=== PATIENT | male | born 1970 | race Hispanic/Latino ===

== ENCOUNTER 2016-10-22 16:45 | Inpatient (IN) | payer MEDICARE ==
[2016-10-22] MEDS ORDERED: D50W (25GM) IV PRN (17:54)
[2016-10-22] MEDS ORDERED: TYLENOL PO PRN (17:54)
[2016-10-22] MEDS ORDERED: DULCOLAX PR PRN (17:54)
[2016-10-22] MEDS ORDERED: SENOKOT PO PRN (17:54)
[2016-10-22] MEDS ORDERED: DUONEB 0.5 MG-3 MG/3 ML SOLN IH PRN (18:05)
[2016-10-22] MEDS ORDERED: ALUM-MAG HYDROX-SIMETH 200-200-20MG/5ML PO PRN (18:16)
[2016-10-22] MEDS ORDERED: CATAPRES-TTS PATCH TD SCH (20:00)
[2016-10-22] MEDS: LEVAQUIN PO SCH (22:27)
[2016-10-22] MEDS: FLAGYL PO SCH (22:27)
[2016-10-22] MEDS: DIFLUCAN PO SCH (22:28)
[2016-10-22] MEDS: COREG PO SCH (22:29)
[2016-10-22] MEDS: NOVOLOG SUB-Q SCH (22:30)
[2016-10-22] MEDS: HEPARIN SUB-Q SCH (22:45)
[2016-10-23 05:20] LABS: Basophils % (Auto) 0.4 % (0.0-1.8); Eosinophils % (Auto) 2.3 % (0.0-4.3); Hematocrit 25.9 % (35.5-45.6); Hemoglobin 8.4 gm/dl (11.8-15.2); Mean Corpuscular HGB Conc 32 % (32-34); Mean Corpuscular Hemoglobin 29 pg (28-32); Mean Corpuscular Volume 89 fl (84-94); Platelet Count 235 K/mm3 (140-440); Red Blood Count 2.93 M/mm3 (3.65-5.03); Red Cell Distribution Width 14.9 % (13.2-15.2); White Blood Count 7.1 K/mm3 (4.5-11.0)
[2016-10-23 05:33] LABS: Albumin 2.5 g/dL (3.9-5); Albumin/Globulin Ratio 0.5 %; BUN/Creatinine Ratio 6.05; Bilirubin,Total 0.5 mg/dL (0.1-1.2); Calcium 8.3 mg/dL (8.4-10.2); Total Protein 7.3 g/dL (6.3-8.2)
[2016-10-23] MEDS: FLAGYL PO SCH ×3 (06:40→21:28)
[2016-10-23] MEDS: NOVOLOG SUB-Q SCH ×4 (07:30→22:45)
[2016-10-23] MEDS: PROzac PO SCH (11:00)
[2016-10-23] MEDS: LASIX PO SCH (11:00)
[2016-10-23] MEDS: GLUCOTROL PO SCH ×2 (11:00→17:21)
[2016-10-23] MEDS: DIFLUCAN PO SCH (11:00)
[2016-10-23] MEDS: HEPARIN SUB-Q SCH ×2 (11:00→22:30)
[2016-10-23] MEDS: PEPCID PO SCH (11:00)
[2016-10-23] MEDS: COREG PO SCH ×2 (11:00→21:29)
[2016-10-23] MEDS: PLAVIX PO SCH (11:00)
--- NOTE | 2016-10-23 11:42 | History and Physical Report ---
History of Present Illness Date: 10/23/16 Referring Facility: [facility] Date of admission: 10/22/16 16:45 Chief Complaint: Acute respiratory Failure with hypoxia History of present illness: POST ADMISSION PHYSICIAN EVALUATION ONSET DATE: 09/30/2016 IMPAIRMENT GROUP CODE: 17.52 ETIOLOGIC DIAGNOSIS: Acute respiratory Failure with hypoxia STATUS CHANGES SINCE PREADMISSION SCREENING: PAS has been reviewed. In comparison, pt reports improved respiratory status; reports being able to remove oxygen via nasal cannula at times. He continues with generalized fatigue and functional deficits. Pt remains an appropriate candidate for IRU admission. PREVIOUS FUNCTIONAL STATUS: Independent with gait, transfers, ADLs CURRENT FUNCTIONAL STATUS: Per PAS, S/U to [facility] for ADLs, CGA 10 feet x2 with RW; therapy evaluations to be initiated on today HPI 45 y.o. male readmitted to [facility] after inpatient treatment for influenza and community acquired pneumonia. Pt returned secondary to worsening shortness of breath and hypoxia; O2 sats 72 on room air on admission. CXR revealed large left lower lobe infiltrate; pt was initiated on IV ABX for sepsis ; required high flow oxygen. Unfortunately, pt later required intubation (10/01 ) due to worsening respiratory status; extubated 10/02. Pt was re-intubated x2 ( 10/04, 10/11) due to fluid overload; found to be in renal failure and initiated on hemodialysis. Acute care course was further complicated by acute cholecystitis/cystic duct obstruction; CT guided gallbladder drain placed by IR on 10/16; cultures positive for lamont albicans. Drain is to remain for 6 weeks ; oral ABX until 11/13. Pt was noted to hve functional decline in mobility and self cares due to prolonged hospital course. Pt is now admitted for aggressive therapies and ongoing medical management. 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 denies: smoking, alcohol abuse Family history: CAD, cancer, diabetes, hypertension Medications and Allergies Allergies Allergy/AdvReac Type Severity Reaction Status Date / Time No Known Allergies Allergy Unverified 10/22/16 17:53 Active Meds: Active Medications Acetaminophen (Tylenol) 650 mg PO Q4H PRN PRN Reason: Pain MILD(1-3)/Fever >100.5/BEJARANO Al Hydrox/Mg Hydrox/Simethicone (Alum-Mag Hydrox-Simeth [phone]/5ml) 30 ml PO Q4H PRN PRN Reason: Indigestion Albuterol/Ipratropium (Duoneb 0.5 Mg-3 Mg/3 Ml Soln) 1 ampul IH Q6HRT PRN PRN Reason: Wheezing Atorvastatin Calcium (Lipitor) 80 mg PO QHS [facility] Last Admin: 10/22/16 22:29 Dose: 80 mg Bisacodyl (Dulcolax) 10 mg MT QDAY PRN PRN Reason: Constipation unrelieved by MOM Carvedilol (Coreg) 25 mg PO BID [facility] Last Admin: 10/22/16 22:29 Dose: 25 mg Clonidine HCl (Catapres-Tts Patch) 0.1 mg TD Fr [facility] Last Admin: 10/22/16 22:30 Dose: 0.1 mg Clopidogrel Bisulfate (Plavix) 75 mg PO QDAY [facility] Dextrose (D50w (25gm)) 50 ml IV PRN PRN PRN Reason: Hypoglycemia Famotidine (Pepcid) 20 mg PO QDAY [facility] Fluconazole (Diflucan) 200 mg PO QDAY [facility] Stop: 11/14/16 19:59 Last Admin: 10/22/16 22:28 Dose: 200 mg Fluoxetine HCl (Prozac) 10 mg PO QDAY [facility] Furosemide (Lasix) 40 mg PO QDAY [facility] Glipizide (Glucotrol) 10 mg PO BIDDIAB [facility] Heparin Sodium (Porcine) (Heparin) 5,000 unit SUB-Q Q12HR [facility] Last Admin: 10/22/16 22:45 Dose: 5,000 unit Insulin Aspart (Novolog) 0 units SUB-Q ACHS [facility] PRN Reason: Protocol Last Admin: 10/22/16 22:30 Dose: 1 units Levofloxacin (Levaquin) 500 mg PO Q48H [facility] Stop: 11/13/16 19:59 Last Admin: 10/22/16 22:27 Dose: 500 mg Metronidazole (Flagyl) 500 mg PO Q8HR [facility] Stop: 11/13/16 21:59 Last Admin: 10/23/16 06:40 Dose: 500 mg Senna (Senokot) 8.6 mg PO Q12H PRN PRN Reason: Laxative Effect Review of Systems All systems: negative Ears, nose, mouth and throat: no headache Cardiovascular: no chest pain Respiratory: cough Gastrointestinal: no nausea, no vomiting, no constipation Genitourinary Male: no dysuria, no incontinence Musculoskeletal: gait dysfunction Neurological: weakness Exam - Constitutional Vitals: Vital Signs - 12hr 10/23/16 07:00 Temperature 97.3 F L Pulse Rate [ 68 Right Radial] Respiratory 20 Rate Blood Pressure 134/68 [Right Arm] General appearance: no acute distress, other (sitting up in bed; present) - EENT Eyes: EOM intact ENT: hearing intact - Neck Neck: supple, normal ROM - Respiratory Respiratory effort: normal Respiratory: bilateral: CTA - Cardiovascular Rhythm: regular Heart Sounds: Present: S1 & S2 - Extremities Extremity abnormal: edema (mild BLE, ankles) - Gastrointestinal General gastrointestinal: Present: soft, non-tender, non-distended, normal bowel sounds, other (GB drain in place to RU abdomen) - Integumentary Integumentary: Present: clear - Neurologic Neurologic: CNII-XII intact, moves all extremities (4/5 strength), other ( sensation grossly intact) - Psychiatric Psychiatric: appropriate mood/affect, intact judgment & insight, memory intact, cooperative - Labs CBC & Chem 7: 10/23/16 04:16 10/23/16 04:16 Labs: Laboratory Results - last 72 hr 10/22/16 10/23/16 10/23/16 22:28 04:16 04:16 WBC 7.1 RBC 2.93 L Hgb 8.4 L Hct 25.9 L MCV 89 MCH 29 MCHC 32 RDW 14.9 Plt Count 235 Lymph % (Auto) 14.6 [place] % (Auto) 15.9 H Eos % (Auto) 2.3 Baso % (Auto) 0.4 Lymph # 1.0 L [place] # 1.1 H Eos # 0.2 Baso # 0.0 Seg Neutrophils % 66.8 Seg Neutrophils # 4.7 Sodium 132 L Potassium 4.0 Chloride 91.0 L Carbon Dioxide 27 Anion Gap 18 BUN 23 H Creatinine 3.8 H Estimated GFR 17 BUN/Creatinine Ratio 6.05 Glucose 126 H POC Glucose 178 H Calcium 8.3 L Total Bilirubin 0.5 AST 49 H ALT 30 Alkaline Phosphatase 140 H Total Protein 7.3 Albumin 2.5 L Albumin/Globulin Ratio 0.5 10/23/16 06:31 WBC RBC Hgb Hct MCV MCH MCHC RDW Plt Count Lymph % (Auto) [place] % (Auto) Eos % (Auto) Baso % (Auto) Lymph # [place] # Eos # Baso # Seg Neutrophils % Seg Neutrophils # Sodium Potassium Chloride Carbon Dioxide Anion Gap BUN Creatinine Estimated GFR BUN/Creatinine Ratio Glucose POC Glucose 125 H Calcium Total Bilirubin AST ALT Alkaline Phosphatase Total Protein Albumin Albumin/Globulin Ratio Assessment and Plan Assessment and plan: T45 y.o. male with acute respiratory failure secondary to sepsis due to pneumonia and acute cholecystitis; requiring intubation x3; remains on oxygen via nasal cannula; gait dysfunction. The patient is medically stable, however, requires ongoing medical management. Pt is appropriate for inpatient rehabilitation admission and is thought to be able to tolerate at least 3 hours of therapy a day, 5 days a week including 1.5 hours of physical therapy and 1.5 hours of occupational therapy. Patient is able to understand and follow basic directions and has attainable rehab goals. Potential barriers/complications include falls, respiratory failure, DVT, PE, depression, syncope, hypotension, hypoglycemia. Plan 1. Rehabilitation- Pt will undergo multidisciplinary/integrative rehab PT/OT, Nursing. Areas to be addressed include, but are not limited to PT for mobility , strengthening, transfer training, ROM, endurance, stairs, balance; OT for ADLs , household tasks, adaptive equipment; Nursing for carryover of therapies, pain control, education, skin integrity, medication management, bowel/bladder management; Nutrition as needed; support services tech for discharge planning and equipment needs. Potential interventions include appropriate assistive device or adaptive equipment. Expected overall level of functional improvement by discharge is [facility] for ADLs, gait, transfers. Pt will tentatively be discharged home with outpatient PT. Estimated length of stay is 7-10 days. 2. s/p acute resp failure- wean oxygenas tolerated; no t on home oxygen prior to recent hospitalization 3. sepsis secondary to PNA, acute cholycystitis- continue ABX; maintain GB drain for total of 6 weeks as recommended 4. CKD- new on HD since acute care course; continue MWF; Nephrology consulted 5. anemia of CKD- s/p multiple units pRBCs prior to admission; currently stable ; follow closely 6. HTN- stable on current regimen 7. DM- pt refusing scheduled mealtime insulin, will hold for now as he was not on this prior to recent hospitalization; continue glipizide, ADA diet; SSI 8. CAD- continue plavix 9. DVT px-heparin - Patient Problems (1) Acute respiratory failure with hypoxia Current Visit: Yes Status: Acute (2) Acute cholecystitis Current Visit: Yes Status: Acute (3) Chronic kidney disease with end stage renal failure on dialysis Current Visit: Yes Status: Acute (4) Diabetes Current Visit: Yes Status: Chronic Qualifiers: Diabetes mellitus type: type 2 Diabetes mellitus complication status: with hyperglycemia Diabetes mellitus complication detail: D Diabetic retinopathy severity: D Proliferative retinopathy type: P Diabetes mellitus macular edema: D Diabetes mellitus custodial insulin use: without custodial use Laterality: L Chronic kidney disease stage: C Qualified Code(s): E11.65 - Type 2 diabetes mellitus with hyperglycemia (5) HTN (hypertension) Current Visit: Yes Status: Chronic Qualifiers: Hypertension type: essential hypertension Qualified Code(s): I10 - Essential (primary) hypertension (6) CAD (coronary artery disease) Current Visit: Yes Status: Chronic Qualifiers: Coronary Disease-Associated Artery/Lesion type: [place] artery [place] vs. transplanted heart: [place] heart Associated angina: without angina Qualified Code(s): I25.10 - Atherosclerotic heart disease of [place] coronary artery without angina pectoris (7) Unsteady gait Current Visit: Yes Status: Acute
[2016-10-24] MEDS: FLAGYL PO SCH ×3 (06:59→22:12)
[2016-10-24] MEDS: NOVOLOG SUB-Q SCH ×4 (08:28→22:13)
[2016-10-24] MEDS: GLUCOTROL PO SCH ×2 (08:30→19:06)
--- NOTE | 2016-10-24 10:16 | Consultation ---
History of Present Illness - Reason for Consult Consult date: 10/24/16 end stage renal disease Requesting physician: BRENDON WHITE - History of Present Illness 45 y.o. male readmitted to [facility] after inpatient treatment for influenza and community acquired pneumonia. Pt returned secondary to worsening shortness of breath and hypoxia; O2 sats 72 on room air on admission. CXR revealed large left lower lobe infiltrate; pt was initiated on IV ABX for sepsis ; required high flow oxygen. Unfortunately, pt later required intubation (10/01 ) due to worsening respiratory status; extubated 10/02. Pt was re-intubated x2 ( 10/04, 10/11) due to fluid overload; found to be in renal failure and initiated on hemodialysis. Acute care course was further complicated by acute cholecystitis/cystic duct obstruction; CT guided gallbladder drain placed by IR on 10/16; cultures positive for lamont albicans. Drain is to remain for 6 weeks ; oral ABX until 11/13. Pt was noted to hve functional decline in mobility and self cares due to prolonged hospital course. Pt is now admitted for aggressive therapies and ongoing medical management. 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 denies: smoking, alcohol abuse Family history: CAD, cancer, diabetes, hypertension Medications and Allergies Allergies Allergy/AdvReac Type Severity Reaction Status Date / Time No Known Allergies Allergy Unverified 10/22/16 17:53 Active Meds: Active Medications Acetaminophen (Tylenol) 650 mg PO Q4H PRN PRN Reason: Pain MILD(1-3)/Fever >100.5/BEJARANO Al Hydrox/Mg Hydrox/Simethicone (Alum-Mag Hydrox-Simeth [phone]/5ml) 30 ml PO Q4H PRN PRN Reason: Indigestion Albuterol/Ipratropium (Duoneb 0.5 Mg-3 Mg/3 Ml Soln) 1 ampul IH Q6HRT PRN PRN Reason: Wheezing Atorvastatin Calcium (Lipitor) 80 mg PO QHS [facility] Last Admin: 10/22/16 22:29 Dose: 80 mg Bisacodyl (Dulcolax) 10 mg MT QDAY PRN PRN Reason: Constipation unrelieved by MOM Carvedilol (Coreg) 25 mg PO BID [facility] Last Admin: 10/22/16 22:29 Dose: 25 mg Clonidine HCl (Catapres-Tts Patch) 0.1 mg TD Fr [facility] Last Admin: 10/22/16 22:30 Dose: 0.1 mg Clopidogrel Bisulfate (Plavix) 75 mg PO QDAY [facility] Dextrose (D50w (25gm)) 50 ml IV PRN PRN PRN Reason: Hypoglycemia Famotidine (Pepcid) 20 mg PO QDAY [facility] Fluconazole (Diflucan) 200 mg PO QDAY [facility] Stop: 11/14/16 19:59 Last Admin: 10/22/16 22:28 Dose: 200 mg Fluoxetine HCl (Prozac) 10 mg PO QDAY [facility] Furosemide (Lasix) 40 mg PO QDAY [facility] Glipizide (Glucotrol) 10 mg PO BIDDIAB [facility] Heparin Sodium (Porcine) (Heparin) 5,000 unit SUB-Q Q12HR [facility] Last Admin: 10/22/16 22:45 Dose: 5,000 unit Insulin Aspart (Novolog) 0 units SUB-Q ACHS [facility] PRN Reason: Protocol Last Admin: 10/22/16 22:30 Dose: 1 units Levofloxacin (Levaquin) 500 mg PO Q48H [facility] Stop: 11/13/16 19:59 Last Admin: 10/22/16 22:27 Dose: 500 mg Metronidazole (Flagyl) 500 mg PO Q8HR [facility] Stop: 11/13/16 21:59 Last Admin: 10/23/16 06:40 Dose: 500 mg Senna (Senokot) 8.6 mg PO Q12H PRN PRN Reason: Laxative Effect Review of Systems All systems: negative Ears, nose, mouth and throat: no headache Cardiovascular: no chest pain Respiratory: cough Gastrointestinal: no nausea, no vomiting, no constipation Genitourinary Male: no dysuria, no incontinence Musculoskeletal: gait dysfunction Neurological: weakness Exam - Constitutional Vitals: Vital Signs - 12hr 10/23/16 07:00 Temperature 97.3 F L Pulse Rate [ 68 Right Radial] Respiratory 20 Rate Blood Pressure 134/68 [Right Arm] Past History Past Medical History: anemia (secondary to CKD), CAD, COPD, diabetes (neuorpathy ), GERD, hypertension, hyperlipidemia, renal failure (CKD, stage 3), stroke ( with residual deficits), other (anxiety, 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 denies: smoking, alcohol abuse Family history: CAD, cancer, diabetes, hypertension Medications and Allergies Allergies Allergy/AdvReac Type Severity Reaction Status Date / Time No Known Allergies Allergy Unverified 10/22/16 17:53 Active Meds: Active Medications Acetaminophen (Tylenol) 650 mg PO Q4H PRN PRN Reason: Pain MILD(1-3)/Fever >100.5/BEJARANO Al Hydrox/Mg Hydrox/Simethicone (Alum-Mag Hydrox-Simeth [phone]/5ml) 30 ml PO Q4H PRN PRN Reason: Indigestion Albuterol/Ipratropium (Duoneb 0.5 Mg-3 Mg/3 Ml Soln) 1 ampul IH Q6HRT PRN PRN Reason: Wheezing Atorvastatin Calcium (Lipitor) 80 mg PO QHS [facility] Last Admin: 10/23/16 21:32 Dose: 80 mg Bisacodyl (Dulcolax) 10 mg MT QDAY PRN PRN Reason: Constipation unrelieved by MOM Carvedilol (Coreg) 25 mg PO BID [facility] Last Admin: 10/23/16 21:29 Dose: 25 mg Clonidine HCl (Catapres-Tts Patch) 0.1 mg TD Fr [facility] Last Admin: 10/22/16 22:30 Dose: 0.1 mg Clopidogrel Bisulfate (Plavix) 75 mg PO QDAY [facility] Last Admin: 10/23/16 11:00 Dose: 75 mg Dextrose (D50w (25gm)) 50 ml IV PRN PRN PRN Reason: Hypoglycemia Famotidine (Pepcid) 20 mg PO QDAY [facility] Last Admin: 10/23/16 11:00 Dose: 20 mg Fluconazole (Diflucan) 200 mg PO QDAY [facility] Stop: 11/14/16 19:59 Last Admin: 10/23/16 11:00 Dose: 200 mg Fluoxetine HCl (Prozac) 10 mg PO QDAY [facility] Last Admin: 10/23/16 11:00 Dose: 10 mg Furosemide (Lasix) 40 mg PO QDAY [facility] Last Admin: 10/23/16 11:00 Dose: 40 mg Glipizide (Glucotrol) 10 mg PO BIDDIAB [facility] Last Admin: 10/24/16 08:30 Dose: Not Given Heparin Sodium (Porcine) (Heparin) 5,000 unit SUB-Q Q12HR [facility] Last Admin: 10/23/16 22:30 Dose: Not Given Insulin Aspart (Novolog) 0 units SUB-Q ACHS [facility] PRN Reason: Protocol Last Admin: 10/24/16 08:28 Dose: Not Given Levofloxacin (Levaquin) 500 mg PO Q48H [facility] Stop: 11/13/16 19:59 Last Admin: 10/22/16 22:27 Dose: 500 mg Metronidazole (Flagyl) 500 mg PO Q8HR [facility] Stop: 11/13/16 21:59 Last Admin: 10/24/16 06:59 Dose: 500 mg Senna (Senokot) 8.6 mg PO Q12H PRN PRN Reason: Laxative Effect Exam - Vital Signs Vital signs: Vital Signs Temp Resp 99.8 F H 18 10/22/16 18:24 10/22/16 18:24 - Physical Exam Narrative exam: General appearance: no acute distress, other (sitting up in bed; present) - EENT Eyes: EOM intact ENT: hearing intact - Neck Neck: supple, normal ROM - Respiratory Respiratory effort: normal Respiratory: bilateral: CTA - Cardiovascular Rhythm: regular Heart Sounds: Present: S1 & S2 - Extremities Extremity abnormal: edema (mild BLE, ankles) - Gastrointestinal General gastrointestinal: Present: soft, non-tender, non-distended, normal bowel sounds, other (GB drain in place to RU abdomen) - Integumentary Integumentary: Present: clear - Neurologic Neurologic: CNII-XII intact, moves all extremities (4/5 strength), other ( sensation grossly intact) - Psychiatric Psychiatric: appropriate mood/affect, intact judgment & insight, memory intact, cooperative Results - Lab Results 10/23/16 04:16 10/23/16 04:16 Most recent lab results Calcium 8.3 mg/dL (8.4-10.2) L 10/23/16 04:16 Assessment and Plan Impression: * esrd * dm * htn * anemia * decondtioning Plan: * strict i/os * daily weights * avoid nephrotoxins * lytes/cbc prn * dailys q mwf * follow up for renal recovery
[2016-10-24] MEDS: PROzac PO SCH (11:49)
[2016-10-24] MEDS: COREG PO SCH ×2 (11:50→22:13)
[2016-10-24] MEDS: PLAVIX PO SCH (11:51)
[2016-10-24] MEDS: DIFLUCAN PO SCH (11:51)
[2016-10-24] MEDS: PEPCID PO SCH (11:52)
[2016-10-24] MEDS: LASIX PO SCH (11:52)
[2016-10-24] MEDS: HEPARIN SUB-Q SCH ×2 (11:54→22:17)
[2016-10-24] MEDS ORDERED: NACL 0.9% 100 ML IV PRN (13:32)
[2016-10-24] MEDS: LEVAQUIN PO SCH (22:12)
[2016-10-25] MEDS: FLAGYL PO SCH ×3 (05:46→23:14)
--- NOTE | 2016-10-25 07:57 | Progress Note ---
Assessment and Plan Impression: * esrd * dm * htn * anemia * decondtioning Plan: * strict i/os * daily weights * avoid nephrotoxins * lytes/cbc prn * dailysis q mwf * follow up for renal recovery Subjective Date of service: 10/25/16 Principal diagnosis: renal failure Interval history: resting well in bed today Objective - Exam Narrative Exam: General appearance: no acute distress, other (sitting up in bed; present) - EENT Eyes: EOM intact ENT: hearing intact - Neck Neck: supple, normal ROM - Respiratory Respiratory effort: normal Respiratory: bilateral: CTA - Cardiovascular Rhythm: regular Heart Sounds: Present: S1 & S2 - Extremities Extremity abnormal: edema (mild BLE, ankles) - Gastrointestinal General gastrointestinal: Present: soft, non-tender, non-distended, normal bowel sounds, other (GB drain in place to RU abdomen) - Integumentary Integumentary: Present: clear - Neurologic Neurologic: CNII-XII intact, moves all extremities (4/5 strength), other ( sensation grossly intact) - Psychiatric Psychiatric: appropriate mood/affect, intact judgment & insight, memory intact, cooperative - Vital Signs Vital signs: Vital Signs - 12hr 10/24/16 10/24/16 10/24/16 20:00 20:54 22:13 Pulse Rate 66 Respiratory 18 Rate Blood Pressure 159/80 O2 Sat by Pulse 96 Oximetry - Lab 10/23/16 04:16 10/23/16 04:16 Most recent lab results Calcium 8.3 mg/dL (8.4-10.2) L 10/23/16 04:16
[2016-10-25] MEDS: NOVOLOG SUB-Q SCH ×4 (09:03→23:10)
[2016-10-25 09:36] LABS: Hematocrit 28.8 % (35.5-45.6); Hemoglobin 9.3 gm/dl (11.8-15.2); Mean Corpuscular HGB Conc 32 % (32-34); Mean Corpuscular Hemoglobin 29 pg (28-32); Mean Corpuscular Volume 89 fl (84-94); Platelet Count 298 K/mm3 (140-440); Red Blood Count 3.25 M/mm3 (3.65-5.03); Red Cell Distribution Width 14.7 % (13.2-15.2)
[2016-10-25 09:48] LABS: BUN/Creatinine Ratio 7.7; Calcium 8.6 mg/dL (8.4-10.2); Chloride 92.5 mmol/L (98-107); Potassium 4.3 mmol/L (3.6-5.0)
[2016-10-25] MEDS: DIFLUCAN PO SCH (10:58)
[2016-10-25] MEDS: PROzac PO SCH (10:58)
[2016-10-25] MEDS: PEPCID PO SCH (10:58)
[2016-10-25] MEDS: PLAVIX PO SCH (10:58)
[2016-10-25] MEDS: GLUCOTROL PO SCH ×2 (10:58→17:25)
[2016-10-25 11:00] LABS: Basophils % (Manual) 0 % (0.0-1.8); Blastocytes % (Manual) 0 %
[2016-10-25] MEDS: COREG PO SCH ×2 (11:01→23:14)
[2016-10-25] MEDS: LASIX PO SCH (11:02)
[2016-10-25 11:07] LABS: Anisocytosis 1+; Diff Status Complete; Polychromasia Few
[2016-10-25] MEDS: HEPARIN SUB-Q SCH ×2 (11:58→23:15)
--- NOTE | 2016-10-25 14:55 | Progress Note ---
Assessment and Plan 45 y.o. male with acute respiratory failure secondary to sepsis due to pneumonia and acute cholecystitis - s/p acute resp failure- s/p intubation x3 during acute care course; weaning oxygen; no respiratory complaints off oxygen on today - sepsis secondary to PNA, acute cholycystitis- continue ABX until 11/13; maintain GB drain for total of 6 weeks (11/26) as recommended; likely also with critical care myopathy due to history of sepsis, intubation/ICU course and significant weakness/gait dysfunction - gait dysfunction- tolerating PT well; ambulating >100 feet - CKD- new on HD since acute care course; continue MWF; Nephrology following - anemia of CKD- s/p multiple units pRBCs prior to admission; slightly improved ; continue to follow - HTN- stable - DM- episode of hypoglycemia over weekend; follow closely; continue glipizide, ADA diet; SSI - CAD- plavix - DVT px- heparin; pt refusing - Patient Problems (1) Acute respiratory failure with hypoxia Current Visit: Yes Status: Acute (2) Acute cholecystitis Current Visit: Yes Status: Acute (3) Chronic kidney disease with end stage renal failure on dialysis Current Visit: Yes Status: Acute (4) Diabetes Current Visit: Yes Status: Chronic Qualifiers: Diabetes mellitus type: type 2 Diabetes mellitus complication status: with hyperglycemia Diabetes mellitus complication detail: D Diabetic retinopathy severity: D Proliferative retinopathy type: P Diabetes mellitus macular edema: D Diabetes mellitus oil heaterman insulin use: without care home use Laterality: L Chronic kidney disease stage: C Qualified Code(s): E11.65 - Type 2 diabetes mellitus with hyperglycemia (5) HTN (hypertension) Current Visit: Yes Status: Chronic Qualifiers: Hypertension type: essential hypertension Qualified Code(s): I10 - Essential (primary) hypertension (6) CAD (coronary artery disease) Current Visit: Yes Status: Chronic Qualifiers: Coronary Disease-Associated Artery/Lesion type: [place] artery [place] vs. transplanted heart: [place] heart Associated angina: without angina Qualified Code(s): I25.10 - Atherosclerotic heart disease of [place] coronary artery without angina pectoris (7) Unsteady gait Current Visit: Yes Status: Acute (8) Critical illness myopathy Current Visit: Yes Status: Acute Subjective Date of service: 10/25/16 Principal diagnosis: acute respiratory failure Interval history: pt seen in room this AM, F/U IPR course, acute respiratory failure, critical care myopathy. Pt off oxygen, no complaints; OT present fro treatment Objective - Constitutional Vitals: Vital Signs - 12hr 10/25/16 10/25/16 10/25/16 08:00 10:00 11:01 Temperature 98 F Pulse Rate 66 Pulse Rate [ 66 From Monitor] Respiratory 20 Rate Blood Pressure 137/69 Blood Pressure 137/69 [Right Arm] O2 Sat by Pulse 95 95 Oximetry General appearance: Present: no acute distress - EENT Eyes: EOM intact ENT: hearing intact - Neck Neck: supple, normal ROM - Respiratory Respiratory effort: normal Respiratory: bilateral: CTA - Cardiovascular Rhythm: regular Heart Sounds: Present: S1 & S2 Extremities: No edema - Gastrointestinal General gastrointestinal: Present: soft, non-tender, non-distended, normal bowel sounds - Integumentary Integumentary: clear - Neurologic Neurologic: CNII-XII intact, moves all extremities - Psychiatric Psychiatric: appropriate mood/affect, cooperative - Allied health notes Allied health notes reviewed: PT (supervision for transfers; CGA for gait), OT ( s/u to [facility] for ADLs) - Labs CBC & Chem 7: 10/25/16 08:47 10/25/16 08:47 Labs: Abnormal lab results 10/24/16 10/24/16 10/25/16 Range/Units 16:28 21:36 06:49 RBC (3.65-5.03) M/mm3 Hgb (11.8-15.2) gm/dl Hct (35.5-45.6) % Seg Neuts % (Manual) (40.0-70.0) % Lymphocytes % (Manual) (13.4-35.0) % Monocytes % (Manual) (0.0-7.3) % Lymphocytes # (Manual) (1.2-5.4) K/mm3 Sodium (137-145) mmol/L Chloride (98-107) mmol/L BUN (9-20) mg/dL Creatinine (0.8-1.5) mg/dL Glucose (75-100) mg/dL POC Glucose 117 H 157 H 144 H (70-105) 10/25/16 10/25/16 Range/Units 08:47 08:47 RBC 3.25 L (3.65-5.03) M/mm3 Hgb 9.3 L (11.8-15.2) gm/dl Hct 28.8 L (35.5-45.6) % Seg Neuts % (Manual) 80.0 H (40.0-70.0) % Lymphocytes % (Manual) 8.0 L (13.4-35.0) % Monocytes % (Manual) 9.0 H (0.0-7.3) % Lymphocytes # (Manual) 0.6 L (1.2-5.4) K/mm3 Sodium 133 L (137-145) mmol/L Chloride 92.5 L (98-107) mmol/L BUN 37 H (9-20) mg/dL Creatinine 4.8 H (0.8-1.5) mg/dL Glucose 152 H (75-100) mg/dL POC Glucose (70-105)
--- NOTE | 2016-10-25 14:55 | IRU Plan of Care ---
Interdisciplinary Plan of Care - [facility] IRU INTERDISCIPLINARY PLAN: [facility] Inpatient Rehab Unit Plan of Care IRU Interdisciplinary Care Plan Start: 10/22/16 18: 01 Freq: Admission then PRN Status: Active Document 10/25/16 11:06 DB (Rec: 10/25/16 11:17 DB [id number]) Interdisciplinary Problem List Interdisciplinary Problem List Interdisciplinary Problem List Impaired Bathing/Grooming Query Text:Answers will Trigger Problems Impaired Dressing and Outcomes on Worklist. Impaired Mobility Impaired Transfers Impaired Toileting Knowledge Deficits Impaired Safety Medications Education Diabetes Education Impaired Oxygenation IRU Interdisciplinary Care Plan Therapy Services Therapy Services Will Include: Physical Therapy Query Text:Patient will be seen for a Occupational Therapy minimum of 3 hours of daily therapy 5 out of 7 days a week. Therapy intensity may be adjusted within a 7 consecutive day period to effectively serve the individual needs of the patient. Treatment Frequency/Intensity/Duration Treatment Frequency 5 days per week Treatment Intensity 1.5 hours per discipline (PT/OT ) daily Treatment Duration 10-14 days Problem Area: Eating/Swallowing Eating/Swallowing Outcomes Eating/Swallowing Interventions Problem Area: Bathing/Grooming Bathing/Grooming Outcomes Improve Banner w/ Grooming Improve Banner w/ Bathing Bathing/Grooming Interventions ADL Training Use of Assistive Devices Therapeutic Exercise Therapeutic Activity Balance Work Activity Tolerance Work Patient/Caregiver Education Problem Area: Dressing Dressing Outcomes Improve Banner w/ UB Dressing Improve Banner w/ LB Dressing Dressing Interventions ADL Training Use of Assistive Devices Therapeutic Exercise Balance Work Patient/Caregiver Education Problem Area: Mobility Mobility Outcomes Improve Banner w/ Bed Mobility Improve Banner w/ Ambulation Improve Banner w/ Stairs /Curb Improve Banner w/ Wheelchair Mobility Interventions Therapeutic Exercise Use of Assistive Devices Patient/Caregiver Education Gait Training W/C Mobility Work Problem Area: Transfers Transfers Outcomes Improve Banner w/ Bed Transfers Improve Banner w/ Toilet Transfers Improve Banner w/ Tub/ Shower Transfers Improve Banner w/ Car Transfers Transfers Interventions Transfer Training Therapeutic Exercise Activity Tolerance Work Use of Assistive Devices Patient/Caregiver Education Problem Area: Bowel/Bladder Managment Bowel/Bladder Outcomes Bowel/Bladder Interventions Problem Area: Toileting Toileting Outcomes Improve Banner w/ Toileting Toileting Interventions ADL Training Balance Work Use of Assistive Devices Patient/Caregiver Education Problem Area: Nutrition Nutrition Outcomes Understand and Comply w/ Diet Improve/Maintain Oral Intake Nutrition Interventions Monitor Nutrient Intake Patient/Caregiver Education Problem Area: Comprehension Comprehension Outcomes Comprehension Interventions Problem Area: Expression Expression Outcomes Expression Interventions Problem Area: Problem Solving Problem Solving Outcomes Problem Solving Interventions Problem Area: Memory Memory Outcomes Memory Interventions Problem Area: Pain Management Pain Management Outcomes Pain Management Interventions Problem Area: Knowledge Deficits Knowledge Deficits Outcomes Verbalize Precautions Knowledge Deficits Interventions Disease/Injury/Sx. Intervention Education Medication Use Education Disease Management Education Health Maintainence Education Safety Education Problem Area: Skin/Tissue Integrity Skin/Tissue Integrity Outcomes Skin/Tissue Integrity Interventions Problem Area: Social Interaction Social Interaction Outcomes Social Interaction Interventions Problem Area: Adjustment to Disability Adjustment to Disability Outcomes Adjustment to Disability Interventions Problem Area: Discharge Concerns Discharge Concerns Outcomes Discharge Home w/ Necessary Equipment Have Home Health/Outpatient Services Discharge Concerns Interventions Discharge Planning Family/Caregiver Conference Family/Caregiver Training Problem Area: Community Reintegration Community Reintegration Outcomes Demonstrate Understanding of Community Resources Community Reintegration Interventions Provide Community Resources Problem Area: Home Management Home Management Outcomes Home Management Interventions Problem Area: Safety Safety Outcomes Provide Safe Environment Perform Selfcare Safely Demonstrate Good Safety w/ Transfers/Mobility Safety Interventions Identify Fall Risk [place] Pt. to Environment Reduce Environmental Hazards Problem Area: Medication Education Medication Education Outcomes Patient/Caregiver will Verbalize Understanding of Medications Medication Education Interventions Explain Administration/Side Effects/Interactions Problem Area: Diabetes Education Diabetes Education Outcomes Demonstrate Knowledge of Resources Availlable in Diabetic Ed. Folder Diabetes Education Interventions Give Pt. Diabetes Education Folder Discuss Pathophysiology of Diabetes Problem Area: Oxygenation Oxygenation Outcomes Maintain Adequate Oxygenation Oxygenation Interventions Assess Respiratory Status Elevate Head of Bed Problem Area: Cardiovascular Cardiovascular Outcomes Cardiovascular Interventions Physician Only Medical Prognosis and Rehabilitation Patient demonstrates good Potential (Completed by Physician) rehab potential. Medical Prognosis: Good This plan of care has been developed based on the findings from the pre- admission assessment, post admission physician evaluation, information gathered from the assessments from all therapy disciplines and other pertinent clinicians. The plan of care has been reviewed and discussed in collaboration with the interdisciplinary team. The plan of care will be reviewed and updated at least weekly. 45 y.o. male with acute respiratory failure secondary to sepsis due to pneumonia and acute cholecystitis; required intubation x3; initially on oxygen via nasal cannula when admitted to IRU; gait dysfunction. The patient is remains at risk for falls, respiratory failure, DVT, PE, depression, syncope, hypotension, hypoglycemia. On today, pt is off oxygen without any respiratory complaints. Blood pressure remains stable; noted to have an episode of hypoglycemia on yesterday. Will need ongoing monitoring of HTN/DM. Currently remains on hemodialysis (new during acute care course); anemia improving. Pt is tolerating therapies well; continues with generalized weakness due to prolonged hospital course. 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 Pt remains an appropriate candidate for IRU admission.
[2016-10-25] MEDS ORDERED: HEPARIN IV PRN (19:49)
[2016-10-25] MEDS ORDERED: NACL 0.9 (PRIMING MACHINE ONLY DIALYSIS) MC ONE (21:11)
[2016-10-25] MEDS ORDERED: CATHFLO IV ONE (21:41)
[2016-10-25] MEDS: PROCRIT IV PRN (21:47)
[2016-10-25] MEDS ORDERED: WATER FOR INJ (PF) 10 ML ONE (21:56)
[2016-10-26 05:13] LABS: Basophils % (Auto) 0.5 % (0.0-1.8); Eosinophils % (Auto) 1.5 % (0.0-4.3); Hematocrit 30.7 % (35.5-45.6); Hemoglobin 9.7 gm/dl (11.8-15.2); Mean Corpuscular HGB Conc 32 % (32-34); Mean Corpuscular Hemoglobin 29 pg (28-32); Mean Corpuscular Volume 91 fl (84-94); Platelet Count 269 K/mm3 (140-440); Red Blood Count 3.39 M/mm3 (3.65-5.03); Red Cell Distribution Width 14.9 % (13.2-15.2); White Blood Count 8.7 K/mm3 (4.5-11.0)
[2016-10-26 05:24] LABS: BUN/Creatinine Ratio 6.57; Calcium 8.2 mg/dL (8.4-10.2); Chloride 95.2 mmol/L (98-107); Potassium 3.9 mmol/L (3.6-5.0)
[2016-10-26] MEDS: FLAGYL PO SCH ×3 (06:34→22:01)
[2016-10-26] MEDS: NOVOLOG SUB-Q SCH ×3 (07:30→22:02)
--- NOTE | 2016-10-26 07:39 | Progress Note ---
Assessment and Plan Impression: * esrd * dm * htn * anemia * decondtioning * nausea and emesis Plan: * strict i/os * daily weights * avoid nephrotoxins * lytes/cbc prn * dailysis q mwf * check ct abd pelvis, with recent gb disease and chary drain in place * arrange outpatient dialysis placement * follow up for renal recovery Subjective Date of service: 10/26/16 Principal diagnosis: acute respiratory failure Interval history: resting well in bed today Objective - Exam Narrative Exam: General appearance: no acute distress, other (sitting up in bed; present) - EENT Eyes: EOM intact ENT: hearing intact - Neck Neck: supple, normal ROM - Respiratory Respiratory effort: normal Respiratory: bilateral: CTA - Cardiovascular Rhythm: regular Heart Sounds: Present: S1 & S2 - Extremities Extremity abnormal: edema (mild BLE, ankles) - Gastrointestinal General gastrointestinal: Present: soft, non-tender, non-distended, normal bowel sounds, other (GB drain in place to RU abdomen) - Integumentary Integumentary: Present: clear - Neurologic Neurologic: CNII-XII intact, moves all extremities (4/5 strength), other ( sensation grossly intact) - Psychiatric Psychiatric: appropriate mood/affect, intact judgment & insight, memory intact, cooperative - Vital Signs Vital signs: Vital Signs - 12hr 10/25/16 10/25/16 10/25/16 19:45 20:00 20:15 Temperature Pulse Rate 68 67 74 Pulse Rate [ Right Brachial] Respiratory Rate Blood Pressure 165/85 148/79 128/74 Blood Pressure [Right Arm] O2 Sat by Pulse Oximetry 10/25/16 10/25/16 10/25/16 20:30 20:45 21:00 Temperature Pulse Rate 69 72 70 Pulse Rate [ Right Brachial] Respiratory Rate Blood Pressure 159/87 141/82 142/80 Blood Pressure [Right Arm] O2 Sat by Pulse Oximetry 10/25/16 10/25/16 10/25/16 21:15 21:25 21:40 Temperature 98.5 F Pulse Rate 71 75 75 Pulse Rate [ Right Brachial] Respiratory 18 Rate Blood Pressure 134/79 130/78 130/78 Blood Pressure [Right Arm] O2 Sat by Pulse Oximetry 10/25/16 10/25/16 10/25/16 22:00 22:40 23:14 Temperature 98.6 F Pulse Rate 75 Pulse Rate [ 75 Right Brachial] Respiratory 18 Rate Blood Pressure 116/80 Blood Pressure 116/80 [Right Arm] O2 Sat by Pulse 97 97 Oximetry - Lab 10/26/16 04:23 10/26/16 04:23 Most recent lab results Calcium 8.2 mg/dL (8.4-10.2) L 10/26/16 04:23
--- NOTE | 2016-10-26 08:26 | XRay Report ---
Chest 2 views. Findings: The heart and pulmonary vessels are normal. The lungs are clear. There is no pleural fluid. A Vas-Cath is noted in satisfactory position. Impression: No acute findings.
[2016-10-26] MEDS: PLAVIX PO SCH (09:05)
[2016-10-26] MEDS: PROzac PO SCH (09:05)
[2016-10-26] MEDS: COREG PO SCH ×2 (09:06→22:01)
[2016-10-26] MEDS: GLUCOTROL PO SCH ×2 (09:07→19:54)
[2016-10-26] MEDS: DIFLUCAN PO SCH (09:07)
[2016-10-26] MEDS: PEPCID PO SCH (09:07)
[2016-10-26] MEDS: LASIX PO SCH (09:07)
[2016-10-26] MEDS: HEPARIN SUB-Q SCH ×2 (09:08→22:00)
[2016-10-26] MEDS ORDERED: PHENERGAN PO PRN (10:09)
[2016-10-26] MEDS ORDERED: PNEUMOVAX 23 IM ONE (12:00)
--- NOTE | 2016-10-26 12:07 | Cat Scan Report ---
CT of the abdomen and pelvis without contrast. Findings: No prior studies are available for comparison. The liver and spleen are normal. A cholecystotomy tube is seen entering the right flank, traverses the liver and is in good position within the gallbladder lumen. There is no pericholecystic inflammatory change. The pancreas appears normal. There are 2 small calcifications in the renal deanne which appear to be vascular. No intrarenal stones are seen. There is no hydronephrosis or renal mass. Minimal perinephric stranding is noted bilaterally. There are no pelvic masses or abnormal fluid collections. No mesenteric inflammation seen. There is no free air. No evidence of appendicitis. Impression: Percutaneous cholecystotomy drainage catheter is in satisfactory position within the lumen of the gallbladder. There are no other significant findings.
--- NOTE | 2016-10-26 16:19 | Progress Note ---
Assessment and Plan 45 y.o. 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 Sats maintained above 97% during therapies. CT abdomen/pelvis and CXR negative for any acute findings; completed due to nausea and vomiting this AM; GB tube noted to be in good position. Pt refused therapies on today and states he is ready to go home despite ongoing functional deficits. Will plan to d/c home in next 1-2 days with outpatient therapies pending resolution of nausea and vomiting. - Patient Problems (1) Acute respiratory failure with hypoxia Current Visit: Yes Status: Acute (2) Acute cholecystitis Current Visit: Yes Status: Acute (3) Chronic kidney disease with end stage renal failure on dialysis Current Visit: Yes Status: Acute (4) Diabetes Current Visit: Yes Status: Chronic Qualifiers: Diabetes mellitus type: type 2 Diabetes mellitus complication status: with hyperglycemia Diabetes mellitus complication detail: D Diabetic retinopathy severity: D Proliferative retinopathy type: P Diabetes mellitus macular edema: D Diabetes mellitus half-way insulin use: without intermission coordinator use Laterality: L Chronic kidney disease stage: C Qualified Code(s): E11.65 - Type 2 diabetes mellitus with hyperglycemia (5) HTN (hypertension) Current Visit: Yes Status: Chronic Qualifiers: Hypertension type: essential hypertension Qualified Code(s): I10 - Essential (primary) hypertension (6) CAD (coronary artery disease) Current Visit: Yes Status: Chronic Qualifiers: Coronary Disease-Associated Artery/Lesion type: [place] artery [place] vs. transplanted heart: [place] heart Associated angina: without angina Qualified Code(s): I25.10 - Atherosclerotic heart disease of [place] coronary artery without angina pectoris (7) Unsteady gait Current Visit: Yes Status: Acute (8) Critical illness myopathy Current Visit: Yes Status: Acute Subjective Date of service: 10/26/16 Principal diagnosis: acute respiratory failure Interval history: pt seen in room this AM, F/U IPR course, acute respiratory failure, critical care myopathy. Nausea and vomiting early AM, however, tolerated breakfast. Respiratory status remains stable off oxygen Objective - Constitutional Vitals: Vital Signs - 12hr 10/26/16 10/26/16 08:00 09:06 Temperature 98.1 F Pulse Rate 73 Pulse Rate [ 73 Right Brachial] Respiratory 16 Rate Blood Pressure 130/69 Blood Pressure 130/69 [Right Arm] O2 Sat by Pulse 94 Oximetry General appearance: Present: no acute distress - EENT Eyes: EOM intact ENT: hearing intact - Neck Neck: supple, normal ROM - Respiratory Respiratory effort: normal Extremities: No edema - Gastrointestinal General gastrointestinal: Present: soft, non-tender, other (+drain) - Integumentary Integumentary: clear - Neurologic Neurologic: CNII-XII intact, moves all extremities - Psychiatric Psychiatric: cooperative - Labs CBC & Chem 7: 10/26/16 04:23 10/26/16 04:23 Labs: Abnormal lab results 10/25/16 10/25/16 10/26/16 Range/Units 16:42 22:44 04:11 RBC (3.65-5.03) M/mm3 Hgb (11.8-15.2) gm/dl Hct (35.5-45.6) % Lymph % (Auto) (13.4-35.0) % [place] % (Auto) (0.0-7.3) % Lymph # (1.2-5.4) K/mm3 [place] # (0.0-0.8) K/mm3 Seg Neutrophils % (40.0-70.0) % Sodium (137-145) mmol/L Chloride (98-107) mmol/L BUN (9-20) mg/dL Creatinine (0.8-1.5) mg/dL Glucose (75-100) mg/dL POC Glucose 123 H 150 H 110 H (70-105) Calcium (8.4-10.2) mg/dL 10/26/16 10/26/16 10/26/16 Range/Units 04:23 04:23 06:18 RBC 3.39 L (3.65-5.03) M/mm3 Hgb 9.7 L (11.8-15.2) gm/dl Hct 30.7 L (35.5-45.6) % Lymph % (Auto) 12.4 L (13.4-35.0) % [place] % (Auto) 13.4 H (0.0-7.3) % Lymph # 1.1 L (1.2-5.4) K/mm3 [place] # 1.2 H (0.0-0.8) K/mm3 Seg Neutrophils % 72.2 H (40.0-70.0) % Sodium 136 L (137-145) mmol/L Chloride 95.2 L (98-107) mmol/L BUN 23 H (9-20) mg/dL Creatinine 3.5 H (0.8-1.5) mg/dL Glucose 104 H (75-100) mg/dL POC Glucose 141 H (70-105) Calcium 8.2 L (8.4-10.2) mg/dL 10/26/16 Range/Units 12:03 RBC (3.65-5.03) M/mm3 Hgb (11.8-15.2) gm/dl Hct (35.5-45.6) % Lymph % (Auto) (13.4-35.0) % [place] % (Auto) (0.0-7.3) % Lymph # (1.2-5.4) K/mm3 [place] # (0.0-0.8) K/mm3 Seg Neutrophils % (40.0-70.0) % Sodium (137-145) mmol/L Chloride (98-107) mmol/L BUN (9-20) mg/dL Creatinine (0.8-1.5) mg/dL Glucose (75-100) mg/dL POC Glucose 270 H (70-105) Calcium (8.4-10.2) mg/dL
[2016-10-26] MEDS: LEVAQUIN PO SCH (22:00)
[2016-10-27 05:11] LABS: Basophils % (Auto) 0.7 % (0.0-1.8); Eosinophils % (Auto) 1.5 % (0.0-4.3); Hemoglobin 9.2 gm/dl (11.8-15.2); Mean Corpuscular HGB Conc 33 % (32-34); Mean Corpuscular Hemoglobin 29 pg (28-32); Mean Corpuscular Volume 87 fl (84-94); Platelet Count 255 K/mm3 (140-440); Red Blood Count 3.22 M/mm3 (3.65-5.03); Red Cell Distribution Width 14.7 % (13.2-15.2); White Blood Count 8.8 K/mm3 (4.5-11.0)
[2016-10-27 05:29] LABS: BUN/Creatinine Ratio 6.45; Calcium 8.4 mg/dL (8.4-10.2); Chloride 94.4 mmol/L (98-107); Potassium 3.7 mmol/L (3.6-5.0)
[2016-10-27] MEDS: FLAGYL PO SCH ×2 (06:01→13:09)
[2016-10-27] MEDS: NOVOLOG SUB-Q SCH ×3 (07:30→17:30)
[2016-10-27] MEDS: GLUCOTROL PO SCH ×3 (08:00→17:30)
--- NOTE | 2016-10-27 08:41 | Progress Note ---
Assessment and Plan Impression: * esrd * dm * htn * anemia * decondtioning * nausea and emesis Plan: * strict i/os * daily weights * avoid nephrotoxins * lytes/cbc prn * dailysis q mwf * check ct abd pelvis, with recent gb disease and chary drain in place, ct finding reviewed * will consult gi * arrange outpatient dialysis placement * follow up for renal recovery Subjective Date of service: 10/27/16 Principal diagnosis: acute respiratory failure Interval history: resting well in bed today, still some nausea Objective - Exam Narrative Exam: General appearance: no acute distress, other (sitting up in bed; present) - EENT Eyes: EOM intact ENT: hearing intact - Neck Neck: supple, normal ROM - Respiratory Respiratory effort: normal Respiratory: bilateral: CTA - Cardiovascular Rhythm: regular Heart Sounds: Present: S1 & S2 - Extremities Extremity abnormal: edema (mild BLE, ankles) - Gastrointestinal General gastrointestinal: Present: soft, non-tender, non-distended, normal bowel sounds, other (GB drain in place to RU abdomen) - Integumentary Integumentary: Present: clear - Neurologic Neurologic: CNII-XII intact, moves all extremities (4/5 strength), other ( sensation grossly intact) - Psychiatric Psychiatric: appropriate mood/affect, intact judgment & insight, memory intact, cooperative - Vital Signs Vital signs: Vital Signs - 12hr 10/26/16 10/26/16 10/27/16 22:00 22:01 07:28 Temperature 97.8 F Pulse Rate 73 Pulse Rate [ 66 Right Brachial] Respiratory 16 Rate Blood Pressure 152/76 Blood Pressure 132/70 [Right Arm] O2 Sat by Pulse 95 Oximetry - Lab 10/27/16 04:40 10/27/16 04:40 Most recent lab results Calcium 8.4 mg/dL (8.4-10.2) 10/27/16 04:40
[2016-10-27] MEDS ORDERED: GLUCOTROL PO SCH (10:15)
[2016-10-27] MEDS: COREG PO SCH (10:21)
[2016-10-27] MEDS: PROzac PO SCH (10:22)
[2016-10-27] MEDS: DIFLUCAN PO SCH (10:23)
[2016-10-27] MEDS: LASIX PO SCH (10:23)
[2016-10-27] MEDS: PLAVIX PO SCH (10:24)
[2016-10-27] MEDS: PEPCID PO SCH (10:24)
[2016-10-27] MEDS: HEPARIN SUB-Q SCH (10:25)
[2016-10-27] MEDS: PROCRIT IV PRN (16:44)
--- NOTE | 2016-10-27 16:44 | Discharge Summary ---
Providers - Providers Date of Admission: 10/22/16 16:45 Date of discharge: 10/27/16 Attending physician: BRENDON WHITE 10/22/16 17:54 Consult to Physician [CONS] Routine Consulting Provider: WILLIAMS MENENDEZ Reason For Exam: ESRD Place consult to:: Dr Menendez Notified:: Dr Ojeda Phone number called:: [phone] Was contact made?: Yes If yes, spoke with:: marco Time called:: 09:33 Occupational Therapy Evaluate and Treat [CONS] Routine Comment: Reason For Exam: s/p acute resp failure Physical Therapy Evaluation and Treat [CONS] Routine Comment: Reason For Exam: s/p acute resp failure 10/27/16 08:39 Consult to Physician [CONS] Routine Consulting Provider: MARIA M SNYDER Reason For Exam: nausea and emesis, perc choletomy tube [facility] Notified:: Carline Phone number called:: [phone] Was contact made?: Yes Time called:: 10:49 Primary care physician: MELODIE GARCES Hospitalization Reason for admission: acute respiratory failure with hypoxia Condition: Stable Hospital course: 45 y.o. male readmitted to [facility] after inpatient treatment for influenza and community acquired pneumonia. Pt returned secondary to worsening shortness of breath and hypoxia; O2 sats 72 on room air on admission. CXR revealed large left lower lobe infiltrate; pt was initiated on IV ABX for sepsis and also required high flow oxygen. Unfortunately, pt later required intubation (10/01) due to worsening respiratory status; extubated 10/02. Pt was re-intubated x2 (10/04, 10/11) due to fluid overload; found to be in renal failure and initiated on hemodialysis. Acute care course was further complicated by acute cholecystitis/cystic duct obstruction; CT guided gallbladder drain placed by IR on 10/16; cultures positive for lamont albicans. Drain is to remain for 6 weeks; oral ABX until 11/13. Pt was noted to have significant functional decline in mobility and self cares due to prolonged hospital course. Pt was therefore admitted to IRU for aggressive therapies and ongoing medical management. IRU course notable for acute onset of nausea and vomiting; CT abdomen/pelvis was negative; noted to have good placement of drain. Symptoms resolved <24 hours later. Pt was able to successfully be weaned off of oxygen via nasal cannula. Functionally, on admission pt required supervision for transfers, Juan Carlos/CGA 41 feet with straight cane; s/u for eating and grooming; Juan Carlos for dressing and toileting. At the time of discharge, pt progressed to [place] for bed mobility, SBA for gait, CGA for steps; s/u for dressing. Pt reported that he had progressed to baseline and requested early discharge; family training was completed. Pt is new to hemodialysis since acute care admission and was recommended to continue per Nephrology during course (Kellen). Pt is stable for d/c home. >30 mins spent on discharge process; education for safety, appropriate follow-up ; case discussed with Nephrology and GI prior to D/C; medication reconciliation Disposition: DISCHARGED TO HOME OR SELFCARE - Discharge Diagnoses (1) Acute respiratory failure with hypoxia Status: Acute (2) Acute cholecystitis Status: Acute (3) Chronic kidney disease with end stage renal failure on dialysis Status: Acute (4) Diabetes Status: Chronic Qualifiers: Diabetes mellitus type: type 2 Diabetes mellitus complication status: with hyperglycemia Diabetes mellitus complication detail: D Diabetic retinopathy severity: D Proliferative retinopathy type: P Diabetes mellitus macular edema: D 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 transplanted heart: [place] heart Associated angina: without angina Qualified Code(s): I25.10 - Atherosclerotic heart disease of [place] coronary artery without angina pectoris (7) Unsteady gait Status: Acute (8) Critical illness myopathy Status: Acute Core Measure Documentation - Palliative Care Palliative Care/ Comfort Measures: Not Applicable - Core Measures Any of the following diagnoses?: none Exam - Constitutional Vitals: Temp Pulse Resp BP Pulse Ox 98.1 F 62 20 132/77 95 10/27/16 15:15 10/27/16 16:30 10/27/16 15:15 10/27/16 16:30 10/26/16 22:00 General appearance: Present: no acute distress - EENT Eyes: Present: EOM intact ENT: hearing intact - Neck Neck: Present: supple, normal ROM - Respiratory Respiratory effort: normal - Extremities Extremities: No edema - Abdominal General gastrointestinal: Present: soft, non-tender, other (drain in place) - Integumentary Integumentary: Present: clear - Psychiatric Psychiatric: appropriate mood/affect, intact judgment & insight, memory intact, cooperative - Neurologic Neurologic: CNII-XII intact, moves all extremities Plan Activity: no driving until cleared by PCP, fall precautions Weight Bearing Status: Full Weight Bearing Diet: low salt, diabetic, renal Durable Medical Equipment Needed Upon Discharge: Wheelchair Follow up with: MELODIE GARCES MD [Primary Care Provider] - 7 Days ADDIS THOMPSON MD [Staff Physician] - 7 Days JAVY ZELAYA MD [Referring] - 7 Days GALINDO DE LA GARZA MD [Staff Physician] - 7 Days Prescriptions: AtorvaSTATin [Lipitor] 80 mg PO QHS #30 tablet Carvedilol [Coreg] 25 mg PO BID #60 tablet Clopidogrel [Plavix] 75 mg PO QDAY #30 tablet Fluconazole [Diflucan TAB] 200 mg PO QDAY #17 tablet Furosemide [Lasix TAB] 40 mg PO QDAY #30 tablet glipiZIDE [Glucotrol] 5 mg PO BIDDIAB #60 tablet Levofloxacin [Levaquin TAB] 500 mg PO Q48H #9 tablet metroNIDAZOLE [Flagyl TAB] 500 mg PO Q8HR #52 tablet
[2016-10-27 19:18] VITALS: BP 153/78
== END 2016-10-27 20:05 | disposition home or self-care (01) | DRG 189 ==
LOC: 3B 16:45
PROVIDERS: ADMIT Family Medicine; ATTEND Family Medicine
PROC: 5A1D60Z (ICD-10-PCS; principal; 2016-10-23)
DX: J96.01 Acute respiratory failure with hypoxia (principal); J18.9 Pneumonia, unspecified organism; N18.6 End stage renal disease; K81.0 Acute cholecystitis; I12.0 Hypertensive chronic kidney disease with stage 5 chronic kidney disease or end stage renal disease; G72.81 Critical illness myopathy; J11.1 Influenza due to unidentified influenza virus with other respiratory manifestations; I25.10 Atherosclerotic heart disease of native coronary artery without angina pectoris; J44.9 Chronic obstructive pulmonary disease, unspecified; E11.40 Type 2 diabetes mellitus with diabetic neuropathy, unspecified; K21.9 Gastro-esophageal reflux disease without esophagitis; E11.22 Type 2 diabetes mellitus with diabetic chronic kidney disease; E78.5 Hyperlipidemia, unspecified; R26.81 Unsteadiness on feet; D63.1 Anemia in chronic kidney disease; Z86.73 Personal history of transient ischemic attack (TIA), and cerebral infarction without residual deficits; Z98.61 Coronary angioplasty status; Z82.49 Family history of ischemic heart disease and other diseases of the circulatory system; Z80.9 Family history of malignant neoplasm, unspecified; Z83.3 Family history of diabetes mellitus; Z99.2 Dependence on renal dialysis
CPT/HCPCS: 36415; 71020; 74176; 80048; 80053; 82962; 83036; 85007; 85025; 86706; 86803; 90732; 94760; A9270-GY; J0885; J1644; J1815; J2997; J7030; Q0169

== ENCOUNTER 2016-11-30 12:29 | Outpatient (CLI) | payer MEDICARE ==
--- NOTE | 2016-11-30 14:57 | Ultrasound Report ---
ULTRASOUND RENAL BILATERAL HISTORY: Chronic kidney disease. TECHNIQUE: transabdominal ultrasound with color Doppler interrogation. FINDINGS: Scans of the kidneys show normal renal contours. There is normal central calyceal clustering and good preservation of the cortical thickness. There is no evidence of mass or hydronephrosis. The views of the bladder and the region of the ureters appear normal. IMPRESSION: Unremarkable renal ultrasound.
== END 2016-11-30 12:30 | disposition home or self-care (01) ==
LOC: US 12:29
PROVIDERS: ATTEND Internal Medicine Nephrology
DX: N18.6 End stage renal disease (principal)
CPT/HCPCS: 76770

== ENCOUNTER 2017-01-04 09:49 | Day surgery (SDC) | payer MEDICARE ==
--- NOTE | 2016-12-31 11:24 | Admit Criteria Form ---
Admission Criteria Documentation: AMBULATORY SURGERY EXCEPTION CRITERIA Ambulatory Surgery Exception Criteria ( Place 'X' for any and all applicable criteria): Surgery or procedure performed on ambulatory basis may require inpatient stay for[A] ANY ONE of the following(1)(2)(3)(4)(5)(6)(7)(8)(9): [X] I. A preoperative situation, condition, or finding that warrants inpatient stay as indicated by ANY ONE of the following: [] a) Inpatient care needed because of severity of a disease or condition rather than the surgery (eg, severe cardiac or respiratory disease, severe infection) (15) (16 ) (17) (18) [] b) Emergent procedure (eg, angioplasty for acute ischemia)(19) [] c) Complex surgical approach or situation as indicated by ANY ONE of the following(3): [] i) Open approach needed instead of usual endoscopic, transcatheter, or other less invasive procedure [] ii) Difficult approach because of previous operation [] iii) Airway monitoring required after open neck procedures(20)(21) [] iv) Large mass requiring unusually extensive dissection [] v) Additional complicating feature requiring inpatient care (eg, drain management)(22(23): [X] d) Major surgery in a pt with high anesthetic risk as indicated by ANY ONE of the following (2)(3)(5)(7)(8): [X] i) ASA risk class III or higher (severe systemic disease impairing function) [D] [] ii) Advanced age (eg, older than 85 years)(14)(24) [] iii) Symptomatic heart failure(25) [] iv) Symptomatic asthma or COPD(8)(21) [] v) Morbid obesity with hemodynamic or respiratory problems(20)( 21)(26)(27) [] vi) Obstructive sleep apnea(20)(21) [] vii) Former premature infants who are younger than 60 weeks [] viii) High risk for severe postoperative abnormalities (eg, severe postoperative hypocalcemia after parathyroidectomy for severe hyperparathyroidism)(27)( 28) [] ix) Unstable angina(25) [] e) Drug-related risk requiring inpatient stay as indicated by ANY ONE of the following(5)(10)(14)(32)(33) [] i) Procedure requires discontinuing drugs or other therapy (eg , antiarrhythmic medication, antiseizure medication), which necessitates inpatient observation or treatment.(18)(31) [] ii) Major surgery and high risk drug use as indicated by ANY ONE of the following: [] 1) Active abuse of cocaine or similar drug [] 2) Monoamine oxidase inhibitor use [] 3) Other drug identified as posing risk [] f) Inadequate outpatient care situation as indicated by ANY ONE of the following(5)(10)(14)(32)(33) [] i) Patient lives remote from medical facility and procedure has urgent complication potential, and temporary nearby residence cannot be arranged [] ii) Patient will have postprocedure incapacitation and inadequate assistance at home, or alternative level of care cannot be arranged. [] iii) Patient will have long general anesthesia or procedure side effect resolution time, and competent person to stay with patient on first postoperative night at home or alternative level of care cannot be arranged. []iv) Other inadequate outpatient situation that cannot be handled by other means [] II. A perioperative event, condition, or finding that warrants inpatient stay as indicated by ANY ONE of the following (1)(2)(3): [] a) Inadequate physiologic recovery: cardiovascular, respiratory, or hemodynamic status not normal or near preoperative baseline(18) [] b) Hemodynamic instability [] c) Patient not alert with near normal or baseline mental status [] d) Temperature not normal or as expected and not appropriate for outpatient treatment of condition [] e) Ambulatory or appropriate activity level status not yet achieved post procedure [E](34)(35)(36) [] f) Operative site not appropriate (eg, unexpected or excessive drainage or bleeding) [] g) Postoperative effects not resolved or adequately managed (eg, significant pain or vomiting not appropriate for outpatient or next level of care)(10)(12) [] h) Complicating features requiring inpatient care as indicated by ANY ONE of the following(37): [] i) Severe complications of procedure (eg, bowel injury, airway compromise, vascular injury,severe hemorrhage) [] ii) Extensive (eg, dissection far beyond usual scope of procedure ) or prolonged (eg, 120 minutes beyond usual) surgery needed requiring inpatient postoperative care [] iii) Conversion to an open or complex procedure that requires inpatient care (eg, open vs laparoscopic cholecystectomy, abdominal vs vaginal hysterectomy)(38) [] iv) Comorbid condition or test result identified during or post procedure that requires inpatient care (7) [] v) Malignant hyperthermia(30) [] vi) Other complicating feature requiring inpatient care(22)(23) Inpatient stay may be needed until ALL of the following are present (1)(2)(3)(4) (5)(6)(10)(14)(33)(40): []a) Physiologic recovery: cardiovascular, respiratory, and hemodynamic status normal or near preoperative baseline []b) Hemodynamic stability []c) Patient alert, with near normal or baseline mental status []d) Temperature appropriate: patient afebrile or temperature appropriate for outpt treatment of condition []e) Activity level appropriate: ambulatory or appropriate activity level post procedure []f) Operative site appropriate as indicated by ALL of the following: []i) Site dry or with expected drainage []ii) Any blood noted is as expected for procedure. []g) Postoperative effects resolved or managed as indicated by ALL of the following: []i) Pain management appropriate for outpatient (or next level of) care(10) []ii) Minimal nausea and vomiting: if present, successfully treated with oral medication(12) []iii) Headache, dizziness, or drowsiness (if present) are mild. []h) Voiding status acceptable as indicated by ANY ONE of the following: []i) Voiding spontaneously []ii) No voiding but instructions given for follow-up in 6 to 8 hours []iii) Urinary catheter in place, and instructions given for follow-up []i) Complicating features requiring inpatient care manageable at a lower level of care(37) []j) Comorbid conditions manageable at a lower level of care(37) The original [employer] content created by [employer] has been revised. The portions of the content which have been revised are identified through the use of italic text or in bold, and [employer] has neither reviewed nor approved the modified material. All other unmodified content is copyright [employer]. Please see references footnoted in the original [employer] edition 2016
[~2017-01-04 09:49] MED LIST: ANCEF/STERILE WATER 2 GM/20 ML 2 GM/20 ML SYRINGE IV NR; DECADRON ONE; DIPRIVAN 10 MG/ML IV ONE; HEPARIN 10,000 UNITS/10 ML ONE; MARCAINE 0.5% INFILTRATI ONE; NACL 0.9% 1000 ML 1,000 ML IV SCH; NACL 0.9% 500 ML 500 ML ONE; NITROGLYCERIN SYRINGE 0 ML ONE; PROTAMINE SULFATE ONE; SODIUM BICARBONATE ONE; SUBLIMAZE ONE; XYLOCAINE 1%/ EPI 1:100,000 INFILTRATI ONE; XYLOCAINE MPF 2% ONE; ZOFRAN ONE
--- NOTE | 2017-01-04 10:33 | Anesthesia Consultation ---
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
--- NOTE | 2017-01-04 10:35 | Anesthesia Day of Surgery ---
Anesthesia Day of Surgery - Day of Surgery Patient Examined: Yes Patient H&P Reviewed: Yes Patient is NPO: Yes
[2017-01-04] MEDS ORDERED: VERSED IV PRN (10:36)
[2017-01-04] MEDS ORDERED: NACL BACTERIOSTATIC INFILTRATI ONE (10:45)
[2017-01-04] MEDS ORDERED: PEPCID IV NR (11:00)
[2017-01-04] MEDS ORDERED: NEO SYNEPHRINE ONE (12:07)
[2017-01-04] MEDS ORDERED: NACL 0.9% 100 ML ONE (12:07)
[2017-01-04] MEDS ORDERED: ePHEDrine SULFATE ONE (12:09)
[2017-01-04] MEDS ORDERED: MARCAINE 0.5% INFILTRATI ONE (12:23)
[2017-01-04] MEDS ORDERED: NACL 0.9% IR ONE (12:23)
[2017-01-04] MEDS ORDERED: HEPARIN 10,000 UNITS/10 ML 2,000 UNIT in NACL 0.9% 500 ML 500 ML IR ONE (12:24)
--- NOTE | 2017-01-04 12:59 | Short Stay Summary ---
Short Stay Documentation Date of service: 01/04/17 Narrative H&P: See H&P - History H&P: obtained from office - Allergies and Medications Current Medications: Allergies No Known Allergies Allergy (Verified 01/04/17 11:42) Home Medications Medication Instructions Recorded Confirmed Last Taken Type Carvedilol [Coreg] 25 mg PO BID #60 tablet 10/27/16 01/04/17 01/03/17 18:00 Rx Clopidogrel [Plavix] 75 mg PO QDAY #30 tablet 10/27/16 01/04/17 01/03/17 Rx FLUoxetine [PROzac] 10 mg PO QDAY tablet 10/27/16 01/04/17 2 Months Ago Rx cloNIDine-TTS PATCH [Catapres-Tts 0.1 mg TD Fr patch 10/27/16 12/28/16 Unknown Rx Patch] glipiZIDE [Glucotrol] 5 mg PO BIDDIAB #60 tablet 10/27/16 01/04/17 01/03/17 Rx AtorvaSTATin [Lipitor] 40 mg PO DAILY 01/04/17 01/04/17 Unknown History Duloxetine HCl [DULoxetine] 30 mg PO DAILY 01/04/17 01/04/17 01/03/17 History Furosemide [Furosemide] 40 mg PO PRN PRN 01/04/17 01/04/17 01/02/17 History Losartan [Cozaar] 25 mg PO QDAY 01/04/17 01/04/17 01/03/17 History Meclizine [Antivert] 25 mg PO TID PRN 01/04/17 01/04/17 2 Months Ago History amLODIPine [Norvasc] 10 mg PO DAILY 01/04/17 01/04/17 01/03/17 History Active Medications Famotidine (Pepcid) 20 mg IV PREOP NR Stop: 01/04/17 23:00 Last Admin: 01/04/17 11:33 Dose: 20 mg Cefazolin Sodium (Ancef/Sterile Water 2 Gm/20 Ml) 2 gm in 20 mls @ 80 mls/hr IV PREOP NR PRN Reason: Protocol Stop: 01/04/17 23:59 Sodium Chloride (Nacl 0.9% 1000 Ml) 1,000 mls @ 42 mls/hr IV DIRECT RAUDEL Stop: 01/04/17 23:59 Last Admin: 01/04/17 10:55 Dose: 42 mls/hr Midazolam HCl (Versed) 2 mg IV PREOP PRN PRN Reason: Agitation Last Admin: 01/04/17 11:35 Dose: 2 mg - Brief post op/procedure progress note Date of procedure: 01/04/17 Pre-op diagnosis: End-Stage Renal Disease Post-op diagnosis: same Procedure: Creation of Left Brachial Basilic Arteriovenous Fistula Anesthesia: GETA Surgeon: PREMA STOUT Estimated blood loss: minimal Pathology: none Condition: stable - Disposition Condition at discharge: Good Disposition: DISCHARGED TO HOME OR SELFCARE Short Stay Discharge Plan Activity: other (no heavy lifting with left arm) Wound: open to air, keep clean and dry, other (okay to wash the wound with soap and water but do not soak in water) Follow up with: PREMA STOUT MD [Staff Physician] - 14 Days Prescriptions: HYDROcodone/APAP 7.5-325 [[place] 7.5/325] 1 each PO Q6HR PRN #50 tablet PRN Reason: Pain
--- NOTE | 2017-01-04 13:00 | Operative Report ---
Operative Report Operative Report: Date of procedure: 01/04/2017 Pre-operative diagnosis: End-stage Renal Disease Post-operative diagnosis: End-stage Renal Disease Procedure(s): Creation of Left Brachial Artery to Basilic Arteriovenous Fistula Surgeon: Omar Romo MD Clinical Reimbursement Specialist: None Anesthesia: Gen. endotracheal anesthesia EBL: Minimal Counts: Correct Complications: None Condition: Stable Findings: Successful creation of left brachial basilic arteriovenous was excellent throughout the end of the case. Specimen: None Indication: The patient is a 46-year-old male with a history of end-stage renal disease currently on hemodialysis through a right internal jugular permacath. He is in need of long-term access and had adequate vein for creation of a fistula. He was given the risk, benefits, and alternative procedures and consented to the procedure. Description of Procedure: The patient was brought to the operating room and laid in supine position after general endotracheal anesthesia was administered the patient was prepped and draped in normal sterile fashion. After anesthetizing the skin a transverse incision was created just below the antecubital crease. Dissection was carried down to the the basilic vein using sharp dissection. The vein was dissected out both proximally and distally and suture ligated and divided distally. I then ran a 3 Elia proximally in the vein, to ensure patency of the vein. I then flushed the vein with heparinized saline and controlled flow with a bulldog clamp. I then dissected out the brachial artery through this incision circumferentially both proximal and distal and controlled th artery with vessel loops. I placed the vessel loops on tension, controlling the flow through the artery, and created an arteriotomy using an 11 blade and Smyth scissors. I created an end to side anastomosis between the basilic vein and brachial artery using a 6-0 Prolene in running fashion. Prior to completing the anastomosis I flushed the artery both proximally and distally and then advanced a 3 Elia proximally to break the spasm in the artery. I completed the anastomosis and removed all vessel loops allowing flow into the fistula which had an excellent thrill. I achieved hemostasis with a combination of direct pressure and electrocautery. Once hemostasis was achieved I anesthetized the wound with Marcaine. I closed the wound in 2 layers using 3-0 Vicryl in a running fashion to close the deep dermal layer and 4-0 Monocryl in a running fashion in the subcuticular layer. I dressed the wound with Surgicel. The patient tolerated the procedure well, all sponge needle and instrument counts were correct. The patient was taken to recovery in stable condition.
[2017-01-04] MEDS ORDERED: APRESOLINE ONE (13:11)
--- NOTE | 2017-01-04 13:26 | Post Anesthesia Evaluation ---
- Post Anesthesia Evaluation Patient Participated: Yes Airway Patent: Yes Stable Respiratory Function: Yes Nausea/Vomiting: No Temp > 96.8F: Yes Pain Manageable: Yes Adequeate Hydration: Yes Anesthesia Complications: No Block Receding Appropriately: Not Applicable Patient on Ventilator: No
[2017-01-04 14:29] VITALS: BP 148/78
== END 2017-01-04 09:50 | disposition home or self-care (01) ==
LOC: OR 09:49
PROVIDERS: ATTEND Surgery Vascular Surgery
DX: E11.22 Type 2 diabetes mellitus with diabetic chronic kidney disease (principal); I12.0 Hypertensive chronic kidney disease with stage 5 chronic kidney disease or end stage renal disease; N18.6 End stage renal disease; J45.909 Unspecified asthma, uncomplicated; J44.9 Chronic obstructive pulmonary disease, unspecified; I25.10 Atherosclerotic heart disease of native coronary artery without angina pectoris; K21.9 Gastro-esophageal reflux disease without esophagitis; Z87.01 Personal history of pneumonia (recurrent); Z86.73 Personal history of transient ischemic attack (TIA), and cerebral infarction without residual deficits; Z79.899 Other long term (current) drug therapy; Z79.84 Long term (current) use of oral hypoglycemic drugs
CPT/HCPCS: 36415; 36821; 82962; 84132; J0360; J0690; J1100; J1644; J2250; J2370; J2405; J2704; J3010; J7030; J7040; J2720

== ENCOUNTER 2017-03-22 07:55 | Day surgery (SDC) | payer MEDICARE ==
[~2017-03-22 07:55] MED LIST changes: -DECADRON ONE; -DIPRIVAN 10 MG/ML IV ONE; +MARCAINE 0.5% 30 ML INFILTRATI ONE; -MARCAINE 0.5% INFILTRATI ONE; -NACL 0.9% 1000 ML 1,000 ML IV SCH; -NITROGLYCERIN SYRINGE 0 ML ONE; -PROTAMINE SULFATE ONE; -SODIUM BICARBONATE ONE; -SUBLIMAZE ONE; -XYLOCAINE 1%/ EPI 1:100,000 INFILTRATI ONE; -XYLOCAINE MPF 2% ONE; -ZOFRAN ONE
[2017-03-22] MEDS ORDERED: VERSED IV NR (08:00)
[2017-03-22] MEDS ORDERED: NACL 0.9% 1000 ML 1,000 ML IV SCH (08:00)
[2017-03-22] MEDS ORDERED: PEPCID PO NR (08:00)
--- NOTE | 2017-03-22 09:07 | Anesthesia Day of Surgery ---
Anesthesia Day of Surgery - Day of Surgery Patient Examined: Yes Patient H&P Reviewed: Yes Patient is NPO: Yes Beta Blockers: Yes
[2017-03-22 09:08] LABS: Basophils % (Auto) 0.7 % (0.0-1.8); Eosinophils % (Auto) 4.7 % (0.0-4.3); Hematocrit 32.8 % (35.5-45.6); Hemoglobin 11.1 gm/dl (11.8-15.2); Mean Corpuscular HGB Conc 34 % (32-34); Mean Corpuscular Hemoglobin 30 pg (28-32); Mean Corpuscular Volume 89 fl (84-94); Platelet Count 351 K/mm3 (140-440); Red Blood Count 3.69 M/mm3 (3.65-5.03); Red Cell Distribution Width 15.8 % (13.2-15.2); White Blood Count 10.3 K/mm3 (4.5-11.0)
[2017-03-22] MEDS ORDERED: ZOFRAN IV PRN (09:09)
[2017-03-22] MEDS ORDERED: DILAUDID IV PRN (09:09)
--- NOTE | 2017-03-22 09:09 | Anesthesia Consultation ---
Anesthesia Consult and Med Hx Date of service: 03/22/17 - Airway Anesthetic Teeth Evaluation: Good ROM Head & Neck: Adequate Mental/Hyoid Distance: Adequate Mallampati Class: Class II Intubation Access Assessment: Probably Good - Pulmonary Exam CTA: Yes - Cardiac Exam Cardiac Exam: RRR - Pre-Operative Health Status ASA Pre-Surgery Classification: ASA4 Proposed Anesthetic Plan: General - Pulmonary Hx Smoking: No Hx Asthma: Yes Hx Pneumonia: Yes Hx Sleep Apnea: No - Cardiovascular System Hx Hypertension: Yes (10 + YRS) Hx Coronary Artery Disease: Yes (stent ) - Central Nervous System Hx Neuromuscular Disorder: No (LEGALLY BLIND) Hx Seizures: Yes (medication related, none in years) CVA: Yes (08/2010 , 09/2011, left sided weakness) Hx Psychiatric Problems: Yes - Gastrointestinal Hx Gastroesophageal Reflux Disease: Yes (occ) - Endocrine Hx Renal Disease: Yes (right permacath, HD yesterday) Hx End Stage Renal Disease: Yes (09/2016) Hx Non-Insulin Dependent Diabetes: Yes - Hematic Hx Anemia: Yes - Other Systems Hx Cancer: No Hx Obesity: Yes
[2017-03-22 09:39] LABS: Calcium 8.7 mg/dL (8.4-10.2); Chloride 98.7 mmol/L (98-107); Potassium 3.8 mmol/L (3.6-5.0)
[2017-03-22] MEDS ORDERED: DIPRIVAN 10 MG/ML IV ONE (09:39)
[2017-03-22] MEDS ORDERED: DILAUDID ONE (09:52)
[2017-03-22] MEDS ORDERED: NEO SYNEPHRINE ONE (11:06)
[2017-03-22] MEDS ORDERED: XYLOCAINE MPF 2% ONE (11:06)
[2017-03-22] MEDS ORDERED: NACL 0.9% 100 ML ONE (11:07)
[2017-03-22] MEDS ORDERED: NACL 0.9% IR ONE (11:18)
[2017-03-22] MEDS ORDERED: MARCAINE 0.5% INFILTRATI ONE (11:18)
[2017-03-22] MEDS ORDERED: HEPARIN 10,000 UNITS/10 ML 4,000 UNIT in NACL 0.9% 1000 ML 1,000 ML IR ONE (11:18)
[2017-03-22] MEDS ORDERED: ZOFRAN ONE (11:43)
[2017-03-22] MEDS ORDERED: GELFOAM TP ONE (13:00)
[2017-03-22] MEDS ORDERED: THROMBIN (BOVINE) TP ONE (13:00)
--- NOTE | 2017-03-22 13:48 | Short Stay Summary ---
Short Stay Documentation Date of service: 03/22/17 Narrative H&P: See H&P - History H&P: obtained from office - Allergies and Medications Current Medications: Allergies No Known Allergies Allergy (Verified 03/21/17 10:06) Home Medications Medication Instructions Recorded Confirmed Last Taken Type Carvedilol [Coreg] 25 mg PO BID #60 tablet 10/27/16 03/22/17 03/22/17 07:45 Rx Clopidogrel [Plavix] 75 mg PO QDAY #30 tablet 10/27/16 03/21/17 03/21/17 Rx glipiZIDE [Glucotrol] 5 mg PO BIDDIAB #60 tablet 10/27/16 03/21/17 03/21/17 Rx AtorvaSTATin [Lipitor] 40 mg PO DAILY 01/04/17 03/22/17 03/18/17 History Furosemide 40 mg PO PRN PRN 01/04/17 03/22/17 03/20/17 History HYDROcodone/APAP 7.5-325 [[place] 1 each PO Q6HR PRN #50 tablet 01/04/17 03/21/17 03/21/17 Rx 7.5/325] Meclizine [Antivert] 25 mg PO TID PRN 01/04/17 03/21/17 03/21/17 History amLODIPine [Norvasc] 10 mg PO DAILY 01/04/17 03/21/17 03/21/17 History Active Medications Hydromorphone HCl (Dilaudid) 0.5 mg IV Q10MIN PRN PRN Reason: Pain , Severe (7-10) Stop: 03/22/17 23:59 Cefazolin Sodium (Ancef/Sterile Water 2 Gm/20 Ml) 2 gm in 20 mls @ 80 mls/hr IV PREOP NR PRN Reason: Protocol Stop: 03/22/17 23:59 Midazolam HCl (Versed) 2 mg IV PREOP NR Stop: 03/22/17 23:59 Last Admin: 03/22/17 09:49 Dose: 2 mg Ondansetron HCl (Zofran) 4 mg IV ONCE PRN PRN Reason: Nausea And Vomiting Stop: 03/22/17 23:59 - Brief post op/procedure progress note Date of procedure: 03/22/17 Pre-op diagnosis: Complications of Dialysis Access Post-op diagnosis: same Procedure: 1. Revision with Elevation of Left Brachiobasilic Arteriovenous Fistula 2. DRIL (Distal Revascularization with Interval Ligation) Using the Left Reversed Brachial Vein for Brachial Artery to Brachial Artery Bypass Anesthesia: GETA Surgeon: PREMA STOUT Estimated blood loss: 50-100ml Pathology: none Condition: stable - Disposition Condition at discharge: Good Disposition: DC-01 TO HOME OR SELFCARE Short Stay Discharge Plan Activity: other (No heavy lifting with left arm) Wound: open to air, keep clean and dry, other (okay to wash the wouond with soap and water bu do not soak in water) Follow up with: PREMA STOUT MD [Staff Physician] - 14 Days Prescriptions: HYDROcodone/APAP 7.5-325 [[place] 7.5/325] 1 each PO Q6HR PRN #90 tablet PRN Reason: Pain
--- NOTE | 2017-03-22 14:10 | Operative Report ---
Operative Report Operative Report: Date of procedure: 03/22/2017 Pre-operative diagnosis: Complications of Dialysis Access Post-operative diagnosis: Same Procedure(s): 1. Revision with Elevation of Left Brachiobasilic AV Fistula 2. DRIL (Distal Revascularization with Interval Ligation) Using the Left Reversed Brachial Vein for Brachial Artery to Brachial Artery Bypass Surgeon: Omar Romo MD Horticultural Technical Officer: None Anesthesia: General Endotracheal Anesthesia EBL: Minimal Counts: Correct Complications: None Condition: Stable Findings: Successful elevation of left brachiobasilic fistula with excellent thrill. Multiphasic Doppler signal in the radial artery after the drill procedure. Specimen: None Indication: The patient is a 46-year-old male with history of end-stage renal disease on hemodialysis through a permacath. He agrees to left brachial basilic arteriovenous fistula 2 months ago. He began complaining of left hand numbness and arteriogram demonstrated several areas of stenosis that were treated with balloon angioplasty however this did not improve his symptoms and there was angiographic evidence of steal syndrome. It was felt that he will require revision with elevation the fistula and possible banding to improve his symptoms and salvage the fistula. He was given the risks, benefits, and alternative procedures and consented to procedure. Description of Procedure: The patient was brought to the operating room and laid in supine position after general endotracheal anesthesia was achieved her left arm was prepped and draped in normal sterile fashion. A longitudinal incision was then created on the medial aspect of the arm centered over the fistula extending from the axillary crease to the antecubital crease. Sharp dissection was used to continue the dissection down to the fistula. The fistula was then dissected circumferentially and all side branches were suture ligated and divided. Upon evaluation of the fistula I felt that banding the fistula would compromise the lumen and likely result in thrombosis. I decided that the patient would benefit from a DRIL Procedure. I used ultrasound and attempted to identify the cephalic vein however this was unsuccessful so I dissected the brachial vein through the same incision. I suture-ligated and divided all side branches and once I ensure that I had adequate length ligated both proximal and distal ends and divided vein. This was passed off and placed in heparinized saline. Then dissected out the brachial artery through this incision and controlled with vessels. I made a longitudinal incision on the forearm distal to the previous antecubital incision and carried this down to the brachial artery and bifurcation using sharp dissection. The distal brachial artery as well as the radial and ulnar arteries were controlled vessels. I then used a tunneler to tunnel from the forearm incision to the upper arm incision and pulled the reversed brachial vein through the tunnel. At this point was systemically heparinized the patient. I placed the vessel loops on tension in the upper arm to control flow in the proximal brachial artery and created an end-to-side anastomosis using a 6-0 Prolene in a running fashion. I released the clamps allow flow into the vein graft which had excellent flow. I reclamped the graft and then placed a Vesseloops around the brachial, radial, and ulnar arteries on tension and then created an arteriotomy 11 blade and Smyth scissors and the created end to side anastomosis using a 6-0 Prolene in running fashion. Prior to completing the anastomosis I flushed the vein graft as well as the arteries and then completed the anastomosis. All counts were removed. The vein graft which had an excellent pulse. The radial artery have monophasic flow however clamping of the brachial artery proximal to the anastomosis resulted in multiphasic flow. I used a 2-0 silk to ligate the brachial artery proximal to the distal anastomosis. Hemostasis within that wound was achieved with a combination of quick clot in thrombin soaked Gelfoam. I created a subcutaneous tunnel just below the dermal layer, on the lateral aspect of the upper incision and then placed the fistula within the tunnel. It was secured in place using a 3-0 Vicryl interrupted fashion. Hemostasis was secured in place hemostasis within the wound was achieved with accommodation of quick clot and thrombin- soaked Gelfoam. Once hemostasis was achieved I anesthetized the wounds with Marcaine and closed them both in 2 layers using a 3-0 Vicryl in running fashion in the deep dermal layer and a 4-0 Monocryl in running fashion in the subcuticular. I then dressed the wounds with Surgicel. The patient tolerated the procedure well, all sponge needle and instrument counts were correct, the patient was taken to the recovery area in stable condition.
[2017-03-22] MEDS ORDERED: ZOFRAN IV ONE (15:44)
[2017-03-22 17:45] VITALS: BP 132/77
== END 2017-03-22 16:35 | disposition home or self-care (01) ==
LOC: OR 07:55
PROVIDERS: ATTEND Surgery Vascular Surgery
DX: T82.898A Other specified complication of vascular prosthetic devices, implants and grafts, initial encounter (principal); E11.22 Type 2 diabetes mellitus with diabetic chronic kidney disease; I12.0 Hypertensive chronic kidney disease with stage 5 chronic kidney disease or end stage renal disease; N18.6 End stage renal disease; I25.10 Atherosclerotic heart disease of native coronary artery without angina pectoris; K21.9 Gastro-esophageal reflux disease without esophagitis; J45.909 Unspecified asthma, uncomplicated; D64.9 Anemia, unspecified; E66.9 Obesity, unspecified; Z68.31 Body mass index [BMI] 31.0-31.9, adult; Z99.2 Dependence on renal dialysis; Z98.890 Other specified postprocedural states; Z72.89 Other problems related to lifestyle; Z79.899 Other long term (current) drug therapy; Z79.01 Long term (current) use of anticoagulants; Z79.84 Long term (current) use of oral hypoglycemic drugs; Z87.01 Personal history of pneumonia (recurrent); Z95.5 Presence of coronary angioplasty implant and graft; Z86.73 Personal history of transient ischemic attack (TIA), and cerebral infarction without residual deficits; Y83.2 Surgical operation with anastomosis, bypass or graft as the cause of abnormal reaction of the patient, or of later complication, without mention of misadventure at the time of the procedure
CPT/HCPCS: 36415; 36838; 80048; 82962; 85025; A4649; J0690; J1170; J1644; J2250; J2370; J2405; J2704; J7030; J7040

== ENCOUNTER 2017-04-05 09:56 | Inpatient (IN) | payer MEDICARE ==
[~2017-04-05 09:56] MED LIST changes: -HEPARIN 10,000 UNITS/10 ML ONE; -MARCAINE 0.5% 30 ML INFILTRATI ONE; -NACL 0.9% 500 ML 500 ML ONE
[2017-04-05] MEDS: NACL 0.9% 1000 ML 1,000 ML IV SCH (11:55)
[2017-04-05 12:03] LABS: Basophils % (Auto) 0.7 % (0.0-1.8); Eosinophils % (Auto) 2.9 % (0.0-4.3); Hematocrit 30.2 % (35.5-45.6); Mean Corpuscular HGB Conc 33 % (32-34); Mean Corpuscular Hemoglobin 29 pg (28-32); Mean Corpuscular Volume 88 fl (84-94); Platelet Count 374 K/mm3 (140-440); Red Blood Count 3.43 M/mm3 (3.65-5.03); Red Cell Distribution Width 15.6 % (13.2-15.2); White Blood Count 12.4 K/mm3 (4.5-11.0)
[2017-04-05] MEDS ORDERED: DIPRIVAN 10 MG/ML IV ONE (12:12)
--- NOTE | 2017-04-05 12:12 | Anesthesia Day of Surgery ---
Anesthesia Day of Surgery - Day of Surgery Patient Examined: Yes Patient H&P Reviewed: Yes Patient is NPO: Yes Beta Blockers: Yes (last night 1000 pm)
--- NOTE | 2017-04-05 12:12 | Anesthesia Consultation ---
Anesthesia Consult and Med Hx Date of service: 04/05/17 - Airway Anesthetic Teeth Evaluation: Poor ROM Head & Neck: Adequate Mental/Hyoid Distance: Adequate Mallampati Class: Class II Intubation Access Assessment: Probably Good - Pulmonary Exam CTA: Yes - Cardiac Exam Cardiac Exam: RRR - Pre-Operative Health Status ASA Pre-Surgery Classification: ASA3 Proposed Anesthetic Plan: General - Pulmonary Hx Smoking: No Hx Asthma: Yes COPD: Yes Hx Pneumonia: Yes Hx Sleep Apnea: No - Cardiovascular System Hx Hypertension: Yes Hx Coronary Artery Disease: Yes (stent ) - Central Nervous System Hx Neuromuscular Disorder: No (LEGALLY BLIND) Hx Seizures: Yes (medication related, none in years) CVA: Yes (08/2010 , 09/2011, left sided weakness) Hx Psychiatric Problems: Yes - Gastrointestinal Hx Gastroesophageal Reflux Disease: Yes (occ) - Endocrine Hx Renal Disease: Yes (right permacath, HD yesterday; MWF) Hx End Stage Renal Disease: Yes (09/2016) Hx Non-Insulin Dependent Diabetes: Yes - Hematic Hx Anemia: Yes - Other Systems Hx Cancer: No Hx Obesity: Yes
[2017-04-05 12:14] LABS: INR 1.07 (0.87-1.13)
[2017-04-05 12:25] LABS: BUN/Creatinine Ratio 6.78; Calcium 8.8 mg/dL (8.4-10.2); Chloride 98.4 mmol/L (98-107); Potassium 4.4 mmol/L (3.6-5.0)
[2017-04-05] MEDS ORDERED: VERSED IV NR (13:00)
[2017-04-05] MEDS ORDERED: NACL 0.9% 500 ML 500 ML ONE ×3 (13:12→16:49)
[2017-04-05] MEDS ORDERED: MARCAINE 0.5% 30 ML INFILTRATI ONE (13:12)
[2017-04-05] MEDS ORDERED: XYLOCAINE MPF 2% ONE (13:49)
[2017-04-05] MEDS ORDERED: DECADRON ONE (13:49)
[2017-04-05] MEDS ORDERED: ZOFRAN ONE (13:49)
[2017-04-05] MEDS ORDERED: DILAUDID ONE (13:54)
[2017-04-05] MEDS ORDERED: HEPARIN 10,000 UNITS/10 ML 2,000 UNIT in NACL 0.9% 500 ML 500 ML IR ONE (14:08)
[2017-04-05] MEDS ORDERED: OMNIPAQUE (300 MG) 50 ML in NACL 0.9% 50 ML IR ONE (14:08)
[2017-04-05] MEDS ORDERED: HEPARIN 10,000 UNITS/10 ML ONE (14:50)
[2017-04-05] MEDS ORDERED: RIFADIN IV ONE (15:00)
[2017-04-05] MEDS ORDERED: NACL 0.9% 1000 ML 1,000 ML ONE ×2 (16:00→17:36)
[2017-04-05] MEDS ORDERED: RIFADIN ONE (16:49)
[2017-04-05] MEDS ORDERED: ALBURX 25% (ALBUMIN) IV ONE (17:00)
[2017-04-05] MEDS ORDERED: NARCAN 0.4 MG/1 ML IV PRN (18:14)
[2017-04-05] MEDS ORDERED: LASIX PO PRN (18:19)
[2017-04-05] MEDS ORDERED: ANTIVERT PO PRN (18:19)
[2017-04-05] MEDS: DILAUDID IV PRN ×7 (18:43→21:50)
[2017-04-05] MEDS ORDERED: ANCEF/NS 1 GM/50 ML 1 GM/50 ML BAG IV SCH (19:00)
[2017-04-05] MEDS ORDERED: DILAUDID IV PRN (19:45)
[2017-04-05] MEDS ORDERED: ePHEDrine SULFATE IV PRN (20:00)
--- NOTE | 2017-04-05 21:47 | Post Anesthesia Evaluation ---
- Post Anesthesia Evaluation Patient Participated: Yes Airway Patent: Yes Stable Respiratory Function: Yes Nausea/Vomiting: No Temp > 96.8F: Yes Pain Manageable: Yes Adequeate Hydration: Yes Anesthesia Complications: No
[2017-04-05] MEDS ORDERED: ALBURX 25% (ALBUMIN) IV SCH (22:00)
[2017-04-05] MEDS: NOVOLOG SUB-Q SCH (22:55)
[2017-04-05] MEDS: COREG PO SCH (23:00)
[2017-04-06] MEDS: ANCEF/NS 1 GM/50 ML 1 GM/50 ML BAG IV SCH ×2 (00:39→08:31)
[2017-04-06] MEDS: NACL 0.9% 1000 ML 1,000 ML IV SCH (08:30)
[2017-04-06] MEDS: NORCO 5/325 PO PRN ×3 (08:33→22:48)
[2017-04-06 08:34] LABS: Hemoglobin 5.3 gm/dl (11.8-15.2)
[2017-04-06] MEDS: GLUCOTROL PO SCH ×2 (08:34→18:46)
[2017-04-06 08:35] LABS: BUN/Creatinine Ratio 7.56; Calcium 7.8 mg/dL (8.4-10.2); Chloride 100.4 mmol/L (98-107); Hematocrit 16.4 % (35.5-45.6); Potassium 4.7 mmol/L (3.6-5.0)
[2017-04-06] MEDS: NOVOLOG SUB-Q SCH ×3 (08:39→18:00)
[2017-04-06 11:02] LABS: Mean Corpuscular HGB Conc 31 % (32-34); Mean Corpuscular Hemoglobin 29 pg (28-32); Mean Corpuscular Volume 92 fl (84-94); Platelet Count 321 K/mm3 (140-440); Red Blood Count 1.83 M/mm3 (3.65-5.03)
--- NOTE | 2017-04-06 11:12 | Admit Criteria Form ---
Admission Criteria Documentation: AMBULATORY SURGERY EXCEPTION CRITERIA Ambulatory Surgery Exception Criteria ( Place 'X' for any and all applicable criteria): Surgery or procedure performed on ambulatory basis may require inpatient stay for[A] ANY ONE of the following(1)(2)(3)(4)(5)(6)(7)(8)(9): [X] I. A preoperative situation, condition, or finding that warrants inpatient stay as indicated by ANY ONE of the following: [] a) Inpatient care needed because of severity of a disease or condition rather than the surgery (eg, severe cardiac or respiratory disease, severe infection) (15) (16 ) (17) (18) [] b) Emergent procedure (eg, angioplasty for acute ischemia)(19) [] c) Complex surgical approach or situation as indicated by ANY ONE of the following(3): [] i) Open approach needed instead of usual endoscopic, transcatheter, or other less invasive procedure [] ii) Difficult approach because of previous operation [] iii) Airway monitoring required after open neck procedures(20)(21) [] iv) Large mass requiring unusually extensive dissection [] v) Additional complicating feature requiring inpatient care (eg, drain management)(22(23): [X] d) Major surgery in a pt with high anesthetic risk as indicated by ANY ONE of the following (2)(3)(5)(7)(8): [X] i) ASA risk class III or higher (severe systemic disease impairing function) [D] [] ii) Advanced age (eg, older than 85 years)(14)(24) [] iii) Symptomatic heart failure(25) [] iv) Symptomatic asthma or COPD(8)(21) [] v) Morbid obesity with hemodynamic or respiratory problems(20)( 21)(26)(27) [] vi) Obstructive sleep apnea(20)(21) [] vii) Former premature infants who are younger than 60 weeks [] viii) High risk for severe postoperative abnormalities (eg, severe postoperative hypocalcemia after parathyroidectomy for severe hyperparathyroidism)(27)( 28) [] ix) Unstable angina(25) [] e) Drug-related risk requiring inpatient stay as indicated by ANY ONE of the following(5)(10)(14)(32)(33) [] i) Procedure requires discontinuing drugs or other therapy (eg , antiarrhythmic medication, antiseizure medication), which necessitates inpatient observation or treatment.(18)(31) [] ii) Major surgery and high risk drug use as indicated by ANY ONE of the following: [] 1) Active abuse of cocaine or similar drug [] 2) Monoamine oxidase inhibitor use [] 3) Other drug identified as posing risk [] f) Inadequate outpatient care situation as indicated by ANY ONE of the following(5)(10)(14)(32)(33) [] i) Patient lives remote from medical facility and procedure has urgent complication potential, and temporary nearby residence cannot be arranged [] ii) Patient will have postprocedure incapacitation and inadequate assistance at home, or alternative level of care cannot be arranged. [] iii) Patient will have long general anesthesia or procedure side effect resolution time, and competent person to stay with patient on first postoperative night at home or alternative level of care cannot be arranged. []iv) Other inadequate outpatient situation that cannot be handled by other means [] II. A perioperative event, condition, or finding that warrants inpatient stay as indicated by ANY ONE of the following (1)(2)(3): [] a) Inadequate physiologic recovery: cardiovascular, respiratory, or hemodynamic status not normal or near preoperative baseline(18) [] b) Hemodynamic instability [] c) Patient not alert with near normal or baseline mental status [] d) Temperature not normal or as expected and not appropriate for outpatient treatment of condition [] e) Ambulatory or appropriate activity level status not yet achieved post procedure [E](34)(35)(36) [] f) Operative site not appropriate (eg, unexpected or excessive drainage or bleeding) [] g) Postoperative effects not resolved or adequately managed (eg, significant pain or vomiting not appropriate for outpatient or next level of care)(10)(12) [] h) Complicating features requiring inpatient care as indicated by ANY ONE of the following(37): [] i) Severe complications of procedure (eg, bowel injury, airway compromise, vascular injury,severe hemorrhage) [] ii) Extensive (eg, dissection far beyond usual scope of procedure ) or prolonged (eg, 120 minutes beyond usual) surgery needed requiring inpatient postoperative care [] iii) Conversion to an open or complex procedure that requires inpatient care (eg, open vs laparoscopic cholecystectomy, abdominal vs vaginal hysterectomy)(38) [] iv) Comorbid condition or test result identified during or post procedure that requires inpatient care (7) [] v) Malignant hyperthermia(30) [] vi) Other complicating feature requiring inpatient care(22)(23) Inpatient stay may be needed until ALL of the following are present (1)(2)(3)(4) (5)(6)(10)(14)(33)(40): []a) Physiologic recovery: cardiovascular, respiratory, and hemodynamic status normal or near preoperative baseline []b) Hemodynamic stability []c) Patient alert, with near normal or baseline mental status []d) Temperature appropriate: patient afebrile or temperature appropriate for outpt treatment of condition []e) Activity level appropriate: ambulatory or appropriate activity level post procedure []f) Operative site appropriate as indicated by ALL of the following: []i) Site dry or with expected drainage []ii) Any blood noted is as expected for procedure. []g) Postoperative effects resolved or managed as indicated by ALL of the following: []i) Pain management appropriate for outpatient (or next level of) care(10) []ii) Minimal nausea and vomiting: if present, successfully treated with oral medication(12) []iii) Headache, dizziness, or drowsiness (if present) are mild. []h) Voiding status acceptable as indicated by ANY ONE of the following: []i) Voiding spontaneously []ii) No voiding but instructions given for follow-up in 6 to 8 hours []iii) Urinary catheter in place, and instructions given for follow-up []i) Complicating features requiring inpatient care manageable at a lower level of care(37) []j) Comorbid conditions manageable at a lower level of care(37) The original [employer] content created by [employer] has been revised. The portions of the content which have been revised are identified through the use of italic text or in bold, and [employer] [facility] [employer] has neither reviewed nor approved the modified material. All other unmodified content is copyright [employer]. Please see references footnoted in the original [employer] edition 2016 Admission Criteria Met: Yes
[2017-04-06 11:22] LABS: Hemoglobin 5.2 gm/dl (11.8-15.2); White Blood Count 23.6 K/mm3 (4.5-11.0)
[2017-04-06 11:23] LABS: Hematocrit 16.9 % (35.5-45.6)
--- NOTE | 2017-04-06 11:31 | Consultation ---
History of Present Illness Consult date: 04/06/17 Requesting physician: PREMA STOUT Reason for consult: other (severe anemia, hemorrhage) History of present illness: Mr Mcgovern was seen and examined. Vitals, labs, medications, cahrt was reviewed. He is an ESRD patient( Dm, HTN) with an AVF in his left upper extremity. He was taken to the operating room for an out patient procedure- debridement of arm wound and angioplasty of Dril bypass( which is a vein bypass in a patient who develops steal syndrome after AV fistula creation). The bypass ruptured and he had a blood loss of 750ml.. The bypass was replaced and a wound vac placed. He was admitted to the ICU and I have been consulted for critical care management. He felt dizzy last night and almost passed out. Hemoglobin was found to have dropped by half to 5g/dl. He denies any respiratory symptoms, states he just feels very tired and washed out. Medications and Allergies Allergies Allergy/AdvReac Type Severity Reaction Status Date / Time No Known Allergies Allergy Verified 03/21/17 10:06 Home Medications Medication Instructions Recorded Confirmed Last Taken Type Carvedilol [Coreg] 25 mg PO BID #60 tablet 10/27/16 04/05/17 04/04/17 22:00 Rx Clopidogrel [Plavix] 75 mg PO QDAY #30 tablet 10/27/16 04/05/17 04/03/17 22:00 Rx glipiZIDE [Glucotrol] 5 mg PO BIDDIAB #60 tablet 10/27/16 04/05/17 04/04/17 22: 00 Rx AtorvaSTATin [Lipitor] 40 mg PO DAILY 01/04/17 04/05/17 04/04/17 11:00 History Furosemide 40 mg PO PRN PRN 01/04/17 04/05/17 04/03/17 09:00 History HYDROcodone/APAP 7.5-325 [[place] 1 each PO Q6HR PRN #50 tablet 01/04/17 03/31/17 03/21/17 Rx 7.5-325 mg TAB] Meclizine [Antivert] 25 mg PO TID PRN 01/04/17 03/31/17 03/21/17 History amLODIPine [Norvasc] 10 mg PO DAILY 01/04/17 04/05/17 04/05/17 09:00 History HYDROcodone/APAP 7.5-325 [[place] 1 each PO Q6HR PRN #90 tablet 03/22/17 03/31/17 Unknown Rx 7.5/325] Active Meds: Active Medications Acetaminophen/Hydrocodone Bitart ([place] 5/325) 2 each PO Q6H PRN PRN Reason: Pain, Moderate (4-6) Last Admin: 04/06/17 08:33 Dose: 2 each Amlodipine Besylate (Norvasc) 10 mg PO DAILY [facility] Atorvastatin Calcium (Lipitor) 40 mg PO HS [facility] Carvedilol (Coreg) 25 mg PO BID [facility] Last Admin: 04/05/17 23:00 Dose: 25 mg Clopidogrel Bisulfate (Plavix) 75 mg PO QDAY [facility] Ephedrine Sulfate (Ephedrine Sulfate) 10 mg IV Q5M PRN PRN Reason: Blood Pressure Furosemide (Lasix) 40 mg PO PRN PRN PRN Reason: NON DIALYSIS DAYS Last Admin: 04/06/17 08:33 Dose: 40 mg Glipizide (Glucotrol) 5 mg PO BIDDIAB [facility] Last Admin: 04/06/17 08:34 Dose: 5 mg Hydromorphone HCl (Dilaudid) 0.5 mg IV Q10MIN PRN PRN Reason: Pain , Severe (7-10) Stop: 04/08/17 18:33 Last Admin: 04/05/17 21:50 Dose: 0.5 mg Sodium Chloride (Nacl 0.9% 1000 Ml) 1,000 mls @ 42 mls/hr IV DIRECT [facility] Last Admin: 04/06/17 08:30 Dose: 42 mls/hr Insulin Aspart (Novolog) 0 units SUB-Q ACHS [facility] PRN Reason: Protocol Last Admin: 04/06/17 08:39 Dose: 2 units Meclizine HCl (Antivert) 25 mg PO TID PRN PRN Reason: Vertigo Last Admin: 04/06/17 08:33 Dose: 25 mg Morphine Sulfate (Morphine) 2 mg IV Q4H PRN PRN Reason: Pain, Moderate (4-6) Morphine Sulfate (Morphine) 4 mg IV Q4H PRN PRN Reason: Pain , Severe (7-10) Naloxone HCl (Narcan 0.4 Mg/1 Ml) 0.1 mg IV Q2MIN PRN PRN Reason: Res Rate </= 8 or 02 SAT < 92% Ondansetron HCl (Zofran) 4 mg IV Q8H PRN PRN Reason: Nausea And Vomiting Review of Systems Constitutional: fatigue, malaise, lethargy Cardiovascular: syncope, lightheadedness, shortness of breath, decreased exercise tolerance, no chest pain, no orthopnea, no palpitations, no rapid/ irregular heart beat, no edema, no paroxysmal nocturnal dyspnea Respiratory: no cough, no cough with sputum, no excessive sputum, no hemoptysis , no congestion, no wheezing, no pain on inspiration, no respiratory infections Gastrointestinal: abdominal pain, nausea, no vomiting, no diarrhea, no change in bowel habits, no melena, no heartburn, no excessive gas, no jaundice Genitourinary Male: urinary hesitancy, no dysuria, no hematuria, no discharge, no testicular pain, no testicular lump Rectal: no pain, no incontinence, no bleeding Musculoskeletal: no neck stiffness, no neck pain, no arm numbness/tingling, no low back pain, no muscle cramps, no limitation of motion Neurological: no head injury, no transient paralysis, no parathesias, no numbness, no confusion Psychiatric: no anxiety, no depression, no hopelessness Endocrine: no cold intolerance, no heat intolerance, no polyphagia, no excessive thirst, no excessive sweating Hematologic/Lymphatic: no lymphadenopathy, no lymphedema Allergic/Immunologic: no urticaria, no allergic rhinitis, no anaphylaxis, no gluten intolerance Physical Examination Vital signs: Vital Signs Temp Pulse Resp BP Pulse Ox 98.8 F 69 18 155/82 98 04/05/17 11:20 04/05/17 11:20 04/05/17 11:20 04/05/17 11:20 04/05/17 11:20 General appearance: no acute distress, other (pale with facial edema) Eyes: non-icteric ENT: oropharynx moist Neck: supple, no lymphadenopathy, no JVD Effort: normal Ascultation: Bilateral: clear, diminished breath sounds Cardiovascular: regular rate and rhythm, other (holosystolic murmur) Gastrointestinal: normoactive bowel sounds, soft, non-tender, non-distended, other (Right upper quadrant surgical scar) Integumentary: other (Left upper extremity wound vac) Extremities: no cyanosis, no edema, cool Musculoskeletal: no deformities normal mental status, non-focal exam mood appropriate, affect normal Results - Laboratory Findings CBC and BMP: 04/06/17 10:43 04/06/17 07:51 PT/INR, D-dimer PT 14.5 Sec. (12.2-14.9) 04/05/17 11:45 INR 1.07 (0.87-1.13) 04/05/17 11:45 Abnormal lab findings: Abnormal Labs 04/05/17 04/05/17 04/05/17 11:45 11:45 18:19 WBC 12.4 H RBC 3.43 L Hgb 10.0 L Hct 30.2 L MCHC RDW 15.6 H Greene % (Auto) 8.7 H Greene # 1.1 H Seg Neutrophils # 8.5 H Sodium Carbon Dioxide BUN Creatinine 2.8 H Glucose POC Glucose 305 H Calcium 04/05/17 04/06/17 04/06/17 22:33 07:51 07:51 WBC RBC Hgb 5.3 L* D Hct 16.4 L* D MCHC RDW [place] % (Auto) Greene # Seg Neutrophils # Sodium 136 L Carbon Dioxide 16 L D BUN 31 H Creatinine 4.1 H Glucose 180 H POC Glucose 189 H Calcium 7.8 L 04/06/17 04/06/17 08:15 10:43 WBC 23.6 H RBC 1.83 L Hgb 5.2 L* Hct 16.9 L* MCHC 31 L RDW 16.0 H Greene % (Auto) Greene # Seg Neutrophils # Sodium Carbon Dioxide BUN Creatinine Glucose POC Glucose 201 H Calcium Assessment and Plan - Patient Problems (1) Anemia due to blood loss, acute Current Visit: Yes Status: Acute Plan to address problem: Transfuse PRBC for Hemoglobin of 7g/dl. Transfuse with HD Symptomatic, with diizziness and pre-syncope. Falls precautions until hemoglobin is more physiologic (2) Leukocytosis Current Visit: Yes Status: Acute Qualifiers: Leukocytosis type: L Plan to address problem: Start vancomycin, get blood cultures prior to initiation of vancomycin. Patient is an HD patient and is at risk for MDRO/MRSA He received emily-procedural antibiotics Monitor hemodynamics closely (3) AV graft malfunction Current Visit: Yes Status: Acute Qualifiers: Encounter type: E (4) ESRD (end stage renal disease) on dialysis Current Visit: Yes Status: Acute Plan to address problem: Patient states he was getting HD twice a week. Renal consult placed (5) Diabetes Current Visit: No Status: Chronic Qualifiers: Diabetes mellitus type: type 2 Diabetes mellitus complication status: with hyperglycemia Diabetes mellitus complication detail: D Diabetic retinopathy severity: D Proliferative retinopathy type: P Diabetes mellitus macular edema: D Diabetes mellitus arc trimmer insulin use: without arc trimmer use Laterality: L Chronic kidney disease stage: C Qualified Code(s): E11.65 - Type 2 diabetes mellitus with hyperglycemia Plan to address problem: Accuchecks with glycemic control Goal glucose<180mg/dl Diabetic diet (6) HTN (hypertension) Current Visit: No Status: Chronic Qualifiers: Hypertension type: essential hypertension Qualified Code(s): I10 - Essential (primary) hypertension Plan to address problem: Blood pressure control. Home medications. Monitor hemodynamics closely ED Critical Care Note - Critical Care Note Total Time (mins): 31 Critical care attestation.: If time is entered above; I have spent that time in minutes in the direct care of this critically ill patient, excluding procedure time.
[2017-04-06] MEDS ORDERED: VANCOMYCIN VIAL IV ONE (11:40)
[2017-04-06] MEDS ORDERED: VANCOMYCIN PHARMACY TO DOSE IV SCH (12:00)
[2017-04-06] MEDS ORDERED: NACL 0.9% 500 ML 500 ML IV ONE (12:01)
[2017-04-06 13:16] LABS: Basophils % (Manual) 0 % (0.0-1.8); Blastocytes % (Manual) 0 %; Eosinophils % (Manual) 0 % (0.0-4.3)
[2017-04-06 13:17] LABS: Anisocytosis Few; Diff Status Complete; Hypochromasia Few; Poikilocytosis Few
[2017-04-06] MEDS ORDERED: VANCOMYCIN 1,500 MG in NACL 0.9% 500 ML 500 ML IV ONE (14:00)
[2017-04-06] MEDS: COREG PO SCH ×2 (14:12→21:50)
[2017-04-06] MEDS: PLAVIX PO SCH (14:23)
[2017-04-06] MEDS: NORVASC PO SCH (14:24)
--- NOTE | 2017-04-06 15:45 | Consultation ---
History of Present Illness - History of Present Illness Thank you for the consultation Patient was evaluated today Assessment and plan End-stage renal disease patient is currently on maintenance hemodialysis admitted with severe bleeding Anemia patient does require packed red blood cell transfusion bleeding has stopped status post vascular surgery intervention Secondary hyperparathyroidism to monitor Blood loss reported to be about 750 mL during surgery Multiple other comorbidities We'll continue to follow and make recommendation from renal standpoint History of presenting illness: Patient is a pleasant 46-year-old male who is currently on maintenance hemodialysis Tuesday and Tuesday at [place] [facility]. Patient has been admitted here with bleeding from the access issue, and has had an hemorrhage to the point that his hemoglobin dropped from 10-5. Patient currently is status post vascular procedure and is stable he also did receive packed red blood cell transfusion. He presented to the outpatient clinic for procedure forced last debridement of an upper extremity old and angioplasty of his DRIL bypass. Unfortunately the patient bypass ruptured resulting in significant blood loss. This was replaced with the bovine graft. Patient does have history of hyperkalemia and hence has been kept on dialysis twice a week for now. He still continues to make good amount of urine. He has no complaints of any dizziness chest pain pressure or shortness of breath Past medical history is significant for: End-stage renal disease currently on maintenance hemodialysis Anemia and end-stage renal disease secondary hyperparathyroidism Hyperlipidemia status post gallbladder surgery Current allergies: No known drug allergies Home medication present medications: Reviewed Social history: No history of any alcohol drug tobacco use Family history: Noncontributory for renal related to the daughter Review of system positive for bleeding from the access site some weakness which has currently improved Other review of systems were negative Physical examination Vitals: Reviewed from this admission General: No acute distress HEENT: Oral mucosa moist no uremic order mild pallor no icterus, mild to moderate pallor present Neck: No thyromegaly nodular mass or JVD noted Chest: Clear to auscultation no rales or wheezes Heart: Regular rhythm S1-S2 heard no S3-S4 Abdomen: Nontender no organomegaly no masses no renal bruit no suprapubic masses noted Extremities: Mild edema No peripheral cyanosis dry skin pulses palpable Endocrine: No thyromegaly noted Psych; no agitation or aggression noted Back: Nontender thoracolumbar spine Musculoskeletal: No joint effusion noted Neurological: Alert awake follows commands higher function including speech memory thought cognition within normal limits Labs and x-rays: All were reviewed from this admission on chart today Medications and Allergies Allergies Allergy/AdvReac Type Severity Reaction Status Date / Time No Known Allergies Allergy Verified 03/21/17 10:06 Home Medications Medication Instructions Recorded Confirmed Last Taken Type Carvedilol [Coreg] 25 mg PO BID #60 tablet 10/27/16 04/05/17 04/04/17 22:00 Rx Clopidogrel [Plavix] 75 mg PO QDAY #30 tablet 10/27/16 04/05/17 04/03/17 22:00 Rx glipiZIDE [Glucotrol] 5 mg PO BIDDIAB #60 tablet 10/27/16 04/05/17 04/04/17 22: 00 Rx AtorvaSTATin [Lipitor] 40 mg PO DAILY 01/04/17 04/05/17 04/04/17 11:00 History Furosemide 40 mg PO PRN PRN 01/04/17 04/05/17 04/03/17 09:00 History HYDROcodone/APAP 7.5-325 [[place] 1 each PO Q6HR PRN #50 tablet 01/04/17 03/31/17 03/21/17 Rx 7.5-325 mg TAB] Meclizine [Antivert] 25 mg PO TID PRN 01/04/17 03/31/17 03/21/17 History amLODIPine [Norvasc] 10 mg PO DAILY 01/04/17 04/05/17 04/05/17 09:00 History HYDROcodone/APAP 7.5-325 [[place] 1 each PO Q6HR PRN #90 tablet 03/22/17 03/31/17 Unknown Rx 7.5/325] Active Meds: Active Medications Acetaminophen/Hydrocodone Bitart ([place] 5/325) 2 each PO Q6H PRN PRN Reason: Pain, Moderate (4-6) Last Admin: 04/06/17 14:25 Dose: 2 each Amlodipine Besylate (Norvasc) 10 mg PO DAILY [facility] Last Admin: 04/06/17 14:24 Dose: 10 mg Atorvastatin Calcium (Lipitor) 40 mg PO HS [facility] Carvedilol (Coreg) 25 mg PO BID [facility] Last Admin: 04/06/17 14:12 Dose: Not Given Clopidogrel Bisulfate (Plavix) 75 mg PO QDAY [facility] Last Admin: 04/06/17 14:23 Dose: 75 mg Ephedrine Sulfate (Ephedrine Sulfate) 10 mg IV Q5M PRN PRN Reason: Blood Pressure Furosemide (Lasix) 40 mg PO PRN PRN PRN Reason: NON DIALYSIS DAYS Last Admin: 04/06/17 08:33 Dose: 40 mg Glipizide (Glucotrol) 5 mg PO BIDDIAB [facility] Last Admin: 04/06/17 08:34 Dose: 5 mg Hydromorphone HCl (Dilaudid) 0.5 mg IV Q10MIN PRN PRN Reason: Pain , Severe (7-10) Stop: 04/08/17 18:33 Last Admin: 04/05/17 21:50 Dose: 0.5 mg Sodium Chloride (Nacl 0.9% 1000 Ml) 1,000 mls @ 42 mls/hr IV DIRECT [facility] Last Admin: 04/06/17 08:30 Dose: 42 mls/hr Insulin Aspart (Novolog) 0 units SUB-Q ACHS [facility] PRN Reason: Protocol Last Admin: 04/06/17 08:39 Dose: 2 units Meclizine HCl (Antivert) 25 mg PO TID PRN PRN Reason: Vertigo Last Admin: 04/06/17 08:33 Dose: 25 mg Morphine Sulfate (Morphine) 2 mg IV Q4H PRN PRN Reason: Pain, Moderate (4-6) Morphine Sulfate (Morphine) 4 mg IV Q4H PRN PRN Reason: Pain , Severe (7-10) Naloxone HCl (Narcan 0.4 Mg/1 Ml) 0.1 mg IV Q2MIN PRN PRN Reason: Res Rate </= 8 or 02 SAT < 92% Ondansetron HCl (Zofran) 4 mg IV Q8H PRN PRN Reason: Nausea And Vomiting Vancomycin HCl (Vancomycin Pharmacy To Dose) 1 each IV PKCONSULT [facility] PRN Reason: Protocol Exam - Vital Signs Vital signs: Vital Signs Temp Pulse Resp BP Pulse Ox 98.8 F 69 18 155/82 98 04/05/17 11:20 04/05/17 11:20 04/05/17 11:20 04/05/17 11:20 04/05/17 11:20 Results - Lab Results 04/07/17 10:02 04/07/17 00:36 Most recent lab results Calcium 7.8 mg/dL (8.4-10.2) L 04/06/17 07:51
[2017-04-06] MEDS: MORPHINE IV PRN (18:46)
--- NOTE | 2017-04-06 20:14 | Progress Note ---
Assessment and Plan This patient presented for an outpatient procedure, debridement of an left upper extremity wound and angioplasty of his DRIL bypass. Unfortunately, the patient's bypass ruptured resulting in significant blood loss. The bypass was replaced. The patient was admitted to the intensive care unit. His hemoglobin dropped from approximately 10.0 to 5.2 (repeated and confirmed). A transfusion of packed red blood cells has been ordered. We will recheck his hemoglobin in the morning. - Patient Problems (1) AV graft malfunction Current Visit: Yes Status: Acute Qualifiers: Encounter type: E (2) Anemia due to blood loss, acute Current Visit: Yes Status: Acute Subjective Date of service: 04/06/17 Interval history: Patient has been evaluated multiple times today. He denies complaint at present. He states that his left hand feels about the same, but has improved slightly from this morning." I think I'm starting to get some feeling back into it". Objective - Constitutional Vitals: Vital Signs - 12hr 04/06/17 04/06/17 04/06/17 08:33 09:00 10:00 Temperature Pulse Rate 78 82 Respiratory 12 8 L 17 Rate Blood Pressure 132/75 128/62 O2 Sat by Pulse 100 98 Oximetry 04/06/17 04/06/17 04/06/17 11:01 12:00 12:01 Temperature 99.0 F Pulse Rate 82 81 Respiratory 16 17 Rate Blood Pressure 128/62 128/62 O2 Sat by Pulse 97 98 Oximetry 04/06/17 04/06/17 04/06/17 12:13 13:01 14:00 Temperature Pulse Rate 81 83 Respiratory 18 12 Rate Blood Pressure 128/62 113/61 O2 Sat by Pulse 96 99 96 Oximetry 04/06/17 04/06/17 04/06/17 14:11 14:21 14:24 Temperature Pulse Rate 84 82 82 Respiratory 18 14 Rate Blood Pressure 113/61 113/61 113/61 O2 Sat by Pulse 95 97 Oximetry 04/06/17 04/06/17 04/06/17 14:30 14:41 14:51 Temperature Pulse Rate 81 83 80 Respiratory 20 20 19 Rate Blood Pressure 113/61 113/61 113/61 O2 Sat by Pulse 99 98 98 Oximetry 04/06/17 04/06/17 04/06/17 14:53 15:01 15:03 Temperature 98.4 F 98.3 F Pulse Rate 80 80 80 Respiratory 22 21 20 Rate Blood Pressure 113/61 114/63 127/62 O2 Sat by Pulse 97 96 Oximetry 04/06/17 04/06/17 04/06/17 15:08 15:38 16:00 Temperature 98.8 F 98.3 F 98.8 F Pulse Rate 79 81 Respiratory 21 13 13 Rate Blood Pressure 112/73 117/60 117/60 O2 Sat by Pulse 95 94 94 Oximetry 04/06/17 04/06/17 04/06/17 16:01 16:08 16:30 Temperature 98.7 F 98.8 F Pulse Rate 78 81 Respiratory 20 13 Rate Blood Pressure 117/60 132/67 O2 Sat by Pulse 97 95 Oximetry 04/06/17 04/06/17 04/06/17 16:38 17:00 17:08 Temperature 98.8 F 98.7 F Pulse Rate 79 79 80 Respiratory 19 19 137 H Rate Blood Pressure 124/63 124/63 137/65 O2 Sat by Pulse 95 98 95 Oximetry 04/06/17 04/06/17 04/06/17 17:53 18:00 18:07 Temperature 98.4 F 98.5 F Pulse Rate 82 80 80 Respiratory 21 18 21 Rate Blood Pressure 144/65 144/65 137/67 O2 Sat by Pulse 96 98 96 Oximetry 04/06/17 04/06/17 04/06/17 18:22 19:00 20:00 Temperature 98.8 F 98.8 F Pulse Rate 78 78 Respiratory 17 19 Rate Blood Pressure 134/65 137/61 O2 Sat by Pulse 95 95 Oximetry General appearance: Present: no acute distress - EENT ENT: hearing intact, other (patient is blind) - Neck Neck: supple - Respiratory Respiratory effort: normal Extremities: normal temperature Extremity abnormal: pulses diminished (unable to palpate a radial pulse, but able to hear monophasic Doppler signals (evaluated early this morning with a hemoglobin of ~5)), other (is a palpable thrill in his AV fistula, his wound VAC is in place) - Psychiatric Psychiatric: appropriate mood/affect, intact judgment & insight, cooperative - Labs CBC & Chem 7: 04/06/17 10:43 04/06/17 07:51 Labs: Abnormal lab results 04/05/17 04/06/17 04/06/17 Range/Units 22:33 07:51 07:51 WBC (4.5-11.0) K/mm3 RBC (3.65-5.03) M/mm3 Hgb 5.3 L* D (11.8-15.2) gm/dl Hct 16.4 L* D (35.5-45.6) % MCHC (32-34) % RDW (13.2-15.2) % Seg Neuts % (Manual) (40.0-70.0) % Lymphocytes % (Manual) (13.4-35.0) % Seg Neutrophils # Man (1.8-7.7) K/mm3 Sodium 136 L (137-145) mmol/L Carbon Dioxide 16 L D (22-30) mmol/L BUN 31 H (9-20) mg/dL Creatinine 4.1 H (0.8-1.5) mg/dL Glucose 180 H (75-100) mg/dL POC Glucose 189 H (70-105) Calcium 7.8 L (8.4-10.2) mg/dL Crossmatch 04/06/17 04/06/17 04/06/17 Range/Units 08:15 10:43 11:48 WBC 23.6 H (4.5-11.0) K/mm3 RBC 1.83 L (3.65-5.03) M/mm3 Hgb 5.2 L* (11.8-15.2) gm/dl Hct 16.9 L* (35.5-45.6) % MCHC 31 L (32-34) % RDW 16.0 H (13.2-15.2) % Seg Neuts % (Manual) 90.0 H (40.0-70.0) % Lymphocytes % (Manual) 5.0 L (13.4-35.0) % Seg Neutrophils # Man 21.2 H (1.8-7.7) K/mm3 Sodium (137-145) mmol/L Carbon Dioxide (22-30) mmol/L BUN (9-20) mg/dL Creatinine (0.8-1.5) mg/dL Glucose (75-100) mg/dL POC Glucose 201 H 241 H (70-105) Calcium (8.4-10.2) mg/dL Crossmatch 04/06/17 04/06/17 Range/Units 12:36 15:34 WBC (4.5-11.0) K/mm3 RBC (3.65-5.03) M/mm3 Hgb (11.8-15.2) gm/dl Hct (35.5-45.6) % MCHC (32-34) % RDW (13.2-15.2) % Seg Neuts % (Manual) (40.0-70.0) % Lymphocytes % (Manual) (13.4-35.0) % Seg Neutrophils # Man (1.8-7.7) K/mm3 Sodium (137-145) mmol/L Carbon Dioxide (22-30) mmol/L BUN (9-20) mg/dL Creatinine (0.8-1.5) mg/dL Glucose (75-100) mg/dL POC Glucose 232 H (70-105) Calcium (8.4-10.2) mg/dL Crossmatch See Detail
--- NOTE | 2017-04-06 22:51 | Operative Report ---
Operative Report Operative Report: Operative Report Date of procedure: 04/05/2017 Pre-operative diagnosis: Complications of Dialysis Access Post-operative diagnosis: Same Procedure(s): 1. Excisional Debridement of Left Arm Skin and Soft Tissue with Wound Vac Placement (Wound Measures 12 x 6 x 6 cm) 2. Ultrasound Guided Access Left Femoral Artery 3. Diagnostic Left Upper Extremity Arteriogram (Patient with a Clinical Change) 4. Angioplasty of Left Axillary Artery to Brachial Artery Bypass with 5 x 120 Balloon 5. Redo Left Axillary Artery to Brachial Artery Bypass with 5 mm Bovine Graft 6. Closure of Left Femoral Arteriotomy with ProGlide Closure Device 6. Radiologic Supervision with Interpretation Surgeon: Omar Romo MD Optical Design Engineer: Kwesi Valle PA-C Anesthesia: GETA EBL: 750 ml Findings: Specimen: None Counts: Correct Complications: Rupture of the Axillary to brachial bypass with balloon angioplasty. Condition: Stable Indication: The patient is a 46-year-old male with history of end-stage renal disease who recently had an elevation of a left brachiobasilic arteriovenous fistula. He also underwent a DRIL procedure to resolve steal syndrome of the left hand. Since his procedure he has had breakdown of his incision as well as continued hand numbness. He is in need of debridement of his wound with VAC placement as well as a diagnostic arteriogram of left upper extremity to evaluate the patency of his bypass graft. He was given the risks, benefits, and alternative procedures and consented to procedure. Description of Procedure: The patient was brought to the operating room and laid in supine position. After general endotracheal anesthesia was achieved his left arm and left groin were prepped and draped in normal sterile fashion. A 10 blade was used to sharply excise the necrotic skin and soft tissue within the midportion of the wound. Curved Mayos were used to further sharply debride the necrotic soft tissue within the wound. The wound was then copiously irrigated and hemostasis was achieved with a combination of direct pressure and cautery. Once hemostasis was achieved the wound VAC was placed sterilely and placed on suction with an excellent seal. I then used ultrasound to identify the left common femoral artery and made a small stab incision. Micropuncture technique was used to access the artery and a 0.035 Advantage Wire was advanced into the thoracic aorta. A short 6 Chilean sheath was then placed by Seldinger technique. With the use of a vertebral catheter and the advantage wire I cannulated the subclavian artery and advanced a catheter and wire into the proximal brachial artery. An arteriogram was performed and demonstrated patency of the AV fistula as well as a patent bypass graft with there appeared to be approximately 40% stenosis at the proximal and distal anastomosis. The wire and catheter were then advanced through the bypass graft into the radial artery and then a 5 x 120 balloon was advanced into the graft. Balloon angioplasty was performed that demonstrated a widely patent distal anastomosis however there was residual stenosis of approximately 40% at the proximal anastomosis. A second balloon angioplasty was performed and after performing the angioplasty there was obvious extravasation of contrast. I inflated the balloon again and held this for approximately 3 minutes with continued extravasation so the decision was made to abort this procedure and evaluate the anastomosis through his previous incision. The 6 Chilean sheath was removed and a ProGlide closure device was then used to close the left arteriotomy. While closing the arteriotomy the VAC lost suction and it was obvious that the patient was hemorrhaging from his arm. The VAC was quickly taken down and digital pressure was used to stop the hemorrhage. Was able to dissect out the proximal axillary artery and place a DeBakey clamp on the artery to prevent further bleeding. I also used a 3 Elia with a three-way stopcock and advanced this into the bypass graft to prevent retrograde bleeding. I was able to identify the area of rupture and initially used a bovine pericardial patch and 6-0 Prolene in running fashion to close this disruption of the anastomosis. After releasing the clamps there was no flow in the bypass graft because of likely narrowing so I decided that the patient will require a redo bypass. I used ultrasound to assess the saphenous veins in bilateral lower extremity is however the veins appeared quite small and not usable for bypass or decided to use a 5 mm bovine graft. I dissected the axillary artery just distal to the axilla and controlled using Vesseloops. I then made a longitudinal incision through her previous incision for his previous bypass and dissected down to the distal anastomosis. I controlled the brachial artery as well as the radial and ulnar arteries with vessel loops and then used a Jyotsna-Wick tunneler to tunnel the graft lateral to the biceps brachialis muscle ensuring that the graft was well covered. I then pulled the Vesseloops around axillary artery on tension and created an arteriotomy using 11 blade and Smyth scissors and then created an end-to-side anastomosis using a 6-0 Prolene running fashion. I removed the Vesseloops and off onto the graft which had excellent flow and then clamped the graft just distal to the anastomosis. I then put the Vesseloops on tension at the distal incision and then created an end-to-side anastomosis between the graft and the brachial artery using a 6-0 Prolene in a running fashion. After completing the anastomosis I removed all Vesseloops now flow into the graft which had an excellent pulse. The patient had a multiphasic Doppler signal at the radial artery which augmented with compression of the graft. Hemostasis within all wounds was achieved with clot. Once hemostasis was achieved I partially closed the proximal and distal portion of the upper incision using a 2 -0 Vicryl in a running fashion in the deep dermal layers and skin leann. The VAC was then reapplied and connected to suction with an excellent seal. The distal incision was then closed in 2 layers using a 3-0 Vicryl running fashion and the deep dermal layer and leann for the skin. The distal wound was then dressed with an island dressing. The patient tolerated the procedure well. All sponge, needle, and instrument counts were correct. The patient was taken to the recovery area in stable condition.
[2017-04-06] MEDS: ZOFRAN IV PRN (22:52)
[2017-04-07 01:25] LABS: BUN/Creatinine Ratio 9.04; Calcium 8.1 mg/dL (8.4-10.2); Chloride 102.2 mmol/L (98-107)
[2017-04-07] MEDS: MORPHINE IV PRN ×3 (02:29→17:30)
[2017-04-07] MEDS: NORCO 5/325 PO PRN ×2 (05:21→21:10)
[2017-04-07] MEDS: NOVOLOG SUB-Q SCH ×3 (08:30→17:32)
[2017-04-07] MEDS: GLUCOTROL PO SCH ×2 (09:00→17:31)
[2017-04-07] MEDS: PLAVIX PO SCH (09:57)
[2017-04-07] MEDS: NORVASC PO SCH (09:57)
[2017-04-07] MEDS: COREG PO SCH ×2 (09:58→21:11)
[2017-04-07] MEDS ORDERED: HEPARIN IV ONE (10:00)
[2017-04-07 10:28] LABS: Hematocrit 21.7 % (35.5-45.6); Hemoglobin 7.3 gm/dl (11.8-15.2)
--- NOTE | 2017-04-07 11:35 | Progress Note ---
Subjective Interval history: Patient was seen today for follow-up Denies any complaints of shortness of breath chest pain Does complain of some right upper quadrant discomfort Interdisciplinary notes were also reviewed Events of 24 hours vitals labs intake output medications were reviewed Social history: Reviewed Medication: Reviewed Family history: Reviewed General: Alert awake nor acute distress HEENT: Oral mucosa moist no uremic order Neck: Supple no JVD Chest: Clear to auscultation Heart: Regular rate and rhythm S1-S2 heard Abdomen: Soft mild tenderness in the right upper quadrant Extremity: Dry skin edema minimal Neurological: Alert awake and oriented Assessment and plan End-stage renal disease; patient is currently on hemodialysis twice a week at [facility],he will need dialysis tomorrow morning depending on his labs Admitted with bleeding from the fistula site currently stable followed by vascular surgery History of hyperkalemia: Currently stable Anemia and end-stage renal disease: Complicated by GI bleed currently stabilized monitor hemoglobin and hematocrit status post packed red blood cell transfusion Current hemoglobin is around 7.3 hematocrit 21.7 patient has had rupture office bypass which was replaced with a bovine graft hemoglobin dropped from 10-5.2 Patient does complain of right upper abdominal pain he has had history of cholecystectomy which was fairly complicated please consider a right upper quadrant ultrasonogram Malnutrition present on admission albumin 3.0 Patient did receive adequate counseling and education regarding all the renal related issues Pertinent questions were answered Prognosis is currently guarded We'll continue to follow and make recommendations from renal standpoint Objective - Vital Signs Vital signs: Vital Signs - 12hr 04/06/17 04/07/17 04/07/17 23:51 00:00 01:01 Temperature 99.4 F Pulse Rate 91 H 90 88 Respiratory 28 H 26 H 12 Rate Blood Pressure 148/56 140/66 140/66 O2 Sat by Pulse 95 93 95 Oximetry 04/07/17 04/07/17 04/07/17 02:01 03:01 04:00 Temperature 99.4 F Pulse Rate 83 82 82 Respiratory 23 20 19 Rate Blood Pressure 133/69 145/56 153/70 O2 Sat by Pulse 94 94 93 Oximetry 04/07/17 04/07/17 04/07/17 05:01 06:00 07:01 Temperature Pulse Rate 82 82 Respiratory 20 21 Rate Blood Pressure 153/70 131/71 125/66 O2 Sat by Pulse 93 96 95 Oximetry 04/07/17 04/07/17 04/07/17 07:52 08:00 09:57 Temperature 98.5 F Pulse Rate 83 86 Respiratory 22 Rate Blood Pressure 121/68 136/74 O2 Sat by Pulse 95 92 Oximetry 04/07/17 09:58 Temperature Pulse Rate 88 Respiratory Rate Blood Pressure 136/74 O2 Sat by Pulse Oximetry - Lab 04/07/17 10:02 04/07/17 00:36 Most recent lab results Calcium 8.1 mg/dL (8.4-10.2) L 04/07/17 00:36
--- NOTE | 2017-04-07 11:43 | Progress Note ---
Assessment and Plan - Patient Problems (1) Anemia due to blood loss, acute Current Visit: Yes Status: Acute Plan to address problem: Transfuse PRBC for Hemoglobin of 7g/dl. Transfuse with HD Symptomatic, with diizziness and pre-syncope. Falls precautions until hemoglobin is more physiologic (2) Leukocytosis Current Visit: Yes Status: Acute Qualifiers: Leukocytosis type: L Plan to address problem: Start vancomycin, get blood cultures prior to initiation of vancomycin. Patient is an HD patient and is at risk for MDRO/MRSA He received emily-procedural antibiotics Monitor hemodynamics closely (3) AV graft malfunction Current Visit: Yes Status: Acute Qualifiers: Encounter type: E Plan to address problem: Per vascular service (4) ESRD (end stage renal disease) on dialysis Current Visit: Yes Status: Acute Plan to address problem: Supportive HD. Renal following (5) Diabetes Current Visit: No Status: Chronic Qualifiers: Diabetes mellitus type: type 2 Diabetes mellitus complication status: with hyperglycemia Diabetes mellitus complication detail: D Diabetic retinopathy severity: D Proliferative retinopathy type: P Diabetes mellitus macular edema: D Diabetes mellitus terminal system operator insulin use: without terminal system operator use Laterality: L Chronic kidney disease stage: C Qualified Code(s): E11.65 - Type 2 diabetes mellitus with hyperglycemia Plan to address problem: Accuchecks with glycemic control Goal glucose<180mg/dl Diabetic diet Episodes of hypoglycemia associated with poor oral intake. initiate hypoglycemia protocol (6) HTN (hypertension) Current Visit: No Status: Chronic Qualifiers: Hypertension type: essential hypertension Qualified Code(s): I10 - Essential (primary) hypertension Plan to address problem: Blood pressure control. Home medications. Monitor hemodynamics closely (7) RUQ abdominal pain Current Visit: Yes Status: Acute Plan to address problem: CXR and RUQ ultrasound ordered to evaluate pain Subjective Date of service: 04/07/17 Interval history: No new complaints. On going complains of right sided lower chest wall and abdominal pain. No fevers, no chills. Hemoglobin is stable. Seen and examined. Vitals,labs, medications, chart reviewed. Discussed on multidisciplinary rounds Objective - Exam Narrative Exam: Right hand warm. 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 Radial pulses non-palpable. Vital Signs - 12hr 04/06/17 04/07/17 04/07/17 23:51 00:00 01:01 Temperature 99.4 F Pulse Rate 91 H 90 88 Respiratory 28 H 26 H 12 Rate Blood Pressure 148/56 140/66 140/66 O2 Sat by Pulse 95 93 95 Oximetry 04/07/17 04/07/17 04/07/17 02:01 03:01 04:00 Temperature 99.4 F Pulse Rate 83 82 82 Respiratory 23 20 19 Rate Blood Pressure 133/69 145/56 153/70 O2 Sat by Pulse 94 94 93 Oximetry 04/07/17 04/07/17 04/07/17 05:01 06:00 07:01 Temperature Pulse Rate 82 82 Respiratory 20 21 Rate Blood Pressure 153/70 131/71 125/66 O2 Sat by Pulse 93 96 95 Oximetry 04/07/17 04/07/17 04/07/17 07:52 08:00 09:57 Temperature 98.5 F Pulse Rate 83 86 Respiratory 22 Rate Blood Pressure 121/68 136/74 O2 Sat by Pulse 95 92 Oximetry 04/07/17 09:58 Temperature Pulse Rate 88 Respiratory Rate Blood Pressure 136/74 O2 Sat by Pulse Oximetry Constitutional: no acute distress, other (pale with facial edema) Eyes: non-icteric ENT: oropharynx moist Neck: supple, no lymphadenopathy, no JVD Effort: normal Ascultation: Bilateral: clear, diminished breath sounds Cardiovascular: regular rate and rhythm, other (holosystolic murmur) Gastrointestinal: normoactive bowel sounds, soft, non-tender, non-distended, other (Right upper quadrant surgical scar) Integumentary: other (Left upper extremity wound vac, unable to electrical project engineer my hand, absent radial pulse) Extremities: no cyanosis, no edema, cool Neurologic: normal mental status, non-focal exam Psychiatric: mood appropriate, affect normal CBC and BMP: 04/10/17 11:30 04/10/17 04:10 ABG, PT/INR, D-dimer: PT/INR, D-dimer PT 14.5 Sec. (12.2-14.9) 04/05/17 11:45 INR 1.07 (0.87-1.13) 04/05/17 11:45 Abnormal lab findings: Abnormal Labs 04/05/17 04/05/17 04/05/17 11:45 11:45 18:19 WBC 12.4 H RBC 3.43 L Hgb 10.0 L Hct 30.2 L MCHC RDW 15.6 H Tillman % (Auto) 8.7 H Tillman # 1.1 H Seg Neuts % (Manual) Lymphocytes % (Manual) Seg Neutrophils # 8.5 H Seg Neutrophils # Man Sodium Carbon Dioxide BUN Creatinine 2.8 H Glucose POC Glucose 305 H Calcium Crossmatch 04/05/17 04/06/17 04/06/17 22:33 07:51 07:51 WBC RBC Hgb 5.3 L* D Hct 16.4 L* D MCHC RDW Tillman % (Auto) Tillman # Seg Neuts % (Manual) Lymphocytes % (Manual) Seg Neutrophils # Seg Neutrophils # Man Sodium 136 L Carbon Dioxide 16 L D BUN 31 H Creatinine 4.1 H Glucose 180 H POC Glucose 189 H Calcium 7.8 L Crossmatch 04/06/17 04/06/17 04/06/17 08:15 10:43 11:48 WBC 23.6 H RBC 1.83 L Hgb 5.2 L* Hct 16.9 L* MCHC 31 L RDW 16.0 H Tillman % (Auto) Tillman # Seg Neuts % (Manual) 90.0 H Lymphocytes % (Manual) 5.0 L Seg Neutrophils # Seg Neutrophils # Man 21.2 H Sodium Carbon Dioxide BUN Creatinine Glucose POC Glucose 201 H 241 H Calcium Crossmatch 04/06/17 04/06/17 04/06/17 12:36 15:34 21:34 WBC RBC Hgb Hct MCHC RDW Tillman % (Auto) Tillman # Seg Neuts % (Manual) Lymphocytes % (Manual) Seg Neutrophils # Seg Neutrophils # Man Sodium Carbon Dioxide BUN Creatinine Glucose POC Glucose 232 H 171 H Calcium Crossmatch See Detail 04/07/17 04/07/17 00:36 10:02 WBC RBC Hgb 7.3 L Hct 21.7 L MCHC RDW Tillman % (Auto) Tillman # Seg Neuts % (Manual) Lymphocytes % (Manual) Seg Neutrophils # Seg Neutrophils # Man Sodium Carbon Dioxide 20 L BUN 38 H Creatinine 4.2 H Glucose 147 H POC Glucose Calcium 8.1 L Crossmatch Critical care time in (mins) excluding proc time.: 31 Critical care attestation.: If time is entered above; I have spent that time in minutes in the direct care of this critically ill patient, excluding procedure time.
--- NOTE | 2017-04-07 13:57 | XRay Report ---
SUPINE KUB: History: Right upper quadrant pain. The abdominal gas pattern is unremarkable. No masses or organomegaly is identified and there is no gross evidence of free air or fluid. No significant soft tissue calcifications are noted. Surgical clips in the right upper quadrant most likely represent previous cholecystectomy. IMPRESSION: No acute abdominal process.
--- NOTE | 2017-04-07 15:02 | Progress Note ---
Assessment and Plan This patient presented for an outpatient procedure, debridement of an left upper extremity wound and angioplasty of his DRIL bypass. Unfortunately, the patient's bypass ruptured resulting in significant blood loss. The bypass was replaced with bovine graft. The patient was admitted to the intensive care unit. His hemoglobin dropped from approximately 10.0 to 5.2 and was transfused and now his hemoglobin is now 7.3. Will keep patient in unit for another day given blood loss from bypass rupture and underlying comorbidities. His left upper extremity is unchanged clinically from yesterday, but there is no palpable pulse in the wrist. There is a left radial dopplerable signal which is strong. Will obtain arterial Dopplers to ensure patency of bypass. The patient is complaining of right upper quadrant pain since going to the operating room. The pain has a pleuritic component. He is status post cholecystectomy. Abdominal x-ray is negative. Hospitalist ordered ultrasound. I'lll obtain chest x-ray for the pleuritic component and order LFTs. I'll consult GI for further evaluation. Subjective Date of service: 04/07/17 Interval history: Reports that ever since surgery is right upper quadrant of his abdomen has been painful especially with deep coughing; history of prior cholecystectomy; abdominal x-ray negative. He states that his left hand feels about the same, and continues to have chronic motor weakness, mild chronic pain, and slightly improved neuropathy. Dopplerable radial pulse. Objective - Constitutional Vitals: Vital Signs - 12hr 04/07/17 04/07/17 04/07/17 04:00 05:01 06:00 Temperature 99.4 F Pulse Rate 82 82 Respiratory 19 20 Rate Blood Pressure 153/70 153/70 131/71 O2 Sat by Pulse 93 93 96 Oximetry 04/07/17 04/07/17 04/07/17 07:01 07:52 08:00 Temperature 98.5 F Pulse Rate 82 83 Respiratory 21 22 Rate Blood Pressure 125/66 121/68 O2 Sat by Pulse 95 95 92 Oximetry 04/07/17 04/07/17 04/07/17 09:00 09:57 09:58 Temperature Pulse Rate 84 86 88 Respiratory 23 Rate Blood Pressure 136/74 136/74 136/74 O2 Sat by Pulse 93 Oximetry 04/07/17 04/07/17 04/07/17 10:01 11:00 12:00 Temperature 98 F Pulse Rate 88 81 Respiratory 24 21 Rate Blood Pressure 131/50 117/63 O2 Sat by Pulse 95 93 Oximetry 04/07/17 12:01 Temperature Pulse Rate 85 Respiratory 22 Rate Blood Pressure 148/32 O2 Sat by Pulse 95 Oximetry General appearance: Present: mild distress (right upper quadrant pain and left arm pain at incision sites) - EENT ENT: hearing intact - Respiratory Respiratory effort: normal Extremities: normal temperature (left arm), normal color (left arm), abnormal ( incisions are clean, dry, and intact) Extremity abnormal: pulses diminished (dopplerable left radial pulse), other ( please see subjective for assessment of left arm) - Psychiatric Psychiatric: cooperative - Labs CBC & Chem 7: 04/07/17 10:02 04/07/17 00:36 Labs: Abnormal lab results 04/06/17 04/06/17 04/06/17 Range/Units 12:36 15:34 21:34 Hgb (11.8-15.2) gm/dl Hct (35.5-45.6) % Carbon Dioxide (22-30) mmol/L BUN (9-20) mg/dL Creatinine (0.8-1.5) mg/dL Glucose (75-100) mg/dL POC Glucose 232 H 171 H (70-105) Calcium (8.4-10.2) mg/dL Crossmatch See Detail 04/07/17 04/07/17 Range/Units 00:36 10:02 Hgb 7.3 L (11.8-15.2) gm/dl Hct 21.7 L (35.5-45.6) % Carbon Dioxide 20 L (22-30) mmol/L BUN 38 H (9-20) mg/dL Creatinine 4.2 H (0.8-1.5) mg/dL Glucose 147 H (75-100) mg/dL POC Glucose (70-105) Calcium 8.1 L (8.4-10.2) mg/dL Crossmatch
[2017-04-07 15:41] LABS: Albumin/Globulin Ratio 0.9 %; Alkaline Phosphatase 69 units/L (35-129); Total Protein 6.2 g/dL (6.3-8.2)
[2017-04-07 15:49] LABS: Alanine Aminotransferase < 5 units/L (7-56); Bilirubin,Direct < 0.2 mg/dL (0-0.2); Bilirubin,Indirect 0.1 mg/dL
--- NOTE | 2017-04-07 15:56 | Ultrasound Report ---
Ultrasound of the right upper quadrant. History: Right upper quadrant pain. Findings: The patient is status post cholecystectomy. The abdominal aorta is unremarkable. Liver appears normal. There is a small volume of fluid within Morison's pouch. The common bile duct measures 10 mm in diameter. The right kidney is normal in size and configuration with no evidence of mass or hydronephrosis. The pancreas is not well visualized. Impression: Minimal free fluid is seen within Morison's pouch. The patient is status post cholecystectomy.
[2017-04-07] MEDS: NACL 0.9% 1000 ML 1,000 ML IV SCH (19:57)
[2017-04-08] MEDS: NOVOLOG SUB-Q SCH ×3 (00:33→11:30)
[2017-04-08] MEDS: MORPHINE IV PRN ×3 (00:43→19:50)
[2017-04-08] MEDS: NORCO 5/325 PO PRN ×3 (06:17→23:45)
--- NOTE | 2017-04-08 07:11 | Vascular Lab Report ---
LEFT UPPER EXTREMITY ARTERIAL DUPLEX: REASON FOR EXAM: Peripheral arterial disease. COMMENTS ON THE LEFT: Monophasic waveforms are seen proximally. Monophasic waveforms are seen distally. Patent axial brachial bypass. No significant plaque is identified. Findings are consistent with abnormal perfusion. IMPRESSION: LEFT:Patent left axillary brachial bypass graft. Monophasic flow may indicate inflow disease. Clinical correlation is recommended..
[2017-04-08] MEDS ORDERED: D50W (25GM) Syringe IV ONE ×2 (07:56→09:00)
--- NOTE | 2017-04-08 07:56 | XRay Report ---
PORTABLE CHEST INDICATION: Pleuritic component of right upper quadrant pain. COMPARISON: 10/26/2016 FINDINGS: Portable, frontal chest radiograph again demonstrates poor inspiration and grossly stable, mild exaggerated cardiomediastinal silhouette. Increased/crowded perihilar markings, right more than left. Mild left retrocardiac density/oblique atelectasis as well. No significant pleural effusions or CHF. Right-sided dual-lumen catheter again noted with its tip now projecting in the right atrium. EKG leads. Few bony degenerative changes. CONCLUSION: New left basilar atelectasis with hypoinflation and right-sided chest catheter again noted, as described. Thank you for the opportunity to participate in this patient's care.
[2017-04-08] MEDS: GLUCOTROL PO SCH (08:08)
[2017-04-08] MEDS: COREG PO SCH ×2 (09:30→23:45)
[2017-04-08] MEDS: PLAVIX PO SCH (09:40)
[2017-04-08] MEDS: NORVASC PO SCH (09:40)
--- NOTE | 2017-04-08 10:40 | Gastroenterology Consultation ---
History of Present Illness - Reason for Consult Consult date: 04/08/17 RUQ pain Requesting physician: MELODIE WISDOM - History of Present Illness Patient is a 46 y/o male who presented for an outpatient procedure of debridement of an left upper extremity wound and angioplasty of his DRIL bypass. Unfortunately, the pt's bypass ruptured resulting in significant blood loss, the bypass was replaced with bovine graft with wound vac placed, and he was admitted to the ICU. After being in the OR, pt was c/o RUQ abd pain. He is s /p an open cholecystectomy in 01/[address] Lewis at [facility] and has had some pain since surgery. Abd x-ray was negative and abd u/s revealed minimal free fluid seen within Morison's pouch s/p cholecystectomy, but no dilation on CBD or evidence of stone. This morning pt was resting in bed, no acute distress noted. Family at bedside. Pt states his abd pain has improved. Admits to nausea without vomiting. Abd is soft, non-distended with normal bowel sounds, and TTP in RUQ over cholecystectomy scar. Denies fever, wt loss, vomiting, jaundice, LGI symptoms, or signs of bleeding. PMH significant for ESRD, DM, HTN, AVF in LUE. Past History Past Medical History: diabetes, ESRD, hypertension Past Surgical History: cholecystectomy, Other (DRIL bypass ) Social history: denies: smoking, alcohol abuse Medications and Allergies Allergies Allergy/AdvReac Type Severity Reaction Status Date / Time No Known Allergies Allergy Verified 03/21/17 10:06 Home Medications Medication Instructions Recorded Confirmed Last Taken Type Carvedilol [Coreg] 25 mg PO BID #60 tablet 10/27/16 04/05/17 04/04/17 22:00 Rx Clopidogrel [Plavix] 75 mg PO QDAY #30 tablet 10/27/16 04/05/17 04/03/17 22:00 Rx glipiZIDE [Glucotrol] 5 mg PO BIDDIAB #60 tablet 10/27/16 04/05/17 04/04/17 22: 00 Rx AtorvaSTATin [Lipitor] 40 mg PO DAILY 01/04/17 04/05/17 04/04/17 11:00 History Furosemide 40 mg PO PRN PRN 01/04/17 04/05/17 04/03/17 09:00 History HYDROcodone/APAP 7.5-325 [[place] 1 each PO Q6HR PRN #50 tablet 01/04/17 03/31/17 03/21/17 Rx 7.5-325 mg TAB] Meclizine [Antivert] 25 mg PO TID PRN 01/04/17 03/31/17 03/21/17 History amLODIPine [Norvasc] 10 mg PO DAILY 01/04/17 04/05/17 04/05/17 09:00 History HYDROcodone/APAP 7.5-325 [[place] 1 each PO Q6HR PRN #90 tablet 03/22/17 03/31/17 Unknown Rx 7.5/325] Active Meds: Active Medications Acetaminophen/Hydrocodone Bitart ([place] 5/325) 2 each PO Q6H PRN PRN Reason: Pain, Moderate (4-6) Last Admin: 04/08/17 06:17 Dose: 2 each Amlodipine Besylate (Norvasc) 10 mg PO DAILY [facility] [place] Last Admin: 04/07/17 09:57 Dose: 10 mg Atorvastatin Calcium (Lipitor) 40 mg PO HS [facility] [place] Last Admin: 04/07/17 21:11 Dose: 40 mg Carvedilol (Coreg) 25 mg PO BID [facility] [place] Last Admin: 04/07/17 21:11 Dose: 25 mg Clopidogrel Bisulfate (Plavix) 75 mg PO QDAY [facility] [place] Last Admin: 04/07/17 09:57 Dose: 75 mg Ephedrine Sulfate (Ephedrine Sulfate) 10 mg IV Q5M PRN PRN Reason: Blood Pressure Furosemide (Lasix) 40 mg PO PRN PRN PRN Reason: NON DIALYSIS DAYS Last Admin: 04/06/17 08:33 Dose: 40 mg Glipizide (Glucotrol) 5 mg PO BIDDIAB [facility] [place] Last Admin: 04/08/17 08:08 Dose: Not Given Hydromorphone HCl (Dilaudid) 0.5 mg IV Q10MIN PRN PRN Reason: Pain , Severe (7-10) Stop: 04/08/17 18:33 Last Admin: 04/05/17 21:50 Dose: 0.5 mg Sodium Chloride (Nacl 0.9% 1000 Ml) 1,000 mls @ 42 mls/hr IV DIRECT [facility] [place] Last Admin: 04/07/17 19:57 Dose: 42 mls/hr Insulin Aspart (Novolog) 0 units SUB-Q ACHS RAUDEL PRN Reason: Protocol Last Admin: 04/08/17 08:05 Dose: Not Given Meclizine HCl (Antivert) 25 mg PO TID PRN PRN Reason: Vertigo Last Admin: 04/06/17 08:33 Dose: 25 mg Morphine Sulfate (Morphine) 2 mg IV Q4H PRN PRN Reason: Pain, Moderate (4-6) Last Admin: 04/07/17 10:20 Dose: 2 mg Morphine Sulfate (Morphine) 4 mg IV Q4H PRN PRN Reason: Pain , Severe (7-10) Last Admin: 04/08/17 00:43 Dose: 4 mg Naloxone HCl (Narcan 0.4 Mg/1 Ml) 0.1 mg IV Q2MIN PRN PRN Reason: Res Rate </= 8 or 02 SAT < 92% Ondansetron HCl (Zofran) 4 mg IV Q8H PRN PRN Reason: Nausea And Vomiting Last Admin: 04/06/17 22:52 Dose: 4 mg Vancomycin HCl (Vancomycin Pharmacy To Dose) 1 each IV PKCONSULT RAUDEL PRN Reason: Protocol Review of Systems - Review of Systems All systems: negative Constitutional: fatigue Gastrointestinal: abdominal pain, nausea Exam - Constitutional Vital Signs: Temp Pulse Resp BP Pulse Ox 99.3 F 85 17 100/53 89 04/08/17 08:00 04/08/17 09:00 04/08/17 09:00 04/08/17 09:00 04/08/17 09:00 General appearance: no acute distress, well-nourished, other (drowsy) - EENT Eyes: PERRL, EOM intact ENT: hearing intact - Respiratory Respiratory: bilateral: CTA (diminished) - Cardiovascular Rhythm: regular Heart Sounds: Present: S1 & S2 Extremity abnormal: other (Left arm with incision dressings intact, wound vac, and edema) - Gastrointestinal General gastrointestinal: Present: soft, tender (RUQ over cholecystectomy scar) , non-distended, normal bowel sounds - Integumentary Integumentary: Present: warm, dry - Neurologic Neurological: alert and oriented x3 - Psychiatric Psychiatric: cooperative - Labs CBC & Chem 7: 04/07/17 10:02 04/07/17 00:36 Lab Results: Laboratory Results - last 24 hr 08/04/07/17 04/07/17 00:36 10:57 16:14 POC Glucose 151 H 120 H Total Bilirubin 0.30 Direct Bilirubin < 0.2 Indirect Bilirubin 0.1 AST 13 ALT < 5 L Alkaline Phosphatase 69 Total Protein 6.2 L Albumin 3.0 L Albumin/Globulin Ratio 0.9 04/07/17 21:46 POC Glucose 107 H Total Bilirubin Direct Bilirubin Indirect Bilirubin AST ALT Alkaline Phosphatase Total Protein Albumin Albumin/Globulin Ratio Assessment and Plan 1.RUQ abd pain 2.s/p cholecystectomy -s/p open cholecystectomy 2 months ago- pt admits to mild pain and tenderness in RUQ since surgery -pt states abd pain has improved today -LFTs- WNL (T. stephania 0.30, AST 13, ALT 5, Alk phos 69) -Abd x-ray was negative -Abd U/S revealed minimal free fluid seen within Morison's pouch and s/p cholecystectomy, but no dilation of CBD or evidence of a stone -etiology of pain is most likey due to post surgical pain but will order a CT with PO contrast to r/o ischemia -will follow
[2017-04-08] MEDS ORDERED: ALBURX 25% (ALBUMIN) IV PRN (11:17)
[2017-04-08] MEDS ORDERED: NACL 0.9% 100 ML IV PRN (11:17)
--- NOTE | 2017-04-08 11:17 | Progress Note ---
Assessment and Plan Impression: * esrd * anemia ABL/ESRD * DM type 1 * HTN Plan: * HD prn, likely in am, no urgent indication today * strict i/os * avoid nephrotoxins * renal diet * epogen with hd * daily cbc/lytes Subjective Date of service: 04/08/17 Principal diagnosis: esrd Interval history: resting in bed today Objective - Exam Narrative Exam: General: Alert awake nor acute distress HEENT: Oral mucosa moist no uremic order Neck: Supple no JVD Chest: Clear to auscultation Heart: Regular rate and rhythm S1-S2 heard Abdomen: Soft mild tenderness in the right upper quadrant Extremity: Dry skin edema minimal Neurological: Alert awake and oriented - Vital Signs Vital signs: Vital Signs - 12hr 04/08/17 04/08/17 04/08/17 00:00 01:00 02:00 Temperature Pulse Rate 86 85 86 Pulse Rate [ From Monitor] Respiratory 18 20 18 Rate Blood Pressure 131/66 126/40 117/55 O2 Sat by Pulse 94 86 93 Oximetry 04/08/17 04/08/17 04/08/17 03:00 03:01 04:00 Temperature 101 F H Pulse Rate 87 93 H Pulse Rate [ 91 H From Monitor] Respiratory 17 17 Rate Blood Pressure 127/57 131/51 O2 Sat by Pulse 90 92 Oximetry 04/08/17 04/08/17 04/08/17 05:00 06:00 07:00 Temperature Pulse Rate 96 H 95 H 91 H Pulse Rate [ From Monitor] Respiratory 17 19 19 Rate Blood Pressure 129/56 116/32 106/47 O2 Sat by Pulse 92 90 90 Oximetry 04/08/17 04/08/17 04/08/17 07:45 08:00 08:54 Temperature 99.3 F Pulse Rate 87 Pulse Rate [ 87 From Monitor] Respiratory 18 15 Rate Blood Pressure 91/53 O2 Sat by Pulse 92 92 91 Oximetry 04/08/17 04/08/17 04/08/17 09:00 09:30 10:00 Temperature Pulse Rate 85 87 89 Pulse Rate [ From Monitor] Respiratory 17 18 Rate Blood Pressure 100/53 100/53 O2 Sat by Pulse 89 94 Oximetry 04/08/17 11:00 Temperature Pulse Rate 88 Pulse Rate [ From Monitor] Respiratory 18 Rate Blood Pressure 100/50 O2 Sat by Pulse 97 Oximetry - Lab 04/07/17 10:02 04/07/17 00:36 Most recent lab results Calcium 8.1 mg/dL (8.4-10.2) L 04/07/17 00:36
--- NOTE | 2017-04-08 13:43 | Progress Note ---
Assessment and Plan - Patient Problems (1) Anemia due to blood loss, acute Current Visit: Yes Status: Acute Plan to address problem: Transfused PRBC with appropriate response No further drops in hemoglobin (2) Leukocytosis Current Visit: Yes Status: Acute Qualifiers: Leukocytosis type: L Plan to address problem: On vancomycin, blood cultures no growth to date. Leukocytosis could also be secondary to stress reaction. No fevers at this time Patient is an HD patient and is at risk for MDRO/MRSA He received emily-procedural antibiotics Monitor hemodynamics closely (3) AV graft malfunction Current Visit: Yes Status: Acute Qualifiers: Encounter type: E Plan to address problem: Per vascular service (4) ESRD (end stage renal disease) on dialysis Current Visit: Yes Status: Acute Plan to address problem: Supportive HD. 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 continue with hypoglycemia protocol encourage increase oral intake, dietary supplements (6) HTN (hypertension) Current Visit: No Status: Chronic Qualifiers: Hypertension type: essential hypertension Qualified Code(s): I10 - Essential (primary) hypertension Plan to address problem: Blood pressure control. Home medications. Monitor hemodynamics closely Subjective Date of service: 04/08/17 Principal diagnosis: esrd Interval history: No new complaints. Pain in his right upper extremity Abdominal pain much beter. Appetite remains poor with episodes of hypoglycemia. Hemoglobin is stable. Seen and examined. Vitals,labs, medications, chart reviewed. Discussed in inter-disciplinary rounds Objective - Exam Narrative Exam: Right hand warm. 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 Radial pulses non-palpable. Vital Signs - 12hr 04/08/17 04/08/17 04/08/17 02:00 03:00 03:01 Temperature 101 F H Pulse Rate 86 87 Pulse Rate [ From Monitor] Respiratory 18 17 Rate Blood Pressure 117/55 127/57 O2 Sat by Pulse 93 90 Oximetry 04/08/17 04/08/1717 04:00 05:00 06:00 Temperature Pulse Rate 93 H 96 H 95 H Pulse Rate [ 91 H From Monitor] Respiratory 17 17 19 Rate Blood Pressure 131/51 129/56 116/32 O2 Sat by Pulse 92 92 90 Oximetry 04/08/17 04/08/17 04/08/17 07:00 07:45 08:00 Temperature 99.3 F Pulse Rate 91 H 87 Pulse Rate [ 87 From Monitor] Respiratory 19 18 15 Rate Blood Pressure 106/47 91/53 O2 Sat by Pulse 90 92 92 Oximetry 04/08/17 04/08/17 04/08/17 08:54 09:00 09:30 Temperature Pulse Rate 85 87 Pulse Rate [ From Monitor] Respiratory 17 Rate Blood Pressure 100/53 O2 Sat by Pulse 91 89 Oximetry 04/08/17 04/08/17 04/08/17 10:00 11:00 11:35 Temperature Pulse Rate 89 88 Pulse Rate [ 87 From Monitor] Respiratory 18 18 14 Rate Blood Pressure 100/53 100/50 O2 Sat by Pulse 94 97 97 Oximetry 04/08/17 04/08/17 12:00 13:00 Temperature 97.9 F Pulse Rate 87 87 Pulse Rate [ From Monitor] Respiratory 17 16 Rate Blood Pressure 110/60 117/55 O2 Sat by Pulse 95 98 Oximetry Constitutional: no acute distress, other (facila edema, blindness) Eyes: non-icteric ENT: oropharynx moist Neck: supple, no lymphadenopathy, no JVD Effort: normal Ascultation: Bilateral: clear, diminished breath sounds Cardiovascular: regular rate and rhythm, other (holosystolic murmur) Gastrointestinal: normoactive bowel sounds, soft, non-tender, non-distended, other (Right upper quadrant surgical scar) Integumentary: other (Left upper extremity wound vac) Extremities: no cyanosis, no edema, cool Neurologic: normal mental status, non-focal exam Psychiatric: mood appropriate, affect normal CBC and BMP: 04/10/17 11:30 04/10/17 04:10 ABG, PT/INR, D-dimer: PT/INR, D-dimer PT 14.5 Sec. (12.2-14.9) 04/05/17 11:45 INR 1.07 (0.87-1.13) 04/05/17 11:45 Abnormal lab findings: Abnormal Labs 04/05/17 04/05/17 04/05/17 11:45 11:45 18:19 WBC 12.4 H RBC 3.43 L Hgb 10.0 L Hct 30.2 L MCHC RDW 15.6 H Pierce % (Auto) 8.7 H Pierce # 1.1 H Seg Neuts % (Manual) Lymphocytes % (Manual) Seg Neutrophils # 8.5 H Seg Neutrophils # Man Sodium Carbon Dioxide BUN Creatinine 2.8 H Glucose POC Glucose 305 H Calcium ALT Total Protein Albumin Crossmatch 04/05/17 04/06/17 04/06/17 22:33 07:51 07:51 WBC RBC Hgb 5.3 L* D Hct 16.4 L* D MCHC RDW Pierce % (Auto) Pierce # Seg Neuts % (Manual) Lymphocytes % (Manual) Seg Neutrophils # Seg Neutrophils # Man Sodium 136 L Carbon Dioxide 16 L D BUN 31 H Creatinine 4.1 H Glucose 180 H POC Glucose 189 H Calcium 7.8 L ALT Total Protein Albumin Crossmatch 04/06/17 04/06/17 04/06/17 08:15 10:43 11:48 WBC 23.6 H RBC 1.83 L Hgb 5.2 L* Hct 16.9 L* MCHC 31 L RDW 16.0 H Pierce % (Auto) Pierce # Seg Neuts % (Manual) 90.0 H Lymphocytes % (Manual) 5.0 L Seg Neutrophils # Seg Neutrophils # Man 21.2 H Sodium Carbon Dioxide BUN Creatinine Glucose POC Glucose 201 H 241 H Calcium ALT Total Protein Albumin Crossmatch 04/06/17 04/06/17 04/06/17 12:36 15:34 21:34 WBC RBC Hgb Hct MCHC RDW Pierce % (Auto) Pierce # Seg Neuts % (Manual) Lymphocytes % (Manual) Seg Neutrophils # Seg Neutrophils # Man Sodium Carbon Dioxide BUN Creatinine Glucose POC Glucose 232 H 171 H Calcium ALT Total Protein Albumin Crossmatch See Detail 04/07/17 04/07/17 04/07/17 00:36 00:36 10:02 WBC RBC Hgb 7.3 L Hct 21.7 L MCHC RDW Pierce % (Auto) Pierce # Seg Neuts % (Manual) Lymphocytes % (Manual) Seg Neutrophils # Seg Neutrophils # Man Sodium Carbon Dioxide 20 L BUN 38 H Creatinine 4.2 H Glucose 147 H POC Glucose Calcium 8.1 L ALT < 5 L Total Protein 6.2 L Albumin 3.0 L Crossmatch 04/07/17 04/07/17 04/07/17 10:57 16:14 21:46 WBC RBC Hgb Hct MCHC RDW Pierce % (Auto) Pierce # Seg Neuts % (Manual) Lymphocytes % (Manual) Seg Neutrophils # Seg Neutrophils # Man Sodium Carbon Dioxide BUN Creatinine Glucose POC Glucose 151 H 120 H 107 H Calcium ALT Total Protein Albumin Crossmatch
--- NOTE | 2017-04-08 14:56 | Progress Note ---
Assessment and Plan GI consult appreciated. Await CT results. Pt continues to improve. Okay to move out of the ICU. If his hand pain does not improve then we could consider repeat angiogram. Recheck CBC in am. - Patient Problems (1) AV graft malfunction Current Visit: Yes Status: Acute Qualifiers: Encounter type: E (2) Anemia due to blood loss, acute Current Visit: Yes Status: Acute Subjective Date of service: 04/08/17 Principal diagnosis: esrd Interval history: Pt awake and alert. Continued abd pain. Hand feels similar to yesterday. Objective - Constitutional Vitals: Vital Signs - 12hr 04/08/17 04/08/17 04/08/17 03:00 03:01 04:00 Temperature 101 F H Pulse Rate 87 93 H Pulse Rate [ 91 H From Monitor] Respiratory 17 17 Rate Blood Pressure 127/57 131/51 O2 Sat by Pulse 90 92 Oximetry 04/08/17 04/08/17 04/08/17 05:00 06:00 07:00 Temperature Pulse Rate 96 H 95 H 91 H Pulse Rate [ From Monitor] Respiratory 17 19 19 Rate Blood Pressure 129/56 116/32 106/47 O2 Sat by Pulse 92 90 90 Oximetry 04/08/17 04/08/17 04/08/17 07:45 08:00 08:54 Temperature 99.3 F Pulse Rate 87 Pulse Rate [ 87 From Monitor] Respiratory 18 15 Rate Blood Pressure 91/53 O2 Sat by Pulse 92 92 91 Oximetry 04/08/17 04/08/17 04/08/17 09:00 09:30 10:00 Temperature Pulse Rate 85 87 89 Pulse Rate [ From Monitor] Respiratory 17 18 Rate Blood Pressure 100/53 100/53 O2 Sat by Pulse 89 94 Oximetry 04/08/17 04/08/17 04/08/17 11:00 11:35 12:00 Temperature 97.9 F Pulse Rate 88 87 Pulse Rate [ 87 From Monitor] Respiratory 18 14 17 Rate Blood Pressure 100/50 110/60 O2 Sat by Pulse 97 97 95 Oximetry 04/08/17 13:00 Temperature Pulse Rate 87 Pulse Rate [ From Monitor] Respiratory 16 Rate Blood Pressure 117/55 O2 Sat by Pulse 98 Oximetry General appearance: Present: no acute distress - EENT ENT: hearing intact, other (visually impaired) - Respiratory Respiratory effort: normal Extremities: abnormal (wound vac inplace, hand slightly warmer than yesterday) - Neurologic Neurologic: no focal deficits - Psychiatric Psychiatric: appropriate mood/affect, intact judgment & insight, cooperative - Labs CBC & Chem 7: 04/07/17 10:02 04/07/17 00:36 Labs: Abnormal lab results 04/07/17 04/07/17 04/07/17 Range/Units 00:36 10:57 16:14 POC Glucose 151 H 120 H (70-105) ALT < 5 L (7-56) units/L Total Protein 6.2 L (6.3-8.2) g/dL Albumin 3.0 L (3.9-5) g/dL 04/07/17 Range/Units 21:46 POC Glucose 107 H (70-105) ALT (7-56) units/L Total Protein (6.3-8.2) g/dL Albumin (3.9-5) g/dL
[2017-04-08] MEDS ORDERED: D5W 1,000 ML IV SCH (15:00)
--- NOTE | 2017-04-08 15:29 | Cat Scan Report ---
CT ABDOMEN AND PELVIS WITHOUT CONTRAST INDICATION: RUQ abdominal pain. Status post cholecystectomy. COMPARISON: 10/26/2016 CT and RUQ ultrasound from yesterday. FINDINGS: Abdomen and pelvis CT performed following oral contrast only. LUNG BASES: New bibasilar atelectasis, right greater than left. Small right and minimal left pleural effusions also new. Stable heart size. Extensive coronary calcifications. Possible anemia. ABDOMEN: Please note that sensitivity to detect small visceral lesions is limited due to the absence of intravenous or oral contrast. Patient's left hand across the abdomen also creates artifact, limiting exam. Interval cholecystectomy with fluid/stranding in the surgical bed, also extending along the Soriano's pouch, medial aspect of the right hepatic lobe inferiorly and along the proximal extent of right paracolic gutter. Mild periduodenal fat stranding also noted, some about the pancreatic head. Minimal perihepatic ascites anteriorly as on axial image 54, amongst others. Right hemidiaphragm slightly elevated. Otherwise grossly unremarkable unenhanced liver, spleen, remainder pancreas, adrenals, aorta and IVC. Nonhydronephrotic kidneys with small bilateral nonobstructing calculi measuring 5 mm or smaller and approximately 3 or 4 in number on either side. Few small, subcentimeter mesenteric and retroperitoneal lymph nodes noted. Opacified GI tract nonobstructive. Normal appendix. Colonic stool, most along the ascending colon. PELVIS: Slight hyperdense urinary bladder opacification, presumed contrast excretion, source unknown. Mild seminal vesicle calcifications. Grossly unremarkable prostate and the rectosigmoid. No free fluid or significant adenopathy. Mild multilevel spinal degenerative spurring. CONCLUSION: 1. Interval cholecystectomy with fluid/stranding in the surgical bed and extending towards the right paracolic gutter, as described. Findings may represent postsurgical change or a bile leak, amongst others, in an appropriate setting. Please correlate. 2. New bibasilar atelectasis and small pleural fluid as well. 3. Various other incidental findings, including coronary calcifications, nonobstructing bilateral nephrolithiasis and urinary bladder CT appearance, as above. Thank you for the opportunity to participate in this patient's care.
[2017-04-08] MEDS: D10W 1,000 ML IV SCH (17:09)
[2017-04-09] MEDS: NOVOLOG SUB-Q SCH ×6 (06:00→18:07)
[2017-04-09 06:41] LABS: Mean Corpuscular HGB Conc 33 % (32-34); Mean Corpuscular Hemoglobin 30 pg (28-32); Mean Corpuscular Volume 89 fl (84-94); Platelet Count 215 K/mm3 (140-440); Red Cell Distribution Width 15.5 % (13.2-15.2); White Blood Count 17.2 K/mm3 (4.5-11.0)
[2017-04-09 06:56] LABS: Hematocrit 17.7 % (35.5-45.6)
[2017-04-09 06:57] LABS: Hemoglobin 5.9 gm/dl (11.8-15.2)
[2017-04-09] MEDS: NORCO 5/325 PO PRN ×3 (07:40→20:28)
[2017-04-09] MEDS ORDERED: NACL 0.9% 500 ML 500 ML IV ONE ×2 (08:29→08:38)
[2017-04-09] MEDS: COREG PO SCH ×2 (09:37→21:43)
[2017-04-09] MEDS: NORVASC PO SCH (09:37)
[2017-04-09] MEDS: PLAVIX PO SCH (09:38)
--- NOTE | 2017-04-09 11:20 | Gastroenterology Progress Note ---
Assessment and Plan - Patient Problems (1) RUQ abdominal pain Current Visit: Yes Status: Acute Plan to address problem: - CT scan results reviewed. 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 The changes in the RUQ are likely post surgical. However, I would not order a HIDA for bile leak as, if this were present 2 months after surgery the fluid collection would be much bigger. Since he is improved, I would recommend conservative care at present. Will check a lipase in the AM, but his LFTs were normal and there is no suggestion of a CBD stone on imaging. Subjective Date of service: 04/09/17 Principal diagnosis: Abdominal Pain Interval history: The patient says his RUQ pain continues to improve. There is no V with meals, and he has no CP or SOB. He has had no blood with his BMs. Objective - Constitutional Vitals: Temp Pulse Resp BP Pulse Ox 98.0 F 77 13 100/61 97 04/09/17 10:13 04/09/17 10:13 04/09/17 10:13 04/09/17 10:13 04/09/17 10:13 General appearance: no acute distress - Respiratory Respiratory effort: normal Respiratory: bilateral: CTA - Cardiovascular Rhythm: regular Heart Sounds: Present: S1 & S2 - Gastrointestinal General gastrointestinal: Present: soft, tender (Improved in RUQ), distended - Labs CBC & Chem 7: 04/09/17 06:11 04/07/17 00:36 Labs: Laboratory Results - last 24 hr 04/06/17 04/07/17 04/08/17 12:36 07:57 07:51 WBC RBC Hgb Hct MCV MCH MCHC RDW Plt Count POC Glucose 179 H < 40 L Random Vancomycin Blood Type Antibody Screen Crossmatch See Detail 04/08/17 04/08/17 04/08/17 08:44 11:15 16:09 WBC RBC Hgb Hct MCV MCH MCHC RDW Plt Count POC Glucose 70 87 57 L Random Vancomycin Blood Type Antibody Screen Crossmatch 04/08/17 04/08/17 04/08/17 17:51 20:02 23:25 WBC RBC Hgb Hct MCV MCH MCHC RDW Plt Count POC Glucose 132 H 140 H 119 H Random Vancomycin Blood Type Antibody Screen Crossmatch 04/09/17 04/09/17 04/09/17 05:04 05:36 06:11 WBC 17.2 H RBC 2.00 L Hgb 5.9 L* Hct 17.7 L* MCV 89 MCH 30 MCHC 33 RDW 15.5 H Plt Count 215 POC Glucose 161 H Random Vancomycin 10.1 Blood Type Antibody Screen Crossmatch 04/09/17 08:50 WBC RBC Hgb Hct MCV MCH MCHC RDW Plt Count POC Glucose Random Vancomycin Blood Type O POSITIVE Antibody Screen Negative Crossmatch See Detail
--- NOTE | 2017-04-09 11:21 | Progress Note ---
Assessment and Plan Impression: * esrd * anemia ABL/ESRD * DM type 1 * HTN Plan: * HD today * epogen with hd * strict i/os * prn prbcs * avoid nephrotoxins * renal diet * epogen with hd * daily cbc/lytes Subjective Date of service: 04/09/17 Principal diagnosis: Abdominal Pain Interval history: resting in bed today Objective - Exam Narrative Exam: General: Alert awake nor acute distress HEENT: Oral mucosa moist no uremic order Neck: Supple no JVD Chest: Clear to auscultation Heart: Regular rate and rhythm S1-S2 heard Abdomen: Soft mild tenderness in the right upper quadrant Extremity: Dry skin edema minimal Neurological: Alert awake and oriented - Vital Signs Vital signs: Vital Signs - 12hr 04/08/17 04/09/17 04/09/17 23:45 00:00 01:00 Temperature 101 F H Pulse Rate 98 H 95 H 95 H Pulse Rate [ 85 From Monitor] Respiratory 15 16 Rate Blood Pressure 125/62 130/58 122/50 O2 Sat by Pulse 91 92 Oximetry 04/09/17 04/09/17 04/09/17 02:00 03:00 04:00 Temperature 98.9 F Pulse Rate 93 H 90 87 Pulse Rate [ 85 From Monitor] Respiratory 19 14 16 Rate Blood Pressure 126/62 146/56 146/56 O2 Sat by Pulse 92 93 92 Oximetry 04/09/17 04/09/17 04/09/17 05:00 06:00 07:00 Temperature Pulse Rate 89 86 83 Pulse Rate [ From Monitor] Respiratory 17 17 14 Rate Blood Pressure 105/42 103/56 102/52 O2 Sat by Pulse 95 94 96 Oximetry 04/09/17 04/09/17 04/09/17 07:47 08:00 08:14 Temperature 98.7 F Pulse Rate 79 Pulse Rate [ From Monitor] Respiratory 13 Rate Blood Pressure 102/57 O2 Sat by Pulse 97 Oximetry 04/09/17 04/09/17 04/09/17 08:31 08:41 08:51 Temperature Pulse Rate 80 79 80 Pulse Rate [ From Monitor] Respiratory 12 11 L 12 Rate Blood Pressure 102/57 102/57 102/57 O2 Sat by Pulse 88 84 85 Oximetry 04/09/17 04/09/17 04/09/17 09:01 09:11 09:21 Temperature Pulse Rate 80 79 79 Pulse Rate [ From Monitor] Respiratory 10 L 14 13 Rate Blood Pressure 102/57 102/57 130/69 O2 Sat by Pulse 95 95 95 Oximetry 04/09/17 04/09/17 04/09/17 09:31 09:37 09:41 Temperature Pulse Rate 79 77 78 Pulse Rate [ From Monitor] Respiratory 13 13 Rate Blood Pressure 130/69 130/69 130/69 O2 Sat by Pulse 97 97 Oximetry 04/09/17 04/09/17 04/09/17 09:51 10:00 10:01 Temperature Pulse Rate 79 78 79 Pulse Rate [ From Monitor] Respiratory 16 14 Rate Blood Pressure 130/69 91/53 O2 Sat by Pulse 96 96 Oximetry 04/09/17 04/09/17 10:11 10:13 Temperature 98.0 F Pulse Rate 78 77 Pulse Rate [ From Monitor] Respiratory 18 13 Rate Blood Pressure 91/53 100/61 O2 Sat by Pulse 97 97 Oximetry - Lab 04/09/17 06:11 04/07/17 00:36 Most recent lab results Calcium 8.1 mg/dL (8.4-10.2) L 04/07/17 00:36
[2017-04-09 11:55] LABS: BUN/Creatinine Ratio 11.89; Calcium 7.6 mg/dL (8.4-10.2); Chloride 101.2 mmol/L (98-107); Potassium 4.3 mmol/L (3.6-5.0)
[2017-04-09] MEDS ORDERED: VANCOMYCIN/NS 1 GM/250 ML 1 GM/250 ML BAG IV ONE (12:00)
--- NOTE | 2017-04-09 12:11 | Progress Note ---
Assessment and Plan Status post revision of the axillary brachial bypass. Bypass is patent. The hand does not appear to be obviously ischemic. I don't think there is a emergent need for an intervention. Plan: We'll continue to monitor. Patient will receive 3 units of red blood cells due to low hemoglobin. We'll keep in the ICU for at least 1 more day. Subjective Date of service: 04/09/17 Principal diagnosis: esrd Interval history: Patient is complaining of the left arm pain mostly from the incision. Patient also complaining of some hand pain although he cannot discern whether its separate pain or as the entire arm hurts. 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 Radial pulses nonpalpable. - Constitutional Vitals: Vital Signs - 12hr 04/09/17 04/09/17 04/09/17 01:00 02:00 03:00 Temperature Pulse Rate 95 H 93 H 90 Pulse Rate [ From Monitor] Respiratory 16 19 14 Rate Blood Pressure 122/50 126/62 146/56 O2 Sat by Pulse 92 92 93 Oximetry O2 Sat by Pulse Oximetry [ Anterior Bilateral Upper Lobe] 04/09/17 04/09/17 04/09/17 04:00 05:00 06:00 Temperature 98.9 F Pulse Rate 87 89 86 Pulse Rate [ 85 From Monitor] Respiratory 16 17 17 Rate Blood Pressure 146/56 105/42 103/56 O2 Sat by Pulse 92 95 94 Oximetry O2 Sat by Pulse Oximetry [ Anterior Bilateral Upper Lobe] 04/09/17 04/09/17 04/09/17 07:00 07:47 08:00 Temperature 98.7 F Pulse Rate 83 79 Pulse Rate [ From Monitor] Respiratory 14 13 Rate Blood Pressure 102/52 102/57 O2 Sat by Pulse 96 Oximetry O2 Sat by Pulse Oximetry [ Anterior Bilateral Upper Lobe] 04/09/17 04/09/17 04/09/17 08:14 08:31 08:41 Temperature Pulse Rate 80 79 Pulse Rate [ From Monitor] Respiratory 12 11 L Rate Blood Pressure 102/57 102/57 O2 Sat by Pulse 97 88 84 Oximetry O2 Sat by Pulse Oximetry [ Anterior Bilateral Upper Lobe] 04/09/17 04/09/17 04/09/17 08:51 09:01 09:11 Temperature Pulse Rate 80 80 79 Pulse Rate [ From Monitor] Respiratory 12 10 L 14 Rate Blood Pressure 102/57 102/57 102/57 O2 Sat by Pulse 85 95 95 Oximetry O2 Sat by Pulse Oximetry [ Anterior Bilateral Upper Lobe] 04/09/17 04/09/17 04/09/17 09:21 09:31 09:37 Temperature Pulse Rate 79 79 77 Pulse Rate [ From Monitor] Respiratory 13 13 Rate Blood Pressure 130/69 130/69 130/69 O2 Sat by Pulse 95 97 Oximetry O2 Sat by Pulse Oximetry [ Anterior Bilateral Upper Lobe] 04/09/17 04/09/17 04/09/17 09:41 09:51 10:00 Temperature Pulse Rate 78 79 78 Pulse Rate [ From Monitor] Respiratory 13 16 Rate Blood Pressure 130/69 130/69 O2 Sat by Pulse 97 96 Oximetry O2 Sat by Pulse Oximetry [ Anterior Bilateral Upper Lobe] 04/09/17 04/09/17 04/09/17 10:01 10:11 10:13 Temperature 98.0 F Pulse Rate 79 78 77 Pulse Rate [ From Monitor] Respiratory 14 18 13 Rate Blood Pressure 91/53 91/53 100/61 O2 Sat by Pulse 96 97 97 Oximetry O2 Sat by Pulse Oximetry [ Anterior Bilateral Upper Lobe] 04/09/17 04/09/17 04/09/17 10:21 10:30 10:41 Temperature Pulse Rate 78 77 76 Pulse Rate [ From Monitor] Respiratory 12 19 13 Rate Blood Pressure 91/53 100/61 100/61 O2 Sat by Pulse 95 97 97 Oximetry O2 Sat by Pulse Oximetry [ Anterior Bilateral Upper Lobe] 04/09/17 04/09/17 04/09/17 10:51 11:00 11:11 Temperature 97.7 F Pulse Rate 77 76 76 Pulse Rate [ From Monitor] Respiratory 12 12 11 L Rate Blood Pressure 115/60 111/59 111/59 O2 Sat by Pulse 97 99 99 Oximetry O2 Sat by Pulse 99 Oximetry [ Anterior Bilateral Upper Lobe] 04/09/17 04/09/17 04/09/17 11:15 11:21 11:30 Temperature Pulse Rate 76 76 78 Pulse Rate [ From Monitor] Respiratory 11 L 13 Rate Blood Pressure 114/59 114/59 123/60 O2 Sat by Pulse 100 100 Oximetry O2 Sat by Pulse Oximetry [ Anterior Bilateral Upper Lobe] 04/09/17 04/09/17 11:41 11:45 Temperature Pulse Rate 77 76 Pulse Rate [ From Monitor] Respiratory 12 Rate Blood Pressure 123/60 111/59 O2 Sat by Pulse 100 Oximetry O2 Sat by Pulse Oximetry [ Anterior Bilateral Upper Lobe] - Labs CBC & Chem 7: 04/09/17 06:11 04/09/17 11:21 Labs: Abnormal lab results 04/06/17 04/07/17 04/08/17 Range/Units 12:36 07:57 07:51 WBC (4.5-11.0) K/mm3 RBC (3.65-5.03) M/mm3 Hgb (11.8-15.2) gm/dl Hct (35.5-45.6) % RDW (13.2-15.2) % Sodium (137-145) mmol/L Carbon Dioxide (22-30) mmol/L BUN (9-20) mg/dL Creatinine (0.8-1.5) mg/dL Glucose (75-100) mg/dL POC Glucose 179 H < 40 L (70-105) Calcium (8.4-10.2) mg/dL Crossmatch See Detail 04/08/17 04/08/17 04/08/17 Range/Units 16:09 17:51 20:02 WBC (4.5-11.0) K/mm3 RBC (3.65-5.03) M/mm3 Hgb (11.8-15.2) gm/dl Hct (35.5-45.6) % RDW (13.2-15.2) % Sodium (137-145) mmol/L Carbon Dioxide (22-30) mmol/L BUN (9-20) mg/dL Creatinine (0.8-1.5) mg/dL Glucose (75-100) mg/dL POC Glucose 57 L 132 H 140 H (70-105) Calcium (8.4-10.2) mg/dL Crossmatch 04/08/17 04/09/17 04/09/17 Range/Units 23:25 05:04 06:11 WBC 17.2 H (4.5-11.0) K/mm3 RBC 2.00 L (3.65-5.03) M/mm3 Hgb 5.9 L* (11.8-15.2) gm/dl Hct 17.7 L* (35.5-45.6) % RDW 15.5 H (13.2-15.2) % Sodium (137-145) mmol/L Carbon Dioxide (22-30) mmol/L BUN (9-20) mg/dL Creatinine (0.8-1.5) mg/dL Glucose (75-100) mg/dL POC Glucose 119 H 161 H (70-105) Calcium (8.4-10.2) mg/dL Crossmatch 04/09/17 04/09/17 Range/Units 08:50 11:21 WBC (4.5-11.0) K/mm3 RBC (3.65-5.03) M/mm3 Hgb (11.8-15.2) gm/dl Hct (35.5-45.6) % RDW (13.2-15.2) % Sodium 136 L (137-145) mmol/L Carbon Dioxide 18 L (22-30) mmol/L BUN 69 H (9-20) mg/dL Creatinine 5.8 H (0.8-1.5) mg/dL Glucose 120 H (75-100) mg/dL POC Glucose (70-105) Calcium 7.6 L (8.4-10.2) mg/dL Crossmatch See Detail
[2017-04-09] MEDS ORDERED: NACL 0.9% 100 ML IV PRN ×2 (13:27→13:31)
[2017-04-09 14:26] LABS: INR 1.66 (0.87-1.13)
--- NOTE | 2017-04-09 14:26 | Progress Note ---
Assessment and Plan - Patient Problems (1) Anemia due to blood loss, acute Current Visit: Yes Status: Acute Plan to address problem: Transfused PRBC with appropriate response No further drops in hemoglobin (2) Leukocytosis Current Visit: Yes Status: Acute Qualifiers: Leukocytosis type: L Plan to address problem: On vancomycin, blood cultures no growth to date. Leukocytosis could also be secondary to stress reaction. No fevers at this time Patient is an HD patient and is at risk for MDRO/MRSA He received emily-procedural antibiotics Monitor hemodynamics closely (3) AV graft malfunction Current Visit: Yes Status: Acute Qualifiers: Encounter type: E Plan to address problem: Per vascular service (4) ESRD (end stage renal disease) on dialysis Current Visit: Yes Status: Acute Plan to address problem: Supportive HD. Renal following (5) Diabetes Current Visit: No Status: Chronic Qualifiers: Diabetes mellitus type: type 2 Diabetes mellitus complication status: with hyperglycemia Diabetes mellitus complication detail: D Diabetic retinopathy severity: D Proliferative retinopathy type: P Diabetes mellitus macular edema: D Diabetes mellitus buttermaker continuous churn insulin use: without alf use Laterality: L Chronic kidney disease stage: C Qualified Code(s): E11.65 - Type 2 diabetes mellitus with hyperglycemia Plan to address problem: Accuchecks with glycemic control Goal glucose<180mg/dl Diabetic diet Episodes of hypoglycemia associated with poor oral intake. continue with hypoglycemia protocol encourage increase oral intake, dietary supplements (6) HTN (hypertension) Current Visit: No Status: Chronic Qualifiers: Hypertension type: essential hypertension Qualified Code(s): I10 - Essential (primary) hypertension Plan to address problem: Episodes of asymptomatic hypotension Home medications. Monitor hemodynamics closely Subjective Date of service: 04/09/17 Principal diagnosis: esrd Interval history: No new complaints. On going complains of right sided pain-improving Hemoglobin dropped and patient has been transfused 3 units of blood with HD. Ct scan abdomen and pelvis reviewed- bibasilar atelectasis with small pleural effusion. Seen and examined. Vitals,labs, medications, chart reviewed. 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 Radial pulses non-palpable. Vital Signs - 12hr 04/09/17 04/09/17 04/09/17 03:00 04:00 05:00 Temperature 98.9 F Pulse Rate 90 87 89 Pulse Rate [ 85 From Monitor] Respiratory 14 16 17 Rate Blood Pressure 146/56 146/56 105/42 O2 Sat by Pulse 93 92 95 Oximetry O2 Sat by Pulse Oximetry [ Anterior Bilateral Upper Lobe] 04/09/17 04/09/17 04/09/17 06:00 07:00 07:47 Temperature 98.7 F Pulse Rate 86 83 Pulse Rate [ From Monitor] Respiratory 17 14 Rate Blood Pressure 103/56 102/52 O2 Sat by Pulse 94 96 Oximetry O2 Sat by Pulse Oximetry [ Anterior Bilateral Upper Lobe] 04/09/17 04/09/17 04/09/17 08:00 08:14 08:31 Temperature Pulse Rate 79 80 Pulse Rate [ From Monitor] Respiratory 13 12 Rate Blood Pressure 102/57 102/57 O2 Sat by Pulse 97 88 Oximetry O2 Sat by Pulse Oximetry [ Anterior Bilateral Upper Lobe] 04/09/17 04/09/17 04/09/17 08:41 08:51 09:01 Temperature Pulse Rate 79 80 80 Pulse Rate [ From Monitor] Respiratory 11 L 12 10 L Rate Blood Pressure 102/57 102/57 102/57 O2 Sat by Pulse 84 85 95 Oximetry O2 Sat by Pulse Oximetry [ Anterior Bilateral Upper Lobe] 04/09/17 04/09/17 04/09/17 09:11 09:21 09:31 Temperature Pulse Rate 79 79 79 Pulse Rate [ From Monitor] Respiratory 14 13 13 Rate Blood Pressure 102/57 130/69 130/69 O2 Sat by Pulse 95 95 97 Oximetry O2 Sat by Pulse Oximetry [ Anterior Bilateral Upper Lobe] 04/09/17 04/09/17 04/09/17 09:37 09:41 09:51 Temperature Pulse Rate 77 78 79 Pulse Rate [ From Monitor] Respiratory 13 16 Rate Blood Pressure 130/69 130/69 130/69 O2 Sat by Pulse 97 96 Oximetry O2 Sat by Pulse Oximetry [ Anterior Bilateral Upper Lobe] 04/09/17 04/09/17 04/09/17 10:00 10:01 10:11 Temperature Pulse Rate 78 79 78 Pulse Rate [ From Monitor] Respiratory 14 18 Rate Blood Pressure 91/53 91/53 O2 Sat by Pulse 96 97 Oximetry O2 Sat by Pulse Oximetry [ Anterior Bilateral Upper Lobe] 04/09/17 04/09/17 04/09/17 10:13 10:21 10:30 Temperature 98.0 F Pulse Rate 77 78 77 Pulse Rate [ From Monitor] Respiratory 13 12 19 Rate Blood Pressure 100/61 91/53 100/61 O2 Sat by Pulse 97 95 97 Oximetry O2 Sat by Pulse Oximetry [ Anterior Bilateral Upper Lobe] 04/09/17 04/09/17 04/09/17 10:41 10:51 11:00 Temperature 97.7 F Pulse Rate 76 77 76 Pulse Rate [ From Monitor] Respiratory 13 12 12 Rate Blood Pressure 100/61 115/60 111/59 O2 Sat by Pulse 97 97 99 Oximetry O2 Sat by Pulse 99 Oximetry [ Anterior Bilateral Upper Lobe] 04/09/17 04/09/17 04/09/17 11:11 11:15 11:21 Temperature Pulse Rate 76 76 76 Pulse Rate [ From Monitor] Respiratory 11 L 11 L Rate Blood Pressure 111/59 114/59 114/59 O2 Sat by Pulse 99 100 Oximetry O2 Sat by Pulse Oximetry [ Anterior Bilateral Upper Lobe] 04/09/17 04/09/17 04/09/17 11:30 11:41 11:45 Temperature Pulse Rate 78 77 76 Pulse Rate [ From Monitor] Respiratory 13 12 Rate Blood Pressure 123/60 123/60 111/59 O2 Sat by Pulse 100 100 Oximetry O2 Sat by Pulse Oximetry [ Anterior Bilateral Upper Lobe] 04/09/17 04/09/17 04/09/17 12:00 12:15 12:30 Temperature 98.0 F Pulse Rate 80 81 83 Pulse Rate [ From Monitor] Respiratory 11 L Rate Blood Pressure 130/70 131/78 132/79 O2 Sat by Pulse 99 Oximetry O2 Sat by Pulse Oximetry [ Anterior Bilateral Upper Lobe] 04/09/17 04/09/17 04/09/17 12:41 12:45 12:51 Temperature Pulse Rate 85 85 85 Pulse Rate [ From Monitor] Respiratory 12 14 Rate Blood Pressure 132/79 132/77 132/77 O2 Sat by Pulse 100 99 Oximetry O2 Sat by Pulse Oximetry [ Anterior Bilateral Upper Lobe] 04/09/17 04/09/17 04/09/17 13:00 13:15 13:30 Temperature Pulse Rate 84 87 87 Pulse Rate [ From Monitor] Respiratory Rate Blood Pressure 130/80 118/79 131/80 O2 Sat by Pulse Oximetry O2 Sat by Pulse Oximetry [ Anterior Bilateral Upper Lobe] 04/09/17 14:24 Temperature 97.7 F Pulse Rate 89 Pulse Rate [ From Monitor] Respiratory 14 Rate Blood Pressure 124/60 O2 Sat by Pulse Oximetry O2 Sat by Pulse 99 Oximetry [ Anterior Bilateral Upper Lobe] Constitutional: no acute distress, other ( facial edema) Eyes: non-icteric ENT: oropharynx moist Neck: supple, no lymphadenopathy, no JVD Effort: normal Ascultation: Bilateral: clear, diminished breath sounds Cardiovascular: regular rate and rhythm, other (holosystolic murmur) Gastrointestinal: normoactive bowel sounds, soft, non-tender, non-distended, other (Right upper quadrant surgical scar) Integumentary: normal, other (Left upper extremity wound vac) Extremities: no cyanosis, no edema, cool Neurologic: normal mental status, non-focal exam Psychiatric: mood appropriate, affect normal CBC and BMP: 04/10/17 11:30 04/10/17 04:10 ABG, PT/INR, D-dimer: PT/INR, D-dimer PT 14.5 Sec. (12.2-14.9) 04/05/17 11:45 INR 1.07 (0.87-1.13) 04/05/17 11:45 Abnormal lab findings: Abnormal Labs 04/05/17 04/05/17 04/05/17 11:45 11:45 18:19 WBC 12.4 H RBC 3.43 L Hgb 10.0 L Hct 30.2 L MCHC RDW 15.6 H [place] % (Auto) 8.7 H [place] # 1.1 H Seg Neuts % (Manual) Lymphocytes % (Manual) Seg Neutrophils # 8.5 H Seg Neutrophils # Man Sodium Carbon Dioxide BUN Creatinine 2.8 H Glucose POC Glucose 305 H Calcium ALT Total Protein Albumin Crossmatch 04/05/17 04/06/17 04/06/17 22:33 07:51 07:51 WBC RBC Hgb 5.3 L* D Hct 16.4 L* D MCHC RDW [place] % (Auto) [place] # Seg Neuts % (Manual) Lymphocytes % (Manual) Seg Neutrophils # Seg Neutrophils # Man Sodium 136 L Carbon Dioxide 16 L D BUN 31 H Creatinine 4.1 H Glucose 180 H POC Glucose 189 H Calcium 7.8 L ALT Total Protein Albumin Crossmatch 04/06/17 04/06/17 04/06/17 08:15 10:43 11:48 WBC 23.6 H RBC 1.83 L Hgb 5.2 L* Hct 16.9 L* MCHC 31 L RDW 16.0 H [place] % (Auto) [place] # Seg Neuts % (Manual) 90.0 H Lymphocytes % (Manual) 5.0 L Seg Neutrophils # Seg Neutrophils # Man 21.2 H Sodium Carbon Dioxide BUN Creatinine Glucose POC Glucose 201 H 241 H Calcium ALT Total Protein Albumin Crossmatch 04/06/17 04/06/17 04/06/17 12:36 15:34 21:34 WBC RBC Hgb Hct MCHC RDW [place] % (Auto) [place] # Seg Neuts % (Manual) Lymphocytes % (Manual) Seg Neutrophils # Seg Neutrophils # Man Sodium Carbon Dioxide BUN Creatinine Glucose POC Glucose 232 H 171 H Calcium ALT Total Protein Albumin Crossmatch See Detail 04/07/17 04/07/17 04/07/17 00:36 00:36 07:57 WBC RBC Hgb Hct MCHC RDW [place] % (Auto) [place] # Seg Neuts % (Manual) Lymphocytes % (Manual) Seg Neutrophils # Seg Neutrophils # Man Sodium Carbon Dioxide 20 L BUN 38 H Creatinine 4.2 H Glucose 147 H POC Glucose 179 H Calcium 8.1 L ALT < 5 L Total Protein 6.2 L Albumin 3.0 L Crossmatch 04/07/17 04/07/17 04/07/17 10:02 10:57 16:14 WBC RBC Hgb 7.3 L Hct 21.7 L MCHC RDW [place] % (Auto) [place] # Seg Neuts % (Manual) Lymphocytes % (Manual) Seg Neutrophils # Seg Neutrophils # Man Sodium Carbon Dioxide BUN Creatinine Glucose POC Glucose 151 H 120 H Calcium ALT Total Protein Albumin Crossmatch 04/07/17 04/08/17 04/08/17 21:46 07:51 16:09 WBC RBC Hgb Hct MCHC RDW [place] % (Auto) [place] # Seg Neuts % (Manual) Lymphocytes % (Manual) Seg Neutrophils # Seg Neutrophils # Man Sodium Carbon Dioxide BUN Creatinine Glucose POC Glucose 107 H < 40 L 57 L Calcium ALT Total Protein Albumin Crossmatch 04/08/17 04/08/17 04/08/17 17:51 20:02 23:25 WBC RBC Hgb Hct MCHC RDW [place] % (Auto) [place] # Seg Neuts % (Manual) Lymphocytes % (Manual) Seg Neutrophils # Seg Neutrophils # Man Sodium Carbon Dioxide BUN Creatinine Glucose POC Glucose 132 H 140 H 119 H Calcium ALT Total Protein Albumin Crossmatch 04/09/17 04/09/17 04/09/17 05:04 06:11 08:50 WBC 17.2 H RBC 2.00 L Hgb 5.9 L* Hct 17.7 L* MCHC RDW 15.5 H [place] % (Auto) [place] # Seg Neuts % (Manual) Lymphocytes % (Manual) Seg Neutrophils # Seg Neutrophils # Man Sodium Carbon Dioxide BUN Creatinine Glucose POC Glucose 161 H Calcium ALT Total Protein Albumin Crossmatch See Detail 04/09/17 11:21 WBC RBC Hgb Hct MCHC RDW [place] % (Auto) [place] # Seg Neuts % (Manual) Lymphocytes % (Manual) Seg Neutrophils # Seg Neutrophils # Man Sodium 136 L Carbon Dioxide 18 L BUN 69 H Creatinine 5.8 H Glucose 120 H POC Glucose Calcium 7.6 L ALT Total Protein Albumin Crossmatch
[2017-04-09 14:27] LABS: Partial Thromboplastin Time 43.4 Sec. (24.2-36.6)
[2017-04-09] MEDS: HEPARIN IV PRN (14:31)
[2017-04-09] MEDS ORDERED: NACL 0.9% 1000 ML 2,000 ML ONE (15:13)
[2017-04-09 15:22] LABS: Hematocrit 17.5 % (35.5-45.6); Hemoglobin 5.5 gm/dl (11.8-15.2)
[2017-04-09] MEDS: D10W 1,000 ML IV SCH (17:05)
[2017-04-09] MEDS ORDERED: HEPARIN ONE (17:56)
[2017-04-09 18:18] LABS: Hematocrit 26.6 % (35.5-45.6); Hemoglobin 8.8 gm/dl (11.8-15.2)
[2017-04-09] MEDS: DUONEB *Not for PRN Use IH SCH (19:17)
[2017-04-09] MEDS: ZOFRAN IV PRN (19:43)
[2017-04-10] MEDS: NOVOLOG SUB-Q SCH ×4 (00:33→17:48)
[2017-04-10] MEDS: NORCO 5/325 PO PRN ×3 (02:19→14:23)
[2017-04-10] MEDS: HEPARIN IV PRN (04:02)
[2017-04-10 04:55] LABS: BUN/Creatinine Ratio 9.72; Calcium 8.2 mg/dL (8.4-10.2); Chloride 99.4 mmol/L (98-107); Potassium 3.9 mmol/L (3.6-5.0)
[2017-04-10] MEDS: DUONEB *Not for PRN Use IH SCH ×3 (08:18→20:08)
[2017-04-10] MEDS: COREG PO SCH ×2 (09:20→21:36)
[2017-04-10] MEDS: PLAVIX PO SCH (09:21)
[2017-04-10] MEDS: NORVASC PO SCH (09:21)
--- NOTE | 2017-04-10 09:44 | Progress Note ---
Assessment and Plan - Patient Problems (1) Anemia due to blood loss, acute Current Visit: Yes Status: Acute Plan to address problem: Transfused PRBC with appropriate response No further drops in hemoglobin (2) Leukocytosis Current Visit: Yes Status: Acute Qualifiers: Leukocytosis type: L Plan to address problem: On vancomycin, blood cultures no growth to date. Leukocytosis could also be secondary to stress reaction. Temperature spike this morning.Clinically improving If on going fevers, get ID consult Patient is an HD patient and is at risk for MDRO/MRSA He received emily-procedural antibiotics Monitor hemodynamics closely (3) AV graft malfunction Current Visit: Yes Status: Acute Qualifiers: Encounter type: E Plan to address problem: Per vascular service (4) ESRD (end stage renal disease) on dialysis Current Visit: Yes Status: Acute Plan to address problem: Supportive HD. Renal following (5) Diabetes Current Visit: No Status: Chronic Qualifiers: Diabetes mellitus type: type 2 Diabetes mellitus complication status: with hyperglycemia Diabetes mellitus complication detail: D Diabetic retinopathy severity: D Proliferative retinopathy type: P Diabetes mellitus macular edema: D Diabetes mellitus usp insulin use: without usp use Laterality: L Chronic kidney disease stage: C Qualified Code(s): E11.65 - Type 2 diabetes mellitus with hyperglycemia Plan to address problem: Accuchecks with glycemic control Goal glucose<180mg/dl Diabetic diet Episodes of hypoglycemia associated with poor oral intake. continue with hypoglycemia protocol encourage increase oral intake, dietary supplements (6) HTN (hypertension) Current Visit: No Status: Chronic Qualifiers: Hypertension type: essential hypertension Qualified Code(s): I10 - Essential (primary) hypertension Plan to address problem: Episodes of asymptomatic hypotension Home medications. Monitor hemodynamics closely Subjective Date of service: 04/10/17 Principal diagnosis: esrd Interval history: High grade fever overnight He says this is the best he has felt. His appetite is much improved Seen and examined. Vitals,labs, medications, chart reviewed. 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 Radial pulses non-palpable. Vital Signs - 12hr 04/09/17 04/09/17 04/10/17 22:00 23:00 00:00 Temperature 98.3 F Pulse Rate 77 77 79 Pulse Rate [ Anterior Bilateral Throughout] Pulse Rate [ 79 From Monitor] Respiratory 12 11 L 13 Rate Respiratory Rate [Anterior Bilateral Throughout] Blood Pressure 98/60 104/68 110/63 O2 Sat by Pulse 92 91 89 Oximetry 04/10/17 04/10/17 04/10/17 01:00 02:00 02:19 Temperature Pulse Rate 80 87 Pulse Rate [ Anterior Bilateral Throughout] Pulse Rate [ From Monitor] Respiratory 11 L 13 17 Rate Respiratory Rate [Anterior Bilateral Throughout] Blood Pressure 115/69 121/67 O2 Sat by Pulse 91 89 Oximetry 04/10/17 04/10/17 04/10/17 03:00 03:19 04:00 Temperature 101.7 F H Pulse Rate 83 87 Pulse Rate [ Anterior Bilateral Throughout] Pulse Rate [ 87 From Monitor] Respiratory 14 12 11 L Rate Respiratory Rate [Anterior Bilateral Throughout] Blood Pressure 120/67 123/64 O2 Sat by Pulse 92 90 Oximetry 04/10/17 04/10/17 04/10/17 05:00 06:00 07:00 Temperature Pulse Rate 86 84 83 Pulse Rate [ Anterior Bilateral Throughout] Pulse Rate [ From Monitor] Respiratory 18 18 16 Rate Respiratory Rate [Anterior Bilateral Throughout] Blood Pressure 115/60 121/59 123/56 O2 Sat by Pulse 90 89 92 Oximetry 04/10/17 04/10/17 04/10/17 07:26 08:00 08:14 Temperature 98.1 F Pulse Rate 80 Pulse Rate [ 80 Anterior Bilateral Throughout] Pulse Rate [ From Monitor] Respiratory 16 Rate Respiratory 16 Rate [Anterior Bilateral Throughout] Blood Pressure 114/66 O2 Sat by Pulse 89 92 Oximetry 04/10/17 04/10/17 04/10/17 08:31 09:00 09:20 Temperature Pulse Rate 77 79 Pulse Rate [ 78 Anterior Bilateral Throughout] Pulse Rate [ From Monitor] Respiratory 13 Rate Respiratory 16 Rate [Anterior Bilateral Throughout] Blood Pressure 121/66 121/66 O2 Sat by Pulse 90 Oximetry 04/10/17 09:21 Temperature Pulse Rate 79 Pulse Rate [ Anterior Bilateral Throughout] Pulse Rate [ From Monitor] Respiratory Rate Respiratory Rate [Anterior Bilateral Throughout] Blood Pressure 121/66 O2 Sat by Pulse Oximetry Constitutional: no acute distress, other (pale with facial edema) Eyes: non-icteric ENT: oropharynx moist Neck: supple, no lymphadenopathy, no JVD Effort: normal Ascultation: Bilateral: clear, diminished breath sounds Cardiovascular: regular rate and rhythm, other (holosystolic murmur) Gastrointestinal: normoactive bowel sounds, soft, non-tender, non-distended, other (Right upper quadrant surgical scar) Integumentary: other (Left upper extremity wound vac) Extremities: no cyanosis, no edema, cool Neurologic: normal mental status, non-focal exam (wekness of right upper extrmity(old)) Psychiatric: mood appropriate, affect normal CBC and BMP: 04/10/17 11:30 04/10/17 04:10 ABG, PT/INR, D-dimer: PT/INR, D-dimer PT 19.6 Sec. (12.2-14.9) H 04/09/17 13:43 INR 1.66 (0.87-1.13) H 04/09/17 13:43 Abnormal lab findings: Abnormal Labs 04/05/17 04/05/17 04/05/17 11:45 11:45 18:19 WBC 12.4 H RBC 3.43 L Hgb 10.0 L Hct 30.2 L MCHC RDW 15.6 H [place] % (Auto) 8.7 H [place] # 1.1 H Seg Neuts % (Manual) Lymphocytes % (Manual) Seg Neutrophils # 8.5 H Seg Neutrophils # Man PT INR APTT Sodium Carbon Dioxide BUN Creatinine 2.8 H Glucose POC Glucose 305 H Calcium ALT Total Protein Albumin Lipase Crossmatch 04/05/17 04/06/17 04/06/17 22:33 07:51 07:51 WBC RBC Hgb 5.3 L* D Hct 16.4 L* D MCHC RDW [place] % (Auto) [place] # Seg Neuts % (Manual) Lymphocytes % (Manual) Seg Neutrophils # Seg Neutrophils # Man PT INR APTT Sodium 136 L Carbon Dioxide 16 L D BUN 31 H Creatinine 4.1 H Glucose 180 H POC Glucose 189 H Calcium 7.8 L ALT Total Protein Albumin Lipase Crossmatch 04/06/17 04/06/17 04/06/17 08:15 10:43 11:48 WBC 23.6 H RBC 1.83 L Hgb 5.2 L* Hct 16.9 L* MCHC 31 L RDW 16.0 H [place] % (Auto) [place] # Seg Neuts % (Manual) 90.0 H Lymphocytes % (Manual) 5.0 L Seg Neutrophils # Seg Neutrophils # Man 21.2 H PT INR APTT Sodium Carbon Dioxide BUN Creatinine Glucose POC Glucose 201 H 241 H Calcium ALT Total Protein Albumin Lipase Crossmatch 04/06/17 04/06/17 04/06/17 12:36 15:34 21:34 WBC RBC Hgb Hct MCHC RDW [place] % (Auto) [place] # Seg Neuts % (Manual) Lymphocytes % (Manual) Seg Neutrophils # Seg Neutrophils # Man PT INR APTT Sodium Carbon Dioxide BUN Creatinine Glucose POC Glucose 232 H 171 H Calcium ALT Total Protein Albumin Lipase Crossmatch See Detail 04/07/17 04/07/17 04/07/17 00:36 00:36 07:57 WBC RBC Hgb Hct MCHC RDW [place] % (Auto) [place] # Seg Neuts % (Manual) Lymphocytes % (Manual) Seg Neutrophils # Seg Neutrophils # Man PT INR APTT Sodium Carbon Dioxide 20 L BUN 38 H Creatinine 4.2 H Glucose 147 H POC Glucose 179 H Calcium 8.1 L ALT < 5 L Total Protein 6.2 L Albumin 3.0 L Lipase Crossmatch 04/07/17 04/07/17 04/07/17 10:02 10:57 16:14 WBC RBC Hgb 7.3 L Hct 21.7 L MCHC RDW [place] % (Auto) [place] # Seg Neuts % (Manual) Lymphocytes % (Manual) Seg Neutrophils # Seg Neutrophils # Man PT INR APTT Sodium Carbon Dioxide BUN Creatinine Glucose POC Glucose 151 H 120 H Calcium ALT Total Protein Albumin Lipase Crossmatch 04/07/17 04/08/17 04/08/17 21:46 07:51 16:09 WBC RBC Hgb Hct MCHC RDW [place] % (Auto) [place] # Seg Neuts % (Manual) Lymphocytes % (Manual) Seg Neutrophils # Seg Neutrophils # Man PT INR APTT Sodium Carbon Dioxide BUN Creatinine Glucose POC Glucose 107 H < 40 L 57 L Calcium ALT Total Protein Albumin Lipase Crossmatch 04/08/17 04/08/17 04/08/17 17:51 20:02 23:25 WBC RBC Hgb Hct MCHC RDW [place] % (Auto) [place] # Seg Neuts % (Manual) Lymphocytes % (Manual) Seg Neutrophils # Seg Neutrophils # Man PT INR APTT Sodium Carbon Dioxide BUN Creatinine Glucose POC Glucose 132 H 140 H 119 H Calcium ALT Total Protein Albumin Lipase Crossmatch 04/09/17 04/09/17 04/09/17 05:04 06:11 08:50 WBC 17.2 H RBC 2.00 L Hgb 5.9 L* Hct 17.7 L* MCHC RDW 15.5 H [place] % (Auto) [place] # Seg Neuts % (Manual) Lymphocytes % (Manual) Seg Neutrophils # Seg Neutrophils # Man PT INR APTT Sodium Carbon Dioxide BUN Creatinine Glucose POC Glucose 161 H Calcium ALT Total Protein Albumin Lipase Crossmatch See Detail 04/09/17 04/09/17 04/09/17 11:21 12:15 13:43 WBC RBC Hgb 5.5 L* Hct 17.5 L* MCHC RDW [place] % (Auto) [place] # Seg Neuts % (Manual) Lymphocytes % (Manual) Seg Neutrophils # Seg Neutrophils # Man PT INR APTT Sodium 136 L Carbon Dioxide 18 L BUN 69 H Creatinine 5.8 H Glucose 120 H POC Glucose 209 H Calcium 7.6 L ALT Total Protein Albumin Lipase Crossmatch 04/09/17 04/09/17 04/09/17 13:43 18:00 18:06 WBC RBC Hgb 8.8 L D Hct 26.6 L D MCHC RDW [place] % (Auto) [place] # Seg Neuts % (Manual) Lymphocytes % (Manual) Seg Neutrophils # Seg Neutrophils # Man PT 19.6 H INR 1.66 H APTT 43.4 H Sodium Carbon Dioxide BUN Creatinine Glucose POC Glucose 190 H Calcium ALT Total Protein Albumin Lipase Crossmatch 04/10/17 04/10/17 04/10/17 00:07 04:10 04:10 WBC RBC Hgb Hct MCHC RDW [place] % (Auto) [place] # Seg Neuts % (Manual) Lymphocytes % (Manual) Seg Neutrophils # Seg Neutrophils # Man PT INR APTT Sodium 133 L Carbon Dioxide BUN 35 H Creatinine 3.6 H Glucose 166 H POC Glucose 177 H Calcium 8.2 L ALT Total Protein Albumin Lipase 11 L Crossmatch 04/10/17 05:50 WBC RBC Hgb Hct MCHC RDW [place] % (Auto) [place] # Seg Neuts % (Manual) Lymphocytes % (Manual) Seg Neutrophils # Seg Neutrophils # Man PT INR APTT Sodium Carbon Dioxide BUN Creatinine Glucose POC Glucose 199 H Calcium ALT Total Protein Albumin Lipase Crossmatch
--- NOTE | 2017-04-10 10:56 | Progress Note ---
Assessment and Plan Impression: * esrd * anemia ABL/ESRD * DM type 1 * HTN Plan: * HD prn, he is twice weekly as outpatient, plans for tuesday HD * epogen with hd * strict i/os * prn prbcs * avoid nephrotoxins * renal diet * epogen with hd * daily cbc/lytes Subjective Date of service: 04/10/17 Principal diagnosis: esrd Interval history: resting in bed today Objective - Exam Narrative Exam: General: Alert awake nor acute distress HEENT: Oral mucosa moist no uremic order Neck: Supple no JVD Chest: Clear to auscultation Heart: Regular rate and rhythm S1-S2 heard Abdomen: Soft mild tenderness in the right upper quadrant Extremity: Dry skin edema minimal Neurological: Alert awake and oriented - Vital Signs Vital signs: Vital Signs - 12hr 04/09/17 04/10/17 04/10/17 23:00 00:00 01:00 Temperature 98.3 F Pulse Rate 77 79 80 Pulse Rate [ Anterior Bilateral Throughout] Pulse Rate [ 79 From Monitor] Respiratory 11 L 13 11 L Rate Respiratory Rate [Anterior Bilateral Throughout] Blood Pressure 104/68 110/63 115/69 O2 Sat by Pulse 91 89 91 Oximetry 04/10/17 04/10/17 04/10/17 02:00 02:19 03:00 Temperature Pulse Rate 87 83 Pulse Rate [ Anterior Bilateral Throughout] Pulse Rate [ From Monitor] Respiratory 13 17 14 Rate Respiratory Rate [Anterior Bilateral Throughout] Blood Pressure 121/67 120/67 O2 Sat by Pulse 89 92 Oximetry 04/10/17 04/10/17 04/10/17 03:19 04:00 05:00 Temperature 101.7 F H Pulse Rate 87 86 Pulse Rate [ Anterior Bilateral Throughout] Pulse Rate [ 87 From Monitor] Respiratory 12 11 L 18 Rate Respiratory Rate [Anterior Bilateral Throughout] Blood Pressure 123/64 115/60 O2 Sat by Pulse 90 90 Oximetry 04/10/17 04/10/17 04/10/17 06:00 07:00 07:26 Temperature 98.1 F Pulse Rate 84 83 Pulse Rate [ Anterior Bilateral Throughout] Pulse Rate [ From Monitor] Respiratory 18 16 Rate Respiratory Rate [Anterior Bilateral Throughout] Blood Pressure 121/59 123/56 O2 Sat by Pulse 89 92 Oximetry 04/10/17 04/10/17 04/10/17 08:00 08:14 08:31 Temperature Pulse Rate 80 Pulse Rate [ 80 78 Anterior Bilateral Throughout] Pulse Rate [ From Monitor] Respiratory 16 Rate Respiratory 16 16 Rate [Anterior Bilateral Throughout] Blood Pressure 114/66 O2 Sat by Pulse 89 92 Oximetry 04/10/17 04/10/17 04/10/17 09:00 09:20 09:21 Temperature Pulse Rate 77 79 79 Pulse Rate [ Anterior Bilateral Throughout] Pulse Rate [ From Monitor] Respiratory 13 Rate Respiratory Rate [Anterior Bilateral Throughout] Blood Pressure 121/66 121/66 121/66 O2 Sat by Pulse 90 Oximetry - Lab 04/09/17 18:00 04/10/17 04:10 Most recent lab results Calcium 8.2 mg/dL (8.4-10.2) L 04/10/17 04:10
--- NOTE | 2017-04-10 11:03 | Gastroenterology Progress Note ---
Assessment and Plan - Patient Problems (1) RUQ abdominal pain Current Visit: Yes Status: Acute Plan to address problem: - CT scan results reviewed. 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 The changes in the RUQ are likely post surgical. However, I would not order a HIDA for bile leak as, if this were present 2 months after surgery the fluid collection would be much bigger. Since he is improved, I would recommend conservative care at present. - No further recs at present; will sign off; please call if RUQ pain returns. Subjective Date of service: 04/10/17 Principal diagnosis: RUQ pain Interval history: The patient states his RUQ pain is much better. He ate almost all of his breakfast. He denies CP or SOB. No N/V. Objective - Constitutional Vitals: Temp Pulse Resp BP Pulse Ox 98.1 F 77 16 110/61 93 04/10/17 07:26 04/10/17 10:00 04/10/17 10:00 04/10/17 10:00 04/10/17 10:00 General appearance: no acute distress - EENT Eyes: PERRL, EOM intact ENT: hearing intact, clear oral mucosa - Neck Neck: supple - Respiratory Respiratory effort: normal Respiratory: bilateral: CTA - Cardiovascular Rhythm: regular Heart Sounds: Present: S1 & S2 - Gastrointestinal General gastrointestinal: Present: soft, tender (Minimal RUQ tenderness, much improved), non-distended - Labs CBC & Chem 7: 04/09/17 18:00 04/10/17 04:10 Labs: Laboratory Results - last 24 hr 04/09/17 04/09/17 04/09/17 08:50 11:21 12:15 Hgb Hct Plt Count PT INR APTT Sodium 136 L Potassium 4.3 Chloride 101.2 Carbon Dioxide 18 L Anion Gap 21 BUN 69 H Creatinine 5.8 H Estimated GFR 10 BUN/Creatinine Ratio 11.89 Glucose 120 H POC Glucose 209 H Calcium 7.6 L Lipase Blood Type O POSITIVE Antibody Screen Negative Crossmatch See Detail 04/09/17 04/09/17 04/09/17 13:43 13:43 18:00 Hgb 5.5 L* 8.8 L D Hct 17.5 L* 26.6 L D Plt Count 196 PT 19.6 H INR 1.66 H APTT 43.4 H Sodium Potassium Chloride Carbon Dioxide Anion Gap BUN Creatinine Estimated GFR BUN/Creatinine Ratio Glucose POC Glucose Calcium Lipase Blood Type Antibody Screen Crossmatch 04/09/17 04/10/17 04/10/17 18:06 00:07 04:10 Hgb Hct Plt Count PT INR APTT Sodium Potassium Chloride Carbon Dioxide Anion Gap BUN Creatinine Estimated GFR BUN/Creatinine Ratio Glucose POC Glucose 190 H 177 H Calcium Lipase 11 L Blood Type Antibody Screen Crossmatch 04/10/17 04/10/17 04:10 05:50 Hgb Hct Plt Count PT INR APTT Sodium 133 L Potassium 3.9 Chloride 99.4 Carbon Dioxide 24 Anion Gap 14 BUN 35 H Creatinine 3.6 H Estimated GFR 18 BUN/Creatinine Ratio 9.72 Glucose 166 H POC Glucose 199 H Calcium 8.2 L Lipase Blood Type Antibody Screen Crossmatch
[2017-04-10 11:51] LABS: Basophils % (Auto) 0.2 % (0.0-1.8); Eosinophils % (Auto) 1.4 % (0.0-4.3); Hematocrit 25.7 % (35.5-45.6); Hemoglobin 8.5 gm/dl (11.8-15.2); Mean Corpuscular HGB Conc 33 % (32-34); Mean Corpuscular Hemoglobin 29 pg (28-32); Mean Corpuscular Volume 89 fl (84-94); Platelet Count 177 K/mm3 (140-440); White Blood Count 13.8 K/mm3 (4.5-11.0)
--- NOTE | 2017-04-10 13:06 | Progress Note ---
Assessment and Plan Status post revision of the axillary brachial bypass. Bypass is patent. The hand does not appear to be obviously ischemic. Overall there is improvement in condition. I don't think there is a emergent need for an intervention. Plan: We'll continue to monitor. Transferred to the floor. Reevaluate for possible need of the angiogram tomorrow. Will make nothing by mouth after midnight just in case. Subjective Principal diagnosis: RUQ pain Interval history: Patient reports improved pain in the arm and hands. Still the wrist pain and difficulty moving the hand. 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 Radial pulses nonpalpable. - Constitutional Vitals: Vital Signs - 12hr 04/10/17 04/10/17 04/10/17 02:00 02:19 03:00 Temperature Pulse Rate 87 83 Pulse Rate [ Anterior Bilateral Throughout] Pulse Rate [ From Monitor] Respiratory 13 17 14 Rate Respiratory Rate [Anterior Bilateral Throughout] Blood Pressure 121/67 120/67 O2 Sat by Pulse 89 92 Oximetry 04/10/17 04/10/17 04/10/17 03:19 04:00 05:00 Temperature 101.7 F H Pulse Rate 87 86 Pulse Rate [ Anterior Bilateral Throughout] Pulse Rate [ 87 From Monitor] Respiratory 12 11 L 18 Rate Respiratory Rate [Anterior Bilateral Throughout] Blood Pressure 123/64 115/60 O2 Sat by Pulse 90 90 Oximetry 04/10/17 04/10/17 04/10/17 06:00 07:00 07:26 Temperature 98.1 F Pulse Rate 84 83 Pulse Rate [ Anterior Bilateral Throughout] Pulse Rate [ From Monitor] Respiratory 18 16 Rate Respiratory Rate [Anterior Bilateral Throughout] Blood Pressure 121/59 123/56 O2 Sat by Pulse 89 92 Oximetry 04/10/17 04/10/17 04/10/17 08:00 08:14 08:31 Temperature Pulse Rate 80 Pulse Rate [ 80 78 Anterior Bilateral Throughout] Pulse Rate [ From Monitor] Respiratory 16 Rate Respiratory 16 16 Rate [Anterior Bilateral Throughout] Blood Pressure 114/66 O2 Sat by Pulse 89 92 Oximetry 04/10/17 04/10/17 04/10/17 09:00 09:20 09:21 Temperature Pulse Rate 77 79 79 Pulse Rate [ Anterior Bilateral Throughout] Pulse Rate [ From Monitor] Respiratory 13 Rate Respiratory Rate [Anterior Bilateral Throughout] Blood Pressure 121/66 121/66 121/66 O2 Sat by Pulse 90 Oximetry 04/10/17 04/10/17 10:00 11:00 Temperature Pulse Rate 77 Pulse Rate [ Anterior Bilateral Throughout] Pulse Rate [ From Monitor] Respiratory 16 Rate Respiratory Rate [Anterior Bilateral Throughout] Blood Pressure 110/61 86/63 O2 Sat by Pulse 93 90 Oximetry - Labs CBC & Chem 7: 04/10/17 11:30 04/10/17 04:10 Labs: Abnormal lab results 04/09/17 04/09/17 04/09/17 Range/Units 12:15 13:43 13:43 WBC (4.5-11.0) K/mm3 RBC (3.65-5.03) M/mm3 Hgb 5.5 L* (11.8-15.2) gm/dl Hct 17.5 L* (35.5-45.6) % Lymph % (Auto) (13.4-35.0) % Lymph # (1.2-5.4) K/mm3 [place] # (0.0-0.8) K/mm3 Seg Neutrophils % (40.0-70.0) % Seg Neutrophils # (1.8-7.7) K/mm3 PT 19.6 H (12.2-14.9) Sec. INR 1.66 H (0.87-1.13) APTT 43.4 H (24.2-36.6) Sec. Sodium (137-145) mmol/L BUN (9-20) mg/dL Creatinine (0.8-1.5) mg/dL Glucose (75-100) mg/dL POC Glucose 209 H (70-105) Calcium (8.4-10.2) mg/dL Lipase (13-60) units/L 04/09/17 04/09/17 04/10/17 Range/Units 18:00 18:06 00:07 WBC (4.5-11.0) K/mm3 RBC (3.65-5.03) M/mm3 Hgb 8.8 L D (11.8-15.2) gm/dl Hct 26.6 L D (35.5-45.6) % Lymph % (Auto) (13.4-35.0) % Lymph # (1.2-5.4) K/mm3 [place] # (0.0-0.8) K/mm3 Seg Neutrophils % (40.0-70.0) % Seg Neutrophils # (1.8-7.7) K/mm3 PT (12.2-14.9) Sec. INR (0.87-1.13) APTT (24.2-36.6) Sec. Sodium (137-145) mmol/L BUN (9-20) mg/dL Creatinine (0.8-1.5) mg/dL Glucose (75-100) mg/dL POC Glucose 190 H 177 H (70-105) Calcium (8.4-10.2) mg/dL Lipase (13-60) units/L 04/10/17 04/10/17 04/10/17 Range/Units 04:10 04:10 05:50 WBC (4.5-11.0) K/mm3 RBC (3.65-5.03) M/mm3 Hgb (11.8-15.2) gm/dl Hct (35.5-45.6) % Lymph % (Auto) (13.4-35.0) % Lymph # (1.2-5.4) K/mm3 [place] # (0.0-0.8) K/mm3 Seg Neutrophils % (40.0-70.0) % Seg Neutrophils # (1.8-7.7) K/mm3 PT (12.2-14.9) Sec. INR (0.87-1.13) APTT (24.2-36.6) Sec. Sodium 133 L (137-145) mmol/L BUN 35 H (9-20) mg/dL Creatinine 3.6 H (0.8-1.5) mg/dL Glucose 166 H (75-100) mg/dL POC Glucose 199 H (70-105) Calcium 8.2 L (8.4-10.2) mg/dL Lipase 11 L (13-60) units/L 04/10/17 04/10/17 Range/Units 11:30 11:37 WBC 13.8 H (4.5-11.0) K/mm3 RBC 2.90 L (3.65-5.03) M/mm3 Hgb 8.5 L (11.8-15.2) gm/dl Hct 25.7 L (35.5-45.6) % Lymph % (Auto) 6.7 L (13.4-35.0) % Lymph # 0.9 L (1.2-5.4) K/mm3 [place] # 1.0 H (0.0-0.8) K/mm3 Seg Neutrophils % 84.4 H (40.0-70.0) % Seg Neutrophils # 11.6 H (1.8-7.7) K/mm3 PT (12.2-14.9) Sec. INR (0.87-1.13) APTT (24.2-36.6) Sec. Sodium (137-145) mmol/L BUN (9-20) mg/dL Creatinine (0.8-1.5) mg/dL Glucose (75-100) mg/dL POC Glucose 189 H (70-105) Calcium (8.4-10.2) mg/dL Lipase (13-60) units/L
[2017-04-10] MEDS: D10W 1,000 ML IV SCH (18:53)
[2017-04-10] MEDS ORDERED: PROVENTIL IH PRN (23:57)
[2017-04-11] MEDS: NOVOLOG SUB-Q SCH ×5 (01:03→23:44)
[2017-04-11] MEDS: NORCO 5/325 PO PRN ×2 (08:31→15:17)
[2017-04-11] MEDS: COREG PO SCH ×2 (09:00→22:10)
[2017-04-11] MEDS: NORVASC PO SCH (09:00)
[2017-04-11] MEDS: DUONEB *Not for PRN Use IH SCH ×3 (09:05→21:19)
--- NOTE | 2017-04-11 09:07 | Progress Note ---
Assessment and Plan Impression: * ESRD * Anemia ABL/ESRD * Type I DM * HTN * RUQ pain Plan: * HD twice weekly, plans for tuesday HD * Epogen for goal Hb 10-12 * GI recommendations noted * strict i/os * Tranfuse pRBC prn * Avoid nephrotoxins * Renal diet Subjective Date of service: 04/11/17 Principal diagnosis: esrd Interval history: Patient complains of reflux/GERD Objective - Vital Signs Vital signs: Vital Signs - 12hr 04/11/17 04/11/17 04/11/17 00:00 00:03 00:09 Temperature 99.5 F Pulse Rate 72 Pulse Rate [ 75 Anterior Bilateral Throughout] Pulse Rate [ 76 75 Anterior Right Lower Lobe] Respiratory 18 Rate Respiratory 16 Rate [Anterior Bilateral Throughout] Respiratory 18 18 Rate [Anterior Right Lower Lobe] Blood Pressure 109/60 O2 Sat by Pulse 92 Oximetry 04/11/17 04/11/17 04/11/17 04:00 08:31 09:05 Temperature 100.4 F H Pulse Rate 78 Pulse Rate [ Anterior Bilateral Throughout] Pulse Rate [ Anterior Right Lower Lobe] Respiratory 18 20 Rate Respiratory Rate [Anterior Bilateral Throughout] Respiratory Rate [Anterior Right Lower Lobe] Blood Pressure 118/57 O2 Sat by Pulse 96 96 Oximetry - General Appearance General appearance: well-developed, well-nourished EENT: ATNC Respiratory: Present: Clear to Ascultation. Absent: Decreased Breath Sounds Cardiology: regular, S1S2 Gastrointestinal: normal, no tenderness, no distended Integumentary: no rash Musculoskeletal: other (left arm w/ wound vac) Psychiatric: cooperative - Lab 04/10/17 11:30 04/10/17 04:10 Most recent lab results Calcium 8.2 mg/dL (8.4-10.2) L 04/10/17 04:10
[2017-04-11] MEDS: PROTONIX PO SCH (09:45)
[2017-04-11] MEDS: PLAVIX PO SCH (10:41)
--- NOTE | 2017-04-11 16:22 | Event Note ---
Date: 04/11/17 Pt continues to require pain medication to LUE to help with rest pain. Will schedule LUE arteriogram and possible intervention in attempts to improve bloodflow to his left hand.
[2017-04-11] MEDS: SUBLIMAZE ONE ×4 (16:35→17:17)
[2017-04-11] MEDS ORDERED: HEPARIN/NS 5000 UNIT/500ML(CATH LAB) 500 ML IR ONE ×4 (16:37→18:26)
[2017-04-11] MEDS ORDERED: ANCEF/STERILE WATER 2 GM/20 ML 2 GM/20 ML SYRINGE IV ONE (16:37)
[2017-04-11] MEDS: HEPARIN 10,000 UNITS/10 ML ONE ×3 (16:40→18:10)
[2017-04-11] MEDS ORDERED: HEPARIN/NS 5000 UNIT/500ML(CATH LAB) 1,000 ML IR ONE (16:58)
[2017-04-11] MEDS ORDERED: VERSED ONE (16:58)
[2017-04-11] MEDS ORDERED: NACL 0.9% 250ML 250 ML ONE (16:59)
[2017-04-11] MEDS ORDERED: XYLOCAINE 2% INFILTRATI ONE (16:59)
[2017-04-11] MEDS: CATHFLO ONE ×2 (17:06→18:10)
[2017-04-11] MEDS ORDERED: CATHFLO ONE ×3 (17:47→18:03)
[2017-04-11] MEDS ORDERED: NACL 0.9% 1000 ML 1,000 ML EKOSCLUMEN SCH (18:00)
[2017-04-11] MEDS ORDERED: HEPARIN/ 0.45% NACL-25,000 UNIT/500 ML 25,000 UNIT/500 ML BAG SHEATH SCH (18:00)
[2017-04-11] MEDS ORDERED: NACL 0.9% 1000 ML 1,000 ML SHEATH SCH (18:00)
[2017-04-11] MEDS ORDERED: NACL 0.9% 1000 ML 1,000 ML IV SCH (18:00)
[2017-04-11] MEDS ORDERED: CATHFLO 20 MG in NACL 0.9% 500 ML 500 ML EKOSDLUMEN SCH (18:00)
[2017-04-11] MEDS ORDERED: NACL 0.9% 500 ML 500 ML ONE (18:26)
[2017-04-11] MEDS ORDERED: HEPARIN/ 0.45% NACL-25,000 UNIT/500 ML 25,000 UNIT/500 ML BAG ONE (18:37)
[2017-04-11 18:54] LABS: BUN/Creatinine Ratio 10.4; Chloride 95.5 mmol/L (98-107); Potassium 4.1 mmol/L (3.6-5.0)
[2017-04-11 18:57] LABS: Hematocrit 29.1 % (35.5-45.6); Hemoglobin 9.5 gm/dl (11.8-15.2); Mean Corpuscular HGB Conc 33 % (32-34); Mean Corpuscular Hemoglobin 29 pg (28-32); Mean Corpuscular Volume 89 fl (84-94); Platelet Count 195 K/mm3 (140-440); Red Blood Count 3.26 M/mm3 (3.65-5.03); Red Cell Distribution Width 15.2 % (13.2-15.2)
[2017-04-11 19:14] LABS: White Blood Count 23.6 K/mm3 (4.5-11.0)
[2017-04-11 19:28] LABS: INR 1.45 (0.87-1.13)
[2017-04-11 19:33] LABS: Partial Thromboplastin Time 113.3 Sec. (24.2-36.6)
[2017-04-11 19:52] LABS: Basophils % (Manual) 0 % (0.0-1.8); Blastocytes % (Manual) 0 %
[2017-04-11 19:53] LABS: Diff Status Complete; Hypersegmented Neutrophils Few; Platelet Estimate Consistent w Auto
[2017-04-11] MEDS: MORPHINE IV PRN (20:48)
[2017-04-12] MEDS: MORPHINE IV PRN ×4 (00:48→14:38)
[2017-04-12 02:11] LABS: Mean Corpuscular HGB Conc 30 % (32-34); Mean Corpuscular Hemoglobin 29 pg (28-32); Mean Corpuscular Volume 97 fl (84-94); Red Blood Count 3.19 M/mm3 (3.65-5.03); Red Cell Distribution Width 16.9 % (13.2-15.2)
[2017-04-12 02:12] LABS: Hemoglobin 9.2 gm/dl (11.8-15.2); White Blood Count 23.9 K/mm3 (4.5-11.0)
[2017-04-12 02:13] LABS: Hematocrit 30.9 % (35.5-45.6)
[2017-04-12 02:14] LABS: Platelet Count 114 K/mm3 (140-440)
[2017-04-12 04:03] LABS: Basophils % (Manual) 0 % (0.0-1.8); Blastocytes % (Manual) 0 %; Eosinophils % (Manual) 0 % (0.0-4.3)
[2017-04-12 04:04] LABS: Anisocytosis 1+; Diff Status Complete; Hypersegmented Neutrophils Rare; Platelet Estimate Consistent w Auto; Stomatocytes Few
[2017-04-12 04:38] LABS: Hemoglobin 9.6 gm/dl (11.8-15.2); Mean Corpuscular HGB Conc 32 % (32-34); Mean Corpuscular Hemoglobin 29 pg (28-32); Mean Corpuscular Volume 91 fl (84-94); Platelet Count 242 K/mm3 (140-440); Red Cell Distribution Width 15.4 % (13.2-15.2)
[2017-04-12 04:50] LABS: Fibrinogen 866 mg/dl (211-480)
[2017-04-12 04:55] LABS: White Blood Count 26.5 K/mm3 (4.5-11.0)
[2017-04-12 05:00] LABS: BUN/Creatinine Ratio 11.17; Calcium 8.2 mg/dL (8.4-10.2); Chloride 94.1 mmol/L (98-107); Potassium 4.1 mmol/L (3.6-5.0)
[2017-04-12 05:38] LABS: Anisocytosis 1+; Basophils % (Manual) 0 % (0.0-1.8); Blastocytes % (Manual) 0 %; Elliptocytes Few; Eosinophils % (Manual) 0 % (0.0-4.3); Hypersegmented Neutrophils Rare
[2017-04-12 05:39] LABS: Diff Status Complete
[2017-04-12] MEDS: NOVOLOG SUB-Q SCH ×3 (06:00→18:34)
[2017-04-12] MEDS ORDERED: NACL 0.9% 500 ML 500 ML ONE ×2 (06:50→10:50)
[2017-04-12] MEDS ORDERED: XYLOCAINE 2% INFILTRATI ONE ×3 (06:50→16:25)
[2017-04-12] MEDS ORDERED: HEPARIN 10,000 UNITS/10 ML ONE ×2 (06:50→16:25)
[2017-04-12] MEDS ORDERED: HEPARIN/NS 5000 UNIT/500ML(CATH LAB) 1,000 ML IR ONE ×2 (06:50→16:25)
[2017-04-12] MEDS ORDERED: ANCEF/STERILE WATER 2 GM/20 ML 2 GM/20 ML SYRINGE IV ONE (06:50)
[2017-04-12] MEDS: SUBLIMAZE ONE ×5 (07:07→08:25)
[2017-04-12] MEDS: VERSED ONE ×3 (07:07→07:33)
[2017-04-12] MEDS ORDERED: VERSED ONE ×2 (07:38→16:26)
[2017-04-12] MEDS: BENADRYL ONE ×2 (07:46→07:55)
[2017-04-12] MEDS ORDERED: NITROGLYCERIN SYRINGE 3 ML ONE ×2 (08:13→17:36)
[2017-04-12] MEDS ORDERED: WATER FOR INJ (PF) 10 ML ONE (08:13)
[2017-04-12] MEDS ORDERED: CATHFLO ONE ×2 (08:13→17:23)
--- NOTE | 2017-04-12 08:31 | Operative Report ---
Operative Report Operative Report: Date of Procedure: 04/11/2017 Pre-operative Diagnosis: Complications of Dialysis Access Post-operative Diagnosis: Same Procedure(s): 1. Ultrasound-Guided Access Left Common Femoral Artery 2. Diagnostic Left Upper Extremity Arteriogram (Patient Had a Clinical Change) 3. Percutaneous Mechanical Thrombectomy of Left Axillary Artery to Brachial Artery Bypass with CAT 6 Indigo Catheter And AngioJet Catheter 4. Injection of the Total 20 Mg of TPA into the Distal Brachial Artery 5. Angioplasty of Left Ulnar Artery with 4 x 120 Balloon 6. Angioplasty of Left Radial Artery with 4 x 120 Balloon 7. Thrombolysis of Left Axillary Artery to Brachial Artery Bypass with 135 x 12 EKOS Catheter 8. Radiological Supervision with the Interpretation Surgeon: Omar Romo M.D. 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 He recently had a redo procedure and his physical exam suggests that the bypass may have thrombosed. He is in need of a diagnostic arteriogram with possible intervention. He was given the risks, benefits, and alternative procedures and consented to procedure. Angiographic Findings: The left subclavian artery as well as the axillary artery and proximal brachial artery widely patent. The fistula was widely patent. The axillary artery to brachial artery bypass graft was occluded slightly after sort without any evidence of reconstitution. After advancing the catheter through the occluded bypass graft the artery was patent with approximately 50% stenosis at the origin ulnar artery and the radial artery was occluded at its origin however filled in the mid forearm from collaterals. After an intervention the ulnar artery appeared widely patent however there was a proximal 50% residual occlusion of the radial artery secondary to thrombus. The bypass graft was widely patent down to the brachial artery anastomosis where there was significant amount of thrombus. The thrombolysis catheter was placed with the distal tip in the radial artery and the proximal portion in the distal one third of the bypass graft. Description of Procedure: The patient was brought to the laboratory scientist and laid in supine position. After he was adequately sedated his left groin was prepped and draped in normal sterile fashion. Ultrasound was used to identify the left common femoral artery and the overlying skin and soft tissue was anesthetized with lidocaine. A small stab incision was made in the micropuncture technique was used to access the anterior surface of the left common femoral artery using ultrasound guidance. A 0.035 advantage wire was advanced into the thoracic aorta under fluoroscopy and a 6 [place] sheath and Seldinger technique. A 4 [place] glide catheter along with the advantages were used to cannulate the subclavian artery and a diagnostic left upper extremity arteriograms performed with the previously described findings. With the use of the glide catheter and advantage wire was able to cannulate the occluded bypass graft and advanced a wire and catheter down into the ulnar artery. I then exchanged the short 6 [place] sheath for a 6 [place] 90 cm destination sheath and then used the CAT 6 Indigo catheter to perform a cutaneous mechanical thrombectomy of the thrombus within the graft. After several passes the majority of the thrombus had been removed however there was significant amount of thrombus at the distal anastomosis. I injected initially 10 mg of TPA and allowed this to dwell for several minutes and then used the AngioJet catheter to attempt to further debulk thrombus. Although this did reduce to thrombus burden there was still a significant amount of thrombus within the distal anastomosis. I performed balloon angioplasty of the ulnar artery, with a 4 x 120 balloon, to reduce the 50% stenosis of the ulnar artery which was reduced to less than 10% residual stenosis. I was able to cannulate the occluded radial artery using a glide catheter and 0.018 V18 wire and then performed balloon angioplasty of the occluded portion of the radial artery using a 4 x 120 balloon. The lesion was reduced to 50% however it appeared that there was thrombus partially occluding the lumen. I injected another 10 mg of TPA and then again attempted to reduce to thrombus with the AngioJet catheter without success. At this point I decided to perform thrombolysis. I advanced the 0.035 advantage wire into the radial artery and then exchanged my 6 [place] 90 cm destination sheath for a 6 [place] 45 cm destination sheath. I then advanced the 135 x 12 cm EKOS catheter into the radial artery with the proximal portion in the distal one third of the bypass graft. I primed the coolant to the port with heparin and primed the drug port with 4 mg of TPA. I then secured the sheath in place with a 0 silk and dressed the sheath and catheter sterilely. The patient tolerated the procedure well. All sponge, needle, and instrument counts were correct. The patient was taken to the ICU in stable condition.
--- NOTE | 2017-04-12 08:49 | Operative Report ---
Operative Report Operative Report: EXAM: EKOS CATHETER REMOVAL, MECHANICAL THROMBECTOMY, ANGIOPLASTY CLINICAL INDICATION: PATIENT WITH PERSISTENT THROMBUS IS DISTAL BRACHIAL, PROXIMAL RADIAL AND PROXIMAL ULNAR ARTERIES AND HIS LEFT ARM. DATE: 04/12/2017 PROCEDURE: Following an explanation of the risks, benefits and alternatives; written informed consent was obtained. The patient was brought to the angiographic suite and placed in supine position on the examination table. Initial fluoroscopic images demonstrated appropriate positioning of the patient' s indwelling thrombolytics catheter. The patient's groin was prepped and draped in the usual sterile fashion. 1% lidocaine was used for anesthesia at the sheath insertion site. The infusion wire was removed and contrast injected through the indwelling catheter. This demonstrated improved luminal throat to the radial and ulnar arteries with persistent thrombus in the distal brachial artery and proximal radial and ulnar arteries. A 0.018 guidewire was then advanced through the thrombolytics catheter and thrombolytics catheter removed. A 4 [place] vertebral catheter was then advanced over the guidewire into the radial artery. Angioplasty of the radial artery and brachial artery was performed using a 3 mm x 80 mm balloon insufflated to 6 ino for 30 seconds. Post angioplasty imaging demonstrated no significant improved luminal flow with prompt elastic recoil of the thrombus. A decision was made to perform mechanical thrombectomy using a 6 [place] indigo mechanical thrombectomy device. The catheter was advanced to the margin of the clot and aspiration performed in the distal brachial artery, proximal radial artery and proximal ulnar artery. There was some improved luminal flow to the ulnar artery however, there remains persistent clot at the origin of the radial artery and distal brachial artery. Given the flow-limiting thrombus in the radial artery, decision was made to attempt mechanical thrombus extraction. A 5 mm spider wire was advanced through a V 18 guidewire passed the thrombus in the radial artery and withdrawn proximally. There was some improvement a luminal flow following the clot extraction however, there is persistent laminar thrombus. A decision was made therefore to place and additional thrombolytics catheter and allow the patient to receive additional thrombolysis. The V 18 guidewire was advanced down the radial artery and a 135 cm total length 50 cm infusion length from [place] Medias catheter was advanced over the guidewire. The guidewire was removed and the infusion wire advanced through the catheter. The catheter was primed with 4 mg of TPA and the sheath was primed with 4000 units heparin. The catheter was then set to a rate of 2 mg of TPA per hour. The catheter was securely fastened of the groin using 0 silk suture and a sterile dressing applied. The patient tolerated the procedure well. There were no immediate post procedure complications. Conscious sedation was performed under the guidance of radiologic nursing. Continuous cardiopulmonary monitoring was utilized. IMPRESSION: 1) Thrombolytics catheter removal. 2) Mechanical thrombectomy of distal brachial artery, proximal radial proximal ulnar arteries. 3) Angioplasty with residual thrombus in the distal brachial, proximal radium proximal ulnar arteries. 4) Placement of an additional thrombolytics catheter.
[2017-04-12] MEDS: COREG PO SCH ×2 (10:51→22:13)
[2017-04-12] MEDS: NORVASC PO SCH (10:51)
[2017-04-12] MEDS: PLAVIX PO SCH (10:51)
[2017-04-12] MEDS: PROTONIX PO SCH (10:51)
--- NOTE | 2017-04-12 12:44 | Progress Note ---
Assessment and Plan (1) Anemia due to blood loss, acute Current Visit: Yes Status: Acute Plan to address problem: - Transfused PRBC with appropriate response - trending downwards again - following clinically (2) Leukocytosis Current Visit: Yes Status: Acute Qualifiers: Leukocytosis type: L Plan to address problem: - On vancomycin, blood cultures no growth to date. - Leukocytosis could also be secondary to stress reaction. - Patient is an HD patient and is at risk for MDRO/MRSA - He received emily-procedural antibiotics - Monitor hemodynamics closely (3) AV graft malfunction Current Visit: Yes Status: Acute Qualifiers: Encounter type: E Plan to address problem: - Per vascular service (4) ESRD (end stage renal disease) on dialysis Current Visit: Yes Status: Acute Plan to address problem: - Supportive HD. Renal following (5) Diabetes Current Visit: No Status: Chronic Qualifiers: Diabetes mellitus type: type 2 Diabetes mellitus complication status: with hyperglycemia Diabetes mellitus complication detail: D Diabetic retinopathy severity: D Proliferative retinopathy type: P Diabetes mellitus macular edema: D Diabetes mellitus senior living insulin use: without termite control technician use Laterality: L Chronic kidney disease stage: C Qualified Code(s): E11.65 - Type 2 diabetes mellitus with hyperglycemia Plan to address problem: - continue Accuchecks with glycemic control - target Goal glucose<180mg/dl - continue Diabetic diet - continue with hypoglycemia protocol - encouraging increase oral intake, dietary supplements (6) HTN (hypertension) Current Visit: No Status: Chronic Qualifiers: Hypertension type: essential hypertension Qualified Code(s): I10 - Essential (primary) hypertension Plan to address problem: - Episodes of asymptomatic hypotension improved - resume Home medications as appropriate - continue to Monitor hemodynamics closely on telemetry .....will transfer to telemetry after EkOS pulled and he is stable hemodynamically Subjective Date of service: 04/12/17 Principal diagnosis: ESRD on Dialysis; Malfunctioning AV graft s/p Repair; S/P EkOS thrombolysis Interval history: Seen and examined at bedside; 24 hour events reviewed; nursing and respiratory care staff consulted; no adverse overnight events reported to me; resting flat in bed; on 2L NC; denies acute chest pains or increased SOB; No emesis or overt aspiration and no gross bleeding Objective Vital Signs - 12hr 04/12/17 04/12/17 04/12/17 00:48 01:00 01:18 Temperature Pulse Rate 73 Respiratory 14 17 18 Rate Blood Pressure 116/58 O2 Sat by Pulse 94 Oximetry 04/12/17 04/12/17 04/12/17 02:01 03:00 03:25 Temperature Pulse Rate 75 76 76 Respiratory 17 16 Rate Blood Pressure 116/58 123/57 O2 Sat by Pulse 95 96 95 Oximetry 04/12/17 04/12/17 04/12/17 03:31 04:00 05:00 Temperature 99.7 F H Pulse Rate 77 80 Respiratory 17 16 Rate Blood Pressure 126/67 127/57 O2 Sat by Pulse 95 94 Oximetry 04/12/17 04/12/17 04/12/17 05:20 06:01 06:17 Temperature Pulse Rate 80 78 Respiratory 19 18 Rate Blood Pressure 127/57 O2 Sat by Pulse 96 96 Oximetry Constitutional: no acute distress, other (somnolent) Eyes: non-icteric ENT: oropharynx moist Neck: supple, no lymphadenopathy, no JVD Effort: normal Ascultation: Bilateral: clear, diminished breath sounds (bases) Cardiovascular: regular rate and rhythm, other (holosystolic murmur) Gastrointestinal: normoactive bowel sounds, soft, non-tender, non-distended, other (Right upper quadrant surgical scar) Integumentary: other (Left upper extremity wound vac) Extremities: no cyanosis, no edema, cool Neurologic: normal mental status, non-focal exam (wekness of right upper extrmity(old)), pupils equal and round, motor strength normal and Psychiatric: mood appropriate, affect normal CBC and BMP: 04/13/17 04:08 04/13/17 04:08 ABG, PT/INR, D-dimer: PT/INR, D-dimer PT 17.6 Sec. (12.2-14.9) H 04/11/17 18:10 INR 1.45 (0.87-1.13) H 04/11/17 18:10 Abnormal lab findings: Abnormal Labs 04/05/17 04/05/17 04/05/17 11:45 11:45 18:19 WBC 12.4 H RBC 3.43 L Hgb 10.0 L Hct 30.2 L MCV MCHC RDW 15.6 H Plt Count Lymph % (Auto) [place] % (Auto) 8.7 H Lymph # [place] # 1.1 H Seg Neutrophils % Seg Neuts % (Manual) Lymphocytes % (Manual) Seg Neutrophils # 8.5 H Seg Neutrophils # Man Lymphocytes # (Manual) Monocytes # (Manual) PT INR APTT Fibrinogen Heparin Anti-Xa Level Sodium Chloride Carbon Dioxide BUN Creatinine 2.8 H Glucose POC Glucose 305 H Calcium ALT Total Protein Albumin Lipase Crossmatch 04/05/17 04/06/17 04/06/17 22:33 07:51 07:51 WBC RBC Hgb 5.3 L* D Hct 16.4 L* D MCV MCHC RDW Plt Count Lymph % (Auto) [place] % (Auto) Lymph # [place] # Seg Neutrophils % Seg Neuts % (Manual) Lymphocytes % (Manual) Seg Neutrophils # Seg Neutrophils # Man Lymphocytes # (Manual) Monocytes # (Manual) PT INR APTT Fibrinogen Heparin Anti-Xa Level Sodium 136 L Chloride Carbon Dioxide 16 L D BUN 31 H Creatinine 4.1 H Glucose 180 H POC Glucose 189 H Calcium 7.8 L ALT Total Protein Albumin Lipase Crossmatch 04/06/17 04/06/17 04/06/17 08:15 10:43 11:48 WBC 23.6 H RBC 1.83 L Hgb 5.2 L* Hct 16.9 L* MCV MCHC 31 L RDW 16.0 H Plt Count Lymph % (Auto) [place] % (Auto) Lymph # [place] # Seg Neutrophils % Seg Neuts % (Manual) 90.0 H Lymphocytes % (Manual) 5.0 L Seg Neutrophils # Seg Neutrophils # Man 21.2 H Lymphocytes # (Manual) Monocytes # (Manual) PT INR APTT Fibrinogen Heparin Anti-Xa Level Sodium Chloride Carbon Dioxide BUN Creatinine Glucose POC Glucose 201 H 241 H Calcium ALT Total Protein Albumin Lipase Crossmatch 04/06/17 04/06/17 04/06/17 12:36 15:34 21:34 WBC RBC Hgb Hct MCV MCHC RDW Plt Count Lymph % (Auto) [place] % (Auto) Lymph # [place] # Seg Neutrophils % Seg Neuts % (Manual) Lymphocytes % (Manual) Seg Neutrophils # Seg Neutrophils # Man Lymphocytes # (Manual) Monocytes # (Manual) PT INR APTT Fibrinogen Heparin Anti-Xa Level Sodium Chloride Carbon Dioxide BUN Creatinine Glucose POC Glucose 232 H 171 H Calcium ALT Total Protein Albumin Lipase Crossmatch See Detail 04/07/17 04/07/17 04/07/17 00:36 00:36 07:57 WBC RBC Hgb Hct MCV MCHC RDW Plt Count Lymph % (Auto) [place] % (Auto) Lymph # [place] # Seg Neutrophils % Seg Neuts % (Manual) Lymphocytes % (Manual) Seg Neutrophils # Seg Neutrophils # Man Lymphocytes # (Manual) Monocytes # (Manual) PT INR APTT Fibrinogen Heparin Anti-Xa Level Sodium Chloride Carbon Dioxide 20 L BUN 38 H Creatinine 4.2 H Glucose 147 H POC Glucose 179 H Calcium 8.1 L ALT < 5 L Total Protein 6.2 L Albumin 3.0 L Lipase Crossmatch 04/07/17 04/07/17 04/07/17 10:02 10:57 16:14 WBC RBC Hgb 7.3 L Hct 21.7 L MCV MCHC RDW Plt Count Lymph % (Auto) [place] % (Auto) Lymph # [place] # Seg Neutrophils % Seg Neuts % (Manual) Lymphocytes % (Manual) Seg Neutrophils # Seg Neutrophils # Man Lymphocytes # (Manual) Monocytes # (Manual) PT INR APTT Fibrinogen Heparin Anti-Xa Level Sodium Chloride Carbon Dioxide BUN Creatinine Glucose POC Glucose 151 H 120 H Calcium ALT Total Protein Albumin Lipase Crossmatch 04/07/17 04/08/17 04/08/17 21:46 07:51 16:09 WBC RBC Hgb Hct MCV MCHC RDW Plt Count Lymph % (Auto) [place] % (Auto) Lymph # [place] # Seg Neutrophils % Seg Neuts % (Manual) Lymphocytes % (Manual) Seg Neutrophils # Seg Neutrophils # Man Lymphocytes # (Manual) Monocytes # (Manual) PT INR APTT Fibrinogen Heparin Anti-Xa Level Sodium Chloride Carbon Dioxide BUN Creatinine Glucose POC Glucose 107 H < 40 L 57 L Calcium ALT Total Protein Albumin Lipase Crossmatch 04/08/17 04/08/17 04/08/17 17:51 20:02 23:25 WBC RBC Hgb Hct MCV MCHC RDW Plt Count Lymph % (Auto) [place] % (Auto) Lymph # [place] # Seg Neutrophils % Seg Neuts % (Manual) Lymphocytes % (Manual) Seg Neutrophils # Seg Neutrophils # Man Lymphocytes # (Manual) Monocytes # (Manual) PT INR APTT Fibrinogen Heparin Anti-Xa Level Sodium Chloride Carbon Dioxide BUN Creatinine Glucose POC Glucose 132 H 140 H 119 H Calcium ALT Total Protein Albumin Lipase Crossmatch 04/09/17 04/09/17 04/09/17 05:04 06:11 08:50 WBC 17.2 H RBC 2.00 L Hgb 5.9 L* Hct 17.7 L* MCV MCHC RDW 15.5 H Plt Count Lymph % (Auto) [place] % (Auto) Lymph # [place] # Seg Neutrophils % Seg Neuts % (Manual) Lymphocytes % (Manual) Seg Neutrophils # Seg Neutrophils # Man Lymphocytes # (Manual) Monocytes # (Manual) PT INR APTT Fibrinogen Heparin Anti-Xa Level Sodium Chloride Carbon Dioxide BUN Creatinine Glucose POC Glucose 161 H Calcium ALT Total Protein Albumin Lipase Crossmatch See Detail 04/09/17 04/09/17 04/09/17 11:21 12:15 13:43 WBC RBC Hgb 5.5 L* Hct 17.5 L* MCV MCHC RDW Plt Count Lymph % (Auto) [place] % (Auto) Lymph # [place] # Seg Neutrophils % Seg Neuts % (Manual) Lymphocytes % (Manual) Seg Neutrophils # Seg Neutrophils # Man Lymphocytes # (Manual) Monocytes # (Manual) PT INR APTT Fibrinogen Heparin Anti-Xa Level Sodium 136 L Chloride Carbon Dioxide 18 L BUN 69 H Creatinine 5.8 H Glucose 120 H POC Glucose 209 H Calcium 7.6 L ALT Total Protein Albumin Lipase Crossmatch 04/09/17 04/09/17 04/09/17 13:43 18:00 18:06 WBC RBC Hgb 8.8 L D Hct 26.6 L D MCV MCHC RDW Plt Count Lymph % (Auto) [place] % (Auto) Lymph # [place] # Seg Neutrophils % Seg Neuts % (Manual) Lymphocytes % (Manual) Seg Neutrophils # Seg Neutrophils # Man Lymphocytes # (Manual) Monocytes # (Manual) PT 19.6 H INR 1.66 H APTT 43.4 H Fibrinogen Heparin Anti-Xa Level Sodium Chloride Carbon Dioxide BUN Creatinine Glucose POC Glucose 190 H Calcium ALT Total Protein Albumin Lipase Crossmatch 04/10/17 04/10/17 04/10/17 00:07 04:10 04:10 WBC RBC Hgb Hct MCV MCHC RDW Plt Count Lymph % (Auto) [place] % (Auto) Lymph # [place] # Seg Neutrophils % Seg Neuts % (Manual) Lymphocytes % (Manual) Seg Neutrophils # Seg Neutrophils # Man Lymphocytes # (Manual) Monocytes # (Manual) PT INR APTT Fibrinogen Heparin Anti-Xa Level Sodium 133 L Chloride Carbon Dioxide BUN 35 H Creatinine 3.6 H Glucose 166 H POC Glucose 177 H Calcium 8.2 L ALT Total Protein Albumin Lipase 11 L Crossmatch 04/10/17 04/10/17 04/10/17 05:50 11:30 11:37 WBC 13.8 H RBC 2.90 L Hgb 8.5 L Hct 25.7 L MCV MCHC RDW Plt Count Lymph % (Auto) 6.7 L [place] % (Auto) Lymph # 0.9 L [place] # 1.0 H Seg Neutrophils % 84.4 H Seg Neuts % (Manual) Lymphocytes % (Manual) Seg Neutrophils # 11.6 H Seg Neutrophils # Man Lymphocytes # (Manual) Monocytes # (Manual) PT INR APTT Fibrinogen Heparin Anti-Xa Level Sodium Chloride Carbon Dioxide BUN Creatinine Glucose POC Glucose 199 H 189 H Calcium ALT Total Protein Albumin Lipase Crossmatch 04/10/17 04/11/17 04/11/17 17:11 00:03 12:27 WBC RBC Hgb Hct MCV MCHC RDW Plt Count Lymph % (Auto) [place] % (Auto) Lymph # [place] # Seg Neutrophils % Seg Neuts % (Manual) Lymphocytes % (Manual) Seg Neutrophils # Seg Neutrophils # Man Lymphocytes # (Manual) Monocytes # (Manual) PT INR APTT Fibrinogen Heparin Anti-Xa Level Sodium Chloride Carbon Dioxide BUN Creatinine Glucose POC Glucose 162 H 180 H 135 H Calcium ALT Total Protein Albumin Lipase Crossmatch 04/11/17 04/11/17 04/11/17 18:10 18:10 18:10 WBC 23.6 H RBC 3.26 L Hgb 9.5 L Hct 29.1 L MCV MCHC RDW Plt Count Lymph % (Auto) [place] % (Auto) Lymph # [place] # Seg Neutrophils % Seg Neuts % (Manual) 94.0 H Lymphocytes % (Manual) 2.0 L Seg Neutrophils # Seg Neutrophils # Man 22.2 H Lymphocytes # (Manual) 0.5 L Monocytes # (Manual) PT 17.6 H INR 1.45 H APTT 113.3 H* Fibrinogen Heparin Anti-Xa Level Sodium 132 L Chloride 95.5 L Carbon Dioxide 21 L BUN 52 H Creatinine 5.0 H Glucose 107 H POC Glucose Calcium 8.0 L ALT Total Protein Albumin Lipase Crossmatch 04/11/17 04/11/17 04/11/17 18:10 20:44 23:46 WBC RBC Hgb Hct MCV MCHC RDW Plt Count Lymph % (Auto) [place] % (Auto) Lymph # [place] # Seg Neutrophils % Seg Neuts % (Manual) Lymphocytes % (Manual) Seg Neutrophils # Seg Neutrophils # Man Lymphocytes # (Manual) Monocytes # (Manual) PT INR APTT Fibrinogen 837 H Heparin Anti-Xa Level Sodium Chloride Carbon Dioxide BUN Creatinine Glucose POC Glucose 129 H 112 H Calcium ALT Total Protein Albumin Lipase Crossmatch 04/12/17 04/12/17 04/12/17 01:40 03:57 03:57 WBC 23.9 H 26.5 H RBC 3.19 L 3.30 L Hgb 9.2 L 9.6 L Hct 30.9 L 30.0 L MCV 97 H MCHC 30 L RDW 16.9 H 15.4 H Plt Count 114 L Lymph % (Auto) [place] % (Auto) Lymph # [place] # Seg Neutrophils % Seg Neuts % (Manual) 83.0 H 81.0 H Lymphocytes % (Manual) 6.0 L 4.0 L Seg Neutrophils # Seg Neutrophils # Man 19.8 H 21.5 H Lymphocytes # (Manual) 1.1 L Monocytes # (Manual) 1.6 H PT INR APTT Fibrinogen Heparin Anti-Xa Level Sodium 131 L Chloride 94.1 L Carbon Dioxide 21 L BUN 57 H Creatinine 5.1 H Glucose POC Glucose Calcium 8.2 L ALT Total Protein Albumin Lipase Crossmatch 04/12/17 03:57 WBC RBC Hgb Hct MCV MCHC RDW Plt Count Lymph % (Auto) [place] % (Auto) Lymph # [place] # Seg Neutrophils % Seg Neuts % (Manual) Lymphocytes % (Manual) Seg Neutrophils # Seg Neutrophils # Man Lymphocytes # (Manual) Monocytes # (Manual) PT INR APTT Fibrinogen 866 H Heparin Anti-Xa Level < 0.10 L Sodium Chloride Carbon Dioxide BUN Creatinine Glucose POC Glucose Calcium ALT Total Protein Albumin Lipase Crossmatch
[2017-04-12 14:03] LABS: Hemoglobin 8.2 gm/dl (11.8-15.2); Mean Corpuscular HGB Conc 33 % (32-34); Mean Corpuscular Hemoglobin 30 pg (28-32); Mean Corpuscular Volume 90 fl (84-94); Platelet Count 205 K/mm3 (140-440); Red Blood Count 2.77 M/mm3 (3.65-5.03); Red Cell Distribution Width 15.2 % (13.2-15.2)
[2017-04-12 14:10] LABS: Fibrinogen 751 mg/dl (211-480)
[2017-04-12] MEDS: DUONEB *Not for PRN Use IH SCH ×2 (14:11→19:20)
[2017-04-12 14:16] LABS: White Blood Count 29.7 K/mm3 (4.5-11.0)
[2017-04-12 16:07] LABS: Basophils % (Manual) 0 % (0.0-1.8); Blastocytes % (Manual) 0 %; Eosinophils % (Manual) 0 % (0.0-4.3)
[2017-04-12 16:10] LABS: RBC Morphology Normal
[2017-04-12 16:11] LABS: Diff Status Complete; Hypersegmented Neutrophils Few
[2017-04-12] MEDS ORDERED: SUBLIMAZE ONE (16:27)
[2017-04-12] MEDS ORDERED: SUBLIMAZE IV ONE (17:05)
[2017-04-12] MEDS ORDERED: VERSED IV ONE (17:05)
[2017-04-12] MEDS ORDERED: HEPARIN 10,000 UNITS/10 ML IV ONE (17:08)
[2017-04-12] MEDS ORDERED: WATER FOR INJ (PF) 20 ML ONE (17:24)
[2017-04-12] MEDS ORDERED: CATHFLO IV ONE (17:30)
[2017-04-12] MEDS ORDERED: NITROGLYCERIN SYRINGE UD ONE (17:32)
--- NOTE | 2017-04-12 18:02 | Post Operative Note ---
Date of procedure: 04/12/17 Pre-op diagnosis: Complications of Dialysis Access Post-op diagnosis: same Procedure: 1. Removal of EKOS Thrombolysis Catheter 2. Percutaneous Mechanical Thrombectomy with Angiojet Catheter 3. Injection of 12 mg TPA 4. Closure of Left Femoral Arteriotomy with ProGlide Closure Device 5. Radiologic Supervision with Interprtation Anesthesia: local, other (iv sedation) Surgeon: PREMA STOUT Estimated blood loss: minimal Pathology: none Condition: stable Disposition: ICU
--- NOTE | 2017-04-12 18:25 | Progress Note ---
Assessment and Plan Impression: * ESRD * Anemia ABL/ESRD * Type I DM * HTN * RUQ pain Plan: * HD /Tuesday - UF as tolerated * Vascular recommendations reviewed * Epogen for goal Hb 10-12 * Tranfuse pRBC prn * Avoid nephrotoxins * Renal diet Subjective Date of service: 04/12/17 Principal diagnosis: esrd Interval history: Patient transferred to ICU for EKOS Objective - Exam Narrative Exam: Deferred - Vital Signs Vital signs: Vital Signs - 12hr 04/12/17 04/12/17 04/12/17 09:00 09:01 10:00 Temperature 98.6 F Pulse Rate 78 Pulse Rate [ Anterior Bilateral Throughout] Pulse Rate [ Anterior Right Lower Lobe] Respiratory 16 Rate Respiratory Rate [Anterior Bilateral Throughout] Respiratory Rate [Anterior Right Lower Lobe] Blood Pressure 127/57 127/59 O2 Sat by Pulse 100 96 Oximetry 04/12/17 04/12/17 04/12/17 11:00 12:00 13:01 Temperature 98.3 F Pulse Rate 78 77 77 Pulse Rate [ Anterior Bilateral Throughout] Pulse Rate [ Anterior Right Lower Lobe] Respiratory 14 13 20 Rate Respiratory Rate [Anterior Bilateral Throughout] Respiratory Rate [Anterior Right Lower Lobe] Blood Pressure 139/73 130/70 121/77 O2 Sat by Pulse 95 94 94 Oximetry 04/12/17 04/12/17 04/12/17 14:00 14:12 14:14 Temperature Pulse Rate 76 Pulse Rate [ 75 Anterior Bilateral Throughout] Pulse Rate [ 76 Anterior Right Lower Lobe] Respiratory 12 Rate Respiratory 17 Rate [Anterior Bilateral Throughout] Respiratory 16 Rate [Anterior Right Lower Lobe] Blood Pressure 134/52 O2 Sat by Pulse 93 95 Oximetry 04/12/17 04/12/17 04/12/17 14:38 15:01 18:07 Temperature Pulse Rate 77 73 Pulse Rate [ Anterior Bilateral Throughout] Pulse Rate [ Anterior Right Lower Lobe] Respiratory 18 19 15 Rate Respiratory Rate [Anterior Bilateral Throughout] Respiratory Rate [Anterior Right Lower Lobe] Blood Pressure 134/52 120/62 O2 Sat by Pulse 91 99 Oximetry - Lab 04/12/17 13:44 04/12/17 03:57 Most recent lab results Calcium 8.2 mg/dL (8.4-10.2) L 04/12/17 03:57
[2017-04-12] MEDS: HEPARIN IV PRN (19:14)
[2017-04-12] MEDS ORDERED: ANCEF/NS 1 GM/50 ML 1 GM/50 ML BAG IV SCH (22:00)
[2017-04-12] MEDS: ANCEF/NS 1 GM/50 ML 1 GM/50 ML BAG IV SCH (22:12)
[2017-04-12] MEDS: NORCO 5/325 PO PRN (22:13)
[2017-04-12] MEDS: ELIQUIS PO SCH (22:14)
[2017-04-13] MEDS: NOVOLOG SUB-Q SCH ×4 (00:02→17:56)
[2017-04-13 05:17] LABS: Hemoglobin 7.3 gm/dl (11.8-15.2); Mean Corpuscular HGB Conc 33 % (32-34); Mean Corpuscular Hemoglobin 29 pg (28-32); Mean Corpuscular Volume 89 fl (84-94); Platelet Count 219 K/mm3 (140-440); Red Blood Count 2.48 M/mm3 (3.65-5.03); Red Cell Distribution Width 15.2 % (13.2-15.2)
[2017-04-13 05:18] LABS: White Blood Count 24.2 K/mm3 (4.5-11.0)
[2017-04-13 05:35] LABS: BUN/Creatinine Ratio 9.72; Chloride 95.3 mmol/L (98-107); Potassium 4.2 mmol/L (3.6-5.0)
[2017-04-13 06:29] LABS: Basophils % (Manual) 0 % (0.0-1.8); Blastocytes % (Manual) 0 %; Diff Status Complete; Eosinophils % (Manual) 0 % (0.0-4.3); Platelet Estimate Consistent w Auto; RBC Morphology Normal
[2017-04-13] MEDS: DUONEB *Not for PRN Use IH SCH ×4 (07:43→19:17)
--- NOTE | 2017-04-13 08:32 | Progress Note ---
Assessment and Plan Impression: * ESRD * Anemia ABL/ESRD * Type I DM * HTN * RUQ pain * Leukocytosis Plan: * HD /Tuesday - UF as tolerated * Vascular recommendations reviewed * Epogen for goal Hb 10-12 * Tranfuse pRBC prn * Avoid nephrotoxins * Renal diet * Consider ID consult in light of persistent leukocytosis Subjective Date of service: 04/13/17 Principal diagnosis: esrd Interval history: Patient has no complaints. Objective - Vital Signs Vital signs: Vital Signs - 12hr 04/12/17 04/12/17 04/12/17 20:45 21:00 21:01 Temperature Pulse Rate 79 77 79 Respiratory 13 Rate Blood Pressure 115/72 120/81 120/81 O2 Sat by Pulse 99 Oximetry 04/12/17 04/12/17 04/12/17 21:13 21:40 22:00 Temperature Pulse Rate 82 84 85 Respiratory 14 16 18 Rate Blood Pressure 120/81 124/76 120/66 O2 Sat by Pulse 96 100 Oximetry 04/12/17 04/12/17 04/12/17 22:13 23:01 23:07 Temperature 98.2 F Pulse Rate 85 84 Respiratory 18 14 Rate Blood Pressure 120/66 136/72 O2 Sat by Pulse 100 Oximetry 04/13/17 04/13/17 04/13/17 00:00 01:00 02:00 Temperature Pulse Rate 79 79 69 Respiratory 13 15 11 L Rate Blood Pressure 122/66 124/73 105/53 O2 Sat by Pulse 92 93 94 Oximetry 04/13/17 04/13/17 04/13/17 03:00 03:11 04:00 Temperature 98.4 F Pulse Rate 69 68 Respiratory 11 L 12 Rate Blood Pressure 84/52 100/53 O2 Sat by Pulse 95 92 Oximetry 04/13/17 04/13/17 04/13/17 05:00 06:01 07:00 Temperature Pulse Rate 69 73 71 Respiratory 12 15 12 Rate Blood Pressure 104/58 121/68 104/62 O2 Sat by Pulse 95 100 99 Oximetry - General Appearance General appearance: well-developed, well-nourished EENT: ATNC Respiratory: Present: Clear to Ascultation Cardiology: regular, S1S2 Gastrointestinal: normal, no tenderness, no distended Musculoskeletal: other (Left arm w/ wound vac) Psychiatric: cooperative - Lab 04/13/17 04:08 04/13/17 04:08 Most recent lab results Calcium 8.0 mg/dL (8.4-10.2) L 04/13/17 04:08
[2017-04-13] MEDS: COREG PO SCH ×3 (09:05→21:12)
[2017-04-13] MEDS: ELIQUIS PO SCH ×2 (09:05→21:02)
[2017-04-13] MEDS: PROTONIX PO SCH (09:06)
[2017-04-13] MEDS: PLAVIX PO SCH (09:06)
[2017-04-13] MEDS: NORVASC PO SCH (09:06)
[2017-04-13] MEDS: NORCO 5/325 PO PRN ×2 (09:08→15:20)
--- NOTE | 2017-04-13 12:10 | Progress Note ---
Assessment and Plan Status lysis and thrombectomy of the left axillary-brachial bypass, as well as the radial and ulnar arteries. Bypass is patent. The hand is improved. Overall there is improvement in condition. Plan: We'll continue to monitor. Transfer to the floor. Continue anticoagulation Subjective Principal diagnosis: esrd Interval history: Patient reports improved pain in the arm and hands. 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 Radial pulses nonpalpable. - Constitutional Vitals: Vital Signs - 12hr 04/13/17 04/13/17 04/13/17 01:00 02:00 03:00 Temperature Pulse Rate 79 69 69 Pulse Rate [ Posterior Bilateral Throughout] Respiratory 15 11 L 11 L Rate Respiratory Rate [Posterior Bilateral Throughout] Blood Pressure 124/73 105/53 84/52 O2 Sat by Pulse 93 94 95 Oximetry 04/13/17 04/13/17 04/13/17 03:11 04:00 05:00 Temperature 98.4 F Pulse Rate 68 69 Pulse Rate [ Posterior Bilateral Throughout] Respiratory 12 12 Rate Respiratory Rate [Posterior Bilateral Throughout] Blood Pressure 100/53 104/58 O2 Sat by Pulse 92 95 Oximetry 04/13/17 04/13/17 04/13/17 06:01 07:00 08:00 Temperature 98.6 F Pulse Rate 73 71 70 Pulse Rate [ 77 Posterior Bilateral Throughout] Respiratory 15 12 14 Rate Respiratory 18 Rate [Posterior Bilateral Throughout] Blood Pressure 121/68 104/62 107/64 O2 Sat by Pulse 100 99 100 Oximetry 04/13/17 04/13/17 04/13/17 08:10 09:01 09:05 Temperature Pulse Rate 75 75 Pulse Rate [ 78 Posterior Bilateral Throughout] Respiratory 12 Rate Respiratory 18 Rate [Posterior Bilateral Throughout] Blood Pressure 121/58 121/58 O2 Sat by Pulse 100 Oximetry 04/13/17 04/13/17 04/13/17 09:06 09:21 10:00 Temperature Pulse Rate 75 67 Pulse Rate [ Posterior Bilateral Throughout] Respiratory 13 Rate Respiratory Rate [Posterior Bilateral Throughout] Blood Pressure 121/58 100/53 O2 Sat by Pulse 98 96 Oximetry 04/13/17 04/13/17 11:00 12:00 Temperature Pulse Rate 65 65 Pulse Rate [ Posterior Bilateral Throughout] Respiratory 12 13 Rate Respiratory Rate [Posterior Bilateral Throughout] Blood Pressure 102/52 109/56 O2 Sat by Pulse 97 98 Oximetry - Labs CBC & Chem 7: 0830/17 04:08 04/13/17 04:08 Labs: Abnormal lab results 04/12/17 04/12/17 04/12/17 Range/Units 13:44 13:44 18:27 WBC 29.7 H (4.5-11.0) K/mm3 RBC 2.77 L (3.65-5.03) M/mm3 Hgb 8.2 L (11.8-15.2) gm/dl Hct 25.0 L (35.5-45.6) % Seg Neuts % (Manual) 94.0 H (40.0-70.0) % Lymphocytes % (Manual) 2.0 L (13.4-35.0) % Seg Neutrophils # Man 27.9 H (1.8-7.7) K/mm3 Lymphocytes # (Manual) 0.6 L (1.2-5.4) K/mm3 Monocytes # (Manual) 1.2 H (0.0-0.8) K/mm3 Fibrinogen 751 H (211-480) mg/dl Heparin Anti-Xa Level < 0.10 L (0.3-0.7) U.I./ml Sodium (137-145) mmol/L Chloride (98-107) mmol/L BUN (9-20) mg/dL Creatinine (0.8-1.5) mg/dL Glucose (75-100) mg/dL POC Glucose 126 H (70-105) Calcium (8.4-10.2) mg/dL 04/12/17 04/13/17 04/13/17 Range/Units 23:26 04:08 04:08 WBC 24.2 H (4.5-11.0) K/mm3 RBC 2.48 L (3.65-5.03) M/mm3 Hgb 7.3 L (11.8-15.2) gm/dl Hct 22.0 L (35.5-45.6) % Seg Neuts % (Manual) 77.0 H (40.0-70.0) % Lymphocytes % (Manual) 7.0 L (13.4-35.0) % Seg Neutrophils # Man 18.6 H (1.8-7.7) K/mm3 Lymphocytes # (Manual) (1.2-5.4) K/mm3 Monocytes # (Manual) 1.2 H (0.0-0.8) K/mm3 Fibrinogen (211-480) mg/dl Heparin Anti-Xa Level (0.3-0.7) U.I./ml Sodium 136 L (137-145) mmol/L Chloride 95.3 L (98-107) mmol/L BUN 36 H (9-20) mg/dL Creatinine 3.7 H (0.8-1.5) mg/dL Glucose 101 H (75-100) mg/dL POC Glucose 146 H (70-105) Calcium 8.0 L (8.4-10.2) mg/dL 04/13/17 Range/Units 05:29 WBC (4.5-11.0) K/mm3 RBC (3.65-5.03) M/mm3 Hgb (11.8-15.2) gm/dl Hct (35.5-45.6) % Seg Neuts % (Manual) (40.0-70.0) % Lymphocytes % (Manual) (13.4-35.0) % Seg Neutrophils # Man (1.8-7.7) K/mm3 Lymphocytes # (Manual) (1.2-5.4) K/mm3 Monocytes # (Manual) (0.0-0.8) K/mm3 Fibrinogen (211-480) mg/dl Heparin Anti-Xa Level (0.3-0.7) U.I./ml Sodium (137-145) mmol/L Chloride (98-107) mmol/L BUN (9-20) mg/dL Creatinine (0.8-1.5) mg/dL Glucose (75-100) mg/dL POC Glucose 135 H (70-105) Calcium (8.4-10.2) mg/dL
--- NOTE | 2017-04-13 14:16 | Progress Note ---
Assessment and Plan (1) Anemia due to blood loss, acute Current Visit: Yes Status: Acute Plan to address problem: - Transfused PRBC with appropriate response earlier in admission - trending downwards again (Hb 7.3) - repeat CBC in am - following clinically (2) Leukocytosis Current Visit: Yes Status: Acute Qualifiers: Leukocytosis type: L Plan to address problem: - off vancomycin - Leukocytosis could also be secondary to stress reaction. - Patient is an HD patient and is at risk for MDRO/MRSA - He received emily-procedural antibiotics - Monitor hemodynamics closely - ID consulted today (3) AV graft malfunction Current Visit: Yes Status: Acute Qualifiers: Encounter type: E Plan to address problem: - Per vascular service (4) ESRD (end stage renal disease) on dialysis Current Visit: Yes Status: Acute Plan to address problem: - Supportive HD. Renal following (5) Diabetes Current Visit: No Status: Chronic Qualifiers: Diabetes mellitus type: type 2 Diabetes mellitus complication status: with hyperglycemia Diabetes mellitus complication detail: D Diabetic retinopathy severity: D Proliferative retinopathy type: P Diabetes mellitus macular edema: D Diabetes mellitus intermediate insulin use: without intermediate use Laterality: L Chronic kidney disease stage: C Qualified Code(s): E11.65 - Type 2 diabetes mellitus with hyperglycemia Plan to address problem: - continue Accuchecks with glycemic control - target Goal glucose<180mg/dl - continue Diabetic diet - continue with hypoglycemia protocol - encouraging increase oral intake, dietary supplements (6) HTN (hypertension) Current Visit: No Status: Chronic Qualifiers: Hypertension type: essential hypertension Qualified Code(s): I10 - Essential (primary) hypertension Plan to address problem: - Episodes of asymptomatic hypotension resolved - resume Home medications as appropriate - continue to Monitor hemodynamics closely on telemetry (7) Acute hypoxemic respiratory failure Current Visit: Yes Status: Acute Plan to address problem: - not on home oxygen - Initial CXR showed infiltrates (edema vs pneumonia vs atelectasis) but also hypoventilation - will consider qhs BIPAP - repeat CXR in am .....will transfer to telemetry today Subjective Date of service: 04/13/17 Principal diagnosis: esrd Interval history: Seen and examined at bedside; 24 hour events reviewed; nursing and respiratory care staff consulted; no adverse overnight events reported to me; doing better; limbs viable; denies acute chest pains or increased SOB; remains on supplemental oxygen with some room to wean Objective Vital Signs - 12hr 04/13/17 04/13/17 04/13/17 03:00 03:11 04:00 Temperature 98.4 F Pulse Rate 69 68 Pulse Rate [ From Monitor] Pulse Rate [ Posterior Bilateral Throughout] Respiratory 11 L 12 Rate Respiratory Rate [Posterior Bilateral Throughout] Blood Pressure 84/52 100/53 O2 Sat by Pulse 95 92 Oximetry 04/13/17 04/13/17 04/13/17 05:00 06:01 07:00 Temperature Pulse Rate 69 73 71 Pulse Rate [ From Monitor] Pulse Rate [ Posterior Bilateral Throughout] Respiratory 12 15 12 Rate Respiratory Rate [Posterior Bilateral Throughout] Blood Pressure 104/58 121/68 104/62 O2 Sat by Pulse 95 100 99 Oximetry 04/13/17 04/13/17 04/13/17 08:00 08:10 09:01 Temperature 98.6 F Pulse Rate 70 75 Pulse Rate [ 66 From Monitor] Pulse Rate [ 77 78 Posterior Bilateral Throughout] Respiratory 14 12 Rate Respiratory 18 18 Rate [Posterior Bilateral Throughout] Blood Pressure 107/64 121/58 O2 Sat by Pulse 100 100 Oximetry 04/13/17 04/13/17 04/13/17 09:05 09:06 09:21 Temperature Pulse Rate 75 75 Pulse Rate [ From Monitor] Pulse Rate [ Posterior Bilateral Throughout] Respiratory Rate Respiratory Rate [Posterior Bilateral Throughout] Blood Pressure 121/58 121/58 O2 Sat by Pulse 98 Oximetry 04/13/17 04/13/17 04/13/17 10:00 11:00 12:00 Temperature 97.7 F Pulse Rate 67 65 65 Pulse Rate [ From Monitor] Pulse Rate [ Posterior Bilateral Throughout] Respiratory 13 12 13 Rate Respiratory Rate [Posterior Bilateral Throughout] Blood Pressure 100/53 102/52 109/56 O2 Sat by Pulse 96 97 98 Oximetry Constitutional: no acute distress, other (somnolent) Eyes: non-icteric ENT: oropharynx moist Neck: supple, no lymphadenopathy, no JVD Effort: normal Ascultation: Bilateral: clear, diminished breath sounds (bases) Cardiovascular: regular rate and rhythm, other (holosystolic murmur) Gastrointestinal: normoactive bowel sounds, soft, non-tender, non-distended, other (Right upper quadrant surgical scar) Integumentary: other (Left upper extremity wound vac) Extremities: no cyanosis, no edema, cool Neurologic: normal mental status, non-focal exam (wekness of right upper extrmity(old)), pupils equal and round, motor strength normal and Psychiatric: mood appropriate, affect normal CBC and BMP: 04/13/17 04:08 04/13/17 04:08 ABG, PT/INR, D-dimer: PT/INR, D-dimer PT 17.6 Sec. (12.2-14.9) H 04/11/17 18:10 INR 1.45 (0.87-1.13) H 04/11/17 18:10 Abnormal lab findings: Abnormal Labs 04/05/17 04/05/17 04/05/17 11:45 11:45 18:19 WBC 12.4 H RBC 3.43 L Hgb 10.0 L Hct 30.2 L MCV MCHC RDW 15.6 H Plt Count Lymph % (Auto) [place] % (Auto) 8.7 H Lymph # [place] # 1.1 H Seg Neutrophils % Seg Neuts % (Manual) Lymphocytes % (Manual) Seg Neutrophils # 8.5 H Seg Neutrophils # Man Lymphocytes # (Manual) Monocytes # (Manual) PT INR APTT Fibrinogen Heparin Anti-Xa Level Sodium Chloride Carbon Dioxide BUN Creatinine 2.8 H Glucose POC Glucose 305 H Calcium ALT Total Protein Albumin Lipase Crossmatch 04/05/17 04/06/17 04/06/17 22:33 07:51 07:51 WBC RBC Hgb 5.3 L* D Hct 16.4 L* D MCV MCHC RDW Plt Count Lymph % (Auto) [place] % (Auto) Lymph # [place] # Seg Neutrophils % Seg Neuts % (Manual) Lymphocytes % (Manual) Seg Neutrophils # Seg Neutrophils # Man Lymphocytes # (Manual) Monocytes # (Manual) PT INR APTT Fibrinogen Heparin Anti-Xa Level Sodium 136 L Chloride Carbon Dioxide 16 L D BUN 31 H Creatinine 4.1 H Glucose 180 H POC Glucose 189 H Calcium 7.8 L ALT Total Protein Albumin Lipase Crossmatch 04/06/17 04/06/17 04/06/17 08:15 10:43 11:48 WBC 23.6 H RBC 1.83 L Hgb 5.2 L* Hct 16.9 L* MCV MCHC 31 L RDW 16.0 H Plt Count Lymph % (Auto) [place] % (Auto) Lymph # [place] # Seg Neutrophils % Seg Neuts % (Manual) 90.0 H Lymphocytes % (Manual) 5.0 L Seg Neutrophils # Seg Neutrophils # Man 21.2 H Lymphocytes # (Manual) Monocytes # (Manual) PT INR APTT Fibrinogen Heparin Anti-Xa Level Sodium Chloride Carbon Dioxide BUN Creatinine Glucose POC Glucose 201 H 241 H Calcium ALT Total Protein Albumin Lipase Crossmatch 04/06/17 04/06/17 04/06/17 12:36 15:34 21:34 WBC RBC Hgb Hct MCV MCHC RDW Plt Count Lymph % (Auto) [place] % (Auto) Lymph # [place] # Seg Neutrophils % Seg Neuts % (Manual) Lymphocytes % (Manual) Seg Neutrophils # Seg Neutrophils # Man Lymphocytes # (Manual) Monocytes # (Manual) PT INR APTT Fibrinogen Heparin Anti-Xa Level Sodium Chloride Carbon Dioxide BUN Creatinine Glucose POC Glucose 232 H 171 H Calcium ALT Total Protein Albumin Lipase Crossmatch See Detail 04/07/17 04/07/17 04/07/17 00:36 00:36 07:57 WBC RBC Hgb Hct MCV MCHC RDW Plt Count Lymph % (Auto) [place] % (Auto) Lymph # [place] # Seg Neutrophils % Seg Neuts % (Manual) Lymphocytes % (Manual) Seg Neutrophils # Seg Neutrophils # Man Lymphocytes # (Manual) Monocytes # (Manual) PT INR APTT Fibrinogen Heparin Anti-Xa Level Sodium Chloride Carbon Dioxide 20 L BUN 38 H Creatinine 4.2 H Glucose 147 H POC Glucose 179 H Calcium 8.1 L ALT < 5 L Total Protein 6.2 L Albumin 3.0 L Lipase Crossmatch 04/07/17 04/07/17 04/07/17 10:02 10:57 16:14 WBC RBC Hgb 7.3 L Hct 21.7 L MCV MCHC RDW Plt Count Lymph % (Auto) [place] % (Auto) Lymph # [place] # Seg Neutrophils % Seg Neuts % (Manual) Lymphocytes % (Manual) Seg Neutrophils # Seg Neutrophils # Man Lymphocytes # (Manual) Monocytes # (Manual) PT INR APTT Fibrinogen Heparin Anti-Xa Level Sodium Chloride Carbon Dioxide BUN Creatinine Glucose POC Glucose 151 H 120 H Calcium ALT Total Protein Albumin Lipase Crossmatch 04/07/17 04/08/17 04/08/17 21:46 07:51 16:09 WBC RBC Hgb Hct MCV MCHC RDW Plt Count Lymph % (Auto) [place] % (Auto) Lymph # [place] # Seg Neutrophils % Seg Neuts % (Manual) Lymphocytes % (Manual) Seg Neutrophils # Seg Neutrophils # Man Lymphocytes # (Manual) Monocytes # (Manual) PT INR APTT Fibrinogen Heparin Anti-Xa Level Sodium Chloride Carbon Dioxide BUN Creatinine Glucose POC Glucose 107 H < 40 L 57 L Calcium ALT Total Protein Albumin Lipase Crossmatch 04/08/17 04/08/17 04/08/17 17:51 20:02 23:25 WBC RBC Hgb Hct MCV MCHC RDW Plt Count Lymph % (Auto) [place] % (Auto) Lymph # [place] # Seg Neutrophils % Seg Neuts % (Manual) Lymphocytes % (Manual) Seg Neutrophils # Seg Neutrophils # Man Lymphocytes # (Manual) Monocytes # (Manual) PT INR APTT Fibrinogen Heparin Anti-Xa Level Sodium Chloride Carbon Dioxide BUN Creatinine Glucose POC Glucose 132 H 140 H 119 H Calcium ALT Total Protein Albumin Lipase Crossmatch 04/09/17 04/09/17 04/09/17 05:04 06:11 08:50 WBC 17.2 H RBC 2.00 L Hgb 5.9 L* Hct 17.7 L* MCV MCHC RDW 15.5 H Plt Count Lymph % (Auto) [place] % (Auto) Lymph # [place] # Seg Neutrophils % Seg Neuts % (Manual) Lymphocytes % (Manual) Seg Neutrophils # Seg Neutrophils # Man Lymphocytes # (Manual) Monocytes # (Manual) PT INR APTT Fibrinogen Heparin Anti-Xa Level Sodium Chloride Carbon Dioxide BUN Creatinine Glucose POC Glucose 161 H Calcium ALT Total Protein Albumin Lipase Crossmatch See Detail 04/09/17 04/09/17 04/09/17 11:21 12:15 13:43 WBC RBC Hgb 5.5 L* Hct 17.5 L* MCV MCHC RDW Plt Count Lymph % (Auto) [place] % (Auto) Lymph # [place] # Seg Neutrophils % Seg Neuts % (Manual) Lymphocytes % (Manual) Seg Neutrophils # Seg Neutrophils # Man Lymphocytes # (Manual) Monocytes # (Manual) PT INR APTT Fibrinogen Heparin Anti-Xa Level Sodium 136 L Chloride Carbon Dioxide 18 L BUN 69 H Creatinine 5.8 H Glucose 120 H POC Glucose 209 H Calcium 7.6 L ALT Total Protein Albumin Lipase Crossmatch 04/09/17 04/09/17 04/09/17 13:43 18:00 18:06 WBC RBC Hgb 8.8 L D Hct 26.6 L D MCV MCHC RDW Plt Count Lymph % (Auto) [place] % (Auto) Lymph # [place] # Seg Neutrophils % Seg Neuts % (Manual) Lymphocytes % (Manual) Seg Neutrophils # Seg Neutrophils # Man Lymphocytes # (Manual) Monocytes # (Manual) PT 19.6 H INR 1.66 H APTT 43.4 H Fibrinogen Heparin Anti-Xa Level Sodium Chloride Carbon Dioxide BUN Creatinine Glucose POC Glucose 190 H Calcium ALT Total Protein Albumin Lipase Crossmatch 04/10/17 04/10/17 04/10/17 00:07 04:10 04:10 WBC RBC Hgb Hct MCV MCHC RDW Plt Count Lymph % (Auto) [place] % (Auto) Lymph # [place] # Seg Neutrophils % Seg Neuts % (Manual) Lymphocytes % (Manual) Seg Neutrophils # Seg Neutrophils # Man Lymphocytes # (Manual) Monocytes # (Manual) PT INR APTT Fibrinogen Heparin Anti-Xa Level Sodium 133 L Chloride Carbon Dioxide BUN 35 H Creatinine 3.6 H Glucose 166 H POC Glucose 177 H Calcium 8.2 L ALT Total Protein Albumin Lipase 11 L Crossmatch 04/10/17 04/10/17 04/10/17 05:50 11:30 11:37 WBC 13.8 H RBC 2.90 L Hgb 8.5 L Hct 25.7 L MCV MCHC RDW Plt Count Lymph % (Auto) 6.7 L [place] % (Auto) Lymph # 0.9 L [place] # 1.0 H Seg Neutrophils % 84.4 H Seg Neuts % (Manual) Lymphocytes % (Manual) Seg Neutrophils # 11.6 H Seg Neutrophils # Man Lymphocytes # (Manual) Monocytes # (Manual) PT INR APTT Fibrinogen Heparin Anti-Xa Level Sodium Chloride Carbon Dioxide BUN Creatinine Glucose POC Glucose 199 H 189 H Calcium ALT Total Protein Albumin Lipase Crossmatch 04/10/17 04/11/17 04/11/17 17:11 00:03 12:27 WBC RBC Hgb Hct MCV MCHC RDW Plt Count Lymph % (Auto) [place] % (Auto) Lymph # [place] # Seg Neutrophils % Seg Neuts % (Manual) Lymphocytes % (Manual) Seg Neutrophils # Seg Neutrophils # Man Lymphocytes # (Manual) Monocytes # (Manual) PT INR APTT Fibrinogen Heparin Anti-Xa Level Sodium Chloride Carbon Dioxide BUN Creatinine Glucose POC Glucose 162 H 180 H 135 H Calcium ALT Total Protein Albumin Lipase Crossmatch 04/11/17 04/11/17 04/11/17 18:10 18:10 18:10 WBC 23.6 H RBC 3.26 L Hgb 9.5 L Hct 29.1 L MCV MCHC RDW Plt Count Lymph % (Auto) [place] % (Auto) Lymph # [place] # Seg Neutrophils % Seg Neuts % (Manual) 94.0 H Lymphocytes % (Manual) 2.0 L Seg Neutrophils # Seg Neutrophils # Man 22.2 H Lymphocytes # (Manual) 0.5 L Monocytes # (Manual) PT 17.6 H INR 1.45 H APTT 113.3 H* Fibrinogen Heparin Anti-Xa Level Sodium 132 L Chloride 95.5 L Carbon Dioxide 21 L BUN 52 H Creatinine 5.0 H Glucose 107 H POC Glucose Calcium 8.0 L ALT Total Protein Albumin Lipase Crossmatch 04/11/17 04/11/17 04/11/17 18:10 20:44 23:46 WBC RBC Hgb Hct MCV MCHC RDW Plt Count Lymph % (Auto) [place] % (Auto) Lymph # [place] # Seg Neutrophils % Seg Neuts % (Manual) Lymphocytes % (Manual) Seg Neutrophils # Seg Neutrophils # Man Lymphocytes # (Manual) Monocytes # (Manual) PT INR APTT Fibrinogen 837 H Heparin Anti-Xa Level Sodium Chloride Carbon Dioxide BUN Creatinine Glucose POC Glucose 129 H 112 H Calcium ALT Total Protein Albumin Lipase Crossmatch 04/12/17 04/12/17 04/12/17 01:40 03:57 03:57 WBC 23.9 H 26.5 H RBC 3.19 L 3.30 L Hgb 9.2 L 9.6 L Hct 30.9 L 30.0 L MCV 97 H MCHC 30 L RDW 16.9 H 15.4 H Plt Count 114 L Lymph % (Auto) [place] % (Auto) Lymph # [place] # Seg Neutrophils % Seg Neuts % (Manual) 83.0 H 81.0 H Lymphocytes % (Manual) 6.0 L 4.0 L Seg Neutrophils # Seg Neutrophils # Man 19.8 H 21.5 H Lymphocytes # (Manual) 1.1 L Monocytes # (Manual) 1.6 H PT INR APTT Fibrinogen Heparin Anti-Xa Level Sodium 131 L Chloride 94.1 L Carbon Dioxide 21 L BUN 57 H Creatinine 5.1 H Glucose POC Glucose Calcium 8.2 L ALT Total Protein Albumin Lipase Crossmatch 04/12/17 04/12/17 04/12/17 03:57 13:44 13:44 WBC 29.7 H RBC 2.77 L Hgb 8.2 L Hct 25.0 L MCV MCHC RDW Plt Count Lymph % (Auto) [place] % (Auto) Lymph # [place] # Seg Neutrophils % Seg Neuts % (Manual) 94.0 H Lymphocytes % (Manual) 2.0 L Seg Neutrophils # Seg Neutrophils # Man 27.9 H Lymphocytes # (Manual) 0.6 L Monocytes # (Manual) 1.2 H PT INR APTT Fibrinogen 866 H 751 H Heparin Anti-Xa Level < 0.10 L < 0.10 L Sodium Chloride Carbon Dioxide BUN Creatinine Glucose POC Glucose Calcium ALT Total Protein Albumin Lipase Crossmatch 04/12/17 04/12/17 04/13/17 18:27 23:26 04:08 WBC RBC Hgb Hct MCV MCHC RDW Plt Count Lymph % (Auto) [place] % (Auto) Lymph # [place] # Seg Neutrophils % Seg Neuts % (Manual) Lymphocytes % (Manual) Seg Neutrophils # Seg Neutrophils # Man Lymphocytes # (Manual) Monocytes # (Manual) PT INR APTT Fibrinogen Heparin Anti-Xa Level Sodium 136 L Chloride 95.3 L Carbon Dioxide BUN 36 H Creatinine 3.7 H Glucose 101 H POC Glucose 126 H 146 H Calcium 8.0 L ALT Total Protein Albumin Lipase Crossmatch 04/13/17 04/13/17 04:08 05:29 WBC 24.2 H RBC 2.48 L Hgb 7.3 L Hct 22.0 L MCV MCHC RDW Plt Count Lymph % (Auto) [place] % (Auto) Lymph # [place] # Seg Neutrophils % Seg Neuts % (Manual) 77.0 H Lymphocytes % (Manual) 7.0 L Seg Neutrophils # Seg Neutrophils # Man 18.6 H Lymphocytes # (Manual) Monocytes # (Manual) 1.2 H PT INR APTT Fibrinogen Heparin Anti-Xa Level Sodium Chloride Carbon Dioxide BUN Creatinine Glucose POC Glucose 135 H Calcium ALT Total Protein Albumin Lipase Crossmatch Chest x-ray: image reviewed
--- NOTE | 2017-04-13 16:36 | Consultation ---
History of Present Illness - Reason for Consult Consult date: 04/13/17 HD access infection Requesting physician: BARBER SOARES - History of Present Illness 46 y/o male with history of ESRD on HD, DM, HTN, who initially had an AVF placed on 01/04/17 which became problematic and required revision with elevation of the AVF on 03/22/17, pt then developed bloody drainage and came for an outpatient procedure of debridement of an left upper extremity wound and angioplasty Status lysis and thrombectomy of the left axillary-brachial bypass, as well as the radial and ulnar arteries. Unfortunately, the pt's bypass ruptured resulting in significant blood loss, the bypass was replaced with bovine graft with wound vac placed, and he was admitted to the ICU on 04/05. Upon admission, his temp 98.8, HR 69, BP 155/82, WBC 12.4K. Blood cx were negative. He then developed severe anemia Hg 5.2 and WBC went up to 23K. He spiked a fever at 100.5 on 04/07. By 04/12 he developed Percutaneous Mechanical Thrombectomy with Angiojet Catheter. ID consulted due to persistent leukocytosis. Of note, pt was c/o RUQ abd pain. He is s/p an open cholecystectomy in 01/[address] Lewis at [facility]. Current Antimicrobials: cefazolin Previous Antimicrobials: Microbiology: Blood cultures: 04/08 ngtd Urine cultures: Respiratory cultures: Wound cultures: Stool cultures: Other: Past History Past Medical History: diabetes, ESRD, hypertension Past Surgical History: cholecystectomy, Other (DRIL bypass ) Social history: denies: smoking, alcohol abuse Medications and Allergies Allergies Allergy/AdvReac Type Severity Reaction Status Date / Time No Known Allergies Allergy Verified 03/21/17 10:06 Home Medications Medication Instructions Recorded Confirmed Last Taken Type Carvedilol [Coreg] 25 mg PO BID #60 tablet 10/27/16 04/05/17 04/04/17 22:00 Rx Clopidogrel [Plavix] 75 mg PO QDAY #30 tablet 10/27/16 04/05/17 04/03/17 22:00 Rx glipiZIDE [Glucotrol] 5 mg PO BIDDIAB #60 tablet 10/27/16 04/05/17 04/04/17 22: 00 Rx AtorvaSTATin [Lipitor] 40 mg PO DAILY 05/04/05/17 04/04/17 11:00 History Furosemide 40 mg PO PRN PRN 01/04/17 04/05/17 04/03/17 09:00 History HYDROcodone/APAP 7.5-325 [[place] 1 each PO Q6HR PRN #50 tablet 01/04/17 03/31/17 03/21/17 Rx 7.5-325 mg TAB] Meclizine [Antivert] 25 mg PO TID PRN 01/04/17 03/31/17 03/21/17 History amLODIPine [Norvasc] 10 mg PO DAILY 01/04/17 04/05/17 04/05/17 09:00 History HYDROcodone/APAP 7.5-325 [[place] 1 each PO Q6HR PRN #90 tablet 03/22/17 03/31/17 Unknown Rx 7.5/325] Active Meds: Active Medications Acetaminophen/Hydrocodone Bitart ([place] 5/325) 2 each PO Q6H PRN PRN Reason: Pain, Moderate (4-6) Last Admin: 04/13/17 15:20 Dose: 2 each Albumin Human (Alburx 25% (Albumin)) 25 gm IV TERRANCE PRN PRN Reason: Hypotension Albuterol (Proventil) 2.5 mg IH Q4HRT PRN PRN Reason: Shortness Of Breath Albuterol/Ipratropium (Duoneb *Not For Prn Use*) 1 ampul IH TIDRT [facility] Last Admin: 04/13/17 14:24 Dose: 1 ampul Amlodipine Besylate (Norvasc) 10 mg PO DAILY [facility] Last Admin: 04/13/17 09:06 Dose: 10 mg Apixaban (Eliquis) 10 mg PO Q12HR [facility] PRN Reason: Protocol Stop: 04/19/17 10:01 Last Admin: 04/13/17 09:05 Dose: 10 mg Apixaban (Eliquis) 5 mg PO Q12HR [facility] PRN Reason: Protocol Atorvastatin Calcium (Lipitor) 40 mg PO HS [facility] Last Admin: 04/12/17 22:13 Dose: 40 mg Carvedilol (Coreg) 25 mg PO BID [facility] Last Admin: 04/13/17 09:05 Dose: 25 mg Clopidogrel Bisulfate (Plavix) 75 mg PO QDAY [facility] Last Admin: 04/13/17 09:06 Dose: 75 mg Epoetin Caesar (Epogen) 20,000 unit IV TERRANCE PRN PRN Reason: hemodialysis Last Admin: 04/12/17 20:55 Dose: 20,000 unit Furosemide (Lasix) 40 mg PO PRN PRN PRN Reason: NON DIALYSIS DAYS Last Admin: 04/06/17 08:33 Dose: 40 mg Heparin Sodium (Porcine) (Heparin) 5,000 unit IV TERRANCE PRN PRN Reason: hemodialysis Last Admin: 04/12/17 19:14 Dose: 5,000 unit Sodium Chloride (Nacl 0.9%) 100 mls @ 999 mls/hr IV TERRANCE PRN PRN Reason: Hypotension Sodium Chloride (Nacl 0.9%) 100 mls @ 999 mls/hr IV TERRANCE PRN PRN Reason: Hypotension Cefazolin Sodium (Ancef/Ns 1 Gm/50 Ml) 1 gm in 50 mls @ 100 mls/hr IV Q24H [facility] Last Admin: 04/12/17 22:12 Dose: 100 mls/hr Insulin Aspart (Novolog) 0 units SUB-Q Q6HR [facility] PRN Reason: Protocol Last Admin: 04/13/17 12:56 Dose: 2 units Meclizine HCl (Antivert) 25 mg PO TID PRN PRN Reason: Vertigo Last Admin: 04/06/17 08:33 Dose: 25 mg Morphine Sulfate (Morphine) 2 mg IV Q4H PRN PRN Reason: Pain, Moderate (4-6) Last Admin: 04/12/17 11:17 Dose: 2 mg Morphine Sulfate (Morphine) 4 mg IV Q4H PRN PRN Reason: Pain , Severe (7-10) Last Admin: 04/12/17 14:38 Dose: 4 mg Naloxone HCl (Narcan 0.4 Mg/1 Ml) 0.1 mg IV Q2MIN PRN PRN Reason: Res Rate </= 8 or 02 SAT < 92% Ondansetron HCl (Zofran) 4 mg IV Q8H PRN PRN Reason: Nausea And Vomiting Last Admin: 04/09/17 19:43 Dose: 4 mg Pantoprazole Sodium (Protonix) 20 mg PO QDAY [facility] Last Admin: 04/13/17 09:06 Dose: 20 mg Review of Systems Cardiovascular: no chest pain, no orthopnea, no palpitations, no edema Respiratory: no cough, no cough with sputum, no shortness of breath Gastrointestinal: no abdominal pain, no nausea, no vomiting Genitourinary Male: no dysuria, no hematuria, no flank pain Musculoskeletal: no low back pain Integumentary: no rash, no pruritis, no sores, no wounds Neurological: no head injury Psychiatric: no memory loss, no change in sleep habits, no insomnia Physical Examination - Physical Exam Narrative exam: General appearance: Alert in NAD, conversant Eyes: anicteric sclerae, moist conjunctivae; no lid-lag; PERRLA HENT: Atraumatic; oropharynx clear with moist mucous membranes and no mucosal ulcerations/no oral thrush; normal hard and soft palate. Normal external ears. Neck: Trachea midline; supple, no thyromegaly or lymphadenopathy Lungs: CTA CV: RRR, + murmur Abdomen: Soft, non-tender; no masses or hepatosplenomegaly Extremities: right arm with surgical wound with stables minimal bleeding and a wound VAC Skin: Normal temperature, turgor and texture; no rash, ulcers or subcutaneous nodules Psych: Appropriate affect, alert and oriented to person, place and time. Neuro: alert and oriented x 3. Moving all extermities - Constitutional Vitals: Vital Signs Temp Pulse Resp BP Pulse Ox 97.7 F 68 14 107/50 98 04/13/17 12:00 04/13/17 14:00 04/13/17 14:00 04/13/17 14:00 04/13/17 14:00 Temperature -Last 24 Hours Temperature 97.7 F Temperature 98.6 F Temperature 98.4 F Temperature 98.2 F Temperature 98 F Temperature 98.2 F Results - Labs CBC & Chem 7: 04/13/17 04:08 04/13/17 04:08 Labs: Abnormal lab results 04/12/17 04/12/17 04/13/17 Range/Units 18:27 23:26 04:08 WBC (4.5-11.0) K/mm3 RBC (3.65-5.03) M/mm3 Hgb (11.8-15.2) gm/dl Hct (35.5-45.6) % Seg Neuts % (Manual) (40.0-70.0) % Lymphocytes % (Manual) (13.4-35.0) % Seg Neutrophils # Man (1.8-7.7) K/mm3 Monocytes # (Manual) (0.0-0.8) K/mm3 Sodium 136 L (137-145) mmol/L Chloride 95.3 L (98-107) mmol/L BUN 36 H (9-20) mg/dL Creatinine 3.7 H (0.8-1.5) mg/dL Glucose 101 H (75-100) mg/dL POC Glucose 126 H 146 H (70-105) Calcium 8.0 L (8.4-10.2) mg/dL 04/13/17 04/13/17 Range/Units 04:08 05:29 WBC 24.2 H (4.5-11.0) K/mm3 RBC 2.48 L (3.65-5.03) M/mm3 Hgb 7.3 L (11.8-15.2) gm/dl Hct 22.0 L (35.5-45.6) % Seg Neuts % (Manual) 77.0 H (40.0-70.0) % Lymphocytes % (Manual) 7.0 L (13.4-35.0) % Seg Neutrophils # Man 18.6 H (1.8-7.7) K/mm3 Monocytes # (Manual) 1.2 H (0.0-0.8) K/mm3 Sodium (137-145) mmol/L Chloride (98-107) mmol/L BUN (9-20) mg/dL Creatinine (0.8-1.5) mg/dL Glucose (75-100) mg/dL POC Glucose 135 H (70-105) Calcium (8.4-10.2) mg/dL Assessment and Plan Assessment: 1) Persistent leukocytosis: Etiology most likely-infected HD access 2)Presumed HD access site infection: -AVF initially placed on 01/04/17 -S/P revision with elevation of the AVF on 03/22/17 -S/P lysis and thrombectomy of the left axillary-brachial bypass, as well as the radial and ulnar arteries. -S/P bypass replacement with bovine graft with wound vac placed 3) Severe anemia from blood loss 4) ESRD on HD 5) DM 6) HTN Plan: -obtain blood cultures -obtain procalcitonin, C-reactive protein (CRP) -start vancomycin IV renally dosed -stop cefazolin -will need IV antibiotics for 6 weeks in view of graft Thank you Dr for your consultation, will follow up with you. Alysa Jean MD Infectious Diseases Specialist [facility] M [phone] O [phone]
[2017-04-13] MEDS ORDERED: VANCOMYCIN/NS 1 GM/250 ML 1 GM/250 ML BAG IV ONE (17:17)
[2017-04-13] MEDS ORDERED: VANCOMYCIN 2,000 MG in NACL 0.9% 500 ML 500 ML IV ONE (18:30)
[2017-04-13] MEDS: ANCEF/NS 1 GM/50 ML 1 GM/50 ML BAG IV SCH (21:02)
[2017-04-14] MEDS: NOVOLOG SUB-Q SCH ×4 (01:46→17:36)
[2017-04-14] MEDS: DUONEB *Not for PRN Use IH SCH ×3 (07:40→19:50)
--- NOTE | 2017-04-14 08:22 | XRay Report ---
AP CHEST: HISTORY: Hypoxemia, pneumonia, pulmonary edema The right IJ dual-lumen catheter is unchanged in position since 04/07/17 terminating in the right ventricle. There is minor linear scarring or linear atelectasis in the right perihilar region. Otherwise, the lungs are clear. Congestive changes or atelectatic changes in the lower lungs have resolved. No pleural effusion or pneumothorax. Heart size is normal. IMPRESSION: Minor atelectatic changes or scarring in the right lung. Otherwise, unremarkable AP chest.
[2017-04-14] MEDS ORDERED: VANCOMYCIN PHARMACY TO DOSE IV SCH (09:00)
[2017-04-14] MEDS: PLAVIX PO SCH (09:09)
[2017-04-14] MEDS: ELIQUIS PO SCH ×2 (09:09→22:00)
[2017-04-14] MEDS: PROTONIX PO SCH (09:10)
--- NOTE | 2017-04-14 09:10 | Progress Note ---
Assessment and Plan Assessment: 1) Persistent leukocytosis: Etiology most likely-infected HD access ?, cholecystectomy bed collection? -CRP=16 2)Presumed HD access site infection: -AVF initially placed on 01/04/17 -S/P revision with elevation of the AVF on 03/22/17 -S/P lysis and thrombectomy of the left axillary-brachial bypass, as well as the radial and ulnar arteries. -S/P bypass replacement with bovine graft with wound vac placed 3) Severe anemia from blood loss 4) ESRD on HD 5) DM 6) HTN 7) Recent cholecystectomy with small fluid collection Plan: -f/u blood cultures -obtain C-reactive protein (CRP) -coninue vancomycin IV renally dosed -add zosyn to cover possible GI source (post facundo collection) -if not better in 24-48h will get HIDA -will need IV antibiotics for 6 weeks in view of graft Alysa Jean MD Infectious Diseases Specialist [facility] M [phone] O [phone] Subjective Date of service: 04/14/17 Principal diagnosis: esrd Interval history: Feels ok still c/o surgical site pain and oozing of blood, no fever. Current Antimicrobials: 04/13 vancomycin Previous Antimicrobials: Microbiology: Blood cultures: 04/08 neg 04/13 pending Urine cultures: Respiratory cultures: Wound cultures: Stool cultures: Other: Objective - Exam Narrative Exam: General appearance: Alert in NAD, conversant Eyes: anicteric sclerae, moist conjunctivae; no lid-lag; PERRLA HENT: Atraumatic; oropharynx clear with moist mucous membranes and no mucosal ulcerations/no oral thrush; normal hard and soft palate. Normal external ears. Neck: Trachea midline; supple, no thyromegaly or lymphadenopathy Lungs: CTA CV: RRR, + murmur Abdomen: Soft, non-tender; no masses or hepatosplenomegaly Extremities: right arm with surgical wound with stables minimal bleeding and a wound VAC Skin: Normal temperature, turgor and texture; no rash, ulcers or subcutaneous nodules Psych: Appropriate affect, alert and oriented to person, place and time. Neuro: alert and oriented x 3. Moving all extermities - Constitutional Vitals: Vital Signs Temp Pulse Resp BP Pulse Ox 99.2 F 72 18 107/60 96 04/13/17 20:00 04/14/17 07:49 04/14/17 07:49 04/13/17 21:12 04/14/17 07:41 Temperature -Last 24 Hours Temperature 99.2 F Temperature 97.7 F - Labs CBC & Chem 7: 04/13/17 04:08 04/13/17 04:08 Labs: Abnormal lab results 04/13/17 04/13/17 04/13/17 Range/Units 11:57 17:27 17:37 POC Glucose 208 H 196 H (70-105) C-Reactive Protein 16.30 H (0.00-1.30) mg/dL 04/13/17 04/14/17 Range/Units 22:03 06:41 POC Glucose 180 H 150 H (70-105) C-Reactive Protein (0.00-1.30) mg/dL
--- NOTE | 2017-04-14 09:26 | Progress Note ---
Assessment and Plan Impression: * ESRD * Anemia ABL/ESRD * Type I DM * HTN * RUQ pain * Leukocytosis Plan: * HD tomorrow to resume outpatient Tue/Tuesday schedule * Consultants' recommendations reviewed * ID recommendations noted - 6 week abx recommended * Epogen for goal Hb 10-12 * Tranfuse pRBC prn -have ordered 1 unit today * Avoid nephrotoxins * Renal diet * Abx per ID Subjective Date of service: 04/14/17 Principal diagnosis: esrd Interval history: Patient has no complaints today. Objective - Vital Signs Vital signs: Vital Signs - 12hr 04/13/17 04/13/17 04/14/17 23:06 23:18 07:41 Pulse Rate 77 Pulse Rate [ 70 Anterior Bilateral Throughout] Pulse Rate [ 66 From Monitor] Respiratory 14 18 Rate Respiratory 18 Rate [Anterior Bilateral Throughout] O2 Sat by Pulse 95 96 Oximetry 04/14/17 07:49 Pulse Rate Pulse Rate [ 72 Anterior Bilateral Throughout] Pulse Rate [ From Monitor] Respiratory Rate Respiratory 18 Rate [Anterior Bilateral Throughout] O2 Sat by Pulse Oximetry - General Appearance General appearance: well-developed, well-nourished EENT: ATNC Respiratory: Present: Clear to Ascultation Cardiology: regular, S1S2 Gastrointestinal: normal, no tenderness, no distended Neurologic: alert and oriented x3 Musculoskeletal: other (no edema) Psychiatric: cooperative - Lab 04/14/17 09:52 04/13/17 04:08 Most recent lab results Calcium 8.0 mg/dL (8.4-10.2) L 04/13/17 04:08
[2017-04-14] MEDS: NORVASC PO SCH (10:00)
[2017-04-14] MEDS ORDERED: ZOSYN/NS 4.5GM/100ML 4.5 GM/100 ML VIAL IV SCH (10:00)
[2017-04-14] MEDS: COREG PO SCH ×2 (10:00→21:59)
[2017-04-14 10:07] LABS: Hematocrit 20.2 % (35.5-45.6); Hemoglobin 6.7 gm/dl (11.8-15.2); Mean Corpuscular HGB Conc 33 % (32-34); Mean Corpuscular Hemoglobin 29 pg (28-32); Mean Corpuscular Volume 87 fl (84-94); Platelet Count 261 K/mm3 (140-440); Red Blood Count 2.33 M/mm3 (3.65-5.03); Red Cell Distribution Width 15.3 % (13.2-15.2)
[2017-04-14 10:08] LABS: White Blood Count 30.8 K/mm3 (4.5-11.0)
--- NOTE | 2017-04-14 10:48 | Progress Note ---
Assessment and Plan s/p LUE fistula, then DRIL procedure with postprocedural hemorrhage and complicated postop course 1. Feels well overall, no acute complaints 2. Serosanguineous discharge - likely due to general UE edema, no discharge expressed upon gentle pressure applied to wound. Will have surgical colleague re-evaluate 3. Leukocytosis - awaiting cultures, will likely need 6 wks IV Vanomycin, per ID. Can be given in dialysis (discussed with transplant case manager) 4. Left hand weakness - will consult PT/OT to begin evaluation while blood flow improves. Subjective Date of service: 04/14/17 Principal diagnosis: esrd Interval history: Pt seen and examined. He reports that there was copious drainage from the upper arm staple line overnight. Otherwise no acute events overnight. Still complains of left hand weakness. No significant pain reported. Objective - Exam Narrative Exam: The LUE wound vac is functioning properly. The LUE is overall swollen, and there is a small amount of serosanguineous discharge oozing from the upper arm staple line. There is staining on his gown as well. The left radial pulse is not readily palpable, and he is not able to squeeze my hand. - Constitutional Vitals: Vital Signs - 12hr 04/13/17 04/13/17 04/14/17 23:06 23:18 07:41 Temperature Pulse Rate 77 Pulse Rate [ 70 Anterior Bilateral Throughout] Pulse Rate [ 66 From Monitor] Respiratory 14 18 Rate Respiratory 18 Rate [Anterior Bilateral Throughout] Blood Pressure O2 Sat by Pulse 95 96 Oximetry 04/14/17 04/14/17 07:49 08:00 Temperature 99.6 F Pulse Rate 72 Pulse Rate [ 72 Anterior Bilateral Throughout] Pulse Rate [ From Monitor] Respiratory 20 Rate Respiratory 18 Rate [Anterior Bilateral Throughout] Blood Pressure 110/59 O2 Sat by Pulse 98 Oximetry General appearance: Present: no acute distress - EENT ENT: hearing intact - Labs CBC & Chem 7: 04/14/17 09:52 04/13/17 04:08 Labs: Abnormal lab results 04/13/17 04/13/17 04/13/17 Range/Units 11:57 17:27 17:37 WBC (4.5-11.0) K/mm3 RBC (3.65-5.03) M/mm3 Hgb (11.8-15.2) gm/dl Hct (35.5-45.6) % RDW (13.2-15.2) % POC Glucose 208 H 196 H (70-105) C-Reactive Protein 16.30 H (0.00-1.30) mg/dL 04/13/17 04/14/17 04/14/17 Range/Units 22:03 06:41 09:52 WBC 30.8 H (4.5-11.0) K/mm3 RBC 2.33 L (3.65-5.03) M/mm3 Hgb 6.7 L (11.8-15.2) gm/dl Hct 20.2 L (35.5-45.6) % RDW 15.3 H (13.2-15.2) % POC Glucose 180 H 150 H (70-105) C-Reactive Protein (0.00-1.30) mg/dL
[2017-04-14 10:51] LABS: Basophils % (Manual) 0 % (0.0-1.8); Blastocytes % (Manual) 0 %; Eosinophils % (Manual) 0 % (0.0-4.3); Total Cells Counted Percent 1.5
[2017-04-14 10:52] LABS: RBC Morphology Normal
[2017-04-14 10:53] LABS: Diff Status Complete
--- NOTE | 2017-04-14 12:38 | Progress Note ---
Assessment and Plan (1) Anemia due to blood loss, acute Current Visit: Yes Status: Acute Plan to address problem: - Transfused PRBC with appropriate response - trending downwards again - following clinically - prn CBC's (2) Leukocytosis Current Visit: Yes Status: Acute Qualifiers: Leukocytosis type: L Plan to address problem: - On vancomycin, blood cultures no growth to date. - Leukocytosis could also be secondary to stress reaction. - Patient is an HD patient and is at risk for MDRO/MRSA - He received emily-procedural antibiotics - Monitor hemodynamics closely - on vanc and zosyn - ID on case and will follow recs (3) AV graft malfunction Current Visit: Yes Status: Acute Qualifiers: Encounter type: E Plan to address problem: - Per vascular service (4) ESRD (end stage renal disease) on dialysis Current Visit: Yes Status: Acute Plan to address problem: - Supportive HD. 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 Laterality: L Chronic kidney disease stage: C Qualified Code(s): E11.65 - Type 2 diabetes mellitus with hyperglycemia Plan to address problem: - continue Accuchecks with glycemic control - target Goal glucose<180mg/dl - continue Diabetic diet - continue with hypoglycemia protocol - encouraging increase oral intake, dietary supplements (6) HTN (hypertension) Current Visit: No Status: Chronic Qualifiers: Hypertension type: essential hypertension Qualified Code(s): I10 - Essential (primary) hypertension Plan to address problem: - Episodes of asymptomatic hypotension improved - resume Home medications as appropriate - continue to Monitor hemodynamics closely on telemetry (7) Acute hypoxemic respiratory failure Current Visit: Yes Status: Acute Plan to address problem: - continue supplemental oxygen - continue BIPAP qhs - continue HD/UF for volume control - wean oxygen to keep O2Sats > 94% .....will re-evaluate in am & prn Subjective Date of service: 04/14/17 Principal diagnosis: ESRD on Dialysis; Malfunctioning AV graft s/p Repair; S/P EkOS thrombolysis Interval history: Seen and examined at bedside; 24 hour events reviewed; nursing and respiratory care staff consulted; no adverse overnight events reported to me; resting peacefully in bed; remains on supplemental oxygen; denies acute chest pains or increased SOB Objective Vital Signs - 12hr 04/14/17 04/14/17 04/14/17 07:41 07:49 08:00 Temperature 99.6 F Pulse Rate 72 Pulse Rate [ 70 72 Anterior Bilateral Throughout] Respiratory 20 Rate Respiratory 18 18 Rate [Anterior Bilateral Throughout] Blood Pressure 110/59 O2 Sat by Pulse 96 98 Oximetry 04/14/17 04/14/17 10:40 11:00 Temperature 99.9 F H Pulse Rate 71 75 Pulse Rate [ Anterior Bilateral Throughout] Respiratory 18 Rate Respiratory Rate [Anterior Bilateral Throughout] Blood Pressure 109/58 122/62 O2 Sat by Pulse Oximetry Constitutional: no acute distress, alert Eyes: non-icteric ENT: oropharynx moist Neck: supple, no lymphadenopathy, no JVD Effort: normal Ascultation: Bilateral: clear, diminished breath sounds Cardiovascular: regular rate and rhythm, other (holosystolic murmur) Gastrointestinal: normoactive bowel sounds, soft, non-tender, non-distended, other (Right upper quadrant surgical scar) Integumentary: other (Left upper extremity wound vac) Extremities: no cyanosis, no edema, pink and warm, no ischemia or petechiae, cool Neurologic: normal mental status, non-focal exam (wekness of right upper extrmity(old)), pupils equal and round, motor strength normal and Psychiatric: mood appropriate, affect normal CBC and BMP: 04/14/17 09:52 04/13/17 04:08 ABG, PT/INR, D-dimer: PT/INR, D-dimer PT 17.6 Sec. (12.2-14.9) H 04/11/17 18:10 INR 1.45 (0.87-1.13) H 04/11/17 18:10 Abnormal lab findings: Abnormal Labs 04/05/17 04/05/17 04/05/17 11:45 11:45 18:19 WBC 12.4 H RBC 3.43 L Hgb 10.0 L Hct 30.2 L MCV MCHC RDW 15.6 H Plt Count Lymph % (Auto) [place] % (Auto) 8.7 H Lymph # [place] # 1.1 H Seg Neutrophils % Seg Neuts % (Manual) Lymphocytes % (Manual) Seg Neutrophils # 8.5 H Seg Neutrophils # Man Lymphocytes # (Manual) Monocytes # (Manual) PT INR APTT Fibrinogen Heparin Anti-Xa Level Sodium Chloride Carbon Dioxide BUN Creatinine 2.8 H Glucose POC Glucose 305 H Calcium ALT C-Reactive Protein Total Protein Albumin Lipase Crossmatch 04/05/17 04/06/17 04/06/17 22:33 07:51 07:51 WBC RBC Hgb 5.3 L* D Hct 16.4 L* D MCV MCHC RDW Plt Count Lymph % (Auto) [place] % (Auto) Lymph # [place] # Seg Neutrophils % Seg Neuts % (Manual) Lymphocytes % (Manual) Seg Neutrophils # Seg Neutrophils # Man Lymphocytes # (Manual) Monocytes # (Manual) PT INR APTT Fibrinogen Heparin Anti-Xa Level Sodium 136 L Chloride Carbon Dioxide 16 L D BUN 31 H Creatinine 4.1 H Glucose 180 H POC Glucose 189 H Calcium 7.8 L ALT C-Reactive Protein Total Protein Albumin Lipase Crossmatch 04/06/17 04/06/17 04/06/17 08:15 10:43 11:48 WBC 23.6 H RBC 1.83 L Hgb 5.2 L* Hct 16.9 L* MCV MCHC 31 L RDW 16.0 H Plt Count Lymph % (Auto) [place] % (Auto) Lymph # [place] # Seg Neutrophils % Seg Neuts % (Manual) 90.0 H Lymphocytes % (Manual) 5.0 L Seg Neutrophils # Seg Neutrophils # Man 21.2 H Lymphocytes # (Manual) Monocytes # (Manual) PT INR APTT Fibrinogen Heparin Anti-Xa Level Sodium Chloride Carbon Dioxide BUN Creatinine Glucose POC Glucose 201 H 241 H Calcium ALT C-Reactive Protein Total Protein Albumin Lipase Crossmatch 04/06/17 04/06/17 04/06/17 12:36 15:34 21:34 WBC RBC Hgb Hct MCV MCHC RDW Plt Count Lymph % (Auto) [place] % (Auto) Lymph # [place] # Seg Neutrophils % Seg Neuts % (Manual) Lymphocytes % (Manual) Seg Neutrophils # Seg Neutrophils # Man Lymphocytes # (Manual) Monocytes # (Manual) PT INR APTT Fibrinogen Heparin Anti-Xa Level Sodium Chloride Carbon Dioxide BUN Creatinine Glucose POC Glucose 232 H 171 H Calcium ALT C-Reactive Protein Total Protein Albumin Lipase Crossmatch See Detail 04/07/17 04/07/17 04/07/17 00:36 00:36 07:57 WBC RBC Hgb Hct MCV MCHC RDW Plt Count Lymph % (Auto) [place] % (Auto) Lymph # [place] # Seg Neutrophils % Seg Neuts % (Manual) Lymphocytes % (Manual) Seg Neutrophils # Seg Neutrophils # Man Lymphocytes # (Manual) Monocytes # (Manual) PT INR APTT Fibrinogen Heparin Anti-Xa Level Sodium Chloride Carbon Dioxide 20 L BUN 38 H Creatinine 4.2 H Glucose 147 H POC Glucose 179 H Calcium 8.1 L ALT < 5 L C-Reactive Protein Total Protein 6.2 L Albumin 3.0 L Lipase Crossmatch 04/07/17 04/07/17 04/07/17 10:02 10:57 16:14 WBC RBC Hgb 7.3 L Hct 21.7 L MCV MCHC RDW Plt Count Lymph % (Auto) [place] % (Auto) Lymph # [place] # Seg Neutrophils % Seg Neuts % (Manual) Lymphocytes % (Manual) Seg Neutrophils # Seg Neutrophils # Man Lymphocytes # (Manual) Monocytes # (Manual) PT INR APTT Fibrinogen Heparin Anti-Xa Level Sodium Chloride Carbon Dioxide BUN Creatinine Glucose POC Glucose 151 H 120 H Calcium ALT C-Reactive Protein Total Protein Albumin Lipase Crossmatch 04/07/17 04/08/17 04/08/17 21:46 07:51 16:09 WBC RBC Hgb Hct MCV MCHC RDW Plt Count Lymph % (Auto) [place] % (Auto) Lymph # [place] # Seg Neutrophils % Seg Neuts % (Manual) Lymphocytes % (Manual) Seg Neutrophils # Seg Neutrophils # Man Lymphocytes # (Manual) Monocytes # (Manual) PT INR APTT Fibrinogen Heparin Anti-Xa Level Sodium Chloride Carbon Dioxide BUN Creatinine Glucose POC Glucose 107 H < 40 L 57 L Calcium ALT C-Reactive Protein Total Protein Albumin Lipase Crossmatch 04/08/17 04/08/17 04/08/17 17:51 20:02 23:25 WBC RBC Hgb Hct MCV MCHC RDW Plt Count Lymph % (Auto) [place] % (Auto) Lymph # [place] # Seg Neutrophils % Seg Neuts % (Manual) Lymphocytes % (Manual) Seg Neutrophils # Seg Neutrophils # Man Lymphocytes # (Manual) Monocytes # (Manual) PT INR APTT Fibrinogen Heparin Anti-Xa Level Sodium Chloride Carbon Dioxide BUN Creatinine Glucose POC Glucose 132 H 140 H 119 H Calcium ALT C-Reactive Protein Total Protein Albumin Lipase Crossmatch 04/09/17 04/09/17 04/09/17 05:04 06:11 08:50 WBC 17.2 H RBC 2.00 L Hgb 5.9 L* Hct 17.7 L* MCV MCHC RDW 15.5 H Plt Count Lymph % (Auto) [place] % (Auto) Lymph # [place] # Seg Neutrophils % Seg Neuts % (Manual) Lymphocytes % (Manual) Seg Neutrophils # Seg Neutrophils # Man Lymphocytes # (Manual) Monocytes # (Manual) PT INR APTT Fibrinogen Heparin Anti-Xa Level Sodium Chloride Carbon Dioxide BUN Creatinine Glucose POC Glucose 161 H Calcium ALT C-Reactive Protein Total Protein Albumin Lipase Crossmatch See Detail 04/09/17 04/09/17 04/09/17 11:21 12:15 13:43 WBC RBC Hgb 5.5 L* Hct 17.5 L* MCV MCHC RDW Plt Count Lymph % (Auto) [place] % (Auto) Lymph # [place] # Seg Neutrophils % Seg Neuts % (Manual) Lymphocytes % (Manual) Seg Neutrophils # Seg Neutrophils # Man Lymphocytes # (Manual) Monocytes # (Manual) PT INR APTT Fibrinogen Heparin Anti-Xa Level Sodium 136 L Chloride Carbon Dioxide 18 L BUN 69 H Creatinine 5.8 H Glucose 120 H POC Glucose 209 H Calcium 7.6 L ALT C-Reactive Protein Total Protein Albumin Lipase Crossmatch 04/09/17 04/09/17 04/09/17 13:43 18:00 18:06 WBC RBC Hgb 8.8 L D Hct 26.6 L D MCV MCHC RDW Plt Count Lymph % (Auto) [place] % (Auto) Lymph # [place] # Seg Neutrophils % Seg Neuts % (Manual) Lymphocytes % (Manual) Seg Neutrophils # Seg Neutrophils # Man Lymphocytes # (Manual) Monocytes # (Manual) PT 19.6 H INR 1.66 H APTT 43.4 H Fibrinogen Heparin Anti-Xa Level Sodium Chloride Carbon Dioxide BUN Creatinine Glucose POC Glucose 190 H Calcium ALT C-Reactive Protein Total Protein Albumin Lipase Crossmatch 04/10/17 04/10/17 04/10/17 00:07 04:10 04:10 WBC RBC Hgb Hct MCV MCHC RDW Plt Count Lymph % (Auto) [place] % (Auto) Lymph # [place] # Seg Neutrophils % Seg Neuts % (Manual) Lymphocytes % (Manual) Seg Neutrophils # Seg Neutrophils # Man Lymphocytes # (Manual) Monocytes # (Manual) PT INR APTT Fibrinogen Heparin Anti-Xa Level Sodium 133 L Chloride Carbon Dioxide BUN 35 H Creatinine 3.6 H Glucose 166 H POC Glucose 177 H Calcium 8.2 L ALT C-Reactive Protein Total Protein Albumin Lipase 11 L Crossmatch 04/10/17 04/10/17 04/10/17 05:50 11:30 11:37 WBC 13.8 H RBC 2.90 L Hgb 8.5 L Hct 25.7 L MCV MCHC RDW Plt Count Lymph % (Auto) 6.7 L [place] % (Auto) Lymph # 0.9 L [place] # 1.0 H Seg Neutrophils % 84.4 H Seg Neuts % (Manual) Lymphocytes % (Manual) Seg Neutrophils # 11.6 H Seg Neutrophils # Man Lymphocytes # (Manual) Monocytes # (Manual) PT INR APTT Fibrinogen Heparin Anti-Xa Level Sodium Chloride Carbon Dioxide BUN Creatinine Glucose POC Glucose 199 H 189 H Calcium ALT C-Reactive Protein Total Protein Albumin Lipase Crossmatch 04/10/17 04/11/17 04/11/17 17:11 00:03 12:27 WBC RBC Hgb Hct MCV MCHC RDW Plt Count Lymph % (Auto) [place] % (Auto) Lymph # [place] # Seg Neutrophils % Seg Neuts % (Manual) Lymphocytes % (Manual) Seg Neutrophils # Seg Neutrophils # Man Lymphocytes # (Manual) Monocytes # (Manual) PT INR APTT Fibrinogen Heparin Anti-Xa Level Sodium Chloride Carbon Dioxide BUN Creatinine Glucose POC Glucose 162 H 180 H 135 H Calcium ALT C-Reactive Protein Total Protein Albumin Lipase Crossmatch 04/11/17 04/11/17 04/11/17 18:10 18:10 18:10 WBC 23.6 H RBC 3.26 L Hgb 9.5 L Hct 29.1 L MCV MCHC RDW Plt Count Lymph % (Auto) [place] % (Auto) Lymph # [place] # Seg Neutrophils % Seg Neuts % (Manual) 94.0 H Lymphocytes % (Manual) 2.0 L Seg Neutrophils # Seg Neutrophils # Man 22.2 H Lymphocytes # (Manual) 0.5 L Monocytes # (Manual) PT 17.6 H INR 1.45 H APTT 113.3 H* Fibrinogen Heparin Anti-Xa Level Sodium 132 L Chloride 95.5 L Carbon Dioxide 21 L BUN 52 H Creatinine 5.0 H Glucose 107 H POC Glucose Calcium 8.0 L ALT C-Reactive Protein Total Protein Albumin Lipase Crossmatch 04/11/17 04/11/17 04/11/17 18:10 20:44 23:46 WBC RBC Hgb Hct MCV MCHC RDW Plt Count Lymph % (Auto) [place] % (Auto) Lymph # [place] # Seg Neutrophils % Seg Neuts % (Manual) Lymphocytes % (Manual) Seg Neutrophils # Seg Neutrophils # Man Lymphocytes # (Manual) Monocytes # (Manual) PT INR APTT Fibrinogen 837 H Heparin Anti-Xa Level Sodium Chloride Carbon Dioxide BUN Creatinine Glucose POC Glucose 129 H 112 H Calcium ALT C-Reactive Protein Total Protein Albumin Lipase Crossmatch 04/12/17 04/12/17 04/12/17 01:40 03:57 03:57 WBC 23.9 H 26.5 H RBC 3.19 L 3.30 L Hgb 9.2 L 9.6 L Hct 30.9 L 30.0 L MCV 97 H MCHC 30 L RDW 16.9 H 15.4 H Plt Count 114 L Lymph % (Auto) [place] % (Auto) Lymph # [place] # Seg Neutrophils % Seg Neuts % (Manual) 83.0 H 81.0 H Lymphocytes % (Manual) 6.0 L 4.0 L Seg Neutrophils # Seg Neutrophils # Man 19.8 H 21.5 H Lymphocytes # (Manual) 1.1 L Monocytes # (Manual) 1.6 H PT INR APTT Fibrinogen Heparin Anti-Xa Level Sodium 131 L Chloride 94.1 L Carbon Dioxide 21 L BUN 57 H Creatinine 5.1 H Glucose POC Glucose Calcium 8.2 L ALT C-Reactive Protein Total Protein Albumin Lipase Crossmatch 04/12/17 04/12/17 04/12/17 03:57 13:44 13:44 WBC 29.7 H RBC 2.77 L Hgb 8.2 L Hct 25.0 L MCV MCHC RDW Plt Count Lymph % (Auto) [place] % (Auto) Lymph # [place] # Seg Neutrophils % Seg Neuts % (Manual) 94.0 H Lymphocytes % (Manual) 2.0 L Seg Neutrophils # Seg Neutrophils # Man 27.9 H Lymphocytes # (Manual) 0.6 L Monocytes # (Manual) 1.2 H PT INR APTT Fibrinogen 866 H 751 H Heparin Anti-Xa Level < 0.10 L < 0.10 L Sodium Chloride Carbon Dioxide BUN Creatinine Glucose POC Glucose Calcium ALT C-Reactive Protein Total Protein Albumin Lipase Crossmatch 04/12/17 04/12/17 04/13/17 18:27 23:26 04:08 WBC RBC Hgb Hct MCV MCHC RDW Plt Count Lymph % (Auto) [place] % (Auto) Lymph # [place] # Seg Neutrophils % Seg Neuts % (Manual) Lymphocytes % (Manual) Seg Neutrophils # Seg Neutrophils # Man Lymphocytes # (Manual) Monocytes # (Manual) PT INR APTT Fibrinogen Heparin Anti-Xa Level Sodium 136 L Chloride 95.3 L Carbon Dioxide BUN 36 H Creatinine 3.7 H Glucose 101 H POC Glucose 126 H 146 H Calcium 8.0 L ALT C-Reactive Protein Total Protein Albumin Lipase Crossmatch 04/13/17 04/13/17 04/13/17 04:08 05:29 11:57 WBC 24.2 H RBC 2.48 L Hgb 7.3 L Hct 22.0 L MCV MCHC RDW Plt Count Lymph % (Auto) [place] % (Auto) Lymph # [place] # Seg Neutrophils % Seg Neuts % (Manual) 77.0 H Lymphocytes % (Manual) 7.0 L Seg Neutrophils # Seg Neutrophils # Man 18.6 H Lymphocytes # (Manual) Monocytes # (Manual) 1.2 H PT INR APTT Fibrinogen Heparin Anti-Xa Level Sodium Chloride Carbon Dioxide BUN Creatinine Glucose POC Glucose 135 H 208 H Calcium ALT C-Reactive Protein Total Protein Albumin Lipase Crossmatch 04/13/17 04/13/17 04/13/17 17:27 17:37 22:03 WBC RBC Hgb Hct MCV MCHC RDW Plt Count Lymph % (Auto) [place] % (Auto) Lymph # [place] # Seg Neutrophils % Seg Neuts % (Manual) Lymphocytes % (Manual) Seg Neutrophils # Seg Neutrophils # Man Lymphocytes # (Manual) Monocytes # (Manual) PT INR APTT Fibrinogen Heparin Anti-Xa Level Sodium Chloride Carbon Dioxide BUN Creatinine Glucose POC Glucose 196 H 180 H Calcium ALT C-Reactive Protein 16.30 H Total Protein Albumin Lipase Crossmatch 04/14/17 04/14/17 06:41 09:52 WBC 30.8 H RBC 2.33 L Hgb 6.7 L Hct 20.2 L MCV MCHC RDW 15.3 H Plt Count Lymph % (Auto) [place] % (Auto) Lymph # [place] # Seg Neutrophils % Seg Neuts % (Manual) 96.5 H Lymphocytes % (Manual) 2.0 L Seg Neutrophils # Seg Neutrophils # Man 29.7 H Lymphocytes # (Manual) 0.6 L Monocytes # (Manual) PT INR APTT Fibrinogen Heparin Anti-Xa Level Sodium Chloride Carbon Dioxide BUN Creatinine Glucose POC Glucose 150 H Calcium ALT C-Reactive Protein Total Protein Albumin Lipase Crossmatch Chest x-ray: image reviewed
[2017-04-14] MEDS ORDERED: NACL 0.9 (PRIMING MACHINE ONLY DIALYSIS) MC ONE (13:25)
[2017-04-14] MEDS: HEPARIN IV PRN (13:36)
[2017-04-14] MEDS ORDERED: NACL 0.9% 500 ML 500 ML IV ONE (15:00)
[2017-04-14] MEDS: ZOSYN/NS 2.25 GM/50ML 2.25 GM/50 ML BAG IV SCH ×2 (17:36→22:02)
[2017-04-14] MEDS: MORPHINE IV PRN (22:04)
[2017-04-15] MEDS: NOVOLOG SUB-Q SCH ×2 (00:38→08:52)
[2017-04-15] MEDS: ZOSYN/NS 2.25 GM/50ML 2.25 GM/50 ML BAG IV SCH (05:10)
[2017-04-15] MEDS: DUONEB *Not for PRN Use IH SCH ×3 (09:15→22:34)
--- NOTE | 2017-04-15 09:52 | Progress Note ---
Assessment and Plan Assessment: 1) Persistent leukocytosis: Etiology most likely-infected HD access ?, cholecystectomy bed collection? -Worsening today ? reactive from bleeding and severe anemia -CRP=16 2)Presumed HD access site infection: -AVF initially placed on 01/04/17 -S/P revision with elevation of the AVF on 03/22/17 -S/P lysis and thrombectomy of the left axillary-brachial bypass, as well as the radial and ulnar arteries. -S/P bypass replacement with bovine graft with wound vac placed 3) Severe anemia from blood loss 4) ESRD on HD 5) DM 6) HTN 7) Recent cholecystectomy with small fluid collection Plan: -obtain HIDA scan r/o leak -monitor leukocytosis -f/u blood cultures -continue vancomycin and zosyn for now -upon discharge will do IV vancomycin 1 g after HD MWF for 6 weeks from 04/13 until 05/24. May need to be adjusted if cultures become positive. I will be off on TuesdayApr 16 and TuesdayApr 17, however available for questions over the phone [phone]. Alysa Jean MD Infectious Diseases Specialist [facility] M [phone] O [phone] Subjective Date of service: 04/15/17 Principal diagnosis: esrd Interval history: Feels better, tmax 99.9. Current Antimicrobials: 04/13 vancomycin 04/14 zosyn Previous Antimicrobials: Microbiology: Blood cultures: 04/08 neg 04/13 ngtd Urine cultures: Respiratory cultures: Wound cultures: Stool cultures: Other: Objective - Exam Narrative Exam: General appearance: Alert in NAD, conversant Eyes: anicteric sclerae, moist conjunctivae; no lid-lag; PERRLA HENT: Atraumatic; oropharynx clear with moist mucous membranes and no mucosal ulcerations/no oral thrush; normal hard and soft palate. Normal external ears. Neck: Trachea midline; supple, no thyromegaly or lymphadenopathy Lungs: CTA CV: RRR, + murmur Abdomen: Soft, non-tender; no masses or hepatosplenomegaly Extremities: right arm with surgical wound with stables no bleeding and a wound VAC Skin: Normal temperature, turgor and texture; no rash, ulcers or subcutaneous nodules Psych: Appropriate affect, alert and oriented to person, place and time. Neuro: alert and oriented x 3. Moving all extermities - Constitutional Vitals: Vital Signs Temp Pulse Resp BP Pulse Ox 99.2 F 70 18 100/70 96 04/15/17 07:48 04/15/17 07:48 04/15/17 07:48 04/15/17 07:48 04/15/17 07:48 Temperature -Last 24 Hours Temperature 99.2 F Temperature 98.3 F Temperature 98.8 F Temperature 98.4 F Temperature 99.9 F - Labs CBC & Chem 7: 04/14/17 09:52 04/13/17 04:08 Labs: Abnormal lab results 04/14/17 04/14/17 04/14/17 Range/Units 09:52 16:14 21:46 WBC 30.8 H (4.5-11.0) K/mm3 RBC 2.33 L (3.65-5.03) M/mm3 Hgb 6.7 L (11.8-15.2) gm/dl Hct 20.2 L (35.5-45.6) % RDW 15.3 H (13.2-15.2) % Seg Neuts % (Manual) 96.5 H (40.0-70.0) % Lymphocytes % (Manual) 2.0 L (13.4-35.0) % Seg Neutrophils # Man 29.7 H (1.8-7.7) K/mm3 Lymphocytes # (Manual) 0.6 L (1.2-5.4) K/mm3 POC Glucose 220 H 206 H (70-105) 04/15/17 Range/Units 06:27 WBC (4.5-11.0) K/mm3 RBC (3.65-5.03) M/mm3 Hgb (11.8-15.2) gm/dl Hct (35.5-45.6) % RDW (13.2-15.2) % Seg Neuts % (Manual) (40.0-70.0) % Lymphocytes % (Manual) (13.4-35.0) % Seg Neutrophils # Man (1.8-7.7) K/mm3 Lymphocytes # (Manual) (1.2-5.4) K/mm3 POC Glucose 188 H (70-105)
[2017-04-15] MEDS: PROTONIX PO SCH (10:23)
[2017-04-15] MEDS: NORVASC PO SCH (10:23)
[2017-04-15] MEDS: COREG PO SCH ×2 (10:23→22:37)
[2017-04-15] MEDS: PLAVIX PO SCH (10:23)
[2017-04-15] MEDS: ELIQUIS PO SCH ×2 (10:24→22:39)
--- NOTE | 2017-04-15 10:41 | Operative Report ---
Operative Report Operative Report: Date of Procedure: 03/16/2017 Pre-operative Diagnosis: Complications of Dialysis Access Post-operative Diagnosis: Same Procedure(s): 1. Removal of EKOS Thrombolysis Catheter 2. Percutaneous Mechanical Thrombectomy with Angiojet Catheter 3. Injection of 12 mg TPA 4. Closure of Left Femoral Arteriotomy with ProGlide Closure Device 5. Radiologic Supervision with Interprtation Surgeon: Omar Romo M.D. 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 He recently had a redo procedure and his physical exam suggests that the bypass may have thrombosed. He is status post additional thrombolysis and needs removal of the catheter with possible further intervention. Angiographic Findings: The arteriogram demonstrated the left radial artery was patent. The origin of the ulnar with thrombus however the thrombus burden was significantly decreased compared to the previous exam. After intervention both the ulnar and radial arteries are widely patent. There was no obvious residual thrombus within the bypass graft. Description of Procedure: The patient was brought to the label folder and laid in supine position. After he was adequately sedated his left groin and indwelling catheters were prepped and draped in normal sterile fashion. The thrombolysis catheter was removed from the EKOS sheath and a 0.035 Bentson wire was advanced through the sheath. The EKOS sheath was then exchanged for a vertebral catheter. An arteriogram was performed with the procedure described findings. With the use of a 0.018 V18 wire and a vertebral catheter I was able to cannulate the occluded ulnar artery and performed an arteriogram that demonstrated the remainder of the ulnar artery was widely patent. I advanced the 0.035 Bentson wire into the distal on artery and then used the AngioJet catheter to perform percutaneous mechanical thrombectomy of the distal bypass graft as well as the proximal ulnar artery. After several runs the follow-up arteriogram demonstrated that the thrombus within the bypass graft had been completely removed as well as the thrombus from the origin of the ulnar artery and the ulnar artery was widely patent. It did however revealed that some thrombus had been embolizing to the radial artery. I used a vertebral catheter and the Bentson wire to cannulate the radial artery and then used the AngioJet to aspirate thrombus. Follow-up arteriogram demonstrated that this was successful and the radial artery as well as the ulnar and interosseous arteries were all patent with some evidence of spasm. I injected nitroglycerin to break the spasm and then injected a total of 12 mg of TPA into the distal bypass graft in hopes of lysing any additional thrombus that may have embolized down towards the hand. The final arteriogram demonstrated the graft was patent with flow into both the ulnar radial arteries which were patent down to the hand. At this point the sheath was removed and a ProGlide closure device was used to close the left femoral arteriotomy. The patient tolerated the procedure well. All sponge, needle, and instruments counts were correct. The patient was taken back to the ICU in stable condition.
--- NOTE | 2017-04-15 12:33 | Progress Note ---
Assessment and Plan (1) Anemia due to blood loss, acute Current Visit: Yes Status: Acute Plan to address problem: - Transfused PRBC with appropriate response - trending downwards again - following clinically - prn CBC's (2) Leukocytosis Current Visit: Yes Status: Acute Qualifiers: Leukocytosis type: L Plan to address problem: - On vancomycin, blood cultures no growth to date. - Leukocytosis could also be secondary to stress reaction. - Patient is an HD patient and is at risk for MDRO/MRSA - He received emily-procedural antibiotics - Monitor hemodynamics closely - on vanc and zosyn - ID on case and will follow recs (3) AV graft malfunction Current Visit: Yes Status: Acute Qualifiers: Encounter type: E Plan to address problem: - Per vascular service (4) ESRD (end stage renal disease) on dialysis Current Visit: Yes Status: Acute Plan to address problem: - Supportive HD. Renal following (5) Diabetes Current Visit: No Status: Chronic Qualifiers: Diabetes mellitus type: type 2 Diabetes mellitus complication status: with hyperglycemia Diabetes mellitus complication detail: D Diabetic retinopathy severity: D Proliferative retinopathy type: P Diabetes mellitus macular edema: D Diabetes mellitus long-term insulin use: without intermission coordinator use Laterality: L Chronic kidney disease stage: C Qualified Code(s): E11.65 - Type 2 diabetes mellitus with hyperglycemia Plan to address problem: - continue Accuchecks with glycemic control - target Goal glucose<180mg/dl - continue Diabetic diet - continue with hypoglycemia protocol - encouraging increase oral intake, dietary supplements (6) HTN (hypertension) Current Visit: No Status: Chronic Qualifiers: Hypertension type: essential hypertension Qualified Code(s): I10 - Essential (primary) hypertension Plan to address problem: - Episodes of asymptomatic hypotension improved - resume Home medications as appropriate - continue to Monitor hemodynamics closely on telemetry (7) Acute hypoxemic respiratory failure Current Visit: Yes Status: Acute Plan to address problem: - continue supplemental oxygen - continue BIPAP qhs - continue HD/UF for volume control - wean oxygen to keep O2Sats > 94% .....will re-evaluate in am & prn Subjective Date of service: 04/15/17 Principal diagnosis: ESRD on Dialysis; Malfunctioning AV graft s/p Repair; S/P EkOS thrombolysis Interval history: Seen and examined at bedside; 24 hour events reviewed; nursing and respiratory care staff consulted; no adverse overnight events reported to me; resting in bed ; about to get left upper extremity wound vac changed; remains on supplemental oxygen with room to wean; tolerating BIPAP Objective Vital Signs - 12hr 04/15/17 04/15/17 04/15/17 07:48 07:51 08:01 Temperature 99.2 F Pulse Rate 70 Pulse Rate [ 104 H 82 Posterior Bilateral Throughout] Respiratory 18 Rate Respiratory 20 20 Rate [Posterior Bilateral Throughout] Blood Pressure 100/70 O2 Sat by Pulse 96 97 Oximetry Constitutional: no acute distress, other (somnolent) Eyes: non-icteric ENT: oropharynx moist Neck: supple, no lymphadenopathy, no JVD Effort: normal Ascultation: Bilateral: clear, diminished breath sounds (bases) Cardiovascular: regular rate and rhythm, other (holosystolic murmur) Gastrointestinal: normoactive bowel sounds, soft, non-tender, non-distended, other (Right upper quadrant surgical scar) Integumentary: other (Left upper extremity wound vac) Extremities: no cyanosis, no edema, pink and warm, no ischemia or petechiae Neurologic: normal mental status, non-focal exam (wekness of right upper extrmity(old)), pupils equal and round, motor strength normal and Psychiatric: mood appropriate, affect normal CBC and BMP: 04/14/17 09:52 04/13/17 04:08 ABG, PT/INR, D-dimer: PT/INR, D-dimer PT 17.6 Sec. (12.2-14.9) H 04/11/17 18:10 INR 1.45 (0.87-1.13) H 04/11/17 18:10 Abnormal lab findings: Abnormal Labs 04/05/17 04/05/17 04/05/17 11:45 11:45 18:19 WBC 12.4 H RBC 3.43 L Hgb 10.0 L Hct 30.2 L MCV MCHC RDW 15.6 H Plt Count Lymph % (Auto) [place] % (Auto) 8.7 H Lymph # [place] # 1.1 H Seg Neutrophils % Seg Neuts % (Manual) Lymphocytes % (Manual) Seg Neutrophils # 8.5 H Seg Neutrophils # Man Lymphocytes # (Manual) Monocytes # (Manual) PT INR APTT Fibrinogen Heparin Anti-Xa Level Sodium Chloride Carbon Dioxide BUN Creatinine 2.8 H Glucose POC Glucose 305 H Calcium ALT C-Reactive Protein Total Protein Albumin Lipase Crossmatch 04/05/17 04/06/17 04/06/17 22:33 07:51 07:51 WBC RBC Hgb 5.3 L* D Hct 16.4 L* D MCV MCHC RDW Plt Count Lymph % (Auto) [place] % (Auto) Lymph # [place] # Seg Neutrophils % Seg Neuts % (Manual) Lymphocytes % (Manual) Seg Neutrophils # Seg Neutrophils # Man Lymphocytes # (Manual) Monocytes # (Manual) PT INR APTT Fibrinogen Heparin Anti-Xa Level Sodium 136 L Chloride Carbon Dioxide 16 L D BUN 31 H Creatinine 4.1 H Glucose 180 H POC Glucose 189 H Calcium 7.8 L ALT C-Reactive Protein Total Protein Albumin Lipase Crossmatch 04/06/17 04/06/17 04/06/17 08:15 10:43 11:48 WBC 23.6 H RBC 1.83 L Hgb 5.2 L* Hct 16.9 L* MCV MCHC 31 L RDW 16.0 H Plt Count Lymph % (Auto) [place] % (Auto) Lymph # [place] # Seg Neutrophils % Seg Neuts % (Manual) 90.0 H Lymphocytes % (Manual) 5.0 L Seg Neutrophils # Seg Neutrophils # Man 21.2 H Lymphocytes # (Manual) Monocytes # (Manual) PT INR APTT Fibrinogen Heparin Anti-Xa Level Sodium Chloride Carbon Dioxide BUN Creatinine Glucose POC Glucose 201 H 241 H Calcium ALT C-Reactive Protein Total Protein Albumin Lipase Crossmatch 04/06/17 04/06/17 04/06/17 12:36 15:34 21:34 WBC RBC Hgb Hct MCV MCHC RDW Plt Count Lymph % (Auto) [place] % (Auto) Lymph # [place] # Seg Neutrophils % Seg Neuts % (Manual) Lymphocytes % (Manual) Seg Neutrophils # Seg Neutrophils # Man Lymphocytes # (Manual) Monocytes # (Manual) PT INR APTT Fibrinogen Heparin Anti-Xa Level Sodium Chloride Carbon Dioxide BUN Creatinine Glucose POC Glucose 232 H 171 H Calcium ALT C-Reactive Protein Total Protein Albumin Lipase Crossmatch See Detail 04/07/17 04/07/17 04/07/17 00:36 00:36 07:57 WBC RBC Hgb Hct MCV MCHC RDW Plt Count Lymph % (Auto) [place] % (Auto) Lymph # [place] # Seg Neutrophils % Seg Neuts % (Manual) Lymphocytes % (Manual) Seg Neutrophils # Seg Neutrophils # Man Lymphocytes # (Manual) Monocytes # (Manual) PT INR APTT Fibrinogen Heparin Anti-Xa Level Sodium Chloride Carbon Dioxide 20 L BUN 38 H Creatinine 4.2 H Glucose 147 H POC Glucose 179 H Calcium 8.1 L ALT < 5 L C-Reactive Protein Total Protein 6.2 L Albumin 3.0 L Lipase Crossmatch 04/07/17 04/07/17 04/07/17 10:02 10:57 16:14 WBC RBC Hgb 7.3 L Hct 21.7 L MCV MCHC RDW Plt Count Lymph % (Auto) [place] % (Auto) Lymph # [place] # Seg Neutrophils % Seg Neuts % (Manual) Lymphocytes % (Manual) Seg Neutrophils # Seg Neutrophils # Man Lymphocytes # (Manual) Monocytes # (Manual) PT INR APTT Fibrinogen Heparin Anti-Xa Level Sodium Chloride Carbon Dioxide BUN Creatinine Glucose POC Glucose 151 H 120 H Calcium ALT C-Reactive Protein Total Protein Albumin Lipase Crossmatch 04/07/17 04/08/17 04/08/17 21:46 07:51 16:09 WBC RBC Hgb Hct MCV MCHC RDW Plt Count Lymph % (Auto) [place] % (Auto) Lymph # [place] # Seg Neutrophils % Seg Neuts % (Manual) Lymphocytes % (Manual) Seg Neutrophils # Seg Neutrophils # Man Lymphocytes # (Manual) Monocytes # (Manual) PT INR APTT Fibrinogen Heparin Anti-Xa Level Sodium Chloride Carbon Dioxide BUN Creatinine Glucose POC Glucose 107 H < 40 L 57 L Calcium ALT C-Reactive Protein Total Protein Albumin Lipase Crossmatch 04/08/17 04/08/17 04/08/17 17:51 20:02 23:25 WBC RBC Hgb Hct MCV MCHC RDW Plt Count Lymph % (Auto) [place] % (Auto) Lymph # [place] # Seg Neutrophils % Seg Neuts % (Manual) Lymphocytes % (Manual) Seg Neutrophils # Seg Neutrophils # Man Lymphocytes # (Manual) Monocytes # (Manual) PT INR APTT Fibrinogen Heparin Anti-Xa Level Sodium Chloride Carbon Dioxide BUN Creatinine Glucose POC Glucose 132 H 140 H 119 H Calcium ALT C-Reactive Protein Total Protein Albumin Lipase Crossmatch 04/09/17 04/09/17 04/09/17 05:04 06:11 08:50 WBC 17.2 H RBC 2.00 L Hgb 5.9 L* Hct 17.7 L* MCV MCHC RDW 15.5 H Plt Count Lymph % (Auto) [place] % (Auto) Lymph # [place] # Seg Neutrophils % Seg Neuts % (Manual) Lymphocytes % (Manual) Seg Neutrophils # Seg Neutrophils # Man Lymphocytes # (Manual) Monocytes # (Manual) PT INR APTT Fibrinogen Heparin Anti-Xa Level Sodium Chloride Carbon Dioxide BUN Creatinine Glucose POC Glucose 161 H Calcium ALT C-Reactive Protein Total Protein Albumin Lipase Crossmatch See Detail 04/09/17 04/09/17 04/09/17 11:21 12:15 13:43 WBC RBC Hgb 5.5 L* Hct 17.5 L* MCV MCHC RDW Plt Count Lymph % (Auto) [place] % (Auto) Lymph # [place] # Seg Neutrophils % Seg Neuts % (Manual) Lymphocytes % (Manual) Seg Neutrophils # Seg Neutrophils # Man Lymphocytes # (Manual) Monocytes # (Manual) PT INR APTT Fibrinogen Heparin Anti-Xa Level Sodium 136 L Chloride Carbon Dioxide 18 L BUN 69 H Creatinine 5.8 H Glucose 120 H POC Glucose 209 H Calcium 7.6 L ALT C-Reactive Protein Total Protein Albumin Lipase Crossmatch 04/09/17 04/09/17 04/09/17 13:43 18:00 18:06 WBC RBC Hgb 8.8 L D Hct 26.6 L D MCV MCHC RDW Plt Count Lymph % (Auto) [place] % (Auto) Lymph # [place] # Seg Neutrophils % Seg Neuts % (Manual) Lymphocytes % (Manual) Seg Neutrophils # Seg Neutrophils # Man Lymphocytes # (Manual) Monocytes # (Manual) PT 19.6 H INR 1.66 H APTT 43.4 H Fibrinogen Heparin Anti-Xa Level Sodium Chloride Carbon Dioxide BUN Creatinine Glucose POC Glucose 190 H Calcium ALT C-Reactive Protein Total Protein Albumin Lipase Crossmatch 04/10/17 04/10/17 04/10/17 00:07 04:10 04:10 WBC RBC Hgb Hct MCV MCHC RDW Plt Count Lymph % (Auto) [place] % (Auto) Lymph # [place] # Seg Neutrophils % Seg Neuts % (Manual) Lymphocytes % (Manual) Seg Neutrophils # Seg Neutrophils # Man Lymphocytes # (Manual) Monocytes # (Manual) PT INR APTT Fibrinogen Heparin Anti-Xa Level Sodium 133 L Chloride Carbon Dioxide BUN 35 H Creatinine 3.6 H Glucose 166 H POC Glucose 177 H Calcium 8.2 L ALT C-Reactive Protein Total Protein Albumin Lipase 11 L Crossmatch 04/10/17 04/10/1704/10/17 05:50 11:30 11:37 WBC 13.8 H RBC 2.90 L Hgb 8.5 L Hct 25.7 L MCV MCHC RDW Plt Count Lymph % (Auto) 6.7 L [place] % (Auto) Lymph # 0.9 L [place] # 1.0 H Seg Neutrophils % 84.4 H Seg Neuts % (Manual) Lymphocytes % (Manual) Seg Neutrophils # 11.6 H Seg Neutrophils # Man Lymphocytes # (Manual) Monocytes # (Manual) PT INR APTT Fibrinogen Heparin Anti-Xa Level Sodium Chloride Carbon Dioxide BUN Creatinine Glucose POC Glucose 199 H 189 H Calcium ALT C-Reactive Protein Total Protein Albumin Lipase Crossmatch 04/10/17 04/11/17 04/11/17 17:11 00:03 12:27 WBC RBC Hgb Hct MCV MCHC RDW Plt Count Lymph % (Auto) [place] % (Auto) Lymph # [place] # Seg Neutrophils % Seg Neuts % (Manual) Lymphocytes % (Manual) Seg Neutrophils # Seg Neutrophils # Man Lymphocytes # (Manual) Monocytes # (Manual) PT INR APTT Fibrinogen Heparin Anti-Xa Level Sodium Chloride Carbon Dioxide BUN Creatinine Glucose POC Glucose 162 H 180 H 135 H Calcium ALT C-Reactive Protein Total Protein Albumin Lipase Crossmatch 04/11/17 04/11/17 04/11/17 18:10 18:10 18:10 WBC 23.6 H RBC 3.26 L Hgb 9.5 L Hct 29.1 L MCV MCHC RDW Plt Count Lymph % (Auto) [place] % (Auto) Lymph # [place] # Seg Neutrophils % Seg Neuts % (Manual) 94.0 H Lymphocytes % (Manual) 2.0 L Seg Neutrophils # Seg Neutrophils # Man 22.2 H Lymphocytes # (Manual) 0.5 L Monocytes # (Manual) PT 17.6 H INR 1.45 H APTT 113.3 H* Fibrinogen Heparin Anti-Xa Level Sodium 132 L Chloride 95.5 L Carbon Dioxide 21 L BUN 52 H Creatinine 5.0 H Glucose 107 H POC Glucose Calcium 8.0 L ALT C-Reactive Protein Total Protein Albumin Lipase Crossmatch 04/11/17 04/11/17 04/11/17 18:10 20:44 23:46 WBC RBC Hgb Hct MCV MCHC RDW Plt Count Lymph % (Auto) [place] % (Auto) Lymph # [place] # Seg Neutrophils % Seg Neuts % (Manual) Lymphocytes % (Manual) Seg Neutrophils # Seg Neutrophils # Man Lymphocytes # (Manual) Monocytes # (Manual) PT INR APTT Fibrinogen 837 H Heparin Anti-Xa Level Sodium Chloride Carbon Dioxide BUN Creatinine Glucose POC Glucose 129 H 112 H Calcium ALT C-Reactive Protein Total Protein Albumin Lipase Crossmatch 04/12/17 04/12/17 04/12/17 01:40 03:57 03:57 WBC 23.9 H 26.5 H RBC 3.19 L 3.30 L Hgb 9.2 L 9.6 L Hct 30.9 L 30.0 L MCV 97 H MCHC 30 L RDW 16.9 H 15.4 H Plt Count 114 L Lymph % (Auto) [place] % (Auto) Lymph # [place] # Seg Neutrophils % Seg Neuts % (Manual) 83.0 H 81.0 H Lymphocytes % (Manual) 6.0 L 4.0 L Seg Neutrophils # Seg Neutrophils # Man 19.8 H 21.5 H Lymphocytes # (Manual) 1.1 L Monocytes # (Manual) 1.6 H PT INR APTT Fibrinogen Heparin Anti-Xa Level Sodium 131 L Chloride 94.1 L Carbon Dioxide 21 L BUN 57 H Creatinine 5.1 H Glucose POC Glucose Calcium 8.2 L ALT C-Reactive Protein Total Protein Albumin Lipase Crossmatch 04/12/17 04/12/17 04/12/17 03:57 13:44 13:44 WBC 29.7 H RBC 2.77 L Hgb 8.2 L Hct 25.0 L MCV MCHC RDW Plt Count Lymph % (Auto) [place] % (Auto) Lymph # [place] # Seg Neutrophils % Seg Neuts % (Manual) 94.0 H Lymphocytes % (Manual) 2.0 L Seg Neutrophils # Seg Neutrophils # Man 27.9 H Lymphocytes # (Manual) 0.6 L Monocytes # (Manual) 1.2 H PT INR APTT Fibrinogen 866 H 751 H Heparin Anti-Xa Level < 0.10 L < 0.10 L Sodium Chloride Carbon Dioxide BUN Creatinine Glucose POC Glucose Calcium ALT C-Reactive Protein Total Protein Albumin Lipase Crossmatch 04/12/17 04/12/17 04/13/17 18:27 23:26 04:08 WBC RBC Hgb Hct MCV MCHC RDW Plt Count Lymph % (Auto) [place] % (Auto) Lymph # [place] # Seg Neutrophils % Seg Neuts % (Manual) Lymphocytes % (Manual) Seg Neutrophils # Seg Neutrophils # Man Lymphocytes # (Manual) Monocytes # (Manual) PT INR APTT Fibrinogen Heparin Anti-Xa Level Sodium 136 L Chloride 95.3 L Carbon Dioxide BUN 36 H Creatinine 3.7 H Glucose 101 H POC Glucose 126 H 146 H Calcium 8.0 L ALT C-Reactive Protein Total Protein Albumin Lipase Crossmatch 04/13/17 04/13/17 04/13/17 04:08 05:29 11:57 WBC 24.2 H RBC 2.48 L Hgb 7.3 L Hct 22.0 L MCV MCHC RDW Plt Count Lymph % (Auto) [place] % (Auto) Lymph # [place] # Seg Neutrophils % Seg Neuts % (Manual) 77.0 H Lymphocytes % (Manual) 7.0 L Seg Neutrophils # Seg Neutrophils # Man 18.6 H Lymphocytes # (Manual) Monocytes # (Manual) 1.2 H PT INR APTT Fibrinogen Heparin Anti-Xa Level Sodium Chloride Carbon Dioxide BUN Creatinine Glucose POC Glucose 135 H 208 H Calcium ALT C-Reactive Protein Total Protein Albumin Lipase Crossmatch 04/13/17 04/13/17 04/13/17 17:27 17:37 22:03 WBC RBC Hgb Hct MCV MCHC RDW Plt Count Lymph % (Auto) [place] % (Auto) Lymph # [place] # Seg Neutrophils % Seg Neuts % (Manual) Lymphocytes % (Manual) Seg Neutrophils # Seg Neutrophils # Man Lymphocytes # (Manual) Monocytes # (Manual) PT INR APTT Fibrinogen Heparin Anti-Xa Level Sodium Chloride Carbon Dioxide BUN Creatinine Glucose POC Glucose 196 H 180 H Calcium ALT C-Reactive Protein 16.30 H Total Protein Albumin Lipase Crossmatch 04/14/17 04/14/17 04/14/17 06:41 09:52 16:14 WBC 30.8 H RBC 2.33 L Hgb 6.7 L Hct 20.2 L MCV MCHC RDW 15.3 H Plt Count Lymph % (Auto) [place] % (Auto) Lymph # [place] # Seg Neutrophils % Seg Neuts % (Manual) 96.5 H Lymphocytes % (Manual) 2.0 L Seg Neutrophils # Seg Neutrophils # Man 29.7 H Lymphocytes # (Manual) 0.6 L Monocytes # (Manual) PT INR APTT Fibrinogen Heparin Anti-Xa Level Sodium Chloride Carbon Dioxide BUN Creatinine Glucose POC Glucose 150 H 220 H Calcium ALT C-Reactive Protein Total Protein Albumin Lipase Crossmatch 08/31/17 09/01/17 21:46 06:27 WBC RBC Hgb Hct MCV MCHC RDW Plt Count Lymph % (Auto) [place] % (Auto) Lymph # [place] # Seg Neutrophils % Seg Neuts % (Manual) Lymphocytes % (Manual) Seg Neutrophils # Seg Neutrophils # Man Lymphocytes # (Manual) Monocytes # (Manual) PT INR APTT Fibrinogen Heparin Anti-Xa Level Sodium Chloride Carbon Dioxide BUN Creatinine Glucose POC Glucose 206 H 188 H Calcium ALT C-Reactive Protein Total Protein Albumin Lipase Crossmatch Chest x-ray: image reviewed (hypoventilation)
[2017-04-15] MEDS: NORCO 5/325 PO PRN (13:56)
--- NOTE | 2017-04-15 14:36 | Progress Note ---
Assessment and Plan Impression: * ESRD * Anemia ABL/ESRD * Type I DM * HTN * RUQ pain * Leukocytosis Plan: * HD today - UF as tolerated; continue Tue/Tuesday schedule * Transfuse pRBC with HD today * Consultants' recommendations reviewed * ID recommendations noted - 6 week abx recommended * Epogen for goal Hb 10-12 * Tranfuse pRBC prn -have ordered 1 unit today * Avoid nephrotoxins * Renal diet * Patient is refusing lab draws Subjective Date of service: 04/15/17 Principal diagnosis: esrd Interval history: Patient seen on dialysis. He has no complaints today. Refusing blood draws. Objective - Vital Signs Vital signs: Vital Signs - 12hr 04/15/17 04/15/17 04/15/17 07:48 07:51 08:01 Temperature 99.2 F Pulse Rate 70 Pulse Rate [ 104 H 82 Posterior Bilateral Throughout] Respiratory 18 Rate Respiratory 20 20 Rate [Posterior Bilateral Throughout] Blood Pressure 100/70 O2 Sat by Pulse 96 97 Oximetry - General Appearance General appearance: well-developed, well-nourished EENT: ATNC Respiratory: Present: Clear to Ascultation Cardiology: regular, S1S2 Gastrointestinal: normal Musculoskeletal: other (no edema) Psychiatric: cooperative - Lab 04/14/17 09:52 04/13/17 04:08 Most recent lab results Calcium 8.0 mg/dL (8.4-10.2) L 04/13/17 04:08
[2017-04-15] MEDS ORDERED: NACL 0.9% 500 ML 500 ML IV ONE (16:05)
--- NOTE | 2017-04-15 16:19 | Progress Note ---
Assessment and Plan left upper extremity edema improved, will continue to monitor left index finger. continue wound care. WBC elevated. F/u internal medicine and ID. LUE does not appear the site of infection. Subjective Date of service: 04/15/17 Principal diagnosis: esrd Interval history: seen in HD, left hand feeling better. vac changed today. tip index finger cyanotic. Hand warm. Objective - Exam Narrative Exam: left index tip cyanotic. Hand warm, good cap refil all other fingers. Good thrill over left arm AVF. Vac in place, changed today. edema significantly improved. - Constitutional Vitals: Vital Signs - 12hr 04/15/17 04/15/17 04/15/17 07:48 07:51 08:01 Temperature 99.2 F Pulse Rate 70 Pulse Rate [ 104 H 82 Posterior Bilateral Throughout] Respiratory 18 Rate Respiratory 20 20 Rate [Posterior Bilateral Throughout] Blood Pressure 100/70 O2 Sat by Pulse 96 97 Oximetry 04/15/17 04/15/17 13:58 14:08 Temperature Pulse Rate Pulse Rate [ 69 70 Posterior Bilateral Throughout] Respiratory Rate Respiratory 20 20 Rate [Posterior Bilateral Throughout] Blood Pressure O2 Sat by Pulse Oximetry - Labs CBC & Chem 7: 04/14/17 09:52 04/13/17 04:08 Labs: Abnormal lab results 04/14/17 04/14/17 04/15/17 Range/Units 16:14 21:46 06:27 POC Glucose 220 H 206 H 188 H (70-105) 04/15/17 Range/Units 11:14 POC Glucose 151 H (70-105)
[2017-04-15] MEDS ORDERED: NACL 0.9 (PRIMING MACHINE ONLY DIALYSIS) MC ONE (17:42)
[2017-04-15] MEDS: HEPARIN IV PRN (18:40)
[2017-04-16] MEDS: NOVOLOG SUB-Q SCH ×4 (00:59→16:30)
[2017-04-16] MEDS: DUONEB *Not for PRN Use IH SCH ×3 (07:53→20:08)
[2017-04-16 09:35] VITALS: BP 108/62
[2017-04-16] MEDS: ELIQUIS PO SCH (10:00)
[2017-04-16] MEDS ORDERED: VANCOMYCIN/NS 1 GM/250 ML 1 GM/250 ML BAG IV ONE (10:00)
[2017-04-16] MEDS: PROTONIX PO SCH (11:23)
[2017-04-16] MEDS: PLAVIX PO SCH (11:23)
[2017-04-16] MEDS: NORVASC PO SCH (11:23)
[2017-04-16] MEDS: COREG PO SCH (11:23)
--- NOTE | 2017-04-16 13:05 | Progress Note ---
Assessment and Plan Impression: * ESRD * Anemia ABL/ESRD * Type I DM * HTN * RUQ pain * Leukocytosis Plan: * HD Tue/Tuesday schedule * s/p pRBC with HD yesterday * Consultants' recommendations reviewed * ID recommendations noted - 6 week abx recommended * Epogen for goal Hb 10-12 * Avoid nephrotoxins * Renal diet * Patient is refusing lab draws Subjective Date of service: 04/16/17 Principal diagnosis: esrd Objective - Vital Signs Vital signs: Vital Signs - 12hr 04/16/17 04/16/17 04/16/17 07:53 08:03 09:28 Temperature 98.5 F Pulse Rate 71 Pulse Rate [ 76 78 Anterior Bilateral Throughout] Respiratory 18 Rate Respiratory 18 18 Rate [Anterior Bilateral Throughout] Blood Pressure 108/62 O2 Sat by Pulse 96 97 Oximetry - Lab 04/14/17 09:52 04/13/17 04:08 Most recent lab results Calcium 8.0 mg/dL (8.4-10.2) L 04/13/17 04:08
[2017-04-16] MEDS: ZOSYN/NS 2.25 GM/50ML 2.25 GM/50 ML BAG IV SCH ×3 (14:00→15:47)
--- NOTE | 2017-04-16 19:32 | Progress Note ---
Assessment and Plan Patient alert, awake, resting on room air. No complaint of chest pain,shortness of breath or cough. O2 saturation 97% on room air. - Patient Problems (1) Acute hypoxemic respiratory failure Current Visit: Yes Status: Acute Plan to address problem: IMPROVED. No complaint of ches pain or shortness of breath or cough. O2 saturation 97% on room air. (2) AV graft malfunction Current Visit: Yes Status: Acute Qualifiers: Encounter type: E Plan to address problem: S/P repair of AV Graft Malfunction. (3) ESRD (end stage renal disease) on dialysis Current Visit: Yes Status: Acute Plan to address problem: Management as per nephrology (4) Diabetes Current Visit: No Status: Chronic Qualifiers: Diabetes mellitus type: type 2 Diabetes mellitus complication status: with hyperglycemia Diabetes mellitus complication detail: D Diabetic retinopathy severity: D Proliferative retinopathy type: P Diabetes mellitus macular edema: D Diabetes mellitus intermediate insulin use: without intermediate designer use Laterality: L Chronic kidney disease stage: C Qualified Code(s): E11.65 - Type 2 diabetes mellitus with hyperglycemia Plan to address problem: Management as per primary care. (5) HTN (hypertension) Current Visit: No Status: Chronic Qualifiers: Hypertension type: essential hypertension Qualified Code(s): I10 - Essential (primary) hypertension Plan to address problem: Management as per primary care. (6) Bronchial asthma Current Visit: Yes Status: Acute Qualifiers: Asthma severity: A Asthma complication type: A Plan to address problem: History of bronchial asthma No asthma attack for last 10 years. Subjective Date of service: 04/16/17 Principal diagnosis: ESRD on Dialysis; Malfunctioning AV graft s/p Repair; S/P EkOS thrombolysis Interval history: Patient alert, awake, resting on room air. No complaint of chest pain,shortness of breath or cough. O2 saturation 97% on room air. Objective Vital Signs - 12hr 04/16/17 04/16/17 04/16/17 07:53 08:03 09:28 Temperature 98.5 F Pulse Rate 71 Pulse Rate [ 76 78 Anterior Bilateral Throughout] Respiratory 18 Rate Respiratory 18 18 Rate [Anterior Bilateral Throughout] Blood Pressure 108/62 O2 Sat by Pulse 96 97 Oximetry 04/16/17 04/16/17 14:14 14:25 Temperature Pulse Rate Pulse Rate [ 68 70 Anterior Bilateral Throughout] Respiratory Rate Respiratory 18 18 Rate [Anterior Bilateral Throughout] Blood Pressure O2 Sat by Pulse Oximetry Constitutional: no acute distress, alert Eyes: non-icteric ENT: oropharynx moist Neck: supple, no lymphadenopathy, no JVD Effort: normal Ascultation: Bilateral: diminished breath sounds (bases) Cardiovascular: regular rate and rhythm, other (holosystolic murmur) Gastrointestinal: normoactive bowel sounds, soft, non-tender, non-distended, other (Right upper quadrant surgical scar) Integumentary: other (Left upper extremity wound vac) Extremities: no cyanosis, no edema, pink and warm, no ischemia or petechiae Neurologic: normal mental status, non-focal exam (wekness of right upper extrmity(old)), pupils equal and round, motor strength normal and Psychiatric: mood appropriate, affect normal CBC and BMP: 04/14/17 09:52 04/13/17 04:08 ABG, PT/INR, D-dimer: PT/INR, D-dimer PT 17.6 Sec. (12.2-14.9) H 04/11/17 18:10 INR 1.45 (0.87-1.13) H 04/11/17 18:10 Abnormal lab findings: Abnormal Labs 04/05/17 04/05/17 04/05/17 11:45 11:45 18:19 WBC 12.4 H RBC 3.43 L Hgb 10.0 L Hct 30.2 L MCV MCHC RDW 15.6 H Plt Count Lymph % (Auto) [place] % (Auto) 8.7 H Lymph # [place] # 1.1 H Seg Neutrophils % Seg Neuts % (Manual) Lymphocytes % (Manual) Seg Neutrophils # 8.5 H Seg Neutrophils # Man Lymphocytes # (Manual) Monocytes # (Manual) PT INR APTT Fibrinogen Heparin Anti-Xa Level Sodium Chloride Carbon Dioxide BUN Creatinine 2.8 H Glucose POC Glucose 305 H Calcium ALT C-Reactive Protein Total Protein Albumin Lipase Crossmatch 04/05/17 04/06/17 04/06/17 22:33 07:51 07:51 WBC RBC Hgb 5.3 L* D Hct 16.4 L* D MCV MCHC RDW Plt Count Lymph % (Auto) [place] % (Auto) Lymph # [place] # Seg Neutrophils % Seg Neuts % (Manual) Lymphocytes % (Manual) Seg Neutrophils # Seg Neutrophils # Man Lymphocytes # (Manual) Monocytes # (Manual) PT INR APTT Fibrinogen Heparin Anti-Xa Level Sodium 136 L Chloride Carbon Dioxide 16 L D BUN 31 H Creatinine 4.1 H Glucose 180 H POC Glucose 189 H Calcium 7.8 L ALT C-Reactive Protein Total Protein Albumin Lipase Crossmatch 04/06/17 04/06/17 04/06/17 08:15 10:43 11:48 WBC 23.6 H RBC 1.83 L Hgb 5.2 L* Hct 16.9 L* MCV MCHC 31 L RDW 16.0 H Plt Count Lymph % (Auto) [place] % (Auto) Lymph # [place] # Seg Neutrophils % Seg Neuts % (Manual) 90.0 H Lymphocytes % (Manual) 5.0 L Seg Neutrophils # Seg Neutrophils # Man 21.2 H Lymphocytes # (Manual) Monocytes # (Manual) PT INR APTT Fibrinogen Heparin Anti-Xa Level Sodium Chloride Carbon Dioxide BUN Creatinine Glucose POC Glucose 201 H 241 H Calcium ALT C-Reactive Protein Total Protein Albumin Lipase Crossmatch 04/06/17 04/06/17 04/06/17 12:36 15:34 21:34 WBC RBC Hgb Hct MCV MCHC RDW Plt Count Lymph % (Auto) [place] % (Auto) Lymph # [place] # Seg Neutrophils % Seg Neuts % (Manual) Lymphocytes % (Manual) Seg Neutrophils # Seg Neutrophils # Man Lymphocytes # (Manual) Monocytes # (Manual) PT INR APTT Fibrinogen Heparin Anti-Xa Level Sodium Chloride Carbon Dioxide BUN Creatinine Glucose POC Glucose 232 H 171 H Calcium ALT C-Reactive Protein Total Protein Albumin Lipase Crossmatch See Detail 04/07/17 04/07/17 04/07/17 00:36 00:36 07:57 WBC RBC Hgb Hct MCV MCHC RDW Plt Count Lymph % (Auto) [place] % (Auto) Lymph # [place] # Seg Neutrophils % Seg Neuts % (Manual) Lymphocytes % (Manual) Seg Neutrophils # Seg Neutrophils # Man Lymphocytes # (Manual) Monocytes # (Manual) PT INR APTT Fibrinogen Heparin Anti-Xa Level Sodium Chloride Carbon Dioxide 20 L BUN 38 H Creatinine 4.2 H Glucose 147 H POC Glucose 179 H Calcium 8.1 L ALT < 5 L C-Reactive Protein Total Protein 6.2 L Albumin 3.0 L Lipase Crossmatch 04/07/17 04/07/17 04/07/17 10:02 10:57 16:14 WBC RBC Hgb 7.3 L Hct 21.7 L MCV MCHC RDW Plt Count Lymph % (Auto) [place] % (Auto) Lymph # [place] # Seg Neutrophils % Seg Neuts % (Manual) Lymphocytes % (Manual) Seg Neutrophils # Seg Neutrophils # Man Lymphocytes # (Manual) Monocytes # (Manual) PT INR APTT Fibrinogen Heparin Anti-Xa Level Sodium Chloride Carbon Dioxide BUN Creatinine Glucose POC Glucose 151 H 120 H Calcium ALT C-Reactive Protein Total Protein Albumin Lipase Crossmatch 04/07/17 04/08/17 04/08/17 21:46 07:51 16:09 WBC RBC Hgb Hct MCV MCHC RDW Plt Count Lymph % (Auto) [place] % (Auto) Lymph # [place] # Seg Neutrophils % Seg Neuts % (Manual) Lymphocytes % (Manual) Seg Neutrophils # Seg Neutrophils # Man Lymphocytes # (Manual) Monocytes # (Manual) PT INR APTT Fibrinogen Heparin Anti-Xa Level Sodium Chloride Carbon Dioxide BUN Creatinine Glucose POC Glucose 107 H < 40 L 57 L Calcium ALT C-Reactive Protein Total Protein Albumin Lipase Crossmatch 04/08/17 04/08/17 04/08/17 17:51 20:02 23:25 WBC RBC Hgb Hct MCV MCHC RDW Plt Count Lymph % (Auto) [place] % (Auto) Lymph # [place] # Seg Neutrophils % Seg Neuts % (Manual) Lymphocytes % (Manual) Seg Neutrophils # Seg Neutrophils # Man Lymphocytes # (Manual) Monocytes # (Manual) PT INR APTT Fibrinogen Heparin Anti-Xa Level Sodium Chloride Carbon Dioxide BUN Creatinine Glucose POC Glucose 132 H 140 H 119 H Calcium ALT C-Reactive Protein Total Protein Albumin Lipase Crossmatch 04/09/17 04/09/17 04/09/17 05:04 06:11 08:50 WBC 17.2 H RBC 2.00 L Hgb 5.9 L* Hct 17.7 L* MCV MCHC RDW 15.5 H Plt Count Lymph % (Auto) [place] % (Auto) Lymph # [place] # Seg Neutrophils % Seg Neuts % (Manual) Lymphocytes % (Manual) Seg Neutrophils # Seg Neutrophils # Man Lymphocytes # (Manual) Monocytes # (Manual) PT INR APTT Fibrinogen Heparin Anti-Xa Level Sodium Chloride Carbon Dioxide BUN Creatinine Glucose POC Glucose 161 H Calcium ALT C-Reactive Protein Total Protein Albumin Lipase Crossmatch See Detail 04/09/17 04/09/17 04/09/17 11:21 12:15 13:43 WBC RBC Hgb 5.5 L* Hct 17.5 L* MCV MCHC RDW Plt Count Lymph % (Auto) [place] % (Auto) Lymph # [place] # Seg Neutrophils % Seg Neuts % (Manual) Lymphocytes % (Manual) Seg Neutrophils # Seg Neutrophils # Man Lymphocytes # (Manual) Monocytes # (Manual) PT INR APTT Fibrinogen Heparin Anti-Xa Level Sodium 136 L Chloride Carbon Dioxide 18 L BUN 69 H Creatinine 5.8 H Glucose 120 H POC Glucose 209 H Calcium 7.6 L ALT C-Reactive Protein Total Protein Albumin Lipase Crossmatch 04/09/17 04/09/17 04/09/17 13:43 18:00 18:06 WBC RBC Hgb 8.8 L D Hct 26.6 L D MCV MCHC RDW Plt Count Lymph % (Auto) [place] % (Auto) Lymph # [place] # Seg Neutrophils % Seg Neuts % (Manual) Lymphocytes % (Manual) Seg Neutrophils # Seg Neutrophils # Man Lymphocytes # (Manual) Monocytes # (Manual) PT 19.6 H INR 1.66 H APTT 43.4 H Fibrinogen Heparin Anti-Xa Level Sodium Chloride Carbon Dioxide BUN Creatinine Glucose POC Glucose 190 H Calcium ALT C-Reactive Protein Total Protein Albumin Lipase Crossmatch 04/10/17 04/10/17 04/10/17 00:07 04:10 04:10 WBC RBC Hgb Hct MCV MCHC RDW Plt Count Lymph % (Auto) [place] % (Auto) Lymph # [place] # Seg Neutrophils % Seg Neuts % (Manual) Lymphocytes % (Manual) Seg Neutrophils # Seg Neutrophils # Man Lymphocytes # (Manual) Monocytes # (Manual) PT INR APTT Fibrinogen Heparin Anti-Xa Level Sodium 133 L Chloride Carbon Dioxide BUN 35 H Creatinine 3.6 H Glucose 166 H POC Glucose 177 H Calcium 8.2 L ALT C-Reactive Protein Total Protein Albumin Lipase 11 L Crossmatch 04/10/17 04/10/17 04/10/17 05:50 11:30 11:37 WBC 13.8 H RBC 2.90 L Hgb 8.5 L Hct 25.7 L MCV MCHC RDW Plt Count Lymph % (Auto) 6.7 L [place] % (Auto) Lymph # 0.9 L [place] # 1.0 H Seg Neutrophils % 84.4 H Seg Neuts % (Manual) Lymphocytes % (Manual) Seg Neutrophils # 11.6 H Seg Neutrophils # Man Lymphocytes # (Manual) Monocytes # (Manual) PT INR APTT Fibrinogen Heparin Anti-Xa Level Sodium Chloride Carbon Dioxide BUN Creatinine Glucose POC Glucose 199 H 189 H Calcium ALT C-Reactive Protein Total Protein Albumin Lipase Crossmatch 04/10/17 04/11/17 04/11/17 17:11 00:03 12:27 WBC RBC Hgb Hct MCV MCHC RDW Plt Count Lymph % (Auto) [place] % (Auto) Lymph # [place] # Seg Neutrophils % Seg Neuts % (Manual) Lymphocytes % (Manual) Seg Neutrophils # Seg Neutrophils # Man Lymphocytes # (Manual) Monocytes # (Manual) PT INR APTT Fibrinogen Heparin Anti-Xa Level Sodium Chloride Carbon Dioxide BUN Creatinine Glucose POC Glucose 162 H 180 H 135 H Calcium ALT C-Reactive Protein Total Protein Albumin Lipase Crossmatch 04/11/17 04/11/17 04/11/17 18:10 18:10 18:10 WBC 23.6 H RBC 3.26 L Hgb 9.5 L Hct 29.1 L MCV MCHC RDW Plt Count Lymph % (Auto) [place] % (Auto) Lymph # [place] # Seg Neutrophils % Seg Neuts % (Manual) 94.0 H Lymphocytes % (Manual) 2.0 L Seg Neutrophils # Seg Neutrophils # Man 22.2 H Lymphocytes # (Manual) 0.5 L Monocytes # (Manual) PT 17.6 H INR 1.45 H APTT 113.3 H* Fibrinogen Heparin Anti-Xa Level Sodium 132 L Chloride 95.5 L Carbon Dioxide 21 L BUN 52 H Creatinine 5.0 H Glucose 107 H POC Glucose Calcium 8.0 L ALT C-Reactive Protein Total Protein Albumin Lipase Crossmatch 04/11/17 04/11/17 04/11/17 18:10 20:44 23:46 WBC RBC Hgb Hct MCV MCHC RDW Plt Count Lymph % (Auto) [place] % (Auto) Lymph # [place] # Seg Neutrophils % Seg Neuts % (Manual) Lymphocytes % (Manual) Seg Neutrophils # Seg Neutrophils # Man Lymphocytes # (Manual) Monocytes # (Manual) PT INR APTT Fibrinogen 837 H Heparin Anti-Xa Level Sodium Chloride Carbon Dioxide BUN Creatinine Glucose POC Glucose 129 H 112 H Calcium ALT C-Reactive Protein Total Protein Albumin Lipase Crossmatch 04/12/17 04/12/17 04/12/17 01:40 03:57 03:57 WBC 23.9 H 26.5 H RBC 3.19 L 3.30 L Hgb 9.2 L 9.6 L Hct 30.9 L 30.0 L MCV 97 H MCHC 30 L RDW 16.9 H 15.4 H Plt Count 114 L Lymph % (Auto) [place] % (Auto) Lymph # [place] # Seg Neutrophils % Seg Neuts % (Manual) 83.0 H 81.0 H Lymphocytes % (Manual) 6.0 L 4.0 L Seg Neutrophils # Seg Neutrophils # Man 19.8 H 21.5 H Lymphocytes # (Manual) 1.1 L Monocytes # (Manual) 1.6 H PT INR APTT Fibrinogen Heparin Anti-Xa Level Sodium 131 L Chloride 94.1 L Carbon Dioxide 21 L BUN 57 H Creatinine 5.1 H Glucose POC Glucose Calcium 8.2 L ALT C-Reactive Protein Total Protein Albumin Lipase Crossmatch 04/12/17 04/12/17 04/12/17 03:57 13:44 13:44 WBC 29.7 H RBC 2.77 L Hgb 8.2 L Hct 25.0 L MCV MCHC RDW Plt Count Lymph % (Auto) [place] % (Auto) Lymph # [place] # Seg Neutrophils % Seg Neuts % (Manual) 94.0 H Lymphocytes % (Manual) 2.0 L Seg Neutrophils # Seg Neutrophils # Man 27.9 H Lymphocytes # (Manual) 0.6 L Monocytes # (Manual) 1.2 H PT INR APTT Fibrinogen 866 H 751 H Heparin Anti-Xa Level < 0.10 L < 0.10 L Sodium Chloride Carbon Dioxide BUN Creatinine Glucose POC Glucose Calcium ALT C-Reactive Protein Total Protein Albumin Lipase Crossmatch 04/12/17 04/12/17 04/13/17 18:27 23:26 04:08 WBC RBC Hgb Hct MCV MCHC RDW Plt Count Lymph % (Auto) [place] % (Auto) Lymph # [place] # Seg Neutrophils % Seg Neuts % (Manual) Lymphocytes % (Manual) Seg Neutrophils # Seg Neutrophils # Man Lymphocytes # (Manual) Monocytes # (Manual) PT INR APTT Fibrinogen Heparin Anti-Xa Level Sodium 136 L Chloride 95.3 L Carbon Dioxide BUN 36 H Creatinine 3.7 H Glucose 101 H POC Glucose 126 H 146 H Calcium 8.0 L ALT C-Reactive Protein Total Protein Albumin Lipase Crossmatch 04/13/17 04/13/17 04/13/17 04:08 05:29 11:57 WBC 24.2 H RBC 2.48 L Hgb 7.3 L Hct 22.0 L MCV MCHC RDW Plt Count Lymph % (Auto) [place] % (Auto) Lymph # [place] # Seg Neutrophils % Seg Neuts % (Manual) 77.0 H Lymphocytes % (Manual) 7.0 L Seg Neutrophils # Seg Neutrophils # Man 18.6 H Lymphocytes # (Manual) Monocytes # (Manual) 1.2 H PT INR APTT Fibrinogen Heparin Anti-Xa Level Sodium Chloride Carbon Dioxide BUN Creatinine Glucose POC Glucose 135 H 208 H Calcium ALT C-Reactive Protein Total Protein Albumin Lipase Crossmatch 04/13/17 04/13/17 04/13/17 17:27 17:37 22:03 WBC RBC Hgb Hct MCV MCHC RDW Plt Count Lymph % (Auto) [place] % (Auto) Lymph # [place] # Seg Neutrophils % Seg Neuts % (Manual) Lymphocytes % (Manual) Seg Neutrophils # Seg Neutrophils # Man Lymphocytes # (Manual) Monocytes # (Manual) PT INR APTT Fibrinogen Heparin Anti-Xa Level Sodium Chloride Carbon Dioxide BUN Creatinine Glucose POC Glucose 196 H 180 H Calcium ALT C-Reactive Protein 16.30 H Total Protein Albumin Lipase Crossmatch 04/14/17 04/14/17 04/14/17 06:41 09:52 16:14 WBC 30.8 H RBC 2.33 L Hgb 6.7 L Hct 20.2 L MCV MCHC RDW 15.3 H Plt Count Lymph % (Auto) [place] % (Auto) Lymph # [place] # Seg Neutrophils % Seg Neuts % (Manual) 96.5 H Lymphocytes % (Manual) 2.0 L Seg Neutrophils # Seg Neutrophils # Man 29.7 H Lymphocytes # (Manual) 0.6 L Monocytes # (Manual) PT INR APTT Fibrinogen Heparin Anti-Xa Level Sodium Chloride Carbon Dioxide BUN Creatinine Glucose POC Glucose 150 H 220 H Calcium ALT C-Reactive Protein Total Protein Albumin Lipase Crossmatch 04/14/17 04/15/17 04/15/17 21:46 06:27 11:14 WBC RBC Hgb Hct MCV MCHC RDW Plt Count Lymph % (Auto) [place] % (Auto) Lymph # [place] # Seg Neutrophils % Seg Neuts % (Manual) Lymphocytes % (Manual) Seg Neutrophils # Seg Neutrophils # Man Lymphocytes # (Manual) Monocytes # (Manual) PT INR APTT Fibrinogen Heparin Anti-Xa Level Sodium Chloride Carbon Dioxide BUN Creatinine Glucose POC Glucose 206 H 188 H 151 H Calcium ALT C-Reactive Protein Total Protein Albumin Lipase Crossmatch 04/15/17 04/15/17 04/16/17 15:45 22:36 06:45 WBC RBC Hgb Hct MCV MCHC RDW Plt Count Lymph % (Auto) [place] % (Auto) Lymph # [place] # Seg Neutrophils % Seg Neuts % (Manual) Lymphocytes % (Manual) Seg Neutrophils # Seg Neutrophils # Man Lymphocytes # (Manual) Monocytes # (Manual) PT INR APTT Fibrinogen Heparin Anti-Xa Level Sodium Chloride Carbon Dioxide BUN Creatinine Glucose POC Glucose 175 H 184 H Calcium ALT C-Reactive Protein Total Protein Albumin Lipase Crossmatch See Detail 04/16/17 04/16/17 11:45 16:52 WBC RBC Hgb Hct MCV MCHC RDW Plt Count Lymph % (Auto) [place] % (Auto) Lymph # [place] # Seg Neutrophils % Seg Neuts % (Manual) Lymphocytes % (Manual) Seg Neutrophils # Seg Neutrophils # Man Lymphocytes # (Manual) Monocytes # (Manual) PT INR APTT Fibrinogen Heparin Anti-Xa Level Sodium Chloride Carbon Dioxide BUN Creatinine Glucose POC Glucose 230 H 210 H Calcium ALT C-Reactive Protein Total Protein Albumin Lipase Crossmatch Chest x-ray: report reviewed (Reported left basilar atelectasis.)
[2017-04-19] MEDS ORDERED: ELIQUIS PO SCH (22:00)
== END 2017-04-16 19:40 | disposition home or self-care (01) | DRG 252 ==
LOC: OR 09:56 → CC1 18:14 → 4A 04-10 18:20 → CC1 04-11 19:13 → 3A 04-13 15:49
PROVIDERS: ADMIT Surgery Vascular Surgery; ATTEND Surgery Vascular Surgery
PROC: 0JBF0ZZ Excision of Left Upper Arm Subcutaneous Tissue and Fascia, Open Approach (ICD-10-PCS; 2017-04-05)
PROC: 03783ZZ Dilation of Left Brachial Artery, Percutaneous Approach (ICD-10-PCS; 2017-04-05)
PROC: 031 Upper Arteries, Bypass (ICD-10-PCS; 2017-04-05)
PROC: 30233N1 Transfusion of Nonautologous Red Blood Cells into Peripheral Vein, Percutaneous Approach (ICD-10-PCS; 2017-04-06)
PROC: 03C63ZZ Extirpation of Matter from Left Axillary Artery, Percutaneous Approach (ICD-10-PCS; 2017-04-09)
PROC: 03783DZ Dilation of Left Brachial Artery with Intraluminal Device, Percutaneous Approach (ICD-10-PCS; 2017-04-09)
PROC: 5A1D60Z (ICD-10-PCS; 2017-04-09)
PROC: 03C63ZZ Extirpation of Matter from Left Axillary Artery, Percutaneous Approach (ICD-10-PCS; 2017-04-11)
PROC: 03C83ZZ Extirpation of Matter from Left Brachial Artery, Percutaneous Approach (ICD-10-PCS; 2017-04-11)
PROC: 037A3ZZ Dilation of Left Ulnar Artery, Percutaneous Approach (ICD-10-PCS; 2017-04-11)
PROC: 037C3ZZ Dilation of Left Radial Artery, Percutaneous Approach (ICD-10-PCS; 2017-04-11)
PROC: B31J1ZZ Fluoroscopy of Left Upper Extremity Arteries using Low Osmolar Contrast (ICD-10-PCS; 2017-04-11)
PROC: 3E06317 Introduction of Other Thrombolytic into Central Artery, Percutaneous Approach (ICD-10-PCS; 2017-04-11)
PROC: 03763DZ Dilation of Left Axillary Artery with Intraluminal Device, Percutaneous Approach (ICD-10-PCS; principal; 2017-04-12)
PROC: 03C83ZZ Extirpation of Matter from Left Brachial Artery, Percutaneous Approach (ICD-10-PCS; 2017-04-12)
PROC: 03CA3ZZ Extirpation of Matter from Left Ulnar Artery, Percutaneous Approach (ICD-10-PCS; 2017-04-12)
PROC: 03CC3ZZ Extirpation of Matter from Left Radial Artery, Percutaneous Approach (ICD-10-PCS; 2017-04-12)
PROC: 03PYX3Z Removal of Infusion Device from Upper Artery, External Approach (ICD-10-PCS; 2017-04-12)
PROC: 03PYX3Z Removal of Infusion Device from Upper Artery, External Approach (ICD-10-PCS; 2017-04-15)
PROC: 3E06317 Introduction of Other Thrombolytic into Central Artery, Percutaneous Approach (ICD-10-PCS; 2017-04-15)
DX: T82.7XXA Infection and inflammatory reaction due to other cardiac and vascular devices, implants and grafts, initial encounter (principal); N18.6 End stage renal disease; J96.01 Acute respiratory failure with hypoxia; I12.0 Hypertensive chronic kidney disease with stage 5 chronic kidney disease or end stage renal disease; I69.354 Hemiplegia and hemiparesis following cerebral infarction affecting left non-dominant side; D62 Acute posthemorrhagic anemia; N25.81 Secondary hyperparathyroidism of renal origin; K92.2 Gastrointestinal hemorrhage, unspecified; E46 Unspecified protein-calorie malnutrition; T82.858A Stenosis of other vascular prosthetic devices, implants and grafts, initial encounter; Y92.89 Other specified places as the place of occurrence of the external cause; Y83.8 Other surgical procedures as the cause of abnormal reaction of the patient, or of later complication, without mention of misadventure at the time of the procedure; J44.9 Chronic obstructive pulmonary disease, unspecified; H54.8 Legal blindness, as defined in USA; I25.10 Atherosclerotic heart disease of native coronary artery without angina pectoris; R56.9 Unspecified convulsions; K21.9 Gastro-esophageal reflux disease without esophagitis; E11.22 Type 2 diabetes mellitus with diabetic chronic kidney disease; E66.9 Obesity, unspecified; E11.65 Type 2 diabetes mellitus with hyperglycemia; E78.5 Hyperlipidemia, unspecified; D63.1 Anemia in chronic kidney disease; E11.649 Type 2 diabetes mellitus with hypoglycemia without coma; Z99.2 Dependence on renal dialysis; Z95.5 Presence of coronary angioplasty implant and graft; Z68.32 Body mass index [BMI] 32.0-32.9, adult; Z79.84 Long term (current) use of oral hypoglycemic drugs
CPT/HCPCS: 36415; 36430; 37184; 37211; 37213; 37214; 37246; 37247; 71010; 74000; 74176; 75710; 76705; 80048; 80074; 80202; 82962; 83690; 85007; 85014; 85018; 85025; 85027; 85049; 85384; 85520; 85610; 85730; 86140; 86850; 86900; 86901; 86920; 87040; 94640; 94660; 94760; A9270-GY; C1725; C1757; C1760; C1768; C1769; C1884; C1887; C1894; G8987-GO; G8988-GO; J0690; J0885; J1100; J1170; J1200; J1644; J1815; J2250; J2270; J2405; J2543; J2704; J2997; J3010; J3246; J3370; J3490; J7030; J7040; J7050; J7070; P9016; P9047; Q9966; Q9967

== ENCOUNTER 2017-04-20 13:35 | Outpatient (CLI) | payer MEDICARE ==
[~2017-04-20 13:35] MED LIST changes: -ANCEF/STERILE WATER 2 GM/20 ML 2 GM/20 ML SYRINGE IV NR; +HEPARIN 10,000 UNITS/10 ML ONE; +HEPARIN/NS 5000 UNIT/500ML(CATH LAB) 0 ML IR ONE; +NACL 0.9% 250ML 250 ML ONE; +SUBLIMAZE ONE; +VERSED ONE; +XYLOCAINE 2% INFILTRATI ONE; +XYLOCAINE TOPICAL 4% TP ONE
[2017-04-20] MEDS ORDERED: XYLOCAINE TOPICAL 4% TP ONE (14:55)
[2017-04-20] MEDS ORDERED: NACL ONE (18:04)
== END 2017-04-20 13:36 | disposition home or self-care (01) ==
LOC: WOUND 13:35
PROVIDERS: ATTEND Surgery
DX: T81.89XA Other complications of procedures, not elsewhere classified, initial encounter (principal); E11.40 Type 2 diabetes mellitus with diabetic neuropathy, unspecified; E11.22 Type 2 diabetes mellitus with diabetic chronic kidney disease; I12.0 Hypertensive chronic kidney disease with stage 5 chronic kidney disease or end stage renal disease; N18.6 End stage renal disease; E78.00 Pure hypercholesterolemia, unspecified; J44.9 Chronic obstructive pulmonary disease, unspecified; Z86.73 Personal history of transient ischemic attack (TIA), and cerebral infarction without residual deficits; Z98.62 Peripheral vascular angioplasty status; Z72.89 Other problems related to lifestyle; Y92.89 Other specified places as the place of occurrence of the external cause; Y83.8 Other surgical procedures as the cause of abnormal reaction of the patient, or of later complication, without mention of misadventure at the time of the procedure
CPT/HCPCS: 11042; 11045; G0463; J1644; J2250; J3010; J7050

== ENCOUNTER 2017-04-22 09:06 | Outpatient (CLI) | payer MEDICARE | END 2017-04-22 09:07 | disposition home or self-care (01) | LOC: WOUND 09:06 | PROVIDERS: ATTEND Podiatrist | DX: T81.89XD Other complications of procedures, not elsewhere classified, subsequent encounter (principal); E11.22 Type 2 diabetes mellitus with diabetic chronic kidney disease; E11.40 Type 2 diabetes mellitus with diabetic neuropathy, unspecified; I12.0 Hypertensive chronic kidney disease with stage 5 chronic kidney disease or end stage renal disease; N18.6 End stage renal disease; E78.00 Pure hypercholesterolemia, unspecified; J44.9 Chronic obstructive pulmonary disease, unspecified; Z86.73 Personal history of transient ischemic attack (TIA), and cerebral infarction without residual deficits; Z98.62 Peripheral vascular angioplasty status; Z72.89 Other problems related to lifestyle; Y83.8 Other surgical procedures as the cause of abnormal reaction of the patient, or of later complication, without mention of misadventure at the time of the procedure | CPT/HCPCS: 97605 ==

== ENCOUNTER 2017-04-26 09:41 | Outpatient (CLI) | payer MEDICARE ==
[~2017-04-26 09:41] MED LIST changes: -HEPARIN 10,000 UNITS/10 ML ONE; -HEPARIN/NS 5000 UNIT/500ML(CATH LAB) 0 ML IR ONE; -NACL 0.9% 250ML 250 ML ONE; +NACL ONE; -SUBLIMAZE ONE; -VERSED ONE; -XYLOCAINE 2% INFILTRATI ONE; -XYLOCAINE TOPICAL 4% TP ONE
[2017-04-26] MEDS ORDERED: XYLOCAINE TOPICAL 4% TP ONE (10:03)
== END 2017-04-26 09:42 | disposition home or self-care (01) ==
LOC: WOUND 09:41
PROVIDERS: ATTEND Surgery
DX: T81.89XD Other complications of procedures, not elsewhere classified, subsequent encounter (principal); E11.9 Type 2 diabetes mellitus without complications; I10 Essential (primary) hypertension; E78.00 Pure hypercholesterolemia, unspecified; E11.40 Type 2 diabetes mellitus with diabetic neuropathy, unspecified; J44.9 Chronic obstructive pulmonary disease, unspecified; Z86.73 Personal history of transient ischemic attack (TIA), and cerebral infarction without residual deficits; Z98.62 Peripheral vascular angioplasty status; Z72.89 Other problems related to lifestyle; Y83.8 Other surgical procedures as the cause of abnormal reaction of the patient, or of later complication, without mention of misadventure at the time of the procedure
CPT/HCPCS: 97605

== ENCOUNTER 2017-04-29 09:34 | Outpatient (CLI) | payer MEDICARE | END 2017-04-29 09:35 | disposition home or self-care (01) | LOC: WOUND 09:34 | PROVIDERS: ATTEND Podiatrist | DX: T81.89XD Other complications of procedures, not elsewhere classified, subsequent encounter (principal); E11.22 Type 2 diabetes mellitus with diabetic chronic kidney disease; I12.0 Hypertensive chronic kidney disease with stage 5 chronic kidney disease or end stage renal disease; N18.6 End stage renal disease; E78.00 Pure hypercholesterolemia, unspecified; E11.40 Type 2 diabetes mellitus with diabetic neuropathy, unspecified; J44.9 Chronic obstructive pulmonary disease, unspecified; Z86.73 Personal history of transient ischemic attack (TIA), and cerebral infarction without residual deficits; Z98.62 Peripheral vascular angioplasty status; Z72.89 Other problems related to lifestyle; Y83.8 Other surgical procedures as the cause of abnormal reaction of the patient, or of later complication, without mention of misadventure at the time of the procedure | CPT/HCPCS: 97605 ==

== ENCOUNTER 2017-05-03 10:09 | Outpatient (CLI) | payer MEDICARE ==
[2017-05-03] MEDS ORDERED: XYLOCAINE TOPICAL 4% TP ONE (11:04)
== END 2017-05-03 10:10 | disposition home or self-care (01) ==
LOC: WOUND 10:09
PROVIDERS: ATTEND Surgery
DX: T81.89XD Other complications of procedures, not elsewhere classified, subsequent encounter (principal); E11.40 Type 2 diabetes mellitus with diabetic neuropathy, unspecified; E78.00 Pure hypercholesterolemia, unspecified; J44.9 Chronic obstructive pulmonary disease, unspecified; I10 Essential (primary) hypertension; Z86.73 Personal history of transient ischemic attack (TIA), and cerebral infarction without residual deficits; Y83.8 Other surgical procedures as the cause of abnormal reaction of the patient, or of later complication, without mention of misadventure at the time of the procedure

== ENCOUNTER 2017-05-17 09:06 | Outpatient (CLI) | payer MEDICARE ==
[~2017-05-17 09:06] MED LIST changes: +NACL 0.9 (PRIMING MACHINE ONLY DIALYSIS) MC ONE; +NACL 0.9% 0 ML IR ONE; +NACL 0.9% 250ML 0 ML ONE; -NACL ONE; +SUBLIMAZE ONE; +VERSED ONE; +XOPENEX IH ONE; +XYLOCAINE 2% INFILTRATI ONE
[2017-05-17] MEDS ORDERED: XYLOCAINE TOPICAL 4% TP ONE ×2 (09:31→14:45)
== END 2017-05-17 09:07 | disposition home or self-care (01) ==
LOC: WOUND 09:06
PROVIDERS: ATTEND Surgery
DX: T81.89XD Other complications of procedures, not elsewhere classified, subsequent encounter (principal); I75.012 Atheroembolism of left upper extremity; E11.22 Type 2 diabetes mellitus with diabetic chronic kidney disease; I12.0 Hypertensive chronic kidney disease with stage 5 chronic kidney disease or end stage renal disease; N18.6 End stage renal disease; E78.00 Pure hypercholesterolemia, unspecified; E11.40 Type 2 diabetes mellitus with diabetic neuropathy, unspecified; J44.9 Chronic obstructive pulmonary disease, unspecified; Z86.73 Personal history of transient ischemic attack (TIA), and cerebral infarction without residual deficits; Z72.89 Other problems related to lifestyle; Y83.8 Other surgical procedures as the cause of abnormal reaction of the patient, or of later complication, without mention of misadventure at the time of the procedure
CPT/HCPCS: 11042; J7030; J2250; J3010; J7050

== ENCOUNTER 2017-05-25 09:03 | Outpatient (CLI) | payer MEDICARE ==
[2017-05-25] MEDS ORDERED: XYLOCAINE TOPICAL 4% TP ONE ×2 (09:27→09:38)
== END 2017-05-25 09:04 | disposition home or self-care (01) ==
LOC: WOUND 09:03
PROVIDERS: ATTEND Surgery
DX: T81.89XD Other complications of procedures, not elsewhere classified, subsequent encounter (principal); E11.40 Type 2 diabetes mellitus with diabetic neuropathy, unspecified; I10 Essential (primary) hypertension; E78.00 Pure hypercholesterolemia, unspecified; J44.9 Chronic obstructive pulmonary disease, unspecified; Z86.73 Personal history of transient ischemic attack (TIA), and cerebral infarction without residual deficits; Z72.89 Other problems related to lifestyle; Y83.8 Other surgical procedures as the cause of abnormal reaction of the patient, or of later complication, without mention of misadventure at the time of the procedure

== ENCOUNTER 2017-05-31 12:53 | Outpatient (CLI) | payer MEDICARE ==
[2017-05-31] MEDS ORDERED: XYLOCAINE TOPICAL 4% TP ONE ×2 (13:35→14:00)
== END 2017-05-31 12:54 | disposition home or self-care (01) ==
LOC: WOUND 12:53
PROVIDERS: ATTEND Surgery
DX: T81.89XD Other complications of procedures, not elsewhere classified, subsequent encounter (principal); I75.012 Atheroembolism of left upper extremity; E11.22 Type 2 diabetes mellitus with diabetic chronic kidney disease; I12.0 Hypertensive chronic kidney disease with stage 5 chronic kidney disease or end stage renal disease; N18.6 End stage renal disease; Z99.2 Dependence on renal dialysis; E78.00 Pure hypercholesterolemia, unspecified; E11.40 Type 2 diabetes mellitus with diabetic neuropathy, unspecified; J44.9 Chronic obstructive pulmonary disease, unspecified; Z86.73 Personal history of transient ischemic attack (TIA), and cerebral infarction without residual deficits; Z72.89 Other problems related to lifestyle; Y83.8 Other surgical procedures as the cause of abnormal reaction of the patient, or of later complication, without mention of misadventure at the time of the procedure
CPT/HCPCS: 17250

== ENCOUNTER 2017-06-07 13:01 | Outpatient (CLI) | payer MEDICARE ==
[2017-06-07] MEDS ORDERED: XYLOCAINE TOPICAL 4% TP ONE (13:38)
== END 2017-06-07 13:02 | disposition home or self-care (01) ==
LOC: WOUND 13:01
PROVIDERS: ATTEND Surgery
DX: T81.89XD Other complications of procedures, not elsewhere classified, subsequent encounter (principal); E78.00 Pure hypercholesterolemia, unspecified; E11.40 Type 2 diabetes mellitus with diabetic neuropathy, unspecified; J44.9 Chronic obstructive pulmonary disease, unspecified; I10 Essential (primary) hypertension; Z86.73 Personal history of transient ischemic attack (TIA), and cerebral infarction without residual deficits; Z72.89 Other problems related to lifestyle; Y83.8 Other surgical procedures as the cause of abnormal reaction of the patient, or of later complication, without mention of misadventure at the time of the procedure

== ENCOUNTER 2017-07-27 06:08 | Day surgery (SDC) | payer MEDICARE ==
[~2017-07-27 06:08] MED LIST changes: +ANCEF/STERILE WATER 2 GM/20 ML 2 GM/20 ML SYRINGE IV NR; -NACL 0.9 (PRIMING MACHINE ONLY DIALYSIS) MC ONE; -NACL 0.9% 0 ML IR ONE; +NACL 0.9% 1000 ML 1,000 ML IV SCH; -NACL 0.9% 250ML 0 ML ONE; -SUBLIMAZE ONE; -VERSED ONE; -XOPENEX IH ONE; -XYLOCAINE 2% INFILTRATI ONE
[2017-07-27] MEDS ORDERED: NACL BACTERIOSTATIC INFILTRATI ONE (06:37)
[2017-07-27] MEDS ORDERED: VERSED IV NR (07:00)
[2017-07-27] MEDS ORDERED: PEPCID PO NR (07:00)
[2017-07-27] MEDS ORDERED: DILAUDID ONE (07:17)
[2017-07-27] MEDS ORDERED: DIPRIVAN 10 MG/ML IV ONE (07:17)
[2017-07-27 07:27] LABS: Basophils % (Auto) 0.6 % (0.0-1.8); Eosinophils % (Auto) 3.5 % (0.0-4.3); Hematocrit 38.2 % (35.5-45.6); Hemoglobin 12.7 gm/dl (11.8-15.2); Mean Corpuscular HGB Conc 33 % (32-34); Mean Corpuscular Hemoglobin 29 pg (28-32); Mean Corpuscular Volume 88 fl (84-94); Platelet Count 209 K/mm3 (140-440); Red Blood Count 4.37 M/mm3 (3.65-5.03); Red Cell Distribution Width 14.8 % (13.2-15.2); White Blood Count 7.4 K/mm3 (4.5-11.0)
[2017-07-27] MEDS ORDERED: PROTAMINE SULFATE ONE (07:31)
[2017-07-27] MEDS ORDERED: MARCAINE 0.5% 30 ML INFILTRATI ONE (07:31)
[2017-07-27] MEDS ORDERED: XYLOCAINE 1% 20 mL ONE (07:31)
[2017-07-27] MEDS ORDERED: SODIUM BICARBONATE ONE (07:32)
[2017-07-27] MEDS ORDERED: NACL 0.9% 500 ML 500 ML ONE (07:32)
[2017-07-27] MEDS ORDERED: HEPARIN 10,000 UNITS/10 ML ONE (07:32)
[2017-07-27 07:35] LABS: Chloride 103.5 mmol/L (98-107); Potassium 4.6 mmol/L (3.6-5.0)
--- NOTE | 2017-07-27 07:36 | Anesthesia Day of Surgery ---
Anesthesia Day of Surgery - Day of Surgery Patient Examined: Yes Patient H&P Reviewed: Yes Patient is NPO: Yes Beta Blockers: Yes
--- NOTE | 2017-07-27 07:36 | Anesthesia Consultation ---
Anesthesia Consult and Med Hx Date of service: 07/27/17 - Airway Anesthetic Teeth Evaluation: Good ROM Head & Neck: Adequate Mental/Hyoid Distance: Adequate Mallampati Class: Class II Intubation Access Assessment: Probably Good - Pulmonary Exam CTA: Yes - Cardiac Exam Cardiac Exam: RRR - Pre-Operative Health Status ASA Pre-Surgery Classification: ASA3 Proposed Anesthetic Plan: General - Pulmonary Hx Smoking: No Hx Asthma: Yes COPD: Yes Hx Sleep Apnea: No - Cardiovascular System Hx Hypertension: Yes Hx Coronary Artery Disease: Yes (stent ) Hx Peripheral Vascular Disease: Yes (neuropathy BLE) - Central Nervous System Hx Neuromuscular Disorder: No (LEGALLY BLIND) Hx Seizures: Yes (medication related, none in years) CVA: Yes (08/2010 , 09/2011, left sided weakness) Hx Psychiatric Problems: Yes - Gastrointestinal Hx Gastroesophageal Reflux Disease: Yes (occ) - Endocrine Hx Renal Disease: Yes Hx End Stage Renal Disease: Yes Hx Non-Insulin Dependent Diabetes: Yes - Hematic Hx Anemia: Yes Hx Sickle Cell Disease: No - Other Systems Hx Alcohol Use: No Hx Substance Use: No Hx Cancer: No Hx Obesity: Yes
[2017-07-27 07:39] LABS: INR 0.95 (0.87-1.13)
[2017-07-27] MEDS ORDERED: ePHEDrine SULFATE ONE (08:49)
[2017-07-27] MEDS ORDERED: NACL 0.9% IR ONE (09:34)
[2017-07-27] MEDS ORDERED: HEPARIN 10,000 UNITS/10 ML 2,000 UNIT in NACL 0.9% 500 ML 500 ML IR ONE (09:34)
[2017-07-27] MEDS ORDERED: MARCAINE 0.25% INFILTRATI ONE ×2 (09:34)
[2017-07-27] MEDS ORDERED: ZOFRAN ONE ×2 (11:53→14:30)
[2017-07-27] MEDS ORDERED: ROBINUL ONE (11:53)
[2017-07-27] MEDS ORDERED: NEO SYNEPHRINE ONE ×2 (11:53→12:13)
[2017-07-27] MEDS ORDERED: DECADRON ONE (11:53)
[2017-07-27] MEDS ORDERED: NACL 0.9% 100 ML ONE (11:53)
[2017-07-27] MEDS ORDERED: PROTAMINE SULFATE IV ONE (12:00)
[2017-07-27] MEDS ORDERED: NACL 0.9% 250ML 250 ML ONE (12:10)
[2017-07-27] MEDS ORDERED: DDAVP 20 MCG in NACL 0.9% 50 ML IV ONE (13:00)
--- NOTE | 2017-07-27 13:19 | Operative Report ---
Operative Report Operative Report: Date of procedure: 07/27/2017 Pre-operative diagnosis: Thrombosed hemodialysis access graft, end-stage renal disease requiring hemodialysis Post-operative diagnosis: [Same] Procedure name(s): [Patient of left axillary artery to axillary vein hemodialysis graft using 4-7 mm stepped propaten PTFE in looped chest wall configuration] Surgeon: William Reaves MD Pie Dough Roller: [Alex Valle PA-C] Anesthesia: [General] EBL: [75 mL ] Specimen(s): None Complications: [After with soft thrill and pulse thought to be secondary to diseased axillary artery and myocardial depression of general anesthesia] Findings: [Adequate axillary vein. Axillary artery thick-walled and diseased but with what appeared to be adequate flow. AV graft suboptimal thrill and bruit thought secondary to seizure induced myocardial depression] Procedure: [Patient in the supine position after chest neck and clavicular region were then prepped and draped using standard sterile technique. Transverse infraclavicular incision was then made over the deltopectoral groove and carried down through the soft tissue until the fascia was identified. She was divided transversely and the muscle splitting and dissection and utilized to go deep into the apex of the axilla until both the axillary vein and the axillary artery were identified and mobilized for several centimeters and encircled using vessel loops the subcutaneous tract of the graft was then marked and a curved Jyotsna-Wick tunneling device was then used to create the tunnels which were then anesthetized. The graft was then pulled through in a looped configuration and then the patient was heparinized. The artery was then occluded using DeBakey clamps and a longitudinal arteriotomy was then made. The wall of the artery was surprisingly thick and I did make sure that I was in the lumen by releasing flow briefly and confirming the luminal patency. An end- to-side anastomosis was then created between the 4 mm end of the stepped graft and artery 6-0 Prolene suture. The completion of the suture line antegrade and retrograde flushing was performed. The graft was occluded and flow was released back to the arm. Some minor adjustments in the configuration of the graft and then occluded the vein. A longitudinal venotomy was then made in the graft was trimmed to an appropriate length and configuration and an end-to-side anastomosis was then created using 6-0 Prolene suture 4 needle technique at the completion of the suture line air was evacuated and the graft was released with reinstitution of flow. There was then released retrograde into the arm and finally to the shoulder. There was a soft thrill and bruit in the graft although over time it became a little more difficult to feel but always there appeared to be pulsation and flow. Difficulty was compounded by the patient's requirement for pressors to maintain adequate blood pressure. Hemostasis was then obtained using FloSeal and Surgicel protamine and DDAVP. The incisions were then closed using 3-0 Vicryl subcutaneous for Monocryl subcuticular. Note that field blocks of Marcaine were placed in the tunnels and in the surgical incisions prior to suture. Skin was sealed with Dermabond and the patient was then extubated and returned to the recovery room in stable condition having tolerated procedure well. Sponge and needle counts were correct.
--- NOTE | 2017-07-27 13:25 | Short Stay Summary ---
Short Stay Documentation Date of service: 07/27/17 Narrative H&P: with multiple failed hemodialysis access grafts in the left arm admitted to the operating suite for outpatient creation of a proximal axillary artery to axillary vein AV graft in looped chest wall configuration on the left - Allergies and Medications Current Medications: Allergies No Known Allergies Allergy (Verified 03/21/17 10:06) Home Medications Medication Instructions Recorded Confirmed Last Taken Type Meclizine [Antivert] 25 mg PO TID PRN 01/04/17 07/27/17 2 Months Ago History ~05/27/17 glipiZIDE [Glucotrol] 5 mg PO BID 05/05/17 07/21/17 07/26/17 20:00 History Carvedilol [Coreg] 25 mg PO BID #60 tablet 05/11/17 07/27/17 07/27/17 05:40 Rx Clopidogrel [Plavix] 75 mg PO QDAY #30 tablet 05/11/17 07/21/17 07/26/17 20:00 Rx HYDROcodone/APAP 7.5-325 [[place] 1 each PO Q6HR PRN #12 tablet 05/11/17 07/27/17 1 Week Ago Rx 7.5-325 mg TAB] ~07/20/17 Zolpidem [Ambien] 10 mg PO QHS #30 tablet 05/11/17 07/21/17 07/26/17 20:00 Rx amLODIPine [Norvasc] 10 mg PO DAILY #30 tablet 05/11/17 07/21/17 07/26/17 20:00 Rx Active Medications Cefazolin Sodium (Ancef/Sterile Water 2 Gm/20 Ml) 2 gm in 20 mls @ 80 mls/hr IV PREOP NR PRN Reason: Protocol Stop: 07/27/17 23:59 Sodium Chloride (Nacl 0.9% 1000 Ml) 1,000 mls @ 42 mls/hr IV DIRECT RAUDEL Last Admin: 07/27/17 06:55 Dose: 42 mls/hr Desmopressin Acetate 20 mcg/ (Sodium Chloride) 55 mls @ 100 mls/hr IV ONCE ONE Stop: 07/27/17 13:32 Midazolam HCl (Versed) 2 mg IV PREOP NR Stop: 07/27/17 23:59 Last Admin: 07/27/17 07:46 Dose: 2 mg - Brief post op/procedure progress note Date of procedure: 07/27/17 Procedure: Pre-operative diagnosis: Thrombosed hemodialysis access graft, end-stage renal disease requiring hemodialysis Post-operative diagnosis: [Same] Procedure name(s): [Patient of left axillary artery to axillary vein hemodialysis graft using 4-7 mm stepped propaten PTFE in looped chest wall configuration] Surgeon: William Reaves MD Client Development Consultant: [Alex Valle PA-C] Anesthesia: [General] EBL: [75 mL ] Specimen(s): None Complications: [After with soft thrill and pulse thought to be secondary to diseased axillary artery and myocardial depression of general anesthesia] Findings: [Adequate axillary vein. Axillary artery thick-walled and diseased but with what appeared to be adequate flow. AV graft suboptimal thrill and bruit thought secondary to seizure induced myocardial depression] Procedure: [Patient in the supine position after chest neck and clavicular region were then prepped and draped using standard sterile technique. Transverse infraclavicular incision was then made over the deltopectoral groove and carried down through the soft tissue until the fascia was identified. She was divided transversely and the muscle splitting and dissection and utilized to go deep into the apex of the axilla until both the axillary vein and the axillary artery were identified and mobilized for several centimeters and encircled using vessel loops the subcutaneous tract of the graft was then marked and a curved Jyotsna-Wick tunneling device was then used to create the tunnels which were then anesthetized. The graft was then pulled through in a looped configuration and then the patient was heparinized. The artery was then occluded using DeBakey clamps and a longitudinal arteriotomy was then made. The wall of the artery was surprisingly thick and I did make sure that I was in the lumen by releasing flow briefly and confirming the luminal patency. An end- to-side anastomosis was then created between the 4 mm end of the stepped graft and artery 6-0 Prolene suture. The completion of the suture line antegrade and retrograde flushing was performed. The graft was occluded and flow was released back to the arm. Some minor adjustments in the configuration of the graft and then occluded the vein. A longitudinal venotomy was then made in the graft was trimmed to an appropriate length and configuration and an end-to-side anastomosis was then created using 6-0 Prolene suture 4 needle technique at the completion of the suture line air was evacuated and the graft was released with reinstitution of flow. There was then released retrograde into the arm and finally to the shoulder. There was a soft thrill and bruit in the graft although over time it became a little more difficult to feel but always there appeared to be pulsation and flow. Difficulty was compounded by the patient's requirement for pressors to maintain adequate blood pressure. Hemostasis was then obtained using FloSeal and Surgicel protamine and DDAVP. The incisions were then closed using 3-0 Vicryl subcutaneous for Monocryl subcuticular. Note that field blocks of Marcaine were placed in the tunnels and in the surgical incisions prior to suture. Skin was sealed with Dermabond and the patient was then extubated and returned to the recovery room in stable condition having tolerated procedure well. Sponge and needle counts were correct. - Hospital course Hospital course: AV graft with audible thrill and soft bruit. Left hand perfusion unchanged from preop - Disposition Condition at discharge: Stable - Discharge Diagnoses (1) AV graft malfunction Status: Chronic Qualifiers: Encounter type: subsequent encounter Qualified Code(s): T82.590D - Other mechanical complication of surgically created arteriovenous fistula, subsequent encounter (2) Chronic kidney disease with end stage renal failure on dialysis Status: Chronic Short Stay Discharge Plan Activity: advance as tolerated Weight Bearing Status: Full Weight Bearing Diet: diabetic, renal Wound: keep clean and dry Special Instructions: no heavy lifting Follow up with: MELODIE GARCES MD [Primary Care Provider] - 7 Days WILLIAM REAVES MD [Staff Physician] - 14 Days ALEKSEY MUNIZ MD [Staff Physician] - 7 Days Prescriptions: HYDROcodone/APAP 7.5-325 [[place] 7.5-325 mg TAB] 1 each PO Q6HR PRN #12 tablet PRN Reason: Pain
[2017-07-27] MEDS ORDERED: PERCOCET 5/325 PO PRN (14:21)
[2017-07-27] MEDS ORDERED: ZOFRAN IV ONE (14:27)
[2017-07-27 17:43] VITALS: BP 140/91
== END 2017-07-27 16:55 | disposition home or self-care (01) ==
LOC: OR 06:08
PROVIDERS: ATTEND Surgery Vascular Surgery
DX: T82.868A Thrombosis due to vascular prosthetic devices, implants and grafts, initial encounter (principal); E11.22 Type 2 diabetes mellitus with diabetic chronic kidney disease; I12.0 Hypertensive chronic kidney disease with stage 5 chronic kidney disease or end stage renal disease; N18.6 End stage renal disease; I25.10 Atherosclerotic heart disease of native coronary artery without angina pectoris; H54.8 Legal blindness, as defined in USA; J44.9 Chronic obstructive pulmonary disease, unspecified; E11.51 Type 2 diabetes mellitus with diabetic peripheral angiopathy without gangrene; K21.9 Gastro-esophageal reflux disease without esophagitis; E66.9 Obesity, unspecified; Z68.30 Body mass index [BMI] 30.0-30.9, adult; Z79.01 Long term (current) use of anticoagulants; Z79.899 Other long term (current) drug therapy; Z95.5 Presence of coronary angioplasty implant and graft; Z86.73 Personal history of transient ischemic attack (TIA), and cerebral infarction without residual deficits; Y83.2 Surgical operation with anastomosis, bypass or graft as the cause of abnormal reaction of the patient, or of later complication, without mention of misadventure at the time of the procedure
CPT/HCPCS: 36415; 36830; 80048; 82962; 85025; 85610; C1768; J0690; J1100; J1170; J1644; J2250; J2370; J2405; J2597; J2704; J2720; J7030; J7040; J7050

== ENCOUNTER 2017-08-17 08:49 | Day surgery (SDC) | payer MEDICARE ==
[~2017-08-17 08:49] MED LIST changes: -NACL 0.9% 1000 ML 1,000 ML IV SCH
[2017-08-17] MEDS ORDERED: HEPARIN 10,000 UNITS/10 ML ONE ×2 (11:25→12:15)
[2017-08-17] MEDS ORDERED: NACL 0.9% 500 ML 500 ML ONE (11:25)
[2017-08-17] MEDS ORDERED: ANCEF/STERILE WATER 2 GM/20 ML 2 GM/20 ML SYRINGE IV ONE (11:25)
[2017-08-17] MEDS ORDERED: HEPARIN/NS 5000 UNIT/500ML(CATH LAB) 1,000 ML IR ONE ×2 (11:25→12:14)
[2017-08-17] MEDS ORDERED: XYLOCAINE 2% INFILTRATI ONE ×2 (11:25→12:15)
[2017-08-17] MEDS: SUBLIMAZE ONE ×2 (11:39→12:33)
[2017-08-17] MEDS: VERSED ONE ×2 (11:39→11:50)
[2017-08-17] MEDS ORDERED: VERSED ONE (12:15)
[2017-08-17] MEDS ORDERED: SUBLIMAZE ONE (12:44)
--- NOTE | 2017-08-17 13:17 | Operative Report ---
Operative Report Operative Report: Date of procedure: 08/17/2017 Pre-operative diagnosis: Malfunction of AV access (graft), end-stage renal disease on hemodialysis Post-operative diagnosis: Same Procedure name(s): Hemodialysis fistulogram with angioplasty of the peripheral dialysis circuit, left chest Surgeon: William Reaves MD Mechanic Welder: None Anesthesia: Moderate sedation: Start time 1141-in time 1304 EBL: Minimal Specimen(s): None Complications: None Findings: High-grade stenosis at the arterial anastomosis successfully treated with balloon angioplasty slightly small axillary artery flow both arterial and venous side of the AV access Procedure:Patient in the supine position after adequate levels of conscious sedation was obtained the left chest was prepped and draped using standard sterile technique. The AV graft was then accessed using micropuncture technique and a microcatheter was advanced in an antegrade fashion towards the venous outflow. Contrast was injected which delineated the AV graft showing it to be patent through the venous anastomosis. A retrograde images were obtained which I initially interpreted as showing adequate inflow however I felt that the arterial inflow was still somewhat sluggish broke scrub and reevaluated the images obtained and came to the conclusion that there was a high-grade arterial stenosis or narrowing from extrinsic compression. During this time however the field was contaminated and we removed the micro-sheath and then we prepped and draped. I then accessed the graft once again using ultrasound guidance but this time in a retrograde fashion that is towards the arterial anastomosis. I then heparinized the patient. I then upsized to a 6 Martiniquais introducer and advanced a guidewire into the axillary artery. The wire initially went distally which was satisfactory. A 4 x 4 angioplasty balloon was then brought across the lesion and ultimately insufflated to 10 ino. This resulted in a significant improvement of the stenotic lesion. I redirected the wire proximally and repeated the same process. Venous outflow was excellent and no angioplasty was required. At this point the procedure was terminated by removal of the balloon and guidewire. The sheath was removed through a pursestring chromic suture . Patient tolerated the procedure well and was returned to the recovery area in stable condition.
--- NOTE | 2017-08-17 13:22 | Short Stay Summary ---
Short Stay Documentation Narrative H&P: To the A&P Mechanic for outpatient fistulogram and possible angioplasty - History H&P: obtained from office - Allergies and Medications Current Medications: Allergies No Known Allergies Allergy (Verified 03/21/17 10:06) Home Medications Medication Instructions Recorded Confirmed Last Taken Type Meclizine [Antivert] 25 mg PO TID PRN 01/04/17 08/17/17 2 Months Ago History ~05/27/17 glipiZIDE [Glucotrol] 5 mg PO BID 05/05/17 08/17/17 08/16/17 History 5mg Carvedilol [Coreg] 25 mg PO BID #60 tablet 05/11/17 08/17/17 08/16/17 Rx 25mg Clopidogrel [Plavix] 75 mg PO QDAY #30 tablet 05/11/17 08/17/17 08/16/17 Rx 75mg Zolpidem [Ambien] 10 mg PO QHS #30 tablet 05/11/17 08/17/17 07/26/17 20:00 Rx amLODIPine [Norvasc] 10 mg PO DAILY #30 tablet 05/11/17 08/17/17 08/16/17 Rx 10mg HYDROcodone/APAP 7.5-325 [[place] 1 each PO Q6HR PRN #12 tablet 07/27/17 08/17/17 Unknown Rx 7.5-325 mg TAB] Active Medications Cefazolin Sodium (Ancef/Sterile Water 2 Gm/20 Ml) 2 gm in 20 mls @ 80 mls/hr IV PREOP NR PRN Reason: Protocol Stop: 08/17/17 23:00 Last Admin: 08/17/17 11:41 Dose: 20 mls - Brief post op/procedure progress note Date of procedure: 08/17/17 Procedure: Date of procedure: 08/17/2017 Pre-operative diagnosis: Malfunction of AV access (graft), end-stage renal disease on hemodialysis Post-operative diagnosis: Same Procedure name(s): Hemodialysis fistulogram with angioplasty of the peripheral dialysis circuit, left chest Surgeon: William Reaves MD Manufacturing Engineer Assembly: None Anesthesia: Moderate sedation: Start time 1141-in time 1304 EBL: Minimal Specimen(s): None Complications: None Findings: High-grade stenosis at the arterial anastomosis successfully treated with balloon angioplasty slightly small axillary artery flow both arterial and venous side of the AV access Procedure:Patient in the supine position after adequate levels of conscious sedation was obtained the left chest was prepped and draped using standard sterile technique. The AV graft was then accessed using micropuncture technique and a microcatheter was advanced in an antegrade fashion towards the venous outflow. Contrast was injected which delineated the AV graft showing it to be patent through the venous anastomosis. A retrograde images were obtained which I initially interpreted as showing adequate inflow however I felt that the arterial inflow was still somewhat sluggish broke scrub and reevaluated the images obtained and came to the conclusion that there was a high-grade arterial stenosis or narrowing from extrinsic compression. During this time however the field was contaminated and we removed the micro-sheath and then we prepped and draped. I then accessed the graft once again using ultrasound guidance but this time in a retrograde fashion that is towards the arterial anastomosis. I then heparinized the patient. I then upsized to a 6 Swiss introducer and advanced a guidewire into the axillary artery. The wire initially went distally which was satisfactory. A 4 x 4 angioplasty balloon was then brought across the lesion and ultimately insufflated to 10 ino. This resulted in a significant improvement of the stenotic lesion. I redirected the wire proximally and repeated the same process. Venous outflow was excellent and no angioplasty was required. At this point the procedure was terminated by removal of the balloon and guidewire. The sheath was removed through a pursestring chromic suture . Patient tolerated the procedure well and was returned to the recovery area in stable condition. - Disposition Condition at discharge: Stable Disposition: DC-[id number] TO HOME OR SELFCARE - Discharge Diagnoses (1) AV graft malfunction Status: Chronic Qualifiers: Encounter type: initial encounter Qualified Code(s): T82.590A - Other mechanical complication of surgically created arteriovenous fistula, initial encounter (2) ESRD (end stage renal disease) on dialysis Status: Chronic Short Stay Discharge Plan Activity: advance as tolerated Weight Bearing Status: Weight Bear as Tolerated Diet: renal Wound: keep clean and dry Special Instructions: no heavy lifting Follow up with: ALEKSEY MUNIZ MD [Staff Physician] - 7 Days WILLIAM REAVES MD [Staff Physician] - 14 Days
[2017-08-17 14:20] VITALS: BP 131/66
--- NOTE | 2017-08-18 09:29 | Vascular Lab Report ---
MISCELLANEOUS VESSEL IDENTIFICATION: The arteriovenous access was identified in the left upper extremity and under real-time ultrasound guidance was cannulated. IMPRESSION: Successful ultrasound guided cannulation of the arteriovenous access site.
== END 2017-08-17 14:30 | disposition home or self-care (01) ==
LOC: CATHLABREC 08:49
PROVIDERS: ATTEND Surgery Vascular Surgery
DX: T82.858A Stenosis of other vascular prosthetic devices, implants and grafts, initial encounter (principal); T85.611A Breakdown (mechanical) of intraperitoneal dialysis catheter, initial encounter; N18.6 End stage renal disease; I25.10 Atherosclerotic heart disease of native coronary artery without angina pectoris; K21.9 Gastro-esophageal reflux disease without esophagitis; Z83.3 Family history of diabetes mellitus; Z79.899 Other long term (current) drug therapy; Z98.890 Other specified postprocedural states
CPT/HCPCS: 36415; 36902; 76937; 84132; 99156; 99157; C1725; C1769; C1894; J0690; J1644; J2250; J3010; J7040; Q9967

== ENCOUNTER 2018-08-17 14:54 | Inpatient (IN) | payer MEDICARE ==
[2018-08-17 16:23] LABS: Hematocrit 22.3 % (35.5-45.6); Hemoglobin 7.5 gm/dl (11.8-15.2); Mean Corpuscular HGB Conc 34 % (32-34); Mean Corpuscular Volume 94 fl (84-94); Platelet Count 180 K/mm3 (140-440); Red Blood Count 2.38 M/mm3 (3.65-5.03)
[2018-08-17 16:48] LABS: Calcium 7.6 mg/dL (8.4-10.2)
--- NOTE | 2018-08-17 18:48 | XRay Report ---
FINAL REPORT PROCEDURE: XR CHEST ROUTINE 2V TECHNIQUE: PA and lateral chest radiographs were obtained. CPT 86417 HISTORY: SOB, congestion, cough COMPARISON: No prior studies are available for comparison. FINDINGS: Heart: Prominent cardiac silhouette. Mediastinum/Vessels: Prominent central vessel. Lungs/Pleural space: No airspace consolidation is seen. Diffuse increased reticular markings. No infi ltrate, effusion, or pneumothorax is seen Bony thorax: No acute osseous abnormality. Other: IMPRESSION: Findings may be related to mild congestive heart failure or other interstitial process. No airspace c onsolidation is seen.
--- NOTE | 2018-08-17 18:49 | Emergency Department Report ---
HPI - General Chief Complaint: Upper Respiratory Infection Time Seen by Provider: 08/17/18 18:34 - HPI HPI: Room 25 The patient is a 47-year-old male presenting with chief complaint of weakness. The patient states for approximately 2-3 weeks he's had body aches and diffuse weakness. Patient states he didn't develop nasal and chest congestion for the past few weeks. Patient states his cough is productive of brownish sputum. She admits to subjective fever and rhinorrhea. The past 4 days the patient says shortness of breath. The patient states his urinary output has decreased over the past week. Patient states she would normally urinate approximately 30 ounces of urine overnight and has decreased to approximately 12-16 ounces Location: [See above] Duration: 2-3 weeks Quality: Weakness Severity: [See above] Modifying factors: [see above] Context: [see above] Mode of transportation: [not driving] ED Past Medical Hx - Past Medical History Hx Hypertension: Yes Hx Diabetes: Yes (20YRS) Hx Renal Disease: Yes Hx Seizures: Yes (medication related, none in years) Hx Asthma: Yes - Surgical History Hx Coronary Stent: Yes Additional Surgical History: L fistula. R chest permicath; knee - Family History Family history: no significant - Social History Smoking Status: Never Smoker Substance Use Type: None (denies illicit drug use), Alcohol (occasional) - Medications Home Medications: Home Medications Medication Instructions Recorded Confirmed Last Taken Type Meclizine [Antivert] 25 mg PO TID PRN 01/04/17 08/17/17 2 Months Ago History ~05/27/17 glipiZIDE [Glucotrol] 5 mg PO BID 05/05/17 08/17/17 08/16/17 History 5mg Carvedilol [Coreg] 25 mg PO BID #60 tablet 05/11/17 08/17/17 08/16/17 Rx 25mg Clopidogrel [Plavix] 75 mg PO QDAY #30 tablet 05/11/17 08/17/17 08/16/17 Rx 75mg Zolpidem [Ambien] 10 mg PO QHS #30 tablet 05/11/17 08/17/17 07/26/17 20:00 Rx amLODIPine [Norvasc] 10 mg PO DAILY #30 tablet 09/27/17 01/03/18 01/02/18 Rx 10mg HYDROcodone/APAP 7.5-325 [[place] 1 each PO Q6HR PRN #12 tablet 07/27/17 08/17/17 Unknown Rx 7.5-325 mg TAB] ED Review of Systems ROS: Stated complaint: FLU LIKE SYMPTOMS Other details as noted in HPI Constitutional: fever (subjective) Eyes: denies: eye pain ENT: congestion Respiratory: shortness of breath Cardiovascular: denies: chest pain Endocrine: no symptoms reported Gastrointestinal: denies: abdominal pain Genitourinary: denies: dysuria Musculoskeletal: myalgia Neurological: denies: headache Physical Exam - Physical Exam Vital Signs: Vital Signs 08/17/18 08/17/18 15:35 17:59 Temperature 97.4 F L 97.7 F Pulse Rate 68 71 Respiratory 18 14 Rate Blood Pressure 132/66 144/74 O2 Sat by Pulse 98 98 Oximetry Physical Exam: GENERAL: The patient is well-developed well-nourished male lying on stretcher not appearing to be in acute distress. [] HEENT: Normocephalic. Atraumatic. Extraocular motions are intact. Patient has moist mucous membranes. NECK: Supple. Trachea midline CHEST/LUNGS: Clear to auscultation. There is no respiratory distress noted. HEART/CARDIOVASCULAR: Regular. There is no tachycardia. There is no gallop rub or murmur. ABDOMEN: Abdomen is soft, nontender. Patient has normal bowel sounds. There is no abdominal distention. SKIN: There is no rash. There is trace to 1+ bilateral lower external pitting edema. There is no diaphoresis. NEURO: The patient is awake, alert, and oriented. The patient is cooperative. The patient has normal speech MUSCULOSKELETAL: There is no evidence of acute injury. ED Course Vital Signs 08/17/18 08/17/18 15:35 17:59 Temperature 97.4 F L 97.7 F Pulse Rate 68 71 Respiratory 18 14 Rate Blood Pressure 132/66 144/74 O2 Sat by Pulse 98 98 Oximetry - Consultations Consultation #1: 08/17/18 18:50 Nephrology paged 08/17/18 19:[address] Menendez-agrees with transfusion of 1 unit PRBCs. Request patient be made nothing by mouth after midnight in preparation for Vas- Cath ED Medical Decision Making - Lab Data Result diagrams: 08/17/18 16:08 08/17/18 16:08 Laboratory Tests 08/17/18 08/17/18 16:08 16:08 WBC 8.0 RBC 2.38 L Hgb 7.5 L Hct 22.3 L MCV 94 MCH 32 MCHC 34 RDW 15.0 Plt Count 180 Sodium 142 Potassium 4.5 Chloride 97.3 L Carbon Dioxide 24 Anion Gap 25 BUN 101 H Creatinine 9.0 H Estimated GFR 6 BUN/Creatinine Ratio 11 Glucose 88 Calcium 7.6 L - Radiology Data Radiology results: report reviewed (chest x-ray), image reviewed (chest x-ray) interpreted by me: Chest x-ray-no focal drift, no pneumothorax. Mild vascular congestion Chest x-ray (regular radiologist)-findings may be related to mild congestive heart failure or other interstitial process. No airspace consolidation is seen. - Differential Diagnosis renal failure, influenza Critical care attestation.: If time is entered above; I have spent that time in minutes in the direct care of this critically ill patient, excluding procedure time. ED Disposition Clinical Impression: Acute renal failure, Symptomatic anemia Disposition: OP ADMIT IP TO THIS HOSP Is pt being admited?: Yes Does the pt Need Aspirin: No Condition: Stable Referrals: MELODIE GARCES MD [Primary Care Provider] - 3-5 Days Time of Disposition: 19:01 (hospitalist notified (Dr Cates))
[2018-08-17] MEDS ORDERED: NACL 0.9% 500 ML 500 ML IV ONE (19:00)
[2018-08-17] MEDS ORDERED: NACL 0.9% 500 ML 500 ML ONE (20:47)
[2018-08-17] MEDS ORDERED: D50W (25GM) Syringe IV PRN (22:30)
[2018-08-17] MEDS ORDERED: SODIUM CHLORIDE FLUSH SYRINGE 10 ML IV PRN (22:30)
[2018-08-17] MEDS ORDERED: REGLAN IV PRN (22:30)
[2018-08-17] MEDS ORDERED: ZOFRAN IV PRN (22:30)
[2018-08-17] MEDS ORDERED: TYLENOL PO PRN (22:30)
--- NOTE | 2018-08-17 22:32 | History and Physical Report ---
History of Present Illness Date of examination: 08/17/18 Date of admission: 08/17/18 19:04 History of present illness: 47-year-old man with a history of hypertension, diabetes, asthma, legally blind, coronary artery disease was on dialysis, he was taken off dialysis for one year now, comes to emergency room with complaints of shortness of breath, lower extremity edema, fatigue, orthopnea and decreased appetite 1 week Review of systems Constitutional: no weight loss, chills, fever Ears, eyes, nose, mouth and throat: no nasal congestion, no nasal discharge, no sinus pressure, no vision change, no red eye. Neck: No neck pain or rigidity. Cardiovascular: no palpitations, chest pain Respiratory: no cough Gastrointestinal: no hematochezia, abdominal pain Genitourinary : no frequency , no hematuria Musculoskeletal: no joint swelling or muscle ache Integumentary: no rash, no pruritis Neurological: no parathesias, no focal weakness Endocrine: no cold or heat intolerance, no polyuria or polydipsia Hematologic/Lymphatic: no easy bruising, no easy bleeding, no gland swelling Allergic/Immunologic: no urticaria, no angioedema. PAST MEDICAL HISTORY: hypertension, diabetes, asthma, coronary artery disease, legally blind PAST SURGICAL HISTORY: AV fistula SOCIAL HISTORY: Denies alcohol, drugs, tobacco FAMILY HISTORY: Hypertension Medications and Allergies Allergies Allergy/AdvReac Type Severity Reaction Status Date / Time No Known Allergies Allergy Verified 03/21/17 10:06 Home Medications Medication Instructions Recorded Confirmed Last Taken Type Meclizine [Antivert] 25 mg PO TID PRN 01/04/17 08/17/18 2 Months Ago History ~05/27/17 glipiZIDE [Glucotrol] 5 mg PO BID 05/05/17 08/17/18 1 Day Ago History ~08/16/18 Carvedilol [Coreg] 25 mg PO BID #60 tablet 05/11/17 08/17/18 08/16/17 Rx 25mg Clopidogrel [Plavix] 75 mg PO QDAY #30 tablet 05/11/17 08/17/18 08/16/17 Rx 75mg Zolpidem [Ambien] 10 mg PO QHS #30 tablet 05/11/17 08/17/18 07/26/17 20:00 Rx Furosemide [Lasix] 80 mg PO DAILY 08/17/18 08/17/18 Unknown History NIFEdipine [Nifedipine ER] 30 mg PO DAILY 08/17/18 08/17/18 Unknown History Sodium Bicarbonate 10 gm PO DAILY 08/17/18 08/17/18 Unknown History Exam - Physical Exam Narrative exam: General Apperance: The patient lying in bed, breathing comfortable HEENT: Normocephalic, atraumatic. Pupils equally round and reactive to light, EOMI, no sclericterus or JVD or thyromegaly or nodule. , no carotid bruit, mucous membranes moist, no exudate or erythema Heart: S1-S2, regular is rhythm Lungs: Crackles bilaterally, breathing comfortable Abdomen: Positive bowel sounds, soft, nontender, nondistended, no organomegaly Extremities: Trace edema cyanosis clubbing Skin: no rash, nodule, warm and dry Neuro: cranial nerves 2-12 intact, speech is fluent, motor/sensory intact - Constitutional Vitals: Temp Pulse Resp BP Pulse Ox 97.6 F 75 18 171/88 99 08/17/18 19:20 08/17/18 20:46 08/17/18 20:46 08/17/18 20:46 08/17/18 20:46 Results - Labs CBC & Chem 7: 08/17/18 16:08 08/17/18 16:08 Labs: Abnormal lab results 08/17/18 08/17/18 08/17/18 Range/Units 16:08 16:08 20:00 RBC 2.38 L (3.65-5.03) M/mm3 Hgb 7.5 L (11.8-15.2) gm/dl Hct 22.3 L (35.5-45.6) % Chloride 97.3 L (98-107) mmol/L BUN 101 H (9-20) mg/dL Creatinine 9.0 H (0.8-1.5) mg/dL Calcium 7.6 L (8.4-10.2) mg/dL Crossmatch See Detail - Imaging and Cardiology EKG: image reviewed Chest x-ray: report reviewed Assessment and Plan Assessment Fluid overload Anemia hypertension diabetes asthma coronary artery disease Legally blind Plan Patient to restart dialysis, renal is consulted to see the patient Transfuse blood Check fingersticks initiate insulin sliding scale DVT prophylaxis
[2018-08-17] MEDS: PERCOCET 5/325 PO PRN (23:33)
[2018-08-18] MEDS ORDERED: APRESOLINE IV PRN (00:28)
[2018-08-18 02:03] LABS: Creatine Kinase MB 4.1 ng/mL (0.0-4.0)
[2018-08-18 02:27] LABS: Chol/HDL Ratio 6.58 %
[2018-08-18] MEDS: SODIUM CHLORIDE FLUSH SYRINGE 10 ML IV SCH ×3 (05:16→21:29)
[2018-08-18 08:15] LABS: Basophils # (Auto) 0.1 K/mm3 (0.0-0.1); Basophils % (Auto) 0.7 % (0.0-1.8); Eosinophils # (Auto) 0.4 K/mm3 (0.0-0.4); Eosinophils % (Auto) 4.8 % (0.0-4.3); Hematocrit 25.4 % (35.5-45.6); Hemoglobin 8.8 gm/dl (11.8-15.2); Lymphocytes # (Auto) 1.4 K/mm3 (1.2-5.4); Lymphocytes % (Auto) 17.2 % (13.4-35.0); Mean Corpuscular HGB Conc 35 % (32-34); Mean Corpuscular Volume 92 fl (84-94); Monocytes # (Auto) 0.4 K/mm3 (0.0-0.8); Platelet Count 169 K/mm3 (140-440); Red Blood Count 2.77 M/mm3 (3.65-5.03); Red Cell Distribution Width 15.5 % (13.2-15.2)
[2018-08-18 08:33] LABS: Creatine Kinase MB 3.7 ng/mL (0.0-4.0)
[2018-08-18 08:34] LABS: Calcium 7.5 mg/dL (8.4-10.2)
[2018-08-18] MEDS ORDERED: NON-FORMULARY (Furosemide [Lasix] 80 MG) PO SCH (10:00)
[2018-08-18] MEDS ORDERED: SODIUM BICARBONATE 10 GM PO SCH (10:00)
[2018-08-18] MEDS ORDERED: PROVENTIL IH PRN (10:50)
[2018-08-18] MEDS ORDERED: LASIX IV NR (10:51)
[2018-08-18] MEDS: GLUCOTROL PO SCH ×2 (10:53→21:28)
[2018-08-18] MEDS: COREG PO SCH ×2 (10:54→21:28)
[2018-08-18] MEDS: PLAVIX PO SCH (10:54)
[2018-08-18] MEDS: LASIX PO SCH (10:54)
[2018-08-18] MEDS: PROCARDIA XL PO SCH (10:54)
[2018-08-18 11:17] LABS: Hepatitis B Surface Antigen Non-Reactive (Negative); Hepatitis C Virus Antibody Non-Reactive (NonReactive)
--- NOTE | 2018-08-18 12:34 | Consultation ---
History of Present Illness - Reason for Consult Consult date: 08/18/18 ESRD - History of Present Illness With a history of end-stage renal disease who previously was on dialysis. He has a failed left arm fistula, and has had multiple catheters in the past. Approximately 1 year ago, he underwent creation of a left chest wall axillary axillary loop graft. The graft is widely patent with an easily palpable thrill. Past History Past Medical History: dialysis, ESRD Past Surgical History: Other (left chest wall loop graft) Social history: no significant social history Family history: no significant family history Medications and Allergies Allergies Allergy/AdvReac Type Severity Reaction Status Date / Time No Known Allergies Allergy Verified 03/21/17 10:06 Home Medications Medication Instructions Recorded Confirmed Last Taken Type Meclizine [Antivert] 25 mg PO TID PRN 01/04/17 08/17/18 2 Months Ago History ~05/27/17 glipiZIDE [Glucotrol] 5 mg PO BID 05/05/17 08/17/18 1 Day Ago History ~08/16/18 Carvedilol [Coreg] 25 mg PO BID #60 tablet 05/11/17 08/17/18 08/16/17 Rx 25mg Clopidogrel [Plavix] 75 mg PO QDAY #30 tablet 05/11/17 08/17/18 08/16/17 Rx 75mg Zolpidem [Ambien] 10 mg PO QHS #30 tablet 05/11/17 08/17/18 07/26/17 20:00 Rx Furosemide [Lasix] 80 mg PO DAILY 08/17/18 08/17/18 Unknown History NIFEdipine [Nifedipine ER] 30 mg PO DAILY 08/17/18 08/17/18 Unknown History Sodium Bicarbonate 10 gm PO DAILY 08/17/18 08/17/18 Unknown History Active Meds: Active Medications Acetaminophen (Tylenol) 650 mg PO Q4H PRN PRN Reason: Pain MILD(1-3)/Fever >100.5/BEJARANO Albuterol (Proventil) 2.5 mg IH Q4HRT PRN PRN Reason: Shortness Of Breath Carvedilol (Coreg) 25 mg PO BID [facility] Last Admin: 08/18/18 10:54 Dose: 25 mg Documented by: Clopidogrel Bisulfate (Plavix) 75 mg PO QDAY [facility] Last Admin: 08/18/18 10:54 Dose: Not Given Documented by: Dextrose (D50w (25gm) Syringe) 50 ml IV PRN PRN PRN Reason: Hypoglycemia Furosemide (Lasix) 80 mg PO DAILY [facility] Last Admin: 08/18/18 10:54 Dose: Not Given Documented by: Glipizide (Glucotrol) 5 mg PO BID [facility] Last Admin: 08/18/18 10:53 Dose: Not Given Documented by: Hydralazine HCl (Apresoline) 5 mg IV Q6HR PRN PRN Reason: Hypertension Meclizine HCl (Antivert) 25 mg PO TID PRN PRN Reason: Vertigo Metoclopramide HCl (Reglan) 10 mg IV Q6H PRN PRN Reason: Nausea And Vomiting Miscellaneous Medication (Sodium Bicarbonate) 10 gm PO DAILY [facility] Nifedipine (Procardia Xl) 30 mg PO DAILY [facility] Last Admin: 08/18/18 10:54 Dose: Not Given Documented by: Ondansetron HCl (Zofran) 4 mg IV Q8H PRN PRN Reason: Nausea And Vomiting Oxycodone/Acetaminophen (Percocet 5/325) 1 tab PO Q6H PRN PRN Reason: Pain, Moderate (4-6) Last Admin: 08/17/18 23:33 Dose: 1 tab Documented by: Sodium Chloride (Sodium Chloride Flush Syringe 10 Ml) 10 ml IV BID [facility] Last Admin: 08/18/18 11:02 Dose: 10 ml Documented by: Sodium Chloride (Sodium Chloride Flush Syringe 10 Ml) 10 ml IV PRN PRN PRN Reason: LINE FLUSH Zolpidem Tartrate (Ambien) 10 mg PO QHS [facility] Review of Systems All systems: negative Constitutional: fatigue, weakness Exam - Constitutional Vitals: Temp Pulse Resp BP Pulse Ox 98.5 F 76 16 148/78 95 08/18/18 05:54 08/18/18 10:54 08/18/18 05:54 08/18/18 10:54 08/18/18 05:54 General appearance: Present: no acute distress - EENT Eyes: Present: EOM intact ENT: hearing intact - Neck Neck: Present: supple, normal ROM - Respiratory Respiratory effort: normal - Extremities Extremities: abnormal - Abdominal General gastrointestinal: Present: deferred Male genitourinary: Present: deferred - Rectal Rectal Exam: deferred - Psychiatric Psychiatric: appropriate mood/affect, cooperative Results - Labs CBC & Chem 7: 08/18/18 07:47 08/18/18 07:47 Labs: Abnormal lab results 08/17/18 08/17/18 08/17/18 Range/Units 16:08 16:08 20:00 RBC 2.38 L (3.65-5.03) M/mm3 Hgb 7.5 L (11.8-15.2) gm/dl Hct 22.3 L (35.5-45.6) % MCHC (32-34) % RDW (13.2-15.2) % Eos % (Auto) (0.0-4.3) % Seg Neutrophils % (40.0-70.0) % Chloride 97.3 L (98-107) mmol/L BUN 101 H (9-20) mg/dL Creatinine 9.0 H (0.8-1.5) mg/dL Glucose (75-100) mg/dL Calcium 7.6 L (8.4-10.2) mg/dL Total Creatine Kinase (55-170) units/L CK-MB (CK-2) (0.0-4.0) ng/mL Troponin T (0.00-0.029) ng/mL HDL Cholesterol (40-59) mg/dL Crossmatch See Detail 08/17/18 08/18/18 08/18/18 Range/Units 22:59 07:47 07:47 RBC 2.77 L (3.65-5.03) M/mm3 Hgb 8.8 L (11.8-15.2) gm/dl Hct 25.4 L (35.5-45.6) % MCHC 35 H (32-34) % RDW 15.5 H (13.2-15.2) % Eos % (Auto) 4.8 H (0.0-4.3) % Seg Neutrophils % 72.3 H (40.0-70.0) % Chloride (98-107) mmol/L BUN 96 H (9-20) mg/dL Creatinine 9.3 H (0.8-1.5) mg/dL Glucose 66 L (75-100) mg/dL Calcium 7.5 L (8.4-10.2) mg/dL Total Creatine Kinase 177 H 176 H (55-170) units/L CK-MB (CK-2) 4.1 H (0.0-4.0) ng/mL Troponin T 0.065 H 0.088 H D (0.00-0.029) ng/mL HDL Cholesterol 24 L (40-59) mg/dL Crossmatch Assessment and Plan Patient has a functioning left chest wall loop graft. This should be cannulated for dialysis access. We'll obtain a vascular lab ultrasound to document its patency.
--- NOTE | 2018-08-18 13:24 | Consultation ---
History of Present Illness - Reason for Consult Consult date: 08/18/18 end stage renal disease Requesting physician: CARLOS GIRON - History of Present Illness The patient is a 47-year-old male presenting with chief complaint of weakness. The patient states for approximately 2-3 weeks he's had body aches and diffuse weakness. Patient states he didn't develop nasal and chest congestion for the past few weeks. Patient states his cough is productive of brownish sputum. She admits to subjective fever and rhinorrhea. The past 4 days the patient says shortness of breath. The patient states his urinary output has decreased over the past week. Patient states she would normally urinate approximately 30 ounces of urine overnight and has decreased to approximately 12-16 ounces. His appetite has been poor as well. He has had some nausea and vomiting also Patient used to be on dialysis in the past. However he did have some improvement in his renal function and was taken off dialysis about a year ago. He used to go to [facility]. He was in dialysis for approximately a year. He has had multiple failed dialysis accesses in the past. Finally he had a left chest loop graft placed about a year ago. It has however never been used Past History Past Medical History: CAD, diabetes, dialysis, ESRD, hypertension Past Surgical History: Other (left chest wall loop graft) Social history: no significant social history Family history: no significant family history Medications and Allergies Allergies Allergy/AdvReac Type Severity Reaction Status Date / Time No Known Allergies Allergy Verified 03/21/17 10:06 Home Medications Medication Instructions Recorded Confirmed Last Taken Type Meclizine [Antivert] 25 mg PO TID PRN 01/04/17 08/17/18 2 Months Ago History ~05/27/17 glipiZIDE [Glucotrol] 5 mg PO BID 05/05/17 08/17/18 1 Day Ago History ~08/16/18 Carvedilol [Coreg] 25 mg PO BID #60 tablet 05/11/17 08/17/18 08/16/17 Rx 25mg Clopidogrel [Plavix] 75 mg PO QDAY #30 tablet 05/11/17 08/17/18 08/16/17 Rx 75mg Zolpidem [Ambien] 10 mg PO QHS #30 tablet 05/11/17 08/17/18 07/26/17 20:00 Rx Furosemide [Lasix] 80 mg PO DAILY 08/17/18 08/17/18 Unknown History NIFEdipine [Nifedipine ER] 30 mg PO DAILY 08/17/18 08/17/18 Unknown History Sodium Bicarbonate 10 gm PO DAILY 08/17/18 08/17/18 Unknown History Active Meds: Active Medications Acetaminophen (Tylenol) 650 mg PO Q4H PRN PRN Reason: Pain MILD(1-3)/Fever >100.5/BEJARANO Albuterol (Proventil) 2.5 mg IH Q4HRT PRN PRN Reason: Shortness Of Breath Carvedilol (Coreg) 25 mg PO BID [facility] Last Admin: 08/18/18 10:54 Dose: 25 mg Documented by: Clopidogrel Bisulfate (Plavix) 75 mg PO QDAY [facility] Last Admin: 08/18/18 10:54 Dose: Not Given Documented by: Dextrose (D50w (25gm) Syringe) 50 ml IV PRN PRN PRN Reason: Hypoglycemia Furosemide (Lasix) 80 mg PO DAILY [facility] Last Admin: 08/18/18 10:54 Dose: Not Given Documented by: Glipizide (Glucotrol) 5 mg PO BID [facility] Last Admin: 08/18/18 10:53 Dose: Not Given Documented by: Hydralazine HCl (Apresoline) 5 mg IV Q6HR PRN PRN Reason: Hypertension Sodium Chloride (Nacl 0.9%) 100 mls @ 999 mls/hr IV TERRANCE PRN PRN Reason: Hypotension Meclizine HCl (Antivert) 25 mg PO TID PRN PRN Reason: Vertigo Metoclopramide HCl (Reglan) 10 mg IV Q6H PRN PRN Reason: Nausea And Vomiting Miscellaneous Medication (Sodium Bicarbonate) 10 gm PO DAILY [facility] Nifedipine (Procardia Xl) 30 mg PO DAILY [facility] Last Admin: 08/18/18 10:54 Dose: Not Given Documented by: Ondansetron HCl (Zofran) 4 mg IV Q8H PRN PRN Reason: Nausea And Vomiting Oxycodone/Acetaminophen (Percocet 5/325) 1 tab PO Q6H PRN PRN Reason: Pain, Moderate (4-6) Last Admin: 08/17/18 23:33 Dose: 1 tab Documented by: Sodium Chloride (Sodium Chloride Flush Syringe 10 Ml) 10 ml IV BID [facility] Last Admin: 08/18/18 11:02 Dose: 10 ml Documented by: Sodium Chloride (Sodium Chloride Flush Syringe 10 Ml) 10 ml IV PRN PRN PRN Reason: LINE FLUSH Zolpidem Tartrate (Ambien) 10 mg PO QHS [facility] Review of Systems All systems: negative (negative except as noted above) Exam - Vital Signs Vital signs: Vital Signs Temp Pulse Resp BP Pulse Ox 97.4 F L 68 18 132/66 98 08/17/18 15:35 08/17/18 15:35 08/17/18 15:35 08/17/18 15:35 08/17/18 15:35 - General Appearance General appearance: well-developed, well-nourished, appears stated age EENT: PERRL, mucous membranes moist Neck: Present: neck supple, trachea midline. Absent: JVD/HJR, Masses Respiratory: Clear to Ascultation, Other (loop graft in his left chest wall. Good bruit and thrill) Heart: regular, normal heart rate, S1S2, no murmurs Gastrointestinal: Present: normal. Absent: tenderness, distended, masses, guarding Integumentary: other (1+ edema.) Results - Lab Results 08/18/18 07:47 08/18/18 07:47 Most recent lab results Calcium 7.5 mg/dL (8.4-10.2) L 08/18/18 07:47 Assessment and Plan Impression * End-stage renal disease * Pulmonary edema * Uremia * Hypertension * Diabetes * Anemia most likely secondary to ESRD Recommendation * Need to reinitiate dialysis * Patient is fluid overloaded and also has uremic symptoms * Vascular surgery consult appreciated. AV graft okayed for use * Plan to do a short dialysis treatment today and then additional treatment tomorrow * Adjust diet and meds for ESRD state * Avoid nephrotoxins * Epogen with dialysis * Patient will need outpatient dialysis arrangement as well. Consult case management * Thank you very much for the consultation. Shall follow along with you
[2018-08-18] MEDS ORDERED: NACL 0.9% 100 ML IV PRN ×2 (13:25→13:30)
--- NOTE | 2018-08-18 16:01 | Progress Note ---
Assessment and Plan Assessment and plan: End-stage renal disease needing hemodialysis; patient had hematemesis previously and discontinued a year ago. Currently patient's creatinine is 9.6 with uremic symptoms. Fluid overload secondary to ESRD, respiratory failure - Given IV Lasix 80 mg 1 times, oxygen support, breathing treatment Nephrology consulted and will do, dialysis today Patient has patent AV graft, evaluated by vascular surgery Diabetes mellitus; controlled without medication Hypertension; controlled, continue carvedilol Anemia of CKD; will get Epogen on dialysis DVT prophylaxis - On heparin Disposition -Continue inpatient care History Interval history: patient was seen and evaluated this morning, Patient has mild SOB. Hospitalist Physical - Physical exam Narrative exam: Not in cardiopulmonary distress. The patient appeared well nourished and normally developed. Vital signs as documented. Head exam is unremarkable. No scleral icterus . Neck is without jugular venous distension. Lungs are clear to auscultation. Cardiac exam reveals regular rate and Rhythm. Abdominal exam reveals normal bowel sounds. Extremities are nonedematous. LOG CHECK SCALER: Alert and oriented 3. No focal weakness. - Constitutional Vitals: Temp Pulse Resp BP Pulse Ox 97.9 F 66 16 147/83 96 08/18/18 14:45 08/18/18 15:30 08/18/18 14:45 08/18/18 15:30 08/18/18 10:00 General appearance: Present: no acute distress Results - Labs CBC & Chem 7: 08/18/18 07:47 08/18/18 07:47 Labs: Laboratory Last Values WBC 8.4 K/mm3 (4.5-11.0) 08/18/18 07:47 RBC 2.77 M/mm3 (3.65-5.03) L 08/18/18 07:47 Hgb 8.8 gm/dl (11.8-15.2) L 08/18/18 07:47 Hct 25.4 % (35.5-45.6) L 08/18/18 07:47 MCV 92 fl (84-94) 08/18/18 07:47 MCH 32 pg (28-32) 08/18/18 07:47 MCHC 35 % (32-34) H 08/18/18 07:47 RDW 15.5 % (13.2-15.2) H 08/18/18 07:47 Plt Count 169 K/mm3 (140-440) 08/18/18 07:47 Lymph % (Auto) 17.2 % (13.4-35.0) 08/18/18 07:47 Perry % (Auto) 5.0 % (0.0-7.3) 08/18/18 07:47 Eos % (Auto) 4.8 % (0.0-4.3) H 08/18/18 07:47 Baso % (Auto) 0.7 % (0.0-1.8) 08/18/18 07:47 Lymph # 1.4 K/mm3 (1.2-5.4) 08/18/18 07:47 Perry # 0.4 K/mm3 (0.0-0.8) 08/18/18 07:47 Eos # 0.4 K/mm3 (0.0-0.4) 08/18/18 07:47 Baso # 0.1 K/mm3 (0.0-0.1) 08/18/18 07:47 Seg Neutrophils % 72.3 % (40.0-70.0) H 08/18/18 07:47 Seg Neutrophils # 6.1 K/mm3 (1.8-7.7) 08/18/18 07:47 Sodium 143 mmol/L (137-145) 08/18/18 07:47 Potassium 4.1 mmol/L (3.6-5.0) 08/18/18 07:47 Chloride 99.9 mmol/L (98-107) 08/18/18 07:47 Carbon Dioxide 23 mmol/L (22-30) 08/18/18 07:47 Anion Gap 24 mmol/L 08/18/18 07:47 BUN 96 mg/dL (9-20) H 08/18/18 07:47 Creatinine 9.3 mg/dL (0.8-1.5) H 08/18/18 07:47 Estimated GFR 6 ml/min 08/18/18 07:47 BUN/Creatinine Ratio 10 % 08/18/18 07:47 Glucose 66 mg/dL (75-100) L 08/18/18 07:47 POC Glucose 63 (70-105) L 08/18/18 12:53 Calcium 7.5 mg/dL (8.4-10.2) L 08/18/18 07:47 Total Creatine Kinase 176 units/L (55-170) H 08/18/18 07:47 CK-MB (CK-2) 3.7 ng/mL (0.0-4.0) 08/18/18 07:47 CK-MB (CK-2) Rel Index 2.1 (0-4) 08/18/18 07:47 Troponin T 0.088 ng/mL (0.00-0.029) H D 08/18/18 07:47 Triglycerides 130 mg/dL (2-149) 08/17/18 22:59 Cholesterol 158 mg/dL (50-199) 08/17/18 22:59 LDL Cholesterol Direct 120 mg/dL (50-130) 08/17/18 22:59 HDL Cholesterol 24 mg/dL (40-59) L 08/17/18 22:59 Cholesterol/HDL Ratio 6.58 % 08/17/18 22:59 Hepatitis A IgM Ab Non-reactive (NonReactive) 08/18/18 07:47 Hep Bs Antigen Non-reactive (Negative) 08/18/18 07:47 Hep B Core IgM Ab Non-reactive (NonReactive) 08/18/18 07:47 Hepatitis C Antibody Non-reactive (NonReactive) 08/18/18 07:47 Influenza A (Rapid) Negative (Negative) 08/17/18 Unknown Influenza B (Rapid) Negative (Negative) 08/17/18 Unknown Blood Type O POSITIVE 08/17/18 20:00 Antibody Screen Negative 08/17/18 20:00 Crossmatch See Detail 08/17/18 20:00
[2018-08-18] MEDS ORDERED: NACL 0.9 (PRIMING MACHINE ONLY DIALYSIS) MC ONE (16:34)
[2018-08-18] MEDS: PROCRIT IV PRN (16:50)
[2018-08-18] MEDS: AMBIEN PO SCH (21:28)
[2018-08-18] MEDS: HEPARIN SUB-Q SCH (21:28)
[2018-08-19 05:15] LABS: Basophils # (Auto) 0.1 K/mm3 (0.0-0.1); Basophils % (Auto) 0.8 % (0.0-1.8); Eosinophils # (Auto) 0.4 K/mm3 (0.0-0.4); Eosinophils % (Auto) 5.2 % (0.0-4.3); Hematocrit 23.6 % (35.5-45.6); Hemoglobin 8.1 gm/dl (11.8-15.2); Lymphocytes # (Auto) 1.2 K/mm3 (1.2-5.4); Lymphocytes % (Auto) 16.6 % (13.4-35.0); Mean Corpuscular HGB Conc 34 % (32-34); Mean Corpuscular Volume 92 fl (84-94); Monocytes # (Auto) 0.6 K/mm3 (0.0-0.8); Monocytes % (Auto) 7.7 % (0.0-7.3); Platelet Count 149 K/mm3 (140-440); Red Blood Count 2.56 M/mm3 (3.65-5.03); Red Cell Distribution Width 15.9 % (13.2-15.2)
[2018-08-19 05:26] LABS: Calcium 7.4 mg/dL (8.4-10.2)
[2018-08-19] MEDS: HEPARIN SUB-Q SCH ×2 (10:05→21:55)
[2018-08-19] MEDS: COREG PO SCH ×2 (10:06→22:00)
[2018-08-19] MEDS: PLAVIX PO SCH (10:06)
[2018-08-19] MEDS: PROCARDIA XL PO SCH (10:06)
[2018-08-19] MEDS: SODIUM CHLORIDE FLUSH SYRINGE 10 ML IV SCH ×2 (10:06→21:56)
[2018-08-19] MEDS: LASIX PO SCH (10:06)
--- NOTE | 2018-08-19 10:18 | XRay Report ---
FINAL REPORT EXAM: XR CHEST 1V AP HISTORY: SOB COMPARISON: Chest radiograph performed on 08/17/2018 TECHNIQUE: Single frontal view of the chest FINDINGS: The cardiomediastinal silhouette is normal in appearance. The lungs are clear without focal consolidation. There is no pleural effusion or pneumothorax. There is no acute soft tissue or osseous abnormality. IMPRESSION: No acute cardiopulmonary disease.
[2018-08-19] MEDS ORDERED: EMLA TP ONE (12:15)
--- NOTE | 2018-08-19 12:15 | Progress Note ---
Assessment and Plan Impression * End-stage renal disease * Pulmonary edema * Uremia * Hypertension * Diabetes * Anemia most likely secondary to ESRD Recommendation * Dialysis initiated yesterday. Uneventful dialysis yesterday . * Add EMLA cream prior to dialysis * Volume overload and uremic symptoms also improving * Vascular surgery consult appreciated. AV graft worked well yesterday * Scheduled for hemodialysis today * Adjust diet and meds for ESRD state * Avoid nephrotoxins * Epogen with dialysis * Patient will need outpatient dialysis arrangement as well. Consulted case management Subjective Date of service: 08/19/18 Interval history: Patient had uneventful hemodialysis yesterday. Seen in the dialysis room for his second treatment. Feels better this morning. Denies any shortness of b reath. Objective - Vital Signs Vital signs: Vital Signs - 12hr 08/19/18 08/19/18 08/19/18 04:20 04:21 07:35 Temperature 98.2 F 97.5 F L Pulse Rate 65 66 73 Pulse Rate [ From Monitor] Respiratory 20 16 Rate Blood Pressure 137/73 Blood Pressure 144/57 [Right] O2 Sat by Pulse 79 L 94 95 Oximetry 08/19/18 08/19/18 10:00 10:06 Temperature Pulse Rate 73 Pulse Rate [ 73 From Monitor] Respiratory 16 Rate Blood Pressure 144/57 Blood Pressure [Right] O2 Sat by Pulse 95 Oximetry - General Appearance General appearance: well-developed, well-nourished, appears stated age EENT: PERRL, mucous membranes moist Neck: no JVD, no thyromegaly, no carotid bruit, supple Respiratory: Present: Clear to Ascultation Cardiology: regular, normal heart rate Gastrointestinal: normal, normoactive bowel sounds Integumentary: other (no edema) - Lab 08/19/18 04:49 08/19/18 04:49 Most recent lab results Calcium 7.4 mg/dL (8.4-10.2) L 08/19/18 04:49 Medications & Allergies - Medications Allergies/Adverse Reactions: Allergies No Known Allergies Allergy (Verified 03/21/17 10:06) Home Medications: Home Medications Medication Instructions Recorded Confirmed Last Taken Type Meclizine [Antivert] 25 mg PO TID PRN 01/04/17 08/17/18 2 Months Ago History ~05/27/17 glipiZIDE [Glucotrol] 5 mg PO BID 05/05/17 08/17/18 1 Day Ago History ~08/16/18 Carvedilol [Coreg] 25 mg PO BID #60 tablet 05/11/17 08/17/18 08/16/17 Rx 25mg Clopidogrel [Plavix] 75 mg PO QDAY #30 tablet 05/11/17 08/17/18 08/16/17 Rx 75mg Zolpidem [Ambien] 10 mg PO QHS #30 tablet 05/11/17 08/17/18 07/26/17 20:00 Rx Furosemide [Lasix] 80 mg PO DAILY 08/17/18 08/17/18 Unknown History NIFEdipine [Nifedipine ER] 30 mg PO DAILY 08/17/18 08/17/18 Unknown History Sodium Bicarbonate 10 gm PO DAILY 08/17/18 08/17/18 Unknown History Active Medications: Generic Name Dose Route Start Last Admin Trade Name Freq PRN Reason Stop Dose Admin Acetaminophen 650 mg 08/17/18 22:30 Tylenol PO Q4H PRN Pain MILD(1-3)/Fever >100.5/BEJARANO Albuterol 2.5 mg 08/18/18 10:50 Proventil IH Q4HRT PRN Shortness Of Breath Carvedilol 25 mg 08/18/18 10:00 08/19/18 10:06 Coreg PO 25 mg BID RAUDEL Administration Clopidogrel Bisulfate 75 mg 08/18/18 10:00 08/19/18 10:06 Plavix PO 75 mg QDAY RAUDEL Administration Dextrose 50 ml 08/17/18 22:30 D50w (25gm) Syringe IV PRN PRN Hypoglycemia Epoetin Caesar 10,000 unit 08/18/18 14:00 08/18/18 16:50 Procrit IV 10,000 unit TERRANCE PRN Administration hemodialysis Furosemide 80 mg 08/18/18 10:00 08/19/18 10:06 Lasix PO 80 mg DAILY RAUDEL Administration Heparin Sodium (Porcine) 5,000 unit 08/18/18 22:00 08/19/18 10:05 Heparin SUB-Q 5,000 unit Q12HR RAUDEL Administration Hydralazine HCl 5 mg 08/18/18 00:28 Apresoline IV Q6HR PRN Hypertension Sodium Chloride 100 mls @ 999 mls/hr 08/18/18 13:30 Nacl 0.9% IV TERRANCE PRN Hypotension Sodium Chloride 100 mls @ 999 mls/hr 08/18/18 13:25 Nacl 0.9% IV TERRANCE PRN Hypotension Meclizine HCl 25 mg 08/18/18 00:27 Antivert PO TID PRN Vertigo Metoclopramide HCl 10 mg 08/17/18 22:30 Reglan IV Q6H PRN Nausea And Vomiting Miscellaneous Medication 10 gm 08/18/18 10:00 Sodium Bicarbonate PO DAILY RAUDEL Nifedipine 30 mg 08/18/18 10:00 08/19/18 10:06 Procardia Xl PO 30 mg DAILY RAUDEL Administration Ondansetron HCl 4 mg 08/17/18 22:30 Zofran IV Q8H PRN Nausea And Vomiting Oxycodone/Acetaminophen 1 tab 08/17/18 22:30 08/17/18 23:33 Percocet 5/325 PO 1 tab Q6H PRN Administration Pain, Moderate (4-6) Sodium Chloride 10 ml 08/17/18 23:00 08/19/18 10:06 Sodium Chloride Flush Syringe 10 Ml IV 10 ml BID RAUDEL Administration Sodium Chloride 10 ml 08/17/18 22:30 Sodium Chloride Flush Syringe 10 Ml IV PRN PRN LINE FLUSH Zolpidem Tartrate 10 mg 08/18/18 22:00 08/18/18 21:28 Ambien PO 10 mg QHS RAUDEL Administration
[2018-08-19] MEDS: PROCRIT IV PRN (13:17)
[2018-08-19] MEDS ORDERED: NACL 0.9 (PRIMING MACHINE ONLY DIALYSIS) MC ONE (13:21)
--- NOTE | 2018-08-19 16:56 | Progress Note ---
Assessment and Plan Assessment and plan: End-stage renal disease needing hemodialysis; patient had hematemesis previously and discontinued a year ago. Currently patient's creatinine is 9.6 with uremic symptoms. Fluid overload secondary to ESRD, respiratory failure - continue HD, was dialyzed yesterday and will be repeated today Nephrology consulted and will do, dialysis today Patient has patent AV graft, evaluated by vascular surgery Diabetes mellitus; controlled without medication - Had episode of hypoglycemia and treated with D50 and normalized Hypertension; controlled, continue carvedilol Anemia of CKD; will get Epogen on dialysis DVT prophylaxis - On heparin Disposition -Continue inpatient care History Interval history: patient was seen and evaluated this morning, SOB is getting better. Hospitalist Physical - Physical exam Narrative exam: Not in cardiopulmonary distress. The patient appeared well nourished and normally developed. Vital signs as documented. Head exam is unremarkable. No scleral icterus . Neck is without jugular venous distension. Lungs are clear to auscultation. Cardiac exam reveals regular rate and Rhythm. Abdominal exam reveals normal bowel sounds. Extremities are nonedematous. INSPECTOR OF WEIGHTS AND MEASURES: Alert and oriented 3. No focal weakness. - Constitutional Vitals: Temp Pulse Resp BP Pulse Ox 97.5 F L 65 20 137/66 96 08/19/18 16:07 08/19/18 16:07 08/19/18 16:07 08/19/18 16:07 08/19/18 16:07 General appearance: Present: no acute distress Results - Labs CBC & Chem 7: 08/19/18 04:49 08/19/18 04:49 Labs: Laboratory Last Values WBC 7.2 K/mm3 (4.5-11.0) 08/19/18 04:49 RBC 2.56 M/mm3 (3.65-5.03) L 08/19/18 04:49 Hgb 8.1 gm/dl (11.8-15.2) L 08/19/18 04:49 Hct 23.6 % (35.5-45.6) L 08/19/18 04:49 MCV 92 fl (84-94) 08/19/18 04:49 MCH 31 pg (28-32) 08/19/18 04:49 MCHC 34 % (32-34) 08/19/18 04:49 RDW 15.9 % (13.2-15.2) H 08/19/18 04:49 Plt Count 149 K/mm3 (140-440) 08/19/18 04:49 Lymph % (Auto) 16.6 % (13.4-35.0) 08/19/18 04:49 Russell % (Auto) 7.7 % (0.0-7.3) H 08/19/18 04:49 Eos % (Auto) 5.2 % (0.0-4.3) H 08/19/18 04:49 Baso % (Auto) 0.8 % (0.0-1.8) 08/19/18 04:49 Lymph # 1.2 K/mm3 (1.2-5.4) 08/19/18 04:49 Russell # 0.6 K/mm3 (0.0-0.8) 08/19/18 04:49 Eos # 0.4 K/mm3 (0.0-0.4) 08/19/18 04:49 Baso # 0.1 K/mm3 (0.0-0.1) 08/19/18 04:49 Seg Neutrophils % 69.7 % (40.0-70.0) 08/19/18 04:49 Seg Neutrophils # 5.0 K/mm3 (1.8-7.7) 08/19/18 04:49 Sodium 143 mmol/L (137-145) 08/19/18 04:49 Potassium 3.9 mmol/L (3.6-5.0) 08/19/18 04:49 Chloride 102.1 mmol/L (98-107) 08/19/18 04:49 Carbon Dioxide 26 mmol/L (22-30) 08/19/18 04:49 Anion Gap 19 mmol/L 08/19/18 04:49 BUN 72 mg/dL (9-20) H 08/19/18 04:49 Creatinine 7.5 mg/dL (0.8-1.5) H 08/19/18 04:49 Estimated GFR 8 ml/min 08/19/18 04:49 BUN/Creatinine Ratio 10 % 08/19/18 04:49 Glucose 37 mg/dL (75-100) L* 08/19/18 04:49 POC Glucose 100 (70-105) 08/19/18 11:03 Calcium 7.4 mg/dL (8.4-10.2) L 08/19/18 04:49 Total Creatine Kinase 176 units/L (55-170) H 08/18/18 07:47 CK-MB (CK-2) 3.7 ng/mL (0.0-4.0) 08/18/18 07:47 CK-MB (CK-2) Rel Index 2.1 (0-4) 08/18/18 07:47 Troponin T 0.088 ng/mL (0.00-0.029) H D 08/18/18 07:47 Triglycerides 130 mg/dL (2-149) 08/17/18 22:59 Cholesterol 158 mg/dL (50-199) 08/17/18 22:59 LDL Cholesterol Direct 120 mg/dL (50-130) 08/17/18 22:59 HDL Cholesterol 24 mg/dL (40-59) L 08/17/18 22:59 Cholesterol/HDL Ratio 6.58 % 08/17/18 22:59 Hepatitis A IgM Ab Non-reactive (NonReactive) 08/18/18 07:47 Hep Bs Antigen Non-reactive (Negative) 08/18/18 07:47 Hep B Core IgM Ab Non-reactive (NonReactive) 08/18/18 07:47 Hepatitis C Antibody Non-reactive (NonReactive) 08/18/18 07:47 Influenza A (Rapid) Negative (Negative) 08/17/18 Unknown Influenza B (Rapid) Negative (Negative) 08/17/18 Unknown Blood Type O POSITIVE 08/17/18 20:00 Antibody Screen Negative 08/17/18 20:00 Crossmatch See Detail 08/17/18 20:00
[2018-08-19] MEDS: AMBIEN PO SCH (22:00)
[2018-08-20 06:17] LABS: Basophils # (Auto) 0.1 K/mm3 (0.0-0.1); Basophils % (Auto) 0.9 % (0.0-1.8); Eosinophils # (Auto) 0.4 K/mm3 (0.0-0.4); Eosinophils % (Auto) 4.8 % (0.0-4.3); Hematocrit 26.9 % (35.5-45.6); Lymphocytes # (Auto) 1.2 K/mm3 (1.2-5.4); Lymphocytes % (Auto) 14.4 % (13.4-35.0); Mean Corpuscular HGB Conc 34 % (32-34); Mean Corpuscular Volume 94 fl (84-94); Monocytes # (Auto) 0.6 K/mm3 (0.0-0.8); Monocytes % (Auto) 7.9 % (0.0-7.3); Platelet Count 154 K/mm3 (140-440); Red Blood Count 2.86 M/mm3 (3.65-5.03); Red Cell Distribution Width 16.8 % (13.2-15.2)
[2018-08-20 06:32] LABS: Calcium 7.8 mg/dL (8.4-10.2)
--- NOTE | 2018-08-20 11:18 | Progress Note ---
Assessment and Plan Impression * End-stage renal disease * Pulmonary edema * Uremia * Hypertension * Diabetes * Anemia most likely secondary to ESRD Recommendation * patient had 2 hemodialysis treatments thus far * Continue dialysis on MWF scheduled for now. * Added EMLA cream prior to dialysis * Volume overload and uremic symptoms also improving * Vascular surgery consult appreciated. AV graft worked well yesterday * Adjust diet and meds for ESRD state * Avoid nephrotoxins * Epogen with dialysis * Patient will need outpatient dialysis arrangement as well. Consulted case management Subjective Date of service: 08/20/18 Interval history: Patient had uneventful hemodialysis yesterday. Feels better today. Denies any shortness of breath. Objective - Vital Signs Vital signs: Vital Signs - 12hr 08/20/18 08/20/18 08/20/18 00:17 03:56 07:38 Temperature 97.0 F L 97.0 F L 98.0 F Pulse Rate 73 65 64 Respiratory 18 18 16 Rate Blood Pressure 126/53 131/52 130/58 O2 Sat by Pulse 91 94 94 Oximetry 08/20/18 07:40 Temperature Pulse Rate Respiratory Rate Blood Pressure O2 Sat by Pulse 96 Oximetry - General Appearance General appearance: well-developed, well-nourished, appears stated age EENT: PERRL, mucous membranes moist Neck: no JVD, no thyromegaly, no carotid bruit, supple Respiratory: Present: Clear to Ascultation Cardiology: regular, normal heart rate Gastrointestinal: normal, normoactive bowel sounds Integumentary: other (no edema. AV graft in left chest wall. Good bruit) - Lab 08/20/18 05:59 08/20/18 05:59 Most recent lab results Calcium 7.8 mg/dL (8.4-10.2) L 08/20/18 05:59 Medications & Allergies - Medications Allergies/Adverse Reactions: Allergies No Known Allergies Allergy (Verified 03/21/17 10:06) Home Medications: Home Medications Medication Instructions Recorded Confirmed Last Taken Type Meclizine [Antivert] 25 mg PO TID PRN 01/04/17 08/17/18 2 Months Ago History ~05/27/17 glipiZIDE [Glucotrol] 5 mg PO BID 05/05/17 08/17/18 1 Day Ago History ~08/16/18 Carvedilol [Coreg] 25 mg PO BID #60 tablet 05/11/17 08/17/18 08/16/17 Rx 25mg Clopidogrel [Plavix] 75 mg PO QDAY #30 tablet 05/11/17 08/17/18 08/16/17 Rx 75mg Zolpidem [Ambien] 10 mg PO QHS #30 tablet 05/11/17 08/17/18 07/26/17 20:00 Rx Furosemide [Lasix] 80 mg PO DAILY 08/17/18 08/17/18 Unknown History NIFEdipine [Nifedipine ER] 30 mg PO DAILY 08/17/18 08/17/18 Unknown History Sodium Bicarbonate 10 gm PO DAILY 08/17/18 08/17/18 Unknown History Active Medications: Generic Name Dose Route Start Last Admin Trade Name Freq PRN Reason Stop Dose Admin Acetaminophen 650 mg 08/17/18 22:30 Tylenol PO Q4H PRN Pain MILD(1-3)/Fever >100.5/BEJARANO Albuterol 2.5 mg 08/18/18 10:50 Proventil IH Q4HRT PRN Shortness Of Breath Carvedilol 25 mg 08/18/18 10:00 08/19/18 22:00 Coreg PO 25 mg BID RAUDEL Administration Clopidogrel Bisulfate 75 mg 08/18/18 10:00 08/19/18 10:06 Plavix PO 75 mg QDAY RAUDEL Administration Dextrose 50 ml 08/17/18 22:30 D50w (25gm) Syringe IV PRN PRN Hypoglycemia Epoetin Caesar 10,000 unit 08/18/18 14:00 08/19/18 13:17 Procrit IV 10,000 unit TERRANCE PRN Administration hemodialysis Furosemide 80 mg 08/18/18 10:00 08/19/18 10:06 Lasix PO 80 mg DAILY RAUDEL Administration Heparin Sodium (Porcine) 5,000 unit 08/18/18 22:00 08/19/18 21:55 Heparin SUB-Q 5,000 unit Q12HR RAUDEL Administration Hydralazine HCl 5 mg 08/18/18 00:28 Apresoline IV Q6HR PRN Hypertension Sodium Chloride 100 mls @ 999 mls/hr 08/18/18 13:30 Nacl 0.9% IV TERRANCE PRN Hypotension Meclizine HCl 25 mg 08/18/18 00:27 Antivert PO TID PRN Vertigo Metoclopramide HCl 10 mg 08/17/18 22:30 Reglan IV Q6H PRN Nausea And Vomiting Miscellaneous Medication 10 gm 08/18/18 10:00 Sodium Bicarbonate PO DAILY RAUDEL Nifedipine 30 mg 08/18/18 10:00 08/19/18 10:06 Procardia Xl PO 30 mg DAILY RAUDEL Administration Ondansetron HCl 4 mg 08/17/18 22:30 Zofran IV Q8H PRN Nausea And Vomiting Oxycodone/Acetaminophen 1 tab 08/17/18 22:30 08/17/18 23:33 Percocet 5/325 PO 1 tab Q6H PRN Administration Pain, Moderate (4-6) Sodium Chloride 10 ml 08/17/18 23:00 08/19/18 21:56 Sodium Chloride Flush Syringe 10 Ml IV 10 ml BID RAUDEL Administration Sodium Chloride 10 ml 08/17/18 22:30 Sodium Chloride Flush Syringe 10 Ml IV PRN PRN LINE FLUSH Zolpidem Tartrate 10 mg 08/18/18 22:00 08/19/18 22:00 Ambien PO 10 mg QHS RAUDEL Administration
[2018-08-20] MEDS: PLAVIX PO SCH (12:26)
[2018-08-20] MEDS: COREG PO SCH ×2 (12:26→22:46)
[2018-08-20] MEDS: ANTIVERT PO PRN (12:27)
[2018-08-20] MEDS: LASIX PO SCH (12:27)
[2018-08-20] MEDS: PROCARDIA XL PO SCH (12:27)
[2018-08-20] MEDS: HEPARIN SUB-Q SCH ×2 (12:28→22:46)
[2018-08-20] MEDS: SODIUM CHLORIDE FLUSH SYRINGE 10 ML IV SCH ×2 (12:28→22:47)
[2018-08-20] MEDS ORDERED: NACL 0.9% 100 ML IV PRN (17:00)
--- NOTE | 2018-08-20 17:30 | Progress Note ---
Assessment and Plan Assessment and plan: End-stage renal disease needing hemodialysis; patient had HD previously and discontinued a year ago. Currently patient's creatinine at admission was 9.6 with uremic symptoms. Fluid overload secondary to ESRD, respiratory failure - continue HD, was dialyzed 2x - patient is feeling much better Nephrology is following Patient has patent AV graft, evaluated by vascular surgery and functional Diabetes mellitus; controlled without medication - Had episode of hypoglycemia and treated with D50 and normalized - will follow Hypertension; controlled, continue carvedilol Anemia of CKD; will get Epogen on dialysis DVT prophylaxis - On heparin Disposition -Need outpatient dialysis arrangement. -Care management consult History Interval history: patient was seen and evaluated this morning, SOB is getting better. Hospitalist Physical - Physical exam Narrative exam: Not in cardiopulmonary distress. The patient appeared well nourished and normally developed. Vital signs as documented. Head exam is unremarkable. No scleral icterus . Neck is without jugular venous distension. Lungs are clear to auscultation. Cardiac exam reveals regular rate and Rhythm. Abdominal exam reveals normal bowel sounds. Extremities are nonedematous. 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 - Constitutional Vitals: Temp Pulse Resp BP Pulse Ox 97.0 F L 64 20 131/79 98 08/20/18 11:44 08/20/18 12:26 08/20/18 11:44 08/20/18 11:44 08/20/18 11:44 General appearance: Present: no acute distress Results - Labs CBC & Chem 7: 08/20/18 05:59 08/20/18 05:59 Labs: Laboratory Last Values WBC 8.1 K/mm3 (4.5-11.0) 08/20/18 05:59 RBC 2.86 M/mm3 (3.65-5.03) L 08/20/18 05:59 Hgb 9.0 gm/dl (11.8-15.2) L 08/20/18 05:59 Hct 26.9 % (35.5-45.6) L 08/20/18 05:59 MCV 94 fl (84-94) 08/20/18 05:59 MCH 32 pg (28-32) 08/20/18 05:59 MCHC 34 % (32-34) 08/20/18 05:59 RDW 16.8 % (13.2-15.2) H 08/20/18 05:59 Plt Count 154 K/mm3 (140-440) 08/20/18 05:59 Lymph % (Auto) 14.4 % (13.4-35.0) 08/20/18 05:59 [place] % (Auto) 7.9 % (0.0-7.3) H 08/20/18 05:59 Eos % (Auto) 4.8 % (0.0-4.3) H 08/20/18 05:59 Baso % (Auto) 0.9 % (0.0-1.8) 08/20/18 05:59 Lymph # 1.2 K/mm3 (1.2-5.4) 08/20/18 05:59 [place] # 0.6 K/mm3 (0.0-0.8) 08/20/18 05:59 Eos # 0.4 K/mm3 (0.0-0.4) 08/20/18 05:59 Baso # 0.1 K/mm3 (0.0-0.1) 08/20/18 05:59 Seg Neutrophils % 72.0 % (40.0-70.0) H 08/20/18 05:59 Seg Neutrophils # 5.8 K/mm3 (1.8-7.7) 08/20/18 05:59 Sodium 143 mmol/L (137-145) 08/20/18 05:59 Potassium 4.1 mmol/L (3.6-5.0) 08/20/18 05:59 Chloride 101.9 mmol/L (98-107) 08/20/18 05:59 Carbon Dioxide 27 mmol/L (22-30) 08/20/18 05:59 Anion Gap 18 mmol/L 08/20/18 05:59 BUN 49 mg/dL (9-20) H 08/20/18 05:59 Creatinine 6.3 mg/dL (0.8-1.5) H 08/20/18 05:59 Estimated GFR 9 ml/min 08/20/18 05:59 BUN/Creatinine Ratio 8 % 08/20/18 05:59 Glucose 80 mg/dL (75-100) 08/20/18 05:59 POC Glucose 107 (70-105) H 08/20/18 16:33 Calcium 7.8 mg/dL (8.4-10.2) L 08/20/18 05:59 Total Creatine Kinase 176 units/L (55-170) H 08/18/18 07:47 CK-MB (CK-2) 3.7 ng/mL (0.0-4.0) 08/18/18 07:47 CK-MB (CK-2) Rel Index 2.1 (0-4) 08/18/18 07:47 Troponin T 0.088 ng/mL (0.00-0.029) H D 08/18/18 07:47 Triglycerides 130 mg/dL (2-149) 08/17/18 22:59 Cholesterol 158 mg/dL (50-199) 08/17/18 22:59 LDL Cholesterol Direct 120 mg/dL (50-130) 08/17/18 22:59 HDL Cholesterol 24 mg/dL (40-59) L 08/17/18 22:59 Cholesterol/HDL Ratio 6.58 % 08/17/18 22:59 Hepatitis A IgM Ab Non-reactive (NonReactive) 08/18/18 07:47 Hep Bs Antigen Non-reactive (Negative) 08/18/18 07:47 Hep B Core IgM Ab Non-reactive (NonReactive) 08/18/18 07:47 Hepatitis C Antibody Non-reactive (NonReactive) 08/18/18 07:47 Influenza A (Rapid) Negative (Negative) 08/17/18 Unknown Influenza B (Rapid) Negative (Negative) 08/17/18 Unknown Blood Type O POSITIVE 08/17/18 20:00 Antibody Screen Negative 08/17/18 20:00 Crossmatch See Detail 08/17/18 20:00
[2018-08-20] MEDS ORDERED: EMLA TP PRN (18:00)
[2018-08-20] MEDS: AMBIEN PO SCH (22:46)
[2018-08-21 06:00] LABS: Basophils % (Auto) 0.6 % (0.0-1.8); Eosinophils # (Auto) 0.4 K/mm3 (0.0-0.4); Eosinophils % (Auto) 5.7 % (0.0-4.3); Hematocrit 26.9 % (35.5-45.6); Lymphocytes # (Auto) 1.5 K/mm3 (1.2-5.4); Lymphocytes % (Auto) 18.5 % (13.4-35.0); Mean Corpuscular HGB Conc 33 % (32-34); Mean Corpuscular Volume 94 fl (84-94); Monocytes # (Auto) 0.7 K/mm3 (0.0-0.8); Monocytes % (Auto) 9.1 % (0.0-7.3); Platelet Count 157 K/mm3 (140-440); Red Blood Count 2.88 M/mm3 (3.65-5.03); Red Cell Distribution Width 16.9 % (13.2-15.2)
[2018-08-21 06:35] LABS: Calcium 7.8 mg/dL (8.4-10.2)
--- NOTE | 2018-08-21 08:39 | Progress Note ---
Assessment and Plan Impression * End-stage renal disease * Pulmonary edema * Uremia * Hypertension * Diabetes * Anemia most likely secondary to ESRD Recommendation * patient had 2 hemodialysis treatments thus far * Continue dialysis on MWF scheduled for now. * Added EMLA cream prior to dialysis * Volume overload and uremic symptoms has resolved * Vascular surgery consult appreciated. AV graft or tingling * Adjust diet and meds for ESRD state * Avoid nephrotoxins * Epogen with dialysis * Patient will need outpatient dialysis arrangement as well. Consulted case rashid nicholas Subjective Date of service: 08/21/18 Interval history: Patient is comfortable today. Denies any shortness of breath. No nausea or vomiting. Objective - Vital Signs Vital signs: Vital Signs - 12hr 08/20/18 08/20/18 08/20/18 21:27 22:00 22:46 Temperature Pulse Rate 68 Respiratory Rate Blood Pressure 129/55 O2 Sat by Pulse 96 Oximetry 08/21/18 08/21/18 00:12 04:34 Temperature 98.0 F 98.0 F Pulse Rate 61 61 Respiratory 18 18 Rate Blood Pressure 118/58 122/60 O2 Sat by Pulse 100 92 Oximetry - General Appearance General appearance: well-developed, well-nourished, appears stated age EENT: PERRL, mucous membranes moist Neck: no JVD, no thyromegaly, no carotid bruit, supple Respiratory: Present: Clear to Ascultation Cardiology: regular, normal heart rate, S1S2, no murmurs Gastrointestinal: normal, normoactive bowel sounds Integumentary: other (AV graft in his left chest wall. Good bruit and thrill) - Lab 08/21/18 05:16 08/21/18 05:16 Most recent lab results Calcium 7.8 mg/dL (8.4-10.2) L 08/21/18 05:16 Medications & Allergies - Medications Allergies/Adverse Reactions: Allergies No Known Allergies Allergy (Verified 03/21/17 10:06) Home Medications: Home Medications Medication Instructions Recorded Confirmed Last Taken Type Meclizine [Antivert] 25 mg PO TID PRN 01/04/17 08/17/18 2 Months Ago History ~05/27/17 glipiZIDE [Glucotrol] 5 mg PO BID 05/05/17 08/17/18 1 Day Ago History ~08/16/18 Carvedilol [Coreg] 25 mg PO BID #60 tablet 05/11/17 08/17/18 08/16/17 Rx 25mg Clopidogrel [Plavix] 75 mg PO QDAY #30 tablet 05/11/17 08/17/18 08/16/17 Rx 75mg Zolpidem [Ambien] 10 mg PO QHS #30 tablet 05/11/17 08/17/18 07/26/17 20:00 Rx Furosemide [Lasix] 80 mg PO DAILY 08/17/18 08/17/18 Unknown History NIFEdipine [Nifedipine ER] 30 mg PO DAILY 08/17/18 08/17/18 Unknown History Sodium Bicarbonate 10 gm PO DAILY 08/17/18 08/17/18 Unknown History Active Medications: Generic Name Dose Route Start Last Admin Trade Name Freq PRN Reason Stop Dose Admin Acetaminophen 650 mg 08/17/18 22:30 Tylenol PO Q4H PRN Pain MILD(1-3)/Fever >100.5/BEJARANO Albuterol 2.5 mg 08/18/18 10:50 Proventil IH Q4HRT PRN Shortness Of Breath Carvedilol 25 mg 08/18/18 10:00 08/20/18 22:46 Coreg PO 25 mg BID RAUDEL Administration Clopidogrel Bisulfate 75 mg 08/18/18 10:00 08/20/18 12:26 Plavix PO 75 mg QDAY RAUDEL Administration Dextrose 50 ml 08/17/18 22:30 D50w (25gm) Syringe IV PRN PRN Hypoglycemia Epoetin Caesar 10,000 unit 08/18/18 14:00 08/19/18 13:17 Procrit IV 10,000 unit TERRANCE PRN Administration hemodialysis Furosemide 80 mg 08/18/18 10:00 08/20/18 12:27 Lasix PO 80 mg DAILY RAUDEL Administration Heparin Sodium (Porcine) 5,000 unit 08/18/18 22:00 08/20/18 22:46 Heparin SUB-Q 5,000 unit Q12HR RAUDEL Administration Hydralazine HCl 5 mg 08/18/18 00:28 Apresoline IV Q6HR PRN Hypertension Sodium Chloride 100 mls @ 999 mls/hr 08/18/18 13:30 Nacl 0.9% IV TERRANCE PRN Hypotension Sodium Chloride 100 mls @ 999 mls/hr 08/20/18 17:00 Nacl 0.9% IV TERRANCE PRN Hypotension Lidocaine/Prilocaine 1 applic 08/20/18 18:00 Emla TP TERRANCE PRN HEMODIALYSIS Meclizine HCl 25 mg 08/18/18 00:27 08/20/18 12:27 Antivert PO 25 mg TID PRN Administration Vertigo Metoclopramide HCl 10 mg 08/17/18 22:30 Reglan IV Q6H PRN Nausea And Vomiting Miscellaneous Medication 10 gm 08/18/18 10:00 Sodium Bicarbonate PO DAILY RAUDEL Nifedipine 30 mg 08/18/18 10:00 08/20/18 12:27 Procardia Xl PO 30 mg DAILY RAUDEL Administration Ondansetron HCl 4 mg 08/17/18 22:30 Zofran IV Q8H PRN Nausea And Vomiting Oxycodone/Acetaminophen 1 tab 08/17/18 22:30 08/17/18 23:33 Percocet 5/325 PO 1 tab Q6H PRN Administration Pain, Moderate (4-6) Sodium Chloride 10 ml 08/17/18 23:00 08/20/18 22:47 Sodium Chloride Flush Syringe 10 Ml IV 10 ml BID RAUDEL Administration Sodium Chloride 10 ml 08/17/18 22:30 Sodium Chloride Flush Syringe 10 Ml IV PRN PRN LINE FLUSH Zolpidem Tartrate 10 mg 08/18/18 22:00 08/20/18 22:46 Ambien PO 10 mg QHS RAUDEL Administration
[2018-08-21] MEDS ORDERED: IMODIUM PO PRN (11:19)
[2018-08-21] MEDS: HEPARIN SUB-Q SCH ×2 (11:23→22:19)
[2018-08-21] MEDS: LASIX PO SCH (11:24)
[2018-08-21] MEDS: PROCARDIA XL PO SCH (11:24)
[2018-08-21] MEDS: COREG PO SCH ×2 (11:26→22:19)
[2018-08-21] MEDS: PLAVIX PO SCH (11:27)
[2018-08-21] MEDS: SODIUM CHLORIDE FLUSH SYRINGE 10 ML IV SCH ×2 (11:28→22:29)
--- NOTE | 2018-08-21 15:45 | Progress Note ---
Assessment and Plan Assessment and plan: End-stage renal disease needing hemodialysis; patient had HD previously and discontinued a year ago. Currently patient's creatinine at admission was 9.6 with uremic symptoms. Fluid overload secondary to ESRD, respiratory failure - continue HD, was dialyzed 2x - patient is feeling much better Nephrology is following Patient has patent AV graft, evaluated by vascular surgery and functional Diabetes mellitus; controlled without medication - Had episode of hypoglycemia and treated with D50 and normalized - will follow Hypertension; controlled, continue carvedilol Anemia of CKD; will get Epogen on dialysis DVT prophylaxis - On heparin Disposition -Need outpatient dialysis arrangement. -Care management consult History Interval history: patient was seen and evaluated this morning, SOB is getting better. Hospitalist Physical - Physical exam Narrative exam: Not in cardiopulmonary distress. The patient appeared well nourished and normally developed. Vital signs as documented. Head exam is unremarkable. No scleral icterus . Neck is without jugular venous distension. Lungs are clear to auscultation. Cardiac exam reveals regular rate and Rhythm. Abdominal exam reveals normal bowel sounds. Extremities are nonedematous. 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 No focal weakness. - Constitutional Vitals: Temp Pulse Resp BP Pulse Ox 97.4 F L 65 18 127/61 95 08/21/18 09:08 08/21/18 11:26 08/21/18 09:08 08/21/18 09:08 08/21/18 09:08 General appearance: Present: no acute distress Results - Labs CBC & Chem 7: 08/21/18 05:16 08/21/18 05:16 Labs: Laboratory Last Values WBC 7.9 K/mm3 (4.5-11.0) 08/21/18 05:16 RBC 2.88 M/mm3 (3.65-5.03) L 08/21/18 05:16 Hgb 9.0 gm/dl (11.8-15.2) L 08/21/18 05:16 Hct 26.9 % (35.5-45.6) L 08/21/18 05:16 MCV 94 fl (84-94) 08/21/18 05:16 MCH 31 pg (28-32) 08/21/18 05:16 MCHC 33 % (32-34) 08/21/18 05:16 RDW 16.9 % (13.2-15.2) H 08/21/18 05:16 Plt Count 157 K/mm3 (140-440) 08/21/18 05:16 Lymph % (Auto) 18.5 % (13.4-35.0) 08/21/18 05:16 [place] % (Auto) 9.1 % (0.0-7.3) H 08/21/18 05:16 Eos % (Auto) 5.7 % (0.0-4.3) H 08/21/18 05:16 Baso % (Auto) 0.6 % (0.0-1.8) 08/21/18 05:16 Lymph # 1.5 K/mm3 (1.2-5.4) 08/21/18 05:16 [place] # 0.7 K/mm3 (0.0-0.8) 08/21/18 05:16 Eos # 0.4 K/mm3 (0.0-0.4) 08/21/18 05:16 Baso # 0.0 K/mm3 (0.0-0.1) 08/21/18 05:16 Seg Neutrophils % 66.1 % (40.0-70.0) 08/21/18 05:16 Seg Neutrophils # 5.2 K/mm3 (1.8-7.7) 08/21/18 05:16 Sodium 145 mmol/L (137-145) 08/21/18 05:16 Potassium 4.5 mmol/L (3.6-5.0) 08/21/18 05:16 Chloride 104.1 mmol/L (98-107) 08/21/18 05:16 Carbon Dioxide 26 mmol/L (22-30) 08/21/18 05:16 Anion Gap 19 mmol/L 08/21/18 05:16 BUN 53 mg/dL (9-20) H 08/21/18 05:16 Creatinine 7.1 mg/dL (0.8-1.5) H 08/21/18 05:16 Estimated GFR 8 ml/min 08/21/18 05:16 BUN/Creatinine Ratio 7 % 08/21/18 05:16 Glucose 62 mg/dL (75-100) L 08/21/18 05:16 POC Glucose 65 (70-105) L 08/21/18 06:03 Calcium 7.8 mg/dL (8.4-10.2) L 08/21/18 05:16 Total Creatine Kinase 176 units/L (55-170) H 08/18/18 07:47 CK-MB (CK-2) 3.7 ng/mL (0.0-4.0) 08/18/18 07:47 CK-MB (CK-2) Rel Index 2.1 (0-4) 08/18/18 07:47 Troponin T 0.088 ng/mL (0.00-0.029) H D 08/18/18 07:47 Triglycerides 130 mg/dL (2-149) 08/17/18 22:59 Cholesterol 158 mg/dL (50-199) 08/17/18 22:59 LDL Cholesterol Direct 120 mg/dL (50-130) 08/17/18 22:59 HDL Cholesterol 24 mg/dL (40-59) L 08/17/18 22:59 Cholesterol/HDL Ratio 6.58 % 08/17/18 22:59 Hepatitis A IgM Ab Non-reactive (NonReactive) 08/18/18 07:47 Hep Bs Antigen Non-reactive (Negative) 08/18/18 07:47 Hep B Core IgM Ab Non-reactive (NonReactive) 08/18/18 07:47 Hepatitis C Antibody Non-reactive (NonReactive) 08/18/18 07:47 Influenza A (Rapid) Negative (Negative) 08/17/18 Unknown Influenza B (Rapid) Negative (Negative) 08/17/18 Unknown Blood Type O POSITIVE 08/17/18 20:00 Antibody Screen Negative 08/17/18 20:00 Crossmatch See Detail 08/17/18 20:00
[2018-08-21] MEDS ORDERED: CATHFLO ONE (15:49)
[2018-08-21] MEDS: PROCRIT IV PRN (15:59)
[2018-08-21] MEDS ORDERED: NACL 0.9 (PRIMING MACHINE ONLY DIALYSIS) MC ONE (17:38)
[2018-08-21] MEDS: ANTIVERT PO PRN (19:04)
[2018-08-21] MEDS: PERCOCET 5/325 PO PRN (19:04)
[2018-08-21] MEDS: AMBIEN PO SCH (22:18)
[2018-08-22 06:22] LABS: Basophils # (Auto) 0.1 K/mm3 (0.0-0.1); Eosinophils # (Auto) 0.4 K/mm3 (0.0-0.4); Eosinophils % (Auto) 6.1 % (0.0-4.3); Hemoglobin 10.4 gm/dl (11.8-15.2); Lymphocytes # (Auto) 1.3 K/mm3 (1.2-5.4); Lymphocytes % (Auto) 18.4 % (13.4-35.0); Mean Corpuscular HGB Conc 34 % (32-34); Mean Corpuscular Volume 93 fl (84-94); Monocytes # (Auto) 0.8 K/mm3 (0.0-0.8); Monocytes % (Auto) 10.8 % (0.0-7.3); Platelet Count 169 K/mm3 (140-440); Red Blood Count 3.33 M/mm3 (3.65-5.03)
[2018-08-22 06:44] LABS: Calcium 8.5 mg/dL (8.4-10.2)
--- NOTE | 2018-08-22 09:31 | Progress Note ---
Assessment and Plan Impression * End-stage renal disease * Pulmonary edema * Uremia * Hypertension * Diabetes * Anemia most likely secondary to ESRD Recommendation * Continue dialysis on MWF scheduled for now. * Added EMLA cream prior to dialysis * Volume overload and uremic symptoms has resolved * Vascular surgery consult appreciated. AV graft or tingling * Adjust diet and meds for ESRD state * Avoid nephrotoxins * Epogen with dialysis * ok to dc home after dialysis today * [facility] outpatient dialysis arrangement completed Subjective Date of service: 08/22/18 Principal diagnosis: esrd Interval history: resting in bed today Objective - Exam Narrative Exam: General appearance: well-developed, well-nourished, appears stated age EENT: PERRL, mucous membranes moist Neck: no JVD, no thyromegaly, no carotid bruit, supple Respiratory: Present: Clear to Ascultation Cardiology: regular, normal heart rate, S1S2, no murmurs Gastrointestinal: normal, normoactive bowel sounds Integumentary: other (AV graft in his left chest wall. Good bruit and thrill) - Vital Signs Vital signs: Vital Signs - 12hr 08/21/18 08/22/18 08/22/18 22:19 00:10 04:43 Temperature 98.5 F 98.3 F Pulse Rate 63 61 57 L Respiratory 17 16 Rate Blood Pressure 132/63 128/62 120/51 O2 Sat by Pulse 98 95 Oximetry 08/22/18 08/22/18 08:13 09:02 Temperature 97.7 F Pulse Rate 60 Respiratory 18 Rate Blood Pressure 134/64 O2 Sat by Pulse 95 99 Oximetry - Lab 08/22/18 05:55 08/22/18 05:55 Most recent lab results Calcium 8.5 mg/dL (8.4-10.2) 08/22/18 05:55 Medications & Allergies - Medications Allergies/Adverse Reactions: Allergies No Known Allergies Allergy (Verified 03/21/17 10:06) Home Medications: Home Medications Medication Instructions Recorded Confirmed Last Taken Type Meclizine [Antivert] 25 mg PO TID PRN 01/04/17 08/17/18 2 Months Ago History ~05/27/17 glipiZIDE [Glucotrol] 5 mg PO BID 05/05/17 08/17/18 1 Day Ago History ~08/16/18 Carvedilol [Coreg] 25 mg PO BID #60 tablet 05/11/17 08/17/18 08/16/17 Rx 25mg Clopidogrel [Plavix] 75 mg PO QDAY #30 tablet 05/11/17 08/17/18 08/16/17 Rx 75mg Zolpidem [Ambien] 10 mg PO QHS #30 tablet 05/11/17 08/17/18 07/26/17 20:00 Rx Furosemide [Lasix] 80 mg PO DAILY 08/17/18 08/17/18 Unknown History NIFEdipine [Nifedipine ER] 30 mg PO DAILY 08/17/18 08/17/18 Unknown History Sodium Bicarbonate 10 gm PO DAILY 08/17/18 08/17/18 Unknown History Active Medications: Generic Name Dose Route Start Last Admin Trade Name Freq PRN Reason Stop Dose Admin Acetaminophen 650 mg 08/17/18 22:30 Tylenol PO Q4H PRN Pain MILD(1-3)/Fever >100.5/BEJARANO Albuterol 2.5 mg 08/18/18 10:50 Proventil IH Q4HRT PRN Shortness Of Breath Carvedilol 25 mg 08/18/18 10:00 08/21/18 22:19 Coreg PO 25 mg BID RAUDEL Administration Clopidogrel Bisulfate 75 mg 08/18/18 10:00 08/21/18 11:27 Plavix PO 75 mg QDAY RAUDEL Administration Dextrose 50 ml 08/17/18 22:30 08/22/18 06:34 D50w (25gm) Syringe IV 50 ml PRN PRN Administration Hypoglycemia Epoetin Caesar 10,000 unit 08/18/18 14:00 08/21/18 15:59 Procrit IV 10,000 unit TERRANCE PRN Administration hemodialysis Furosemide 80 mg 08/18/18 10:00 08/21/18 11:24 Lasix PO Not Given DAILY RAUDEL Heparin Sodium (Porcine) 5,000 unit 08/18/18 22:00 08/21/18 22:19 Heparin SUB-Q 5,000 unit Q12HR RAUDEL Administration Hydralazine HCl 5 mg 08/18/18 00:28 Apresoline IV Q6HR PRN Hypertension Sodium Chloride 100 mls @ 999 mls/hr 08/18/18 13:30 Nacl 0.9% IV TERRANCE PRN Hypotension Lidocaine/Prilocaine 1 applic 08/20/18 18:00 Emla TP TERRANCE PRN HEMODIALYSIS Loperamide HCl 2 mg 08/21/18 11:19 Imodium PO Q2H PRN Diarrhea Meclizine HCl 25 mg 08/18/18 00:27 08/21/18 19:04 Antivert PO 25 mg TID PRN Administration Vertigo Metoclopramide HCl 10 mg 08/17/18 22:30 Reglan IV Q6H PRN Nausea And Vomiting Nifedipine 30 mg 08/18/18 10:00 08/21/18 11:24 Procardia Xl PO Not Given DAILY RAUDEL Ondansetron HCl 4 mg 08/17/18 22:30 Zofran IV Q8H PRN Nausea And Vomiting Oxycodone/Acetaminophen 1 tab 08/17/18 22:30 08/21/18 19:04 Percocet 5/325 PO 1 tab Q6H PRN Administration Pain, Moderate (4-6) Sodium Chloride 10 ml 08/17/18 23:00 08/21/18 22:29 Sodium Chloride Flush Syringe 10 Ml IV 10 ml BID RAUDEL Administration Sodium Chloride 10 ml 08/17/18 22:30 Sodium Chloride Flush Syringe 10 Ml IV PRN PRN LINE FLUSH Zolpidem Tartrate 10 mg 08/18/18 22:00 08/21/18 22:18 Ambien PO 10 mg QHS RAUDEL Administration
[2018-08-22] MEDS: PROCARDIA XL PO SCH (10:01)
[2018-08-22] MEDS: LASIX PO SCH (10:01)
[2018-08-22] MEDS: PLAVIX PO SCH (10:01)
[2018-08-22] MEDS: SODIUM CHLORIDE FLUSH SYRINGE 10 ML IV SCH (10:02)
[2018-08-22] MEDS: COREG PO SCH ×2 (10:02→21:48)
[2018-08-22] MEDS: HEPARIN SUB-Q SCH ×2 (10:03→21:47)
--- NOTE | 2018-08-22 13:45 | Progress Note ---
Assessment and Plan Assessment and plan: End-stage renal disease needing hemodialysis; patient had HD previously and discontinued a year ago. Currently patient's creatinine at admission was 9.6 with uremic symptoms. Acute hypoxemic respiratory failure. Etiology Fluid overload secondary to ESRD, - continue HD per nephrology - patient is feeling much better - Patient has patent AV graft, evaluated by vascular surgery and functional Diabetes mellitus; controlled without medication - Had episode of hypoglycemia and treated with D50 and normalized - will follow Hypertension; controlled, continue carvedilol Anemia of CKD; will get Epogen on dialysis DVT prophylaxis - On heparin Disposition -Need outpatient dialysis arrangement. -Care management consult History Interval history: No new issues overnight Hospitalist Physical - Constitutional Vitals: Temp Pulse Resp BP Pulse Ox 97.7 F 60 18 134/64 99 08/22/18 08:13 08/22/18 10:02 08/22/18 08:13 08/22/18 10:02 08/22/18 09:02 General appearance: Present: no acute distress - EENT Eyes: Present: PERRL, EOM intact ENT: hearing intact, clear oral mucosa, dentition normal - Neck Neck: Present: supple, normal ROM - Respiratory Respiratory effort: normal Respiratory: bilateral: CTA - Cardiovascular Rhythm: regular Heart Sounds: Present: S1 & S2. Absent: gallop, rub - Extremities Extremities: no ischemia, No edema, Full ROM - Abdominal General gastrointestinal: soft, non-tender, non-distended, normal bowel sounds - Integumentary Integumentary: Present: clear, warm, dry - Neurologic Neurologic: CNII-XII intact, moves all extremities Results - Labs CBC & Chem 7: 08/22/18 05:55 08/22/18 05:55 Labs: Laboratory Last Values WBC 6.9 K/mm3 (4.5-11.0) 08/22/18 05:55 RBC 3.33 M/mm3 (3.65-5.03) L 08/22/18 05:55 Hgb 10.4 gm/dl (11.8-15.2) L 08/22/18 05:55 Hct 31.0 % (35.5-45.6) L 08/22/18 05:55 MCV 93 fl (84-94) 08/22/18 05:55 MCH 31 pg (28-32) 08/22/18 05:55 MCHC 34 % (32-34) 08/22/18 05:55 RDW 17.0 % (13.2-15.2) H 08/22/18 05:55 Plt Count 169 K/mm3 (140-440) 08/22/18 05:55 Lymph % (Auto) 18.4 % (13.4-35.0) 08/22/18 05:55 [place] % (Auto) 10.8 % (0.0-7.3) H 08/22/18 05:55 Eos % (Auto) 6.1 % (0.0-4.3) H 08/22/18 05:55 Baso % (Auto) 1.0 % (0.0-1.8) 08/22/18 05:55 Lymph # 1.3 K/mm3 (1.2-5.4) 08/22/18 05:55 [place] # 0.8 K/mm3 (0.0-0.8) 08/22/18 05:55 Eos # 0.4 K/mm3 (0.0-0.4) 08/22/18 05:55 Baso # 0.1 K/mm3 (0.0-0.1) 08/22/18 05:55 Seg Neutrophils % 63.7 % (40.0-70.0) 08/22/18 05:55 Seg Neutrophils # 4.4 K/mm3 (1.8-7.7) 08/22/18 05:55 Sodium 140 mmol/L (137-145) 08/22/18 05:55 Potassium 4.5 mmol/L (3.6-5.0) 08/22/18 05:55 Chloride 98.8 mmol/L (98-107) 08/22/18 05:55 Carbon Dioxide 27 mmol/L (22-30) 08/22/18 05:55 Anion Gap 19 mmol/L 08/22/18 05:55 BUN 35 mg/dL (9-20) H 08/22/18 05:55 Creatinine 5.7 mg/dL (0.8-1.5) H 08/22/18 05:55 Estimated GFR 11 ml/min 08/22/18 05:55 BUN/Creatinine Ratio 6 % 08/22/18 05:55 Glucose 66 mg/dL (75-100) L 08/22/18 05:55 POC Glucose 92 (70-105) 08/22/18 12:31 Calcium 8.5 mg/dL (8.4-10.2) 08/22/18 05:55 Total Creatine Kinase 176 units/L (55-170) H 08/18/18 07:47 CK-MB (CK-2) 3.7 ng/mL (0.0-4.0) 08/18/18 07:47 CK-MB (CK-2) Rel Index 2.1 (0-4) 08/18/18 07:47 Troponin T 0.088 ng/mL (0.00-0.029) H D 08/18/18 07:47 Triglycerides 130 mg/dL (2-149) 08/17/18 22:59 Cholesterol 158 mg/dL (50-199) 08/17/18 22:59 LDL Cholesterol Direct 120 mg/dL (50-130) 08/17/18 22:59 HDL Cholesterol 24 mg/dL (40-59) L 08/17/18 22:59 Cholesterol/HDL Ratio 6.58 % 08/17/18 22:59 Hepatitis A IgM Ab Non-reactive (NonReactive) 08/18/18 07:47 Hep Bs Antigen Non-reactive (Negative) 08/18/18 07:47 Hep B Core IgM Ab Non-reactive (NonReactive) 08/18/18 07:47 Hepatitis C Antibody Non-reactive (NonReactive) 08/18/18 07:47 Influenza A (Rapid) Negative (Negative) 08/17/18 Unknown Influenza B (Rapid) Negative (Negative) 08/17/18 Unknown Blood Type O POSITIVE 08/17/18 20:00 Antibody Screen Negative 08/17/18 20:00 Crossmatch See Detail 08/17/18 20:00
[2018-08-22 21:48] VITALS: BP 127/61
[2018-08-22] MEDS: AMBIEN PO SCH (21:48)
--- NOTE | 2018-08-23 07:31 | Discharge Summary ---
Providers - Providers Date of Admission: 08/17/18 19:04 Date of discharge: 08/22/18 Attending physician: SUNNY FALL 08/17/18 18:57 Consult to Physician [CONS] Urgent Comment: Consulting Provider: WILLIAMS PILLAI Physician Instructions: Reason For Exam: acute renal failure 08/18/18 13:24 Consult to Case Management [CONS] Routine Services Needed at Discharge: Other Notified:: case management Comment:: outpatient dialysis arrangement Primary care physician: MELODIE GARCES Hospitalization Reason for admission: esrd Condition: Stable Hospital course: The patient is a 47-year-old male presented with chief complaint of weakness. The patient stated for approximately 2-3 weeks he's had body aches and diffuse weakness. The patient reported dyspnea 4 days prior to admission. The patient stated his urinary output had decreased over the past week. Patient states she would normally urinate approximately 30 ounces of urine overnight and has decreased to approximately 12-16 ounces. His appetite has been poor as well. He had some nausea and vomiting also Patient used to be on dialysis in the past. However he did have some improvement in his renal function and was taken off dialysis about a year ago. He used to go to [facility]. He was in dialysis for approximately a year. He has had multiple failed dialysis accesses in the past. Finally he had a left chest loop graft placed about a year ago. It has however never been used. The patient was seen by nephrology in consultation and noted to have pulmonary edema and uremia secondary to ESRD. Nephrology initiated the patient back on hemodialysis. The patient has a patent AV graft that was evaluated by vascular surgery and found to be functional. The patient was awaiting a hemodialysis chair to be set up with case management. Unfortunately, the evening of 08/22/18 patient left AMA. Dedicated discharge time 32 minutes. 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 use Diabetes mellitus complication status: with hyperglycemia Qualified Code(s): E11.65 - Type 2 diabetes mellitus with hyperglycemia (4) ESRD (end stage renal disease) on dialysis Status: Chronic (5) HTN (hypertension) Status: Chronic Qualifiers: Hypertension type: essential hypertension Qualified Code(s): I10 - Essential (primary) hypertension Core Measure Documentation - Palliative Care Palliative Care/ Comfort Measures: Not Applicable - Core Measures Any of the following diagnoses?: none Exam - Constitutional Vitals: Temp Pulse Resp BP Pulse Ox 98.0 F 64 20 127/61 98 08/22/18 18:55 08/22/18 22:00 08/22/18 21:52 08/22/18 21:48 08/22/18 21:52 Plan Follow up with: MELODIE GARCES MD [Primary Care Provider] - 3-5 Days Forms: AMA Form
== END 2018-08-22 22:57 | disposition left against medical advice (07) | DRG 640 ==
LOC: ED 14:54 → 4A 19:04
PROVIDERS: ADMIT Internal Medicine; ATTEND Hospitalist
PROC: 5A1D70Z Performance of Urinary Filtration, Intermittent, Less than 6 Hours Per Day (ICD-10-PCS; principal; 2018-08-18)
PROC: 30233N1 Transfusion of Nonautologous Red Blood Cells into Peripheral Vein, Percutaneous Approach (ICD-10-PCS; 2018-08-18)
PROC: 5A1D70Z Performance of Urinary Filtration, Intermittent, Less than 6 Hours Per Day (ICD-10-PCS; 2018-08-19)
PROC: 5A1D70Z Performance of Urinary Filtration, Intermittent, Less than 6 Hours Per Day (ICD-10-PCS; 2018-08-22)
DX: E87.70 Fluid overload, unspecified (principal); J96.01 Acute respiratory failure with hypoxia; N18.6 End stage renal disease; I12.0 Hypertensive chronic kidney disease with stage 5 chronic kidney disease or end stage renal disease; D63.1 Anemia in chronic kidney disease; E11.649 Type 2 diabetes mellitus with hypoglycemia without coma; E11.22 Type 2 diabetes mellitus with diabetic chronic kidney disease; E11.65 Type 2 diabetes mellitus with hyperglycemia; I25.10 Atherosclerotic heart disease of native coronary artery without angina pectoris; H54.8 Legal blindness, as defined in USA; Z82.49 Family history of ischemic heart disease and other diseases of the circulatory system; Z95.828 Presence of other vascular implants and grafts; Z79.84 Long term (current) use of oral hypoglycemic drugs; Z79.899 Other long term (current) drug therapy; Z53.21 Procedure and treatment not carried out due to patient leaving prior to being seen by health care provider
CPT/HCPCS: 36415; 71045; 71046; 80048; 80061; 80074; 82550; 82553; 82962; 84484; 85025; 85027; 86850; 86900; 86901; 86920; 87400; 94760; G0378; J0885; J1644; J2997; J7030; J7040; P9016

== ENCOUNTER 2019-04-18 10:18 | Day surgery (SDC) | payer MEDICARE ==
--- NOTE | 2019-04-18 10:50 | Short Stay Summary ---
<ANGELODAVID - Last Filed: 04/18/19 11:56> Short Stay Documentation Date of service: 04/18/19 Narrative H&P: This pt is a 48yo WM with ESRD on HD through a left chest wall looped avg. He has had multiple recent episodes of AVG thrombosis (last declot 04/11/19, He had a another declot with a venous outflow stent graft placed ~2wks prior to that). This pt has lengthy history of difficulty maintaining a patent HD access. He was placed on Eliquis at one point (for a short time period, though he stopped it due to financial concerns). He is not on anticoagulation at this time. He presents today with a re-thrombosed av access. Last HD was 5 days ago. He was noted to have a thrombosed graft on Tuesday. - History Past Medical History: CAD, diabetes, dialysis, ESRD, hypertension, hyperlipidemia, stroke Past Surgical History: cholecystectomy, PTCA (with stent), Other (eye surgery, Knee surgery, EGD, Colonoscopy, Biliary drainage catheter, Multiple HD access procedures most recent is a left chest wall looped avg. This has thrombosed multiple times recently. Anticoagulation has been recommended.) Social history: , no smoking, no alcohol abuse (drinks alcohol socially) - Allergies and Medications Current Medications: Allergies No Known Allergies Allergy (Verified 03/21/17 10:06) Home Medications Medication Instructions Recorded Confirmed Last Taken Type Meclizine [Antivert] 25 mg PO TID PRN 01/04/17 08/17/18 2 Months Ago History ~05/27/17 glipiZIDE [Glucotrol] 5 mg PO BID 05/05/17 08/17/18 1 Day Ago History ~08/16/18 Carvedilol [Coreg] 25 mg PO BID #60 tablet 05/11/17 08/17/18 08/16/17 Rx 25mg Clopidogrel [Plavix] 75 mg PO QDAY #30 tablet 05/11/17 08/17/18 08/16/17 Rx 75mg Zolpidem [Ambien] 10 mg PO QHS #30 tablet 05/11/17 08/17/18 07/26/17 20:00 Rx Furosemide [Lasix] 80 mg PO DAILY 08/17/18 08/17/18 Unknown History NIFEdipine [Nifedipine ER] 30 mg PO DAILY 08/17/18 08/17/18 Unknown History Sodium Bicarbonate 10 gm PO DAILY 08/17/18 08/17/18 Unknown History - Physical exam General appearance: no acute distress HEENT: Atraumatic, Other (visually impaired) Lungs: Normal air movement Heart: Regular rate Extremities: no ischemia, abnormal (Left chest wall , no thrill appreciated) Neurological: Other (no new focal deficits appreciated) - Disposition Condition at discharge: Good Disposition: DC-01 TO HOME OR SELFCARE Short Stay Discharge Plan Follow up with: MELODIE GARCES MD [Primary Care Provider] - 7 Days Prescriptions: Apixaban [Eliquis] 2.5 mg PO BID #60 tablet <WILLIAM REAVES - Last Filed: 04/18/19 14:06> Short Stay Documentation - Allergies and Medications Current Medications: Allergies No Known Allergies Allergy (Verified 03/21/17 10:06) Home Medications Medication Instructions Recorded Confirmed Last Taken Type Meclizine [Antivert] 25 mg PO TID PRN 01/04/17 08/17/18 2 Months Ago History ~05/27/17 glipiZIDE [Glucotrol] 5 mg PO BID 05/05/17 04/18/19 04/13/19 History Carvedilol [Coreg] 25 mg PO BID #60 tablet 05/11/17 04/18/19 04/17/19 Rx Clopidogrel [Plavix] 75 mg PO QDAY #30 tablet 05/11/17 04/18/19 04/17/19 Rx Zolpidem [Ambien] 10 mg PO QHS #30 tablet 05/11/17 08/17/18 07/26/17 20:00 Rx Furosemide [Lasix] 80 mg PO DAILY 08/17/18 04/18/19 04/17/19 History NIFEdipine [Nifedipine ER] 30 mg PO DAILY 08/17/18 04/18/19 Unknown History Sodium Bicarbonate 10 gm PO DAILY 08/17/18 08/17/18 Unknown History Aspirin [Adult Aspirin] 81 mg PO DAILY 04/18/19 04/18/19 04/17/19 History Escitalopram [Lexapro] 10 mg PO DAILY 04/18/19 04/18/19 04/17/19 History - Brief post op/procedure progress note Date of procedure: 04/18/19 Procedure: Pre-operative diagnosis: Thrombosed left chest axillary to axillary looped dialysis graft, end-stage renal disease Post-operative diagnosis: Same Procedure name(s): #1 percutaneous mechanical thrombectomy of surgically created hemodialysis graft with angioplasty of the peripheral dialysis circuit Surgeon: William Reaves MD Business Analytics Analyst: None Anesthesia: Moderate sedation [id number] total sedation time 71 minutes EBL: Minimal Specimen(s): None Complications: None. Findings: This outflow stenosis with thrombus at the distal end of the stent successfully angioplastied with improvement, successful thrombectomy with excellent inflow. Removal of residual resistant thrombus from the arterial end of the graft using mechanical rotational thrombectomy device Procedure: Patient in the supine position the left chest was prepped and draped using standard sterile technique. Access to the upper chest looped AV graft was obtained using ultrasound guidance, micropuncture technique, through anesthetized skin with the sheath oriented towards the venous outflow tract. A wire was advanced through the graft into the central circulation and an angled Kumpe catheter was then used to confirm patency of the central venous circulation. Dress was injected showing that there was stenosis beginning at the axillary vein at the first rib into the stent graft and then the AV graft a Trerotola rotational thrombectomy device was then advanced throughout the venous limb of the graft and into the stent removing residual thrombus. This was sufficiently cleaned it was noted there was some adherent thrombus within the stent. This was treated with balloon maceration and angioplasty of the stenotic vein beyond that level with ultimate complete clearing and good anatomical improvement. The Patient was heparinized by this time. Second sheath was then introduced using identical access technique utilizing cross catheter orientation. The Trerotola thrombectomy device was then advanced into the axillary artery and gradually withdrawn in the non-active status until the arterial plug was engaged. It was subsequently removed by activating the rotational component and withdrawing into the graft. The multiple passes resulted in all but a small amount of residual adherent thrombus being removed. The adherent thrombus was ultimately removed by reintroducing the Trerotola over the area of adherent thrombus and confirming its removal with angiography. Completion angiography showed the graft to be completely free of thrombus with good flow and no residual stenosis in the axillary or subclavian veins. Both sheaths were then removed over a pursestring chromic sutures. The stasis was good and he was returned to the recovery area in stable condition. The graft is ready for access. We'll place him on Eliquis as a precaution against future thrombus. Short Stay Discharge Plan Activity: advance as tolerated Weight Bearing Status: Weight Bear as Tolerated Diet: renal Wound: keep clean and dry Special Instructions: no heavy lifting
[2019-04-18] MEDS ORDERED: HEPARIN 10,000 UNITS/10 ML ONE (11:57)
[2019-04-18] MEDS ORDERED: HEPARIN/NS 5000 UNIT/500ML(CATH LAB) 1,500 ML IR ONE (11:57)
[2019-04-18] MEDS ORDERED: ANCEF/STERILE WATER 2 GM/20 ML 2 GM/20 ML SYRINGE IV ONE (11:58)
[2019-04-18] MEDS ORDERED: NACL 0.9% 250ML 250 ML ONE (11:58)
[2019-04-18] MEDS: SUBLIMAZE ONE ×2 (12:24→12:38)
[2019-04-18] MEDS: VERSED ONE ×2 (12:24→12:38)
[2019-04-18] MEDS: XYLOCAINE 1%/ EPI 1:100,000 INFILTRATI ONE ×4 (12:24→13:36)
[2019-04-18] MEDS ORDERED: VERSED ONE (12:46)
[2019-04-18] MEDS ORDERED: SUBLIMAZE ONE (12:46)
[2019-04-18] MEDS: APRESOLINE ONE (12:48)
--- NOTE | 2019-04-18 14:00 | Operative Report ---
Operative Report Operative Report: Date of procedure: 04/18/2019 Pre-operative diagnosis: Thrombosed left chest axillary to axillary looped dialysis graft, end-stage renal disease Post-operative diagnosis: Same Procedure name(s): #1 percutaneous mechanical thrombectomy of surgically created hemodialysis graft with angioplasty of the peripheral dialysis circuit Surgeon: William Reaves MD Allergy And Immunology Specialist: None Anesthesia: Moderate sedation [id number] total sedation time 71 minutes EBL: Minimal Specimen(s): None Complications: None. Findings: This outflow stenosis with thrombus at the distal end of the stent successfully angioplastied with improvement, successful thrombectomy with excellent inflow. Removal of residual resistant thrombus from the arterial end of the graft using mechanical rotational thrombectomy device Procedure: Patient in the supine position the left chest was prepped and draped using standard sterile technique. Access to the upper chest looped AV graft was obtained using ultrasound guidance, micropuncture technique, through anesthetized skin with the sheath oriented towards the venous outflow tract. A wire was advanced through the graft into the central circulation and an angled Kumpe catheter was then used to confirm patency of the central venous circulation. Dress was injected showing that there was stenosis beginning at the axillary vein at the first rib into the stent graft and then the AV graft a Trerotola rotational thrombectomy device was then advanced throughout the venous limb of the graft and into the stent removing residual thrombus. This was sufficiently cleaned it was noted there was some adherent thrombus within the stent. This was treated with balloon maceration and angioplasty of the stenotic vein beyond that level with ultimate complete clearing and good anatomical improvement. The Patient was heparinized by this time. Second sheath was then introduced using identical access technique utilizing cross catheter orientation. The Trerotola thrombectomy device was then advanced into the axillary artery and gradually withdrawn in the non-active status until the arterial plug was engaged. It was subsequently removed by activating the rotational component and withdrawing into the graft. The multiple passes resulted in all but a small amount of residual adherent thrombus being removed. The adherent thrombus was ultimately removed by reintroducing the Trerotola over the area of adherent thrombus and confirming its removal with angiography. Completion angiography showed the graft to be completely free of thrombus with good flow and no residual stenosis in the axillary or subclavian veins. Both sheaths were then removed over a pursestring chromic sutures. The stasis was good and he was returned to the recovery area in stable condition. The graft is ready for access. We'll place him on Eliquis as a precaution against future thrombus.
[2019-04-18] MEDS ORDERED: ELIQUIS PO ONE (14:12)
[2019-04-18 14:32] VITALS: BP 157/65
== END 2019-04-18 15:04 | disposition home or self-care (01) ==
LOC: CATHLABREC 10:18
PROVIDERS: ATTEND Surgery Vascular Surgery
DX: T82.868A Thrombosis due to vascular prosthetic devices, implants and grafts, initial encounter (principal); T82.858A Stenosis of other vascular prosthetic devices, implants and grafts, initial encounter; I12.0 Hypertensive chronic kidney disease with stage 5 chronic kidney disease or end stage renal disease; E11.22 Type 2 diabetes mellitus with diabetic chronic kidney disease; N18.6 End stage renal disease; E78.5 Hyperlipidemia, unspecified; D64.9 Anemia, unspecified; D72.829 Elevated white blood cell count, unspecified; G62.9 Polyneuropathy, unspecified; E11.42 Type 2 diabetes mellitus with diabetic polyneuropathy; I25.118 Atherosclerotic heart disease of native coronary artery with other forms of angina pectoris; E78.00 Pure hypercholesterolemia, unspecified; K21.9 Gastro-esophageal reflux disease without esophagitis; F41.9 Anxiety disorder, unspecified; E66.9 Obesity, unspecified; Z68.32 Body mass index [BMI] 32.0-32.9, adult; Z90.49 Acquired absence of other specified parts of digestive tract; Z95.5 Presence of coronary angioplasty implant and graft; Z98.890 Other specified postprocedural states; Z79.82 Long term (current) use of aspirin; Z79.899 Other long term (current) drug therapy; Z83.3 Family history of diabetes mellitus; Z82.49 Family history of ischemic heart disease and other diseases of the circulatory system; Z86.73 Personal history of transient ischemic attack (TIA), and cerebral infarction without residual deficits; Y83.9 Surgical procedure, unspecified as the cause of abnormal reaction of the patient, or of later complication, without mention of misadventure at the time of the procedure
CPT/HCPCS: 36415; 36905; 82962; 84132; 99156; 99157; C1725; C1757; C1769; C1894; J0360; J0690; J1644; J2250; J3010; J7050; Q9967

== ENCOUNTER 2019-06-15 08:49 | Observation (INO) | payer MEDICARE ==
--- NOTE | 2019-06-15 09:44 | Emergency Department Report ---
HPI - HPI HPI: Pt is a very pleasant 48-year-old who comes to the ER today from [facility] dialysis clinic on [facility] because his blood pressure was elevated. Patient states that because his systolic pressure was greater than 170 day would not dialyze him. The HD clinic called Dr. Stovall and he was sent here to the ER on arrival to the ER the patient's blood pressure is 196 systolic. Pt denies chest pain or shortness of breath his last hemodialysis was on Tuesday. He skipped on Tuesday because he was not feeling well. 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 I have called Dr. Stovall's office and her doctor Avelina the patient will be admitted to the hospitalist in observation status for emergent HD. Per MD if SBP is over 200 they will not do HD and they send pt to ER. He is volume positive due to missed HD Tue. Pt has been on HD since 2017- ESKD due to DM and HTN. He has has vascath inserted in Left subclavian- placed 06-02. Dressing over vascath clean dry and intact. Pt denies cp or sob at rest. 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 DM HTN anxiety PSH LA fistula- that blew and failed- never used L subclavian prior HD access sites- numerous scars choley Home meds: glipizide coreg plavix ambien lasix asa vern citralopram at bedside <KIKE RAO - Last Filed: 06/15/19 10:38> <ISAIAS ADAM III - Last Filed: 06/15/19 11:02> - General Chief Complaint: High BP Time Seen by Provider: 06/15/19 09:20 ED Past Medical Hx - Past Medical History Hx Hypertension: Yes Hx CVA: Yes Hx Heart Attack/AMI: Yes Hx Congestive Heart Failure: No Hx Diabetes: Yes Hx Deep Vein Thrombosis: No Hx Pulmonary Embolism: No Hx GERD: No Hx Liver Disease: No Hx Renal Disease: Yes Hx of Cancer: No Hx Sickle Cell Disease: No Hx Arthritis: No Hx Headaches / Migraines: No Hx Seizures: No Hx Kidney Stones: No Hx Psychiatric Treatment: No Hx Asthma: Yes Hx COPD: No Hx Tuberculosis: No Hx Dementia: No Hx HIV: No - Surgical History Hx Coronary Stent: Yes Hx Open Heart Surgery: No Hx Pacemaker: No Hx Internal Defibrillator: No Additional Surgical History: L fistula. R chest permicath; knee - Family History Family history: no significant - Social History Smoking Status: Never Smoker Substance Use Type: None <KIKE RAO - Last Filed: 06/15/19 10:38> <ISAIAS ADAM III - Last Filed: 06/15/19 11:02> - Medications Home Medications: Home Medications Medication Instructions Recorded Confirmed Last Taken Type Meclizine [Antivert] 25 mg PO TID PRN 01/04/17 08/17/18 2 Months Ago History ~05/27/17 glipiZIDE [Glucotrol] 5 mg PO BID 05/05/17 04/18/19 04/13/19 History 5 mg Carvedilol [Coreg] 25 mg PO BID #60 tablet 05/11/17 04/18/19 04/17/19 Rx 25 mg Clopidogrel [Plavix] 75 mg PO QDAY #30 tablet 05/11/17 04/18/19 04/17/19 Rx 75 mg Zolpidem [Ambien] 10 mg PO QHS #30 tablet 05/11/17 08/17/18 07/26/17 20:00 Rx Furosemide [Lasix TAB] 80 mg PO DAILY 08/17/18 04/18/19 04/17/19 History NIFEdipine [Nifedipine ER] 30 mg PO DAILY 08/17/18 04/18/19 Unknown History Sodium Bicarbonate 10 gm PO DAILY 08/17/18 08/17/18 Unknown History Apixaban [Eliquis] 2.5 mg PO BID #60 tablet 04/18/19 Unknown Rx Aspirin [Adult Aspirin] 81 mg PO DAILY 04/18/19 04/18/19 04/17/19 History Escitalopram [Lexapro] 10 mg PO DAILY 04/18/19 04/18/19 04/17/19 History ED Review of Systems ROS: Stated complaint: HYPERTENSION Other details as noted in HPI Comment: All other systems reviewed and negative <KIKE RAO - Last Filed: 06/15/19 10:38> ROS: Stated complaint: HYPERTENSION Other details as noted in HPI <ISAIAS ADAM III - Last Filed: 06/15/19 11:02> Physical Exam - Physical Exam Vital Signs: Vital Signs 06/15/19 08:55 Temperature 97.7 F Pulse Rate 60 Respiratory 16 Rate Blood Pressure 196/88 O2 Sat by Pulse 100 Oximetry <KIKE RAO A - Last Filed: 06/15/19 10:38> - Physical Exam Vital Signs: Vital Signs 06/15/19 06/15/19 06/15/19 08:55 09:23 09:31 Temperature 97.7 F Pulse Rate 60 63 Respiratory 16 13 Rate Blood Pressure 196/88 197/79 204/93 O2 Sat by Pulse 100 100 Oximetry 06/15/19 06/15/19 06/15/19 09:45 10:00 10:11 Temperature Pulse Rate 58 L 59 L 59 L Respiratory 13 12 Rate Blood Pressure 200/92 191/88 O2 Sat by Pulse 100 100 Oximetry 06/15/19 06/15/19 06/15/19 10:15 10:30 10:45 Temperature Pulse Rate 59 L 59 L 59 L Respiratory 9 L 12 11 L Rate Blood Pressure 191/88 182/94 182/94 O2 Sat by Pulse 99 100 99 Oximetry <JAIR ALVARADOISAIAS Roberson - Last Filed: 06/15/19 11:02> ED Course Vital Signs 06/15/19 08:55 Temperature 97.7 F Pulse Rate 60 Respiratory 16 Rate Blood Pressure 196/88 O2 Sat by Pulse 100 Oximetry - Reevaluation(s) Reevaluation #1: 06/15/19 10:20 pt and family updated on plan of care Reevaluation #2: 06/15/19 10:22 labetolol held as ordered by Dr Quan due to HR SR 57 Reevaluation #3: 06/15/19 10:[address] Roberson- will admit obs to Dr Vegas. <KIKE RAO A - Last Filed: 06/15/19 10:38> Vital Signs 06/15/19 06/15/19 06/15/19 08:55 09:23 09:31 Temperature 97.7 F Pulse Rate 60 63 Respiratory 16 13 Rate Blood Pressure 196/88 197/79 204/93 O2 Sat by Pulse 100 100 Oximetry 06/15/19 06/15/19 06/15/19 09:45 10:00 10:11 Temperature Pulse Rate 58 L 59 L 59 L Respiratory 13 12 Rate Blood Pressure 200/92 191/88 O2 Sat by Pulse 100 100 Oximetry 06/15/19 06/15/19 06/15/19 10:15 10:30 10:45 Temperature Pulse Rate 59 L 59 L 59 L Respiratory 9 L 12 11 L Rate Blood Pressure 191/88 182/94 182/94 O2 Sat by Pulse 99 100 99 Oximetry - Reevaluation(s) Reevaluation #4: I examined the patient. I discussed plan of care with patient. Patient agrees with plan of care and admission. Patient will be admitted to the hospitalist service. 06/15/19 11:01 <ISAIAS ADAM III - Last Filed: 06/15/19 11:02> ED Medical Decision Making - Lab Data Result diagrams: 06/15/19 09:57 06/15/19 09:57 - Medical Decision Making Lab Results 06/15/19 Range/Units 09:57 WBC 7.2 (4.5-11.0) K/mm3 RBC 3.36 L (3.65-5.03) M/mm3 Hgb 10.8 L (11.8-15.2) gm/dl Hct 32.5 L (35.5-45.6) % MCV 97 H (84-94) fl MCH 32 (28-32) pg MCHC 33 (32-34) % RDW 14.4 (13.2-15.2) % Plt Count 196 (140-440) K/mm3 Lymph % (Auto) 19.2 (13.4-35.0) % [place] % (Auto) 5.5 (0.0-7.3) % Eos % (Auto) 6.8 H (0.0-4.3) % Baso % (Auto) 0.6 (0.0-1.8) % Lymph # 1.4 (1.2-5.4) K/mm3 [place] # 0.4 (0.0-0.8) K/mm3 Eos # 0.5 H (0.0-0.4) K/mm3 Baso # 0.0 (0.0-0.1) K/mm3 Seg Neutrophils % 67.9 (40.0-70.0) % Seg Neutrophils # 4.9 (1.8-7.7) K/mm3 Vital Signs 06/15/19 06/15/19 06/15/19 08:55 09:23 09:31 Temperature 97.7 F Pulse Rate 60 63 Respiratory 16 13 Rate Blood Pressure 196/88 197/79 204/93 O2 Sat by Pulse 100 100 Oximetry 06/15/19 06/15/19 06/15/19 09:45 10:00 10:11 Temperature Pulse Rate 58 L 59 L 59 L Respiratory 13 12 Rate Blood Pressure 200/92 191/88 O2 Sat by Pulse 100 100 Oximetry Discussed pt presentation with Dr Quan in Dr Paiz office Pt volume up and needs HD Missed scheduled HD on Tue pending She will place orders for HD Admit to [facility] obs for HD Discussed with Dr Adam Lab Results 06/15/19 06/15/19 Range/Units 09:57 09:57 WBC 7.2 (4.5-11.0) K/mm3 RBC 3.36 L (3.65-5.03) M/mm3 Hgb 10.8 L (11.8-15.2) gm/dl Hct 32.5 L (35.5-45.6) % MCV 97 H (84-94) fl MCH 32 (28-32) pg MCHC 33 (32-34) % RDW 14.4 (13.2-15.2) % Plt Count 196 (140-440) K/mm3 Lymph % (Auto) 19.2 (13.4-35.0) % [place] % (Auto) 5.5 (0.0-7.3) % Eos % (Auto) 6.8 H (0.0-4.3) % Baso % (Auto) 0.6 (0.0-1.8) % Lymph # 1.4 (1.2-5.4) K/mm3 Sol[place] # 0.4 (0.0-0.8) K/mm3 Eos # 0.5 H (0.0-0.4) K/mm3 Baso # 0.0 (0.0-0.1) K/mm3 Seg Neutrophils % 67.9 (40.0-70.0) % Seg Neutrophils # 4.9 (1.8-7.7) K/mm3 Sodium 142 (137-145) mmol/L Potassium 5.2 H (3.6-5.0) mmol/L Chloride 103.6 (98-107) mmol/L Carbon Dioxide 21 L (22-30) mmol/L Anion Gap 23 mmol/L BUN 65 H (9-20) mg/dL Creatinine 8.8 H (0.8-1.5) mg/dL Estimated GFR 6 ml/min BUN/Creatinine Ratio 7 % Glucose 117 H (75-100) mg/dL Calcium 8.7 (8.4-10.2) mg/dL 1030 discussed with [facility] admit to Dr Vegas Awaiting HD orders from Dr Avelina Ann orders placed - Differential Diagnosis ro hyperk; volume overload; htn <KIKE RAO - Last Filed: 06/15/19 10:38> - Lab Data Result diagrams: 06/15/19 09:57 06/15/19 09:57 <ISAIAS ADAM III - Last Filed: 06/15/19 11:02> Critical care attestation.: If time is entered above; I have spent that time in minutes in the direct care of this critically ill patient, excluding procedure time. <KIKE RAO - Last Filed: 06/15/19 10:38> Critical care attestation.: If time is entered above; I have spent that time in minutes in the direct care of this critically ill patient, excluding procedure time. <ISAIAS ADAM III - Last Filed: 06/15/19 11:02> ED Disposition Is pt being admited?: Yes Does the pt Need Aspirin: No Time of Disposition: 10:21 <KIKE RAO - Last Filed: 06/15/19 10:38> Is pt being admited?: Yes Does the pt Need Aspirin: No <ISAIAS ADAM III - Last Filed: 06/15/19 11:02> Clinical Impression: ESRD (end stage renal disease) on dialysis, Hyperkalemia, Malignant hypertension Disposition: OP ADMIT IP TO THIS HOSP Condition: Serious ED Psych EXAM - General General appearance: alert Limitations: No Limitations - Head Head exam: Positive: normocephalic - ENT ENT exam: Positive: normal exam, mucous membranes moist - Neck Neck exam: Positive: normal inspection - Respiratory Respiratory exam: Positive: normal lung sounds bilaterally - Cardiovascular Cardiovascular Exam: Positive: regular rate - GI/Abdominal GI/Abdominal exam: Positive: soft - Rectal Rectal exam: Positive: deferred - Psychiatric Psychiatric Exam: Positive: Normal Affect, Depressed - Skin Skin exam: Positive: warm, dry, intact <KIKE RAO - Last Filed: 06/15/19 10:38>
[2019-06-15 10:13] LABS: Basophils % (Auto) 0.6 % (0.0-1.8); Eosinophils # (Auto) 0.5 K/mm3 (0.0-0.4); Eosinophils % (Auto) 6.8 % (0.0-4.3); Hematocrit 32.5 % (35.5-45.6); Hemoglobin 10.8 gm/dl (11.8-15.2); Lymphocytes # (Auto) 1.4 K/mm3 (1.2-5.4); Lymphocytes % (Auto) 19.2 % (13.4-35.0); Mean Corpuscular HGB Conc 33 % (32-34); Mean Corpuscular Volume 97 fl (84-94); Monocytes # (Auto) 0.4 K/mm3 (0.0-0.8); Monocytes % (Auto) 5.5 % (0.0-7.3); Platelet Count 196 K/mm3 (140-440); Red Blood Count 3.36 M/mm3 (3.65-5.03); Red Cell Distribution Width 14.4 % (13.2-15.2)
[2019-06-15 10:32] LABS: Calcium 8.7 mg/dL (8.4-10.2)
--- NOTE | 2019-06-15 12:28 | History and Physical Report ---
History of Present Illness Date of examination: 06/15/19 Date of admission: 06/15/19 10:35 Chief complaint: Hypertension and missed hemodialysis History of present illness: 48-year-old male with past medical history of diabetes mellitus type 2, hypertension, anemia of chronic kidney disease, ESRD on hemodialysis, hyperlipidemia and blindness who presents to the emergency department with missed hemodialysis Tuesday and today. Patient reports his last hemodialysis was on Tuesday. He presents from [facility] dialysis clinic on [facility] because his blood pressure was elevated. Patient states that because his systolic pressure was greater than 170 day would not dialyze him. The HD clinic called Dr. Stovall and he was sent here to the ER on arrival to the ER the patient's blood pressure is 196 systolic. Patient reports that he skipped dialysis on Tuesday because he was not feeling well with cough and cold like symptoms. Patient reports that those symptoms have now resolved. Patient denies any chest pain. No headache or visual symptoms. No fever or chills. Medications and Allergies Allergies Allergy/AdvReac Type Severity Reaction Status Date / Time No Known Allergies Allergy Verified 03/21/17 10:06 Home Medications Medication Instructions Recorded Confirmed Last Taken Type Meclizine [Antivert] 25 mg PO TID PRN 01/04/17 08/17/18 2 Months Ago History ~05/27/17 glipiZIDE [Glucotrol] 5 mg PO BID 05/05/17 04/18/19 04/13/19 History 5 mg Carvedilol [Coreg] 25 mg PO BID #60 tablet 05/11/17 04/18/19 04/17/19 Rx 25 mg Clopidogrel [Plavix] 75 mg PO QDAY #30 tablet 05/11/17 04/18/19 04/17/19 Rx 75 mg Zolpidem [Ambien] 10 mg PO QHS #30 tablet 05/11/17 08/17/18 07/26/17 20:00 Rx Furosemide [Lasix TAB] 80 mg PO DAILY 08/17/18 04/18/19 04/17/19 History NIFEdipine [Nifedipine ER] 30 mg PO DAILY 08/17/18 04/18/19 Unknown History Sodium Bicarbonate 10 gm PO DAILY 08/17/18 08/17/18 Unknown History Apixaban [Eliquis] 2.5 mg PO BID #60 tablet 04/18/19 Unknown Rx Aspirin [Adult Aspirin] 81 mg PO DAILY 04/18/19 04/18/19 04/17/19 History Escitalopram [Lexapro] 10 mg PO DAILY 04/18/19 04/18/19 04/17/19 History Review of Systems All systems: negative Exam - Constitutional Vitals: Temp Pulse Resp BP Pulse Ox 97.7 F 59 L 11 L 182/94 99 06/15/19 08:55 06/15/19 10:45 06/15/19 10:45 06/15/19 10:45 06/15/19 10:45 General appearance: Present: no acute distress, well-nourished - EENT Eyes: Present: PERRL ENT: hearing intact, clear oral mucosa - Neck Neck: Present: supple, normal ROM - Respiratory Respiratory effort: normal Respiratory: bilateral: CTA - Cardiovascular Heart Sounds: Present: S1 & S2. Absent: rub, click - Extremities Extremities: pulses symmetrical, No edema Peripheral Pulses: within normal limits - Abdominal General gastrointestinal: Present: soft, non-tender, non-distended, normal bowel sounds Male genitourinary: Present: normal - Integumentary Integumentary: Present: clear, warm, dry - Musculoskeletal Musculoskeletal: gait normal, strength equal bilaterally - Psychiatric Psychiatric: appropriate mood/affect, intact judgment & insight - Neurologic Neurologic: CNII-XII intact, moves all extremities Results - Labs CBC & Chem 7: 06/15/19 09:57 06/15/19 09:57 Labs: Laboratory Last Values WBC 7.2 K/mm3 (4.5-11.0) 06/15/19 09:57 RBC 3.36 M/mm3 (3.65-5.03) L 06/15/19 09:57 Hgb 10.8 gm/dl (11.8-15.2) L 06/15/19 09:57 Hct 32.5 % (35.5-45.6) L 06/15/19 09:57 MCV 97 fl (84-94) H 06/15/19 09:57 MCH 32 pg (28-32) 06/15/19 09:57 MCHC 33 % (32-34) 06/15/19 09:57 RDW 14.4 % (13.2-15.2) 06/15/19 09:57 Plt Count 196 K/mm3 (140-440) 06/15/19 09:57 Lymph % (Auto) 19.2 % (13.4-35.0) 06/15/19 09:57 Ware % (Auto) 5.5 % (0.0-7.3) 06/15/19 09:57 Eos % (Auto) 6.8 % (0.0-4.3) H 06/15/19 09:57 Baso % (Auto) 0.6 % (0.0-1.8) 06/15/19 09:57 Lymph # 1.4 K/mm3 (1.2-5.4) 06/15/19 09:57 Ware # 0.4 K/mm3 (0.0-0.8) 06/15/19 09:57 Eos # 0.5 K/mm3 (0.0-0.4) H 06/15/19 09:57 Baso # 0.0 K/mm3 (0.0-0.1) 06/15/19 09:57 Seg Neutrophils % 67.9 % (40.0-70.0) 06/15/19 09:57 Seg Neutrophils # 4.9 K/mm3 (1.8-7.7) 06/15/19 09:57 Sodium 142 mmol/L (137-145) 06/15/19 09:57 Potassium 5.2 mmol/L (3.6-5.0) H 06/15/19 09:57 Chloride 103.6 mmol/L (98-107) 06/15/19 09:57 Carbon Dioxide 21 mmol/L (22-30) L 06/15/19 09:57 Anion Gap 23 mmol/L 06/15/19 09:57 BUN 65 mg/dL (9-20) H 06/15/19 09:57 Creatinine 8.8 mg/dL (0.8-1.5) H 06/15/19 09:57 Estimated GFR 6 ml/min 06/15/19 09:57 BUN/Creatinine Ratio 7 % 06/15/19 09:57 Glucose 117 mg/dL (75-100) H 06/15/19 09:57 Calcium 8.7 mg/dL (8.4-10.2) 06/15/19 09:57 Assessment and Plan Assessment and plan: ESRD on hemodialysis. Patient will be admitted and undergo hemodialysis today. Nephrology consult. Hyperkalemia. Patient to receive hemodialysis today. Follow-up BMP in a.m. Accelerated hypertension. We will resume home antihypertensive medications. Diabetes mellitus type 2. Continue Accu-Cheks and sliding scale insulin. Anemia of CKD. Continue Epogen. Disposition. Anticipate discharge in a.m.
[2019-06-15] MEDS ORDERED: ONDANSETRON 4 MG/2 ML INJ IV PRN (12:30)
[2019-06-15] MEDS ORDERED: ACETAMINOPHEN 325 MG TAB PO PRN (12:30)
[2019-06-15] MEDS ORDERED: DEXTROSE 50% IN WATER (25GM) 50 ML SYRINGE IV PRN (12:30)
[2019-06-15 14:42] LABS: Hepatitis B Surface Antigen Non-Reactive (Negative); Hepatitis C Virus Antibody Non-Reactive (NonReactive)
--- NOTE | 2019-06-15 17:08 | Consultation ---
History of Present Illness - History of Present Illness 48 year old with medical history significant for HTN, DM type II , ESRd on he modialysis admitted with complaints of elevated blood pressures , was sent from dialysis for same. BP was 190mmhg on arrival , Last H D was tuesday, Denies any fevers or chills, orthopnea or PND denies any lower extremity edema. Denies any nausea or vomitting. Past History Past Medical History: denies: acute PR, atrial fib Medications and Allergies Allergies Allergy/AdvReac Type Severity Reaction Status Date / Time No Known Allergies Allergy Verified 03/21/17 10:06 Home Medications Medication Instructions Recorded Confirmed Last Taken Type Meclizine [Antivert] 25 mg PO TID PRN 01/04/17 08/17/18 2 Months Ago History ~05/27/17 glipiZIDE [Glucotrol] 5 mg PO BID 05/05/17 04/18/19 04/13/19 History 5 mg Carvedilol [Coreg] 25 mg PO BID #60 tablet 05/11/17 04/18/19 04/17/19 Rx 25 mg Clopidogrel [Plavix] 75 mg PO QDAY #30 tablet 05/11/17 04/18/19 04/17/19 Rx 75 mg Zolpidem [Ambien] 10 mg PO QHS #30 tablet 05/11/17 08/17/18 07/26/17 20:00 Rx Furosemide [Lasix TAB] 80 mg PO DAILY 08/17/18 04/18/19 04/17/19 History NIFEdipine [Nifedipine ER] 30 mg PO DAILY 08/17/18 04/18/19 Unknown History Sodium Bicarbonate 10 gm PO DAILY 08/17/18 08/17/18 Unknown History Apixaban [Eliquis] 2.5 mg PO BID #60 tablet 04/18/19 Unknown Rx Aspirin [Adult Aspirin] 81 mg PO DAILY 04/18/19 04/18/19 04/17/19 History Escitalopram [Lexapro] 10 mg PO DAILY 04/18/19 04/18/19 04/17/19 History Active Meds: Active Medications Acetaminophen (Tylenol) 650 mg PO Q4H PRN PRN Reason: Pain MILD(1-3)/Fever >100.5/BEJARANO Dextrose (D50w (25gm) Syringe) 50 ml IV Q30MIN PRN PRN Reason: Hypoglycemia Enoxaparin Sodium (Enoxaparin) 30 mg SUB-Q QDAY [facility] Ondansetron HCl (Zofran) 4 mg IV Q8H PRN PRN Reason: Nausea And Vomiting Sodium Chloride (Sodium Chloride Flush Syringe 10 Ml) 10 ml IV BID RAUDEL Sodium Chloride (Sodium Chloride Flush Syringe 10 Ml) 10 ml IV PRN PRN PRN Reason: LINE FLUSH Review of Systems Constitutional: no weight loss, no weight gain Cardiovascular: no chest pain, no orthopnea, no palpitations Respiratory: no cough, no cough with sputum Gastrointestinal: no abdominal pain, no nausea, no vomiting Genitourinary Male: no dysuria, no hematuria, no flank pain Musculoskeletal: no neck stiffness, no neck pain Integumentary: no deferred, no rash Neurological: no head injury, no transient paralysis Psychiatric: no anxiety, no memory loss Endocrine: no cold intolerance, no heat intolerance Hematologic/Lymphatic: no easy bruising, no easy bleeding Exam - Vital Signs Vital signs: Vital Signs Temp Pulse Resp BP Pulse Ox 97.7 F 60 16 196/88 100 06/15/19 08:55 06/15/19 08:55 06/15/19 08:55 06/15/19 08:55 06/15/19 08:55 - General Appearance General appearance: well-developed, well-nourished EENT: ATNC, PERRL Neck: Present: neck supple Respiratory: Clear to Ascultation, Decreased Breath Sounds Heart: regular, S1S2 Gastrointestinal: Present: normal, normoactive bowel sounds Integumentary: no rash Neurologic: alert and oriented x3, CN 3-12 intact Psychiatric: mood/affect appropriate Results - Lab Results 06/15/19 09:57 06/15/19 09:57 Most recent lab results Calcium 8.7 mg/dL (8.4-10.2) 06/15/19 09:57 Assessment and Plan - Patient Problems (1) Hyperkalemia Current Visit: Yes Status: Acute Plan to address problem: Hyperkalemia -will initiate dialysis. (2) Diabetes Current Visit: Yes Status: Chronic Qualifiers: Plan to address problem: Dm type II ensure medications Monitor fingerstick. (3) ESRD (end stage renal disease) on dialysis Current Visit: Yes Status: Chronic Plan to address problem: ESRD - continue HD - will initate HD - UF: 2L (4) HTN (hypertension) Current Visit: Yes Status: Chronic Qualifiers: Plan to address problem: HTN: uncontrolled emphasized compliance labetalol IV -resume oral medications.
[2019-06-15] MEDS: INSULIN LISPRO 100 UNIT/ML SUB-Q SCH (23:05)
[2019-06-16 05:23] LABS: Basophils % (Auto) 0.7 % (0.0-1.8); Eosinophils # (Auto) 0.5 K/mm3 (0.0-0.4); Eosinophils % (Auto) 5.7 % (0.0-4.3); Hematocrit 35.6 % (35.5-45.6); Hemoglobin 11.9 gm/dl (11.8-15.2); Lymphocytes # (Auto) 1.7 K/mm3 (1.2-5.4); Lymphocytes % (Auto) 20.4 % (13.4-35.0); Mean Corpuscular HGB Conc 33 % (32-34); Mean Corpuscular Volume 96 fl (84-94); Monocytes # (Auto) 0.6 K/mm3 (0.0-0.8); Monocytes % (Auto) 6.6 % (0.0-7.3); Platelet Count 209 K/mm3 (140-440); Red Blood Count 3.69 M/mm3 (3.65-5.03); Red Cell Distribution Width 14.8 % (13.2-15.2)
[2019-06-16 05:24] LABS: Basophils # (Auto) 0.1 K/mm3 (0.0-0.1)
[2019-06-16 05:41] LABS: Calcium 9.3 mg/dL (8.4-10.2)
[2019-06-16] MEDS: INSULIN LISPRO 100 UNIT/ML SUB-Q SCH (08:57)
[2019-06-16] MEDS ORDERED: ENOXAPARIN 30 MG/0.3 ML INJ SUB-Q SCH (10:00)
[2019-06-16] MEDS ORDERED: MECLIZINE 25 MG TAB PO PRN (10:01)
--- NOTE | 2019-06-16 11:23 | Discharge Summary ---
Providers - Providers Date of Admission: 06/15/19 10:35 Date of discharge: 06/16/19 Attending physician: SUNNY FALL 06/15/19 12:34 Consult to Physician [CONS] Routine Comment: Consulting Provider: ALEKSEY MUNIZ Physician Instructions: Reason For Exam: esrd Primary care physician: MELODIE GARCES Hospitalization Reason for admission: missed HD Condition: Serious Hospital course: 48 year old with medical history significant for HTN, DM type II , ESRd on hemodialysis admitted with complaints of elevated blood pressures , was sent from dialysis for same. BP was 190mmhg on arrival , Last HD was Tuesday. Patient Denied any fevers or chills, orthopnea or PND denies any lower extremity edema. The patient was admitted with diagnosis of accelerated hypertension and hyperkalemia. The patient was seen by nephrology in consultation. Patient was restarted on his blood pressure medication and blood pressure stabilized. Also, The patient received urgent hemodialysis shortly after admission with improved creatinine and hyperkalemia. Patient will be discharged home and is to follow-up with PCP and executive producer promos. Dedicated discharge time 32 minutes. Disposition: - TO HOME OR SELFCARE Time spent for discharge: 32 - Discharge Diagnoses (1) Hyperkalemia Status: Acute (2) Malignant hypertension Status: Acute Core Measure Documentation - Palliative Care Palliative Care/ Comfort Measures: Not Applicable - Core Measures Any of the following diagnoses?: none Exam - Constitutional Vitals: Temp Pulse Resp BP Pulse Ox 98.1 F 69 20 130/85 98 06/16/19 05:22 06/16/19 05:22 06/16/19 05:22 06/16/19 05:22 06/16/19 05:22 General appearance: Present: no acute distress, well-nourished - EENT Eyes: Present: PERRL ENT: hearing intact, clear oral mucosa - Neck Neck: Present: supple, normal ROM - Respiratory Respiratory effort: normal Respiratory: bilateral: CTA - Cardiovascular Heart Sounds: Present: S1 & S2. Absent: rub, click - Extremities Extremities: pulses symmetrical, No edema Peripheral Pulses: within normal limits - Abdominal General gastrointestinal: Present: soft, non-tender, non-distended, normal bowel sounds Male genitourinary: Present: normal - Integumentary Integumentary: Present: clear, warm, dry - Musculoskeletal Musculoskeletal: gait normal, strength equal bilaterally - Psychiatric Psychiatric: appropriate mood/affect, intact judgment & insight - Neurologic Neurologic: CNII-XII intact, moves all extremities Plan Activity: advance as tolerated Weight Bearing Status: Weight Bear as Tolerated Diet: renal
[2019-06-16 13:08] VITALS: BP 135/85
[2019-06-16] MEDS ORDERED: ZOLPIDEM 10 MG TAB PO SCH (22:00)
[2019-06-16] MEDS ORDERED: APIXABAN 2.5 MG TAB PO SCH (22:00)
[2019-06-16] MEDS ORDERED: carvediloL 25 MG TAB PO SCH (22:00)
[2019-06-16] MEDS ORDERED: glipiZIDE 5 MG TAB PO SCH (22:00)
[2019-06-17] MEDS ORDERED: NON-FORMULARY EACH (Furosemide [Lasix Tab] 80 MG) PO SCH (10:00)
[2019-06-17] MEDS ORDERED: FUROSEMIDE 40 MG TAB PO SCH (10:00)
[2019-06-17] MEDS ORDERED: NIFEdipine XL 30 MG TAB PO SCH (10:00)
[2019-06-17] MEDS ORDERED: SODIUM BICARBONATE 10 GM PO SCH (10:00)
[2019-06-17] MEDS ORDERED: ASPIRIN EC 81 MG TAB PO SCH (10:00)
[2019-06-17] MEDS ORDERED: ESCITALOPRAM 10 MG TAB PO SCH (10:00)
[2019-06-17] MEDS ORDERED: CLOPIDOGREL 75 MG TAB PO SCH (10:00)
== END 2019-06-16 14:09 | disposition home or self-care (01) ==
LOC: ED 08:49 → 3A 10:35
PROVIDERS: ADMIT Hospitalist; ATTEND Hospitalist
DX: I12.0 Hypertensive chronic kidney disease with stage 5 chronic kidney disease or end stage renal disease (principal); E11.22 Type 2 diabetes mellitus with diabetic chronic kidney disease; N18.6 End stage renal disease; D63.1 Anemia in chronic kidney disease; E87.5 Hyperkalemia; E78.5 Hyperlipidemia, unspecified; I25.2 Old myocardial infarction; J45.909 Unspecified asthma, uncomplicated; Z86.73 Personal history of transient ischemic attack (TIA), and cerebral infarction without residual deficits; Z95.5 Presence of coronary angioplasty implant and graft; Z99.2 Dependence on renal dialysis; Z79.01 Long term (current) use of anticoagulants; Z79.82 Long term (current) use of aspirin; Z79.4 Long term (current) use of insulin; Z79.02 Long term (current) use of antithrombotics/antiplatelets; Z79.899 Other long term (current) drug therapy; F41.9 Anxiety disorder, unspecified
CPT/HCPCS: 36415; 80048; 80074; 82962; 85025; 96372; 99284; G0378; J1650; G0257; J1815

== ENCOUNTER 2020-01-14 09:51 | Emergency (ER) | payer SELFPAY ==
[~2020-01-14 09:51] MED LIST changes: -ANCEF/STERILE WATER 2 GM/20 ML 2 GM/20 ML SYRINGE IV NR; +CALCIUM CHLORIDE 1,000 MG/10 ML SYRINGE IV ONE; +DEXTROSE 50% IN WATER (25GM) 50 ML SYRINGE IV ONE; +EPINEPHrine 1 MG/10 ML SYRINGE ONE; +SODIUM BICARB 8.4% 50 MEQ/50 ML SYRINGE IV ONE
--- NOTE | 2020-01-14 10:12 | Emergency Department Report ---
ED CPR HPI - General Stated Complaint: CARDIAC ARREST Time Seen by Provider: 01/14/20 10:05 - History of Present Illness Initial Comments: Patient is 49 years old male with history of end-stage renal disease on peritoneal dialysis, stroke, diabetes and hypertension. Patient brought to the emergency room via EMS from home in a full cardiac arrest, CPR in progress. EMS stated that initial call came at 9:11 AM however family informed EMS that patient was down since 9:01 AM. ACLS immediately initiated by EMS. Patient found to be in V. tach and V. fib and received 3 shocks and 3 epi. Patient also received bicarb. Blood glucose was 75. Patient rhythm change to PEA. Upon arrival to the ER, ACLS protocol continued. Patient immediately intubated by me using a glide scope. ET tube confirmed by direct visualization of the tube passing through the cord, good bilateral breath sounds and capnometry. A left EJ inserted by me for IV access. Assuming possibility of hyperkalemia, patient given calcium chloride, bicarb, D50 and insulin. Unfortunately patient remained in PEA and then change to asystole. Total resuscitation time with no return of circulation approximately 1 hour. Patient pronounced at 10 AM. For further information please refer to code sheets. Family informed. MD Complaint: collapsed during rest -: minute(s) (), hour(s) () Place: home Bystander CPR Performed: No Downtime Before ACLS Arrival (mins): 17 Initial Findings in the Field: no pulse, VTACH/VFIB ROSC in the Field: No Associated Injuries: No - Related Data Home Medications Medication Instructions Recorded Confirmed Last Taken Meclizine [Antivert] 25 mg PO TID PRN 01/04/17 06/16/19 06/14/19 glipiZIDE [Glucotrol] 5 mg PO BID 05/05/17 06/16/19 06/14/19 Furosemide [Lasix TAB] 80 mg PO DAILY 08/17/18 06/16/19 06/14/19 Aspirin [Adult Aspirin] 81 mg PO DAILY 04/18/19 06/16/19 06/14/19 Escitalopram [Lexapro] 10 mg PO DAILY 04/18/19 06/16/19 06/14/19 Previous Rx's Medication Instructions Recorded Last Taken Type Clopidogrel [Plavix] 75 mg PO QDAY #30 tablet 05/11/17 06/14/19 Rx Zolpidem [Ambien] 10 mg PO QHS #30 tablet 05/11/17 06/14/19 Rx carvediloL [Coreg] 25 mg PO BID #60 tablet 05/11/17 06/14/19 Rx Apixaban [Eliquis] 2.5 mg PO BID #60 tablet 04/18/19 06/14/19 Rx Furosemide [Lasix TAB] 80 mg PO QDAY tablet 06/16/19 Unknown Rx Allergies Allergy/AdvReac Type Severity Reaction Status Date / Time No Known Allergies Allergy Verified 03/21/17 10:06 ED Review of Systems ROS: Stated complaint: CARDIAC ARREST Other details as noted in HPI Comment: Unobtainable due to pts medical conditions ED Past Medical Hx - Past Medical History Hx Hypertension: Yes Hx CVA: Yes Hx Heart Attack/AMI: Yes Hx Congestive Heart Failure: No Hx Diabetes: Yes Hx Deep Vein Thrombosis: No Hx Pulmonary Embolism: No Hx GERD: No Hx Liver Disease: No Hx Renal Disease: Yes Hx Sickle Cell Disease: No Hx Arthritis: No Hx Headaches / Migraines: No Hx Seizures: No Hx Kidney Stones: No Hx Psychiatric Treatment: No Hx Asthma: Yes Hx COPD: No Hx Tuberculosis: No Hx Dementia: No Hx HIV: No - Surgical History Hx Coronary Stent: Yes Hx Open Heart Surgery: No Hx Pacemaker: No Hx Internal Defibrillator: No Additional Surgical History: L fistula. R chest permicath; knee - Social History Smoking Status: Never Smoker - Medications Home Medications: Home Medications Medication Instructions Recorded Confirmed Last Taken Type Meclizine [Antivert] 25 mg PO TID PRN 01/04/17 06/16/19 06/14/19 History glipiZIDE [Glucotrol] 5 mg PO BID 05/05/17 06/16/19 06/14/19 History Clopidogrel [Plavix] 75 mg PO QDAY #30 tablet 05/11/17 06/16/19 06/14/19 Rx Zolpidem [Ambien] 10 mg PO QHS #30 tablet 05/11/17 06/16/19 06/14/19 Rx carvediloL [Coreg] 25 mg PO BID #60 tablet 05/11/17 06/16/19 06/14/19 Rx Furosemide [Lasix TAB] 80 mg PO DAILY 08/17/18 06/16/19 06/14/19 History Apixaban [Eliquis] 2.5 mg PO BID #60 tablet 04/18/19 06/16/19 06/14/19 Rx Aspirin [Adult Aspirin] 81 mg PO DAILY 04/18/19 06/16/19 06/14/19 History Escitalopram [Lexapro] 10 mg PO DAILY 04/18/19 06/16/19 06/14/19 History Furosemide [Lasix TAB] 80 mg PO QDAY tablet 06/16/19 Unknown Rx ED Physical Exam - General General appearance: other (CPR in progress) - Head Head exam: Present: atraumatic, normal inspection - Eye Pupils: Present: other (4 mm, fixed and reactive.) - Respiratory Respiratory exam: Present: other (No spontaneous breath sounds.) - Cardiovascular Cardiovascular Exam: Present: other (No spontaneous heart tone.) - GI/Abdominal GI/Abdominal exam: Present: soft - Neurological Exam Neurological exam: Present: other (CPR in progress) - Skin Skin exam: Present: warm, dry Critical Care Time: Yes Critical care time in (mins) excluding proc time.: 30 Critical care attestation.: If time is entered above; I have spent that time in minutes in the direct care of this critically ill patient, excluding procedure time. ED Disposition Clinical Impression: Cardiopulmonary arrest Disposition: DC-20 Is pt being admited?: No Condition: Stable Referrals: EULOGIO NARANJO MD [Primary Care Provider] - 3-5 Days
== END 2020-01-14 12:20 ==
LOC: ED 09:51
DX: I46.9 Cardiac arrest, cause unspecified (principal); I12.0 Hypertensive chronic kidney disease with stage 5 chronic kidney disease or end stage renal disease; N18.6 End stage renal disease; E11.22 Type 2 diabetes mellitus with diabetic chronic kidney disease; J45.909 Unspecified asthma, uncomplicated; Z86.73 Personal history of transient ischemic attack (TIA), and cerebral infarction without residual deficits; Z99.2 Dependence on renal dialysis; Z79.899 Other long term (current) drug therapy; Z98.890 Other specified postprocedural states
CPT/HCPCS: 92950; 99291; J0171